=== PATIENT | female | born 1950 | race Caucasian/White ===

== ENCOUNTER 2022-05-24 15:45 | Inpatient (IN) ==
--- NOTE | 2022-05-24 15:55 | ED Triage Note ---
Date of Service May 24, 2022 History of Present Illness This patient was briefly evaluated while in triage. An abbreviated physical exam was performed. This patient is a 72-year-old Female with past medical history of MS and ?Heart valve issue (uncertain per son) who presents to the ED for evaluation of d ifficulty with balance, fall x6 times last week at home, and change in behavior. Pt. has had increased fatigue, been sleeping more.. Physical Exam VITALS: Vitals are noted on the nurse's note and reviewed by myself. GENERAL: This is a 72 year old white female, in no acute distress, nondiaphoretic, well-developed well-nourished. SKIN: Normal HEAD: Normocephalic atraumatic. NECK: No JVD. LUNGS: No retractions or accessory muscle use. MUSCULOSKELETAL: Pt. presents in wheelchair. Thoracic spine tenderness to palpation. NEURO: Patient was alert and oriented to person place and time. No focal neurological deficits. Initial orders for labs and / or imaging were placed and patient was placed in the waiting area until a bed is available. Please see further documentation for the full ED course.
[2022-05-24 17:17] LABS: Basophils # (auto) 0.03 K/uL (0-0.2); Basophils % (auto) 0.3 %; Eosinophils # (auto) 0.04 K/uL (0-0.50); Eosinophils % (auto) 0.4 %; Hematocrit (blood only) 38.3 % (34.1-44.9); Hemoglobin 12.7 g/dl (12.0-16.0); Immature Granulocytes # (auto) 0.04 K/uL (0.00-0.02); Immature Granulocytes % (auto) 0.4 %; Lymphocytes # (auto) 1.31 K/uL (1.2-3.4); Lymphocytes % (auto) 13.5 %; Mean Corpuscular Hemoglobin 32.3 pg (25.0-34.0); Mean Corpuscular Hgb Conc 33.2 g/dL (32.0-36.0); Mean Corpuscular Volume 97.5 fL (80.0-100.0); Mean Platelet Volume 10.1 fL (9.4-12.3); Monocytes # (auto) 0.84 K/uL (0.24-0.82); Monocytes % (auto) 8.7 %; Neutrophils # (auto) 7.42 K/uL (1.4-6.5); Neutrophils % (auto) 76.7 %; Platelet Count 388 K/uL (130-400); RDW Coefficient of Variation 15.6 % (11.5-14.5); RDW Standard Deviation 55.4 fL (36.4-46.3); Red Blood Count 3.93 M/uL (3.93-5.22); White Blood Count 9.68 K/ul (4.8-10.8)
[2022-05-24 17:24] LABS: Partial Thromboplastin Time 26.5 Seconds (21.0-31.0); Prothrombin Time 10.4 Seconds (9.0-12.0)
[2022-05-24 17:32] LABS: Alanine Aminotransferase 17 U/L (7-52); Albumin Globulin Ratio 1.2 (0.9-2); Albumin Level 3.7 gm/dl (3.4-5.0); Alkaline Phosphatase 99 U/L (34-104); Anion Gap 7 (3-11); Aspartate Aminotransferase 17 U/L (13-39); Bilirubin,Total 0.7 mg/dl (0.2-1.0); Blood Urea Nitrogen 9 mg/dl (6-23); Calcium 9.1 mg/dl (8.5-10.1); Carbon Dioxide 26 mmol/L (21-32); Chloride 107 mmol/L (98-107); Est GFR (African American) 99.4 ml/min; Est GFR (Non-African American) 85.8 ml/min; Globulin 3.2 gm/dl (2.5-4.0); Glucose 128 mg/dl (70-99(Fasting)); Magnesium 2.1 mg/dl (1.7-2.4); Potassium 3.5 mmol/L (3.5-5.1); Sodium 140 mmol/L (136-145); Total Protein 6.9 gm/dl (6.0-8.3)
[2022-05-24 17:38] LABS: Troponin I High Sensitivity 21.3 pg/ml (0-14)
[2022-05-24] MEDS ORDERED: SODIUM CHLORIDE 0.9% 1000ML 1,000 ML IV SCH (18:45)
--- NOTE | 2022-05-24 19:10 | XRay Report ---
XR chest 1V portable CLINICAL HISTORY: Stroke Like Symptoms. Evaluate cardiopulmonary status COMPARISON STUDY: No previous studies for comparison. TECHNIQUE: 1 view of the chest FINDINGS: Single frontal view of the chest demonstrates the cardiomediastinal silhouette to be within normal li mits. There is a decreased inspiratory effort with elevation of the hemidiaphragms and crowding of th e bronchovascular markings at the lung bases and centrally. The lungs are clear of alveolar opacities . There is no evidence for pleural effusion. There is no evidence for vascular congestion. There is n o acute osseous pathology. The patient is status post internal fixation of the right humerus. IMPRESSION: 1. There is a decreased inspiratory effort with otherwise no acute chest disease. ACT 112: Negative or not required by law. Electronically signed by: Gentry Delacruz M.D. 05/24/2022 7:08 PM
[2022-05-24] MEDS ORDERED: OPTIRAY 320 125ml IV ONE (19:34)
--- NOTE | 2022-05-24 19:46 | CT Scan Report ---
CT OF THE HEAD WITHOUT CONTRAST CLINICAL HISTORY: Stroke Like Symptoms COMPARISON STUDY: No previous studies for comparison. TECHNIQUE: Helical axial images of the head were obtained without IV contrast. Automated exposure con trol was utilized for the study. A dose lowering technique was utilized adhering to the principles o f ALARA. FINDINGS: No acute intracranial hemorrhage, midline shift or mass effect is present. Multiple white m atter hypodensities are present. The ventricular system is unremarkable. The basal cisterns are paten t. No extra-axial collections are present. There are no findings to suggest acute dural sinus thrombo sis or acute territorial infarct. No significant calvarial abnormalities are present. Visualized port ions of the sinuses and mastoid air cells are clear. IMPRESSION: 1. No acute intracranial findings. 2. Multiple white matter hypodensities. These could reflect small vessel disease or sites of demyelin ation. ACT 112: Negative or not required by law. Electronically signed by: Mick Diamond M.D. 05/24/2022 7:44 PM
--- NOTE | 2022-05-24 19:54 | Emergency Department Note ---
History of Present Illness General Chief complaint: Dizziness Stated complaint: DIZZY, UNABLE TO WALK. HAS MS Time Seen by Provider: 05/24/22 18:26 Source: patient and family Mode of arrival: wheelchair Limitations: no limitations History of Present Illness Provider complaint: Weakness, dizziness Onset (ago): week(s) 1 This is a 72-year-old female who presents the emergency department with concern for worsening dizziness and weakness over the course of the last week. Patient with significant past medical history including Parkinson's disease, seizures, and MS. patient was recently with her who was hospitalized in [facility]. Son came to help with them and brought his mom back to his place weekly when he noticed that she was much weaker than usual. She denies any recent change in medications. Son at bedside states that since her last doctor's appointment they have been slowly trying to wean down her propanolol, he has noticed since that time that her tremors have been worse. She denies fevers, chills, chest pain, trouble breathing. She denies any known sick contacts. Patient states she has fallen approximately half a dozen times over the last week due to her increased weakness. Son states she is typically able to walk using a rolling walker, but now cannot even stand. She states with several day episode she fell straight back striking her head. She denies LOC. Patient does not use any blood thinners. Son at bedside states she was recently treated for presumed urinary tract infection. A home health nurse was supposed to come to the house to collect a specimen for culture but this did not happen as she came to his house here. Pt seen during a time of high acuity and national emergency pandemic while wearing PPE. Home Medications Medication Instructions Recorded Confirmed Type glatiramer 40 mg/mL subcutaneous 0 mg subcut [id number] 05/24/22 05/24/22 History syringe (Copaxone) lamotrigine 200 mg tablet 200 mg PO BID 05/24/22 05/24/22 History levetiracetam 500 mg tablet 1,000 mg PO BID 05/24/22 05/24/22 History levothyroxine 112 mcg tablet 112 mcg PO QAM 05/24/22 05/24/22 History propranolol 20 mg tablet 10 mg PO BID 05/24/22 05/24/22 History topiramate 25 mg tablet 25 mg PO DAILY 05/24/22 05/24/22 History Allergies Allergy/AdvReac Type Severity Reaction Status Date / Time Penicillins Allergy Intermediate Hives Verified 05/24/22 19:18 Past Med/Surg History Medical History (Updated 05/25/22 @ 03:07 by Lin Dumont DO) Hypothyroid Multiple sclerosis Parkinson disease Seizure Surgical History (Updated 05/25/22 @ 02:42 by Yasmin Wade DO) History of carpal tunnel surgery History of thyroidectomy Family History (Updated 05/25/22 @ 02:42 by Yasmin Wade DO) Other Family history non-contributory Social History (Updated 05/25/22 @ 02:43 by Yasmin Wade DO) Smoking Status: Never smoker Hx Alcohol Use: No Hx Substance Use: No Feels Safe at Home: Yes Safety Concerns: Feels Safe At This Time Review of Systems A total of 10 systems reviewed and were otherwise negative All systems reviewed & are unremarkable except as noted in HPI & below Physical Exam Vital Signs Vital Signs - 24 hr 05/24/22 15:53 05/24/22 18:45 05/24/22 18:45 Temperature 36.4 C L Temperature Source Skin Pulse Rate 109 H Pulse Rate [Apical] 89 Pulse Rhythm Regular Pulse Strength Normal Respiratory Rate 18 18 Respiratory Effort / Characteristics Non-Labored Spontaneous Respiratory Depth Normal Respiratory Pattern Regular Blood Pressure 127/85 Blood Pressure [Right Arm] 145/93 H Blood Pressure Mean 99 Blood Pressure Mean [Right Arm] 110 Blood Pressure Position Sitting Pulse Oximetry 98 97 98 Oxygen Delivery Method Room Air Room Air Room Air Sepsis Recent Fever Within 48 Hours No Sepsis New/Unexplained Change in Mental Status No Sepsis Action Taken by Nursing No Action Required 05/24/22 20:00 05/24/22 22:00 Temperature Temperature Source Pulse Rate Pulse Rate [Apical] 78 67 Pulse Rhythm Pulse Strength Respiratory Rate 17 18 Respiratory Effort / Characteristics Non-Labored Respiratory Depth Normal Respiratory Pattern Blood Pressure Blood Pressure [Right Arm] 146/85 H 169/85 H Blood Pressure Mean Blood Pressure Mean [Right Arm] 105 113 Blood Pressure Position Pulse Oximetry 95 92 Oxygen Delivery Method Room Air Room Air Sepsis Recent Fever Within 48 Hours Sepsis New/Unexplained Change in Mental Status Sepsis Action Taken by Nursing GENERAL: alert, unwell appearing, well nourished, no distress, non-toxic EYE EXAM: normal conjunctiva, PERRL and EOM's grossly intact OROPHARYNX: no exudate, no erythema, lips, buccal mucosa, and tongue normal and mucous membranes are moist NECK: supple, no nuchal rigidity, no adenopathy, non-tender LUNGS: Clear to auscultation. Normal chest wall mechanics, no w/r/r HEART: no murmurs, S1 normal and S2 normal ABDOMEN: abdomen soft, non-tender, normo-active bowel sounds, no masses, no rebound or guarding. BACK: Back is symmetrical on inspection and there is no deformity, no midline tenderness, no CVA tenderness. SKIN: no rashes and no bruising UPPER EXTREMITIES: upper extremities are grossly normal. FROM, nml pulses b/l. LOWER EXTREMITIES: No pitting edema. FROM, nml pulses b/l. NEURO EXAM: Normal sensorium, cranial nerves II-XII grossly intact, normal speech, no gross weakness of arms, patient able to lift both legs off the bed and hold them however right lower extremity seems to fatigue more easily. Gross sensation intact. Course Administered Medications Lactated Ringer's (Lr) 1,000 mls @ 80 mls/hr IV .[id number] [facility] Stop: 05/25/22 13:55 Last Admin: 05/25/22 02:00 Dose: 80 mls/hr Documented By: HAYLEY Discontinued Medications Sodium Chloride (Nss 1000ml) 1,000 mls @ 125 mls/hr IV .Q8H KIMMY Stop: 06/23/22 18:44 Last Infusion: 05/25/22 01:00 Dose: 125 mls/hr Documented By: Admin: 05/24/22 19:45 Dose: 125 mls/hr Documented By: HAYLEY Ceftriaxone Sodium (Rocephin) 1,000 mg in 50 mls @ 100 mls/hr IV NOW STA Stop: 05/24/22 23:03 Last Infusion: 05/25/22 00:45 Dose: 0 mls/hr Documented By: Admin: 05/24/22 23:51 Dose: 100 mls/hr Documented By: HAYLEY Ioversol (Optiray 320 125ml) 120 ml IV ONCE ONE Stop: 05/24/22 19:35 Last Admin: 05/24/22 19:34 Dose: 120 ml Documented By: [facility] Medical Decision Making Differential Diagnosis Differential Diagnosis includes but is not limited to dehydration, stroke, anemia, hypoglycemia, hyponatremia, hypernatremia, urinary tract infection, pneu monia, bronchitis, sepsis, gastroenteritis, additional abdominal pathology, metabolic abnormalities and infections. Medical Records Attestation: I reviewed the patient's medical records. Home Medications Current Medication List: was personally reviewed by me Laboratory Data Attestation: I reviewed the patient's lab results. Result diagrams: 05/25/22 01:57 05/25/22 01:57 Lab Results 05/24/22 05/24/22 05/24/22 Range/Units 16:51 16:51 16:51 WBC 9.68 (4.8-10.8) K/ul RBC 3.93 (3.93-5.22) M/uL Hgb 12.7 (12.0-16.0) g/dl Hct 38.3 (34.1-44.9) % MCV 97.5 (80.0-100.0) fL MCH 32.3 (25.0-34.0) pg MCHC 33.2 (32.0-36.0) g/dL RDW Std Deviation 55.4 H (36.4-46.3) fL RDW Coeff of Jia 15.6 H (11.5-14.5) % Plt Count 388 (130-400) K/uL MPV 10.1 (9.4-12.3) fL Immature Gran % (Auto) 0.4 % Neut % (Auto) 76.7 % Lymph % (Auto) 13.5 % [place] % (Auto) 8.7 % Eos % (Auto) 0.4 % Baso % (Auto) 0.3 % Neut # (Auto) 7.42 H (1.4-6.5) K/uL Lymph # (Auto) 1.31 (1.2-3.4) K/uL [place] # (Auto) 0.84 H (0.24-0.82) K/uL Eos # (Auto) 0.04 (0-0.50) K/uL Baso # (Auto) 0.03 (0-0.2) K/uL Immature Gran # (Auto) 0.04 H (0.00-0.02) K/uL PT 10.4 (9.0-12.0) Seconds INR 1.0 (0.9-1.1) APTT 26.5 (21.0-31.0) Seconds PTT Ratio 1.0 Sodium (136-145) mmol/L Potassium (3.5-5.1) mmol/L Chloride (98-107) mmol/L Carbon Dioxide (21-32) mmol/L Anion Gap (3-11) BUN (6-23) mg/dl Creatinine (0.6-1.2) mg/dl Est Cr Clr Drug Dosing Est GFR ( Amer) ml/min Est GFR (Non-Af Amer) ml/min BUN/Creatinine Ratio (10-20) Glucose (70-99(Fasting)) mg/dl Calcium (8.5-10.1) mg/dl Magnesium (1.7-2.4) mg/dl Total Bilirubin (0.2-1.0) mg/dl AST (13-39) U/L ALT (7-52) U/L Alkaline Phosphatase (34-104) U/L Troponin I High Sens (0-14) pg/ml Total Protein (6.0-8.3) gm/dl Albumin (3.4-5.0) gm/dl Globulin (2.5-4.0) gm/dl Albumin/Globulin Ratio (0.9-2) TSH (0.300-4.500) uIu/ml Urine Color Urine Appearance (Clear) Urine pH (4.5-7.5) Ur Specific [place] (1.000-1.030) Urine Protein (Negative) Urine Glucose (UA) (Negative) Urine Ketones (Negative) Urine Blood (Negative) Urine Nitrite (Negative) Urine Bilirubin (Negative) Urine Urobilinogen (Negative) Ur Leukocyte Esterase (Negative) Urine WBC (Auto) (0-5) /hpf Urine RBC (Auto) (0-4) /hpf U Hyaline Cast (Auto) (0-5) /lpf U Epithel Cells (Auto) (0-5) /lpf Urine Bacteria (Auto) (Negative) Adenovirus (PCR) (NotDetected) B. pertussis DNA (PCR) (NotDetected) B.parapertussis DNA PCR (NotDetected) C. pneumoniae DNA (PCR) (NotDetected) Coronavirus OC43 (PCR) (NotDetected) Coronavirus HKU1 (PCR) (NotDetected) Coronavirus 229E (PCR) (NotDetected) SARS-CoV-2 (PCR) (NotDetected) Coronavirus NL63 (PCR) (NotDetected) Human Metapneumovir PCR (NotDetected) Influenza Type A (PCR) (NotDetected) Influenza Type B (PCR) (NotDetected) M. pneumoniae (PCR) (NotDetected) Parainfluenza 1 (PCR) (NotDetected) Parainfluenza 2 (PCR) (NotDetected) Parainfluenza 3 (PCR) (NotDetected) Parainfluenza 4 (PCR) (NotDetected) RSV (PCR) (NotDetected) Entero/Rhino (PCR) (NotDetected) Blood Type A Positive Antibody Screen NEGATIVE 05/24/22 05/24/22 05/24/22 Range/Units 16:51 16:52 19:47 WBC (4.8-10.8) K/ul RBC (3.93-5.22) M/uL Hgb (12.0-16.0) g/dl Hct (34.1-44.9) % MCV (80.0-100.0) fL MCH (25.0-34.0) pg MCHC (32.0-36.0) g/dL RDW Std Deviation (36.4-46.3) fL RDW Coeff of Jia (11.5-14.5) % Plt Count (130-400) K/uL MPV (9.4-12.3) fL Immature Gran % (Auto) % Neut % (Auto) % Lymph % (Auto) % [place] % (Auto) % Eos % (Auto) % Baso % (Auto) % Neut # (Auto) (1.4-6.5) K/uL Lymph # (Auto) (1.2-3.4) K/uL [place] # (Auto) (0.24-0.82) K/uL Eos # (Auto) (0-0.50) K/uL Baso # (Auto) (0-0.2) K/uL Immature Gran # (Auto) (0.00-0.02) K/uL PT (9.0-12.0) Seconds INR (0.9-1.1) APTT (21.0-31.0) Seconds PTT Ratio Sodium 140 (136-145) mmol/L Potassium 3.5 (3.5-5.1) mmol/L Chloride 107 (98-107) mmol/L Carbon Dioxide 26 (21-32) mmol/L Anion Gap 7 (3-11) BUN 9 (6-23) mg/dl Creatinine 0.69 (0.6-1.2) mg/dl Est Cr Clr Drug Dosing Not Reportable Est GFR ( Amer) 99.4 ml/min Est GFR (Non-Af Amer) 85.8 ml/min BUN/Creatinine Ratio 13.0 (10-20) Glucose 128 H (70-99(Fasting)) mg/dl Calcium 9.1 (8.5-10.1) mg/dl Magnesium 2.1 (1.7-2.4) mg/dl Total Bilirubin 0.7 (0.2-1.0) mg/dl AST 17 (13-39) U/L ALT 17 (7-52) U/L Alkaline Phosphatase 99 (34-104) U/L Troponin I High Sens 21.3 H (0-14) pg/ml Total Protein 6.9 (6.0-8.3) gm/dl Albumin 3.7 (3.4-5.0) gm/dl Globulin 3.2 (2.5-4.0) gm/dl Albumin/Globulin Ratio 1.2 (0.9-2) TSH 2.397 (0.300-4.500) uIu/ml Urine Color Urine Appearance (Clear) Urine pH (4.5-7.5) Ur Specific [place] (1.000-1.030) Urine Protein (Negative) Urine Glucose (UA) (Negative) Urine Ketones (Negative) Urine Blood (Negative) Urine Nitrite (Negative) Urine Bilirubin (Negative) Urine Urobilinogen (Negative) Ur Leukocyte Esterase (Negative) Urine WBC (Auto) (0-5) /hpf Urine RBC (Auto) (0-4) /hpf U Hyaline Cast (Auto) (0-5) /lpf U Epithel Cells (Auto) (0-5) /lpf Urine Bacteria (Auto) (Negative) Adenovirus (PCR) Not Detected (NotDetected) B. pertussis DNA (PCR) Not Detected (NotDetected) B.parapertussis DNA PCR Not Detected (NotDetected) C. pneumoniae DNA (PCR) Not Detected (NotDetected) Coronavirus OC43 (PCR) Not Detected (NotDetected) Coronavirus HKU1 (PCR) Not Detected (NotDetected) Coronavirus 229E (PCR) Not Detected (NotDetected) SARS-CoV-2 (PCR) Not Detected (NotDetected) Coronavirus NL63 (PCR) Not Detected (NotDetected) Human Metapneumovir PCR Not Detected (NotDetected) Influenza Type A (PCR) Not Detected (NotDetected) Influenza Type B (PCR) Not Detected (NotDetected) M. pneumoniae (PCR) Not Detected (NotDetected) Parainfluenza 1 (PCR) Not Detected (NotDetected) Parainfluenza 2 (PCR) Not Detected (NotDetected) Parainfluenza 3 (PCR) Not Detected (NotDetected) Parainfluenza 4 (PCR) Not Detected (NotDetected) RSV (PCR) Not Detected (NotDetected) Entero/Rhino (PCR) Not Detected (NotDetected) Blood Type Antibody Screen 05/24/22 Range/Units 22:10 WBC (4.8-10.8) K/ul RBC (3.93-5.22) M/uL Hgb (12.0-16.0) g/dl Hct (34.1-44.9) % MCV (80.0-100.0) fL MCH (25.0-34.0) pg MCHC (32.0-36.0) g/dL RDW Std Deviation (36.4-46.3) fL RDW Coeff of Jia (11.5-14.5) % Plt Count (130-400) K/uL MPV (9.4-12.3) fL Immature Gran % (Auto) % Neut % (Auto) % Lymph % (Auto) % [place] % (Auto) % Eos % (Auto) % Baso % (Auto) % Neut # (Auto) (1.4-6.5) K/uL Lymph # (Auto) (1.2-3.4) K/uL [place] # (Auto) (0.24-0.82) K/uL Eos # (Auto) (0-0.50) K/uL Baso # (Auto) (0-0.2) K/uL Immature Gran # (Auto) (0.00-0.02) K/uL PT (9.0-12.0) Seconds INR (0.9-1.1) APTT (21.0-31.0) Seconds PTT Ratio Sodium (136-145) mmol/L Potassium (3.5-5.1) mmol/L Chloride (98-107) mmol/L Carbon Dioxide (21-32) mmol/L Anion Gap (3-11) BUN (6-23) mg/dl Creatinine (0.6-1.2) mg/dl Est Cr Clr Drug Dosing Est GFR ( Amer) ml/min Est GFR (Non-Af Amer) ml/min BUN/Creatinine Ratio (10-20) Glucose (70-99(Fasting)) mg/dl Calcium (8.5-10.1) mg/dl Magnesium (1.7-2.4) mg/dl Total Bilirubin (0.2-1.0) mg/dl AST (13-39) U/L ALT (7-52) U/L Alkaline Phosphatase (34-104) U/L Troponin I High Sens (0-14) pg/ml Total Protein (6.0-8.3) gm/dl Albumin (3.4-5.0) gm/dl Globulin (2.5-4.0) gm/dl Albumin/Globulin Ratio (0.9-2) TSH (0.300-4.500) uIu/ml Urine Color Dark Yellow Urine Appearance Clear (Clear) Urine pH 6.5 (4.5-7.5) Ur Specific [place] 1.021 (1.000-1.030) Urine Protein Negative (Negative) Urine Glucose (UA) Negative (Negative) Urine Ketones Negative (Negative) Urine Blood Negative (Negative) Urine Nitrite Positive A (Negative) Urine Bilirubin 1+ H (Negative) Urine Urobilinogen Negative (Negative) Ur Leukocyte Esterase Trace H (Negative) Urine WBC (Auto) 1-5 (0-5) /hpf Urine RBC (Auto) 0-4 (0-4) /hpf U Hyaline Cast (Auto) 1-5 (0-5) /lpf U Epithel Cells (Auto) 5-10 H (0-5) /lpf Urine Bacteria (Auto) Negative (Negative) Adenovirus (PCR) (NotDetected) B. pertussis DNA (PCR) (NotDetected) B.parapertussis DNA PCR (NotDetected) C. pneumoniae DNA (PCR) (NotDetected) Coronavirus OC43 (PCR) (NotDetected) Coronavirus HKU1 (PCR) (NotDetected) Coronavirus 229E (PCR) (NotDetected) SARS-CoV-2 (PCR) (NotDetected) Coronavirus NL63 (PCR) (NotDetected) Human Metapneumovir PCR (NotDetected) Influenza Type A (PCR) (NotDetected) Influenza Type B (PCR) (NotDetected) M. pneumoniae (PCR) (NotDetected) Parainfluenza 1 (PCR) (NotDetected) Parainfluenza 2 (PCR) (NotDetected) Parainfluenza 3 (PCR) (NotDetected) Parainfluenza 4 (PCR) (NotDetected) RSV (PCR) (NotDetected) Entero/Rhino (PCR) (NotDetected) Blood Type Antibody Screen Imaging Data Radiologist's Impression: Cervical Spine CT 05/24/22 15:55 CT OF THE CERVICAL SPINE WITHOUT CONTRAST CLINICAL HISTORY: Multiple falls, pain COMPARISON STUDY: No previous studies for comparison. TECHNIQUE: Helical axial images of the cervical spine were obtained without IV contrast. Sagittal and coronal reconstructions were viewed. Automated exposure control was utilized for the study. A dose lowering technique was utilized adhering to the principles of ALARA. FINDINGS: Alignment of the cervical spine is anatomic. Vertebral body heights are maintained. No acute cervical spine fracture or subluxation is present. There is no prevertebral edema. Facet joints are intact. Please note that the CTA of the neck will be reported separately. Multiple thoracic spine compression deformities are better depicted on the thoracic spine CT which will be reported separately. Moderate multilevel facet arthrosis and mild multilevel degenerative disc disease is present. IMPRESSION: 1. No acute cervical spine fracture or subluxation. 2. Multiple thoracic spine compression deformities which are better depicted on the thoracic spine CT. This will be reported separately. ACT 112: Negative or not required by law. Electronically signed by: Mick Diamond M.D. 05/24/2022 7:58 PM Chest X-Ray 05/24/22 15:55 XR chest 1V portable CLINICAL HISTORY: Stroke Like Symptoms. Evaluate cardiopulmonary status COMPARISON STUDY: No previous studies for comparison. TECHNIQUE: 1 view of the chest FINDINGS: Single frontal view of the chest demonstrates the cardiomediastinal silhouette to be within normal limits. There is a decreased inspiratory effort with elevation of the hemidiaphragms and crowding of the bronchovascular markings at the lung bases and centrally. The lungs are clear of alveolar opacities. There is no evidence for pleural effusion. There is no evidence for vascular congestion. There is no acute osseous pathology. The patient is status post internal fixation of the right humerus. IMPRESSION: 1. There is a decreased inspiratory effort with otherwise no acute chest disease. ACT 112: Negative or not required by law. Electronically signed by: Gentry Delacruz M.D. 05/24/2022 7:[address] 05/24/22 15:55 CT OF THE HEAD WITHOUT CONTRAST CLINICAL HISTORY: Stroke Like Symptoms COMPARISON STUDY: No previous studies for comparison. TECHNIQUE: Helical axial images of the head were obtained without IV contrast. Automated exposure control was utilized for the study. A dose lowering technique was utilized adhering to the principles of ALARA. FINDINGS: No acute intracranial hemorrhage, midline shift or mass effect is present. Multiple white matter hypodensities are present. The ventricular system is unremarkable. The basal cisterns are patent. No extra-axial collections are present. There are no findings to suggest acute dural sinus thrombosis or acute territorial infarct. No significant calvarial abnormalities are present. Visualized portions of the sinuses and mastoid air cells are clear. IMPRESSION: 1. No acute intracranial findings. 2. Multiple white matter hypodensities. These could reflect small vessel disease or sites of demyelination. ACT 112: Negative or not required by law. Electronically signed by: Mick Diamond M.D. 05/24/2022 7:44 PM Head CTA 05/24/22 15:55 CTA ANGIOGRAPHY OF THE HEAD CLINICAL HISTORY: Stroke Like Symptoms COMPARISON STUDY: No previous studies for comparison. TECHNIQUE: Helical axial images of the head were obtained following uneventful intravenous administration of 120 cc of Optiray. Sagittal and coronal reconstructions were viewed as well as maximal intensity projections on an independent 3-D workstation. Automated exposure control was utilized for the study. A dose lowering technique was utilized adhering to the principles of ALARA. CT DOSE: 2581.33 mGy.cm FINDINGS: Please note that the head CT will be reported separately. The bilateral M1, M2, A1 and A2 segments are patent. No central vessel occlusion is present. There is no intracranial aneurysm. Posterior circulation is intact. Left vertebral artery is dominant. There is persistence of the right posterior cerebral artery. No dissection within the intracranial vessels is present. White matter hypodensities are better depicted on the head CT. Major dural sinuses appear grossly patent. IMPRESSION: No intracranial aneurysm. No central vessel occlusion. ACT 112: Negative or not required by law. Electronically signed by: Mick Diamond M.D. 05/24/2022 8:[address] 05/24/22 15:55 CT OF THE LUMBAR SPINE CLINICAL HISTORY: Low back pain, multiple falls COMPARISON STUDY: No previous studies for comparison. TECHNIQUE: Helical axial images of the lumbar spine were obtained. Sagittal and coronal reconstructions were viewed. Automated exposure control was utilized for the study. A dose lowering technique was utilized adhering to the principles of ALARA. FINDINGS: For purposes of numbering on this exam, the L5-S1 disc space is assigned to axial image 244 of 308. There is mild leftward curvature of the l umbar spine. A moderate L3 compression fracture is likely old. Acute to subacute nondisplaced fracture of the left transverse process of L3 is present. There is mild loss of height of the inferior endplate of L2. Moderate multilevel facet arthrosis is noted. There is also moderate multilevel degenerative disc disease. Sacroiliac joints are intact. Central canal and neural foramen are suboptimally assessed by CT. A cystic masslike density within the pelvis and lower abdomen is partially imaged on this examination. This could simply represent the bladder. IMPRESSION: 1. Acute to subacute nondisplaced fracture of the left transverse process of L3. 2. Moderate L3 compression fracture, likely old. Mild loss of height of the inferior endplate of L2 which is also likely old. 3. Cystic mas-like density within the pelvis and lower abdomen which is partially imaged on this exam. This could simply represent a distended bladder however a pelvic mass could appear similar. A CT of the pelvis is recommended for further evaluation. ACT 112: Negative or not required by law. Electronically signed by: Mick Diamond M.D. 05/24/2022 8:10 PM Neck CTA 05/24/22 15:55 CT ANGIOGRAPHY OF THE NECK WITH CONTRAST CLINICAL HISTORY: Stroke Like Symptoms COMPARISON STUDY: No previous studies for comparison. Technique: CT angiography of the carotid and vertebral arteries was obtained using Optiray and 3D reconstruction on an independent workstation. NASCET criteria was utilized. Automated exposure control was utilized for the study. A dose lowering technique was utilized adhering to the principles of ALARA. Findings: No acute cervical spine fracture is noted. Multiple thoracic spine compression deformities are better depicted on the thoracic spine CT which will be reported separately. Visualized portions of the lung apices are unremarkable. A 1.2 x 0.7 cm hyperdense focus overlying the right anterior aspect of the thyroid cartilage may reflect ectopic thyroid. The bilateral common carotid, cervical internal carotid and vertebral arteries are patent. There is mild plaque within the bilateral carotid bifurcations without stenosis. There is no dissection within the major vessels of the neck. No aneurysm is identified. There is no cervical lymphadenopathy. Tortuosity of the right common carotid artery is noted. IMPRESSION: No stenosis or dissection within the bilateral common carotid, cervical internal carotid or vertebral arteries. ACT 112: Negative or not required by law. Electronically signed by: Mick Diamond M.D. 05/24/2022 7:[address] 05/24/22 15:55 CT OF THE THORACIC SPINE CLINICAL HISTORY: Pain, multiple falls COMPARISON STUDY: No previous studies for comparison. TECHNIQUE: Helical axial images of the thoracic spine were obtained. Sagittal and coronal reconstructions were viewed. Automated exposure control was utilized for the study. A dose lowering technique was utilized adhering to the principles of ALARA. FINDINGS: Exaggerated kyphosis of the thoracic spine is noted. There are numerous thoracic spine compression fractures. Although age indeterminate, these are probably old. These include a severe T7 compression fracture with 90% loss of vertebral body height centrally. There is minimal retropulsion at this level. In addition, there are compression fractures of T1, T2, T3, T4, T5, T6, T10, T11 and T12. No definite acute thoracic spine fracture is noted. Central canal and neural foramen are suboptimally assessed by CT. There are multiple posterior left-sided rib fractures. No acute fractures are identified within visualized portions of the ribs. No pneumothorax within visualized portions of the chest. Multilevel degenerative changes within the thoracic spine are present. IMPRESSION: 1. Numerous thoracic spine compression fractures, as described above. Although age indeterminate, these are probably old. These include a severe T7 compression fracture. No significant retropulsion. 2. No definite acute thoracic spine fracture. ACT 112: Negative or not required by law. Electronically signed by: Mick Diamond M.D. 05/24/2022 8:05 PM ECG Data Attestation: I personally reviewed and interpreted this ECG as follows: Indication: + weakness Rate (beats per minute): 93 Rhythm: + normal sinus ECG Intervals/blocks: + Normal QRS and + Normal QT ECG [place]: + Normal ECG ST segments: + Nonspecific ST abnormalities Additional Comments: basleine artifact noted MDM Narrative An order was placed for continuous cardiac monitoring. The monitor shows a rate of _72_ with _normal sinus_ rhythm. This is a 72-year-old female presents emergency department due to worsening weakness, dizziness over the course of the week. Patient does have significant past medical history including MS, Parkinson's disease, and seizures. No recent change in medications. Patient was recently treated for an outpatient UTI with nitrofurantoin, no culture ever obtained and sent. Labs and imaging originally ordered by provider in triage has patient seen on a day of high volume and acuity. Patient had no focal deficits noted on exam, although some slightly asymmetric leg weakness was noted. No prior history of TIA/CVA. CTs of the patient's back had also been ordered due to complaints of back pain and recent trauma from frequent falls over the last week due to weakness. Patient initially resistant to straight catheterization for obtaining urine specimen. Eventually as patient was unable to urinate and help us obtain a clean-catch, a straight cath was performed and urine sent which did reveal UTI. I suspect patient's use of nitrofurantoin as an outpatient was suboptimal, and given no culture for comparison, may not have been the drug of choice. Patient given IV Rocephin here. No evidence of evolving bacteremia/sepsis. No evidence of VICENTE. I do not suspect ureterolithiasis or other obstructive uropathy. Discussed with hospitalist for additional evaluation and management. Impression & Plan Weakness, Multiple sclerosis, Parkinson disease, UTI (urinary tract infection) Discharge Plan Visit Data Chief Complaint: Dizziness Stated Complaint: DIZZY, UNABLE TO WALK. HAS MS ED Provider: Lin Dumont Discharge Problem: Weakness, Multiple sclerosis, Parkinson disease, UTI (urinary tract infection) Patient Disposition: Admitted As Inpatient Discharge Instructions Interventions: ED Discharge Assessment Last Done: 05/25/22 01:28
--- NOTE | 2022-05-24 19:55 | CT Scan Report ---
CT ANGIOGRAPHY OF THE NECK WITH CONTRAST CLINICAL HISTORY: Stroke Like Symptoms COMPARISON STUDY: No previous studies for comparison. Technique: CT angiography of the carotid and vertebral arteries was obtained using Optiray and 3D rec onstruction on an independent workstation. NASCET criteria was utilized. Automated exposure control was utilized for the study. A dose lowering technique was utilized adhering to the principles of ALA RA. Findings: No acute cervical spine fracture is noted. Multiple thoracic spine compression deformities are better depicted on the thoracic spine CT which will be reported separately. Visualized portions o f the lung apices are unremarkable. A 1.2 x 0.7 cm hyperdense focus overlying the right anterior aspe ct of the thyroid cartilage may reflect ectopic thyroid. The bilateral common carotid, cervical inter nal carotid and vertebral arteries are patent. There is mild plaque within the bilateral carotid bifu rcations without stenosis. There is no dissection within the major vessels of the neck. No aneurysm i s identified. There is no cervical lymphadenopathy. Tortuosity of the right common carotid artery is noted. IMPRESSION: No stenosis or dissection within the bilateral common carotid, cervical internal carotid or vertebral arteries. ACT 112: Negative or not required by law. Electronically signed by: Mick Diamond M.D. 05/24/2022 7:53 PM
--- NOTE | 2022-05-24 20:01 | CT Scan Report ---
CT OF THE CERVICAL SPINE WITHOUT CONTRAST CLINICAL HISTORY: Multiple falls, pain COMPARISON STUDY: No previous studies for comparison. TECHNIQUE: Helical axial images of the cervical spine were obtained without IV contrast. Sagittal a nd coronal reconstructions were viewed. Automated exposure control was utilized for the study. A do se lowering technique was utilized adhering to the principles of ALARA. FINDINGS: Alignment of the cervical spine is anatomic. Vertebral body heights are maintained. No acut e cervical spine fracture or subluxation is present. There is no prevertebral edema. Facet joints are intact. Please note that the CTA of the neck will be reported separately. Multiple thoracic spine c ompression deformities are better depicted on the thoracic spine CT which will be reported separately . Moderate multilevel facet arthrosis and mild multilevel degenerative disc disease is present. IMPRESSION: 1. No acute cervical spine fracture or subluxation. 2. Multiple thoracic spine compression deformities which are better depicted on the thoracic spine CT . This will be reported separately. ACT 112: Negative or not required by law. Electronically signed by: Mick Diamond M.D. 05/24/2022 7:58 PM
--- NOTE | 2022-05-24 20:01 | CT Scan Report ---
CTA ANGIOGRAPHY OF THE HEAD CLINICAL HISTORY: Stroke Like Symptoms COMPARISON STUDY: No previous studies for comparison. TECHNIQUE: Helical axial images of the head were obtained following uneventful intravenous administr ation of 120 cc of Optiray. Sagittal and coronal reconstructions were viewed as well as maximal inten sity projections on an independent 3-D workstation. Automated exposure control was utilized for the study. A dose lowering technique was utilized adhering to the principles of ALARA. CT DOSE: 2581.33 mGy.cm FINDINGS: Please note that the head CT will be reported separately. The bilateral M1, M2, A1 and A2 s egments are patent. No central vessel occlusion is present. There is no intracranial aneurysm. Faculty Support Coordinator ior circulation is intact. Left vertebral artery is dominant. There is persistence of the right posterior cerebral artery. No dissection within the intracranial vessels is present. White matter hy podensities are better depicted on the head CT. Major dural sinuses appear grossly patent. IMPRESSION: No intracranial aneurysm. No central vessel occlusion. ACT 112: Negative or not required by law. Electronically signed by: Mick Diamond M.D. 05/24/2022 8:00 PM
--- NOTE | 2022-05-24 20:07 | CT Scan Report ---
CT OF THE THORACIC SPINE CLINICAL HISTORY: Pain, multiple falls COMPARISON STUDY: No previous studies for comparison. TECHNIQUE: Helical axial images of the thoracic spine were obtained. Sagittal and coronal reconstru ctions were viewed. Automated exposure control was utilized for the study. A dose lowering techniqu e was utilized adhering to the principles of ALARA. FINDINGS: Exaggerated kyphosis of the thoracic spine is noted. There are numerous thoracic spine comp ression fractures. Although age indeterminate, these are probably old. These include a severe T7 comp ression fracture with 90% loss of vertebral body height centrally. There is minimal retropulsion at t his level. In addition, there are compression fractures of T1, T2, T3, T4, T5, T6, T10, T11 and T12. No definite acute thoracic spine fracture is noted. Central canal and neural foramen are suboptimally assessed by CT. There are multiple posterior left-sided rib fractures. No acute fractures are identi fied within visualized portions of the ribs. No pneumothorax within visualized portions of the chest. Multilevel degenerative changes within the thoracic spine are present. IMPRESSION: 1. Numerous thoracic spine compression fractures, as described above. Although age indeterminate, the se are probably old. These include a severe T7 compression fracture. No significant retropulsion. 2. No definite acute thoracic spine fracture. ACT 112: Negative or not required by law. Electronically signed by: Mick Diamond M.D. 05/24/2022 8:05 PM
--- NOTE | 2022-05-24 20:12 | CT Scan Report ---
CT OF THE LUMBAR SPINE CLINICAL HISTORY: Low back pain, multiple falls COMPARISON STUDY: No previous studies for comparison. TECHNIQUE: Helical axial images of the lumbar spine were obtained. Sagittal and coronal reconstruct ions were viewed. Automated exposure control was utilized for the study. A dose lowering technique was utilized adhering to the principles of ALARA. FINDINGS: For purposes of numbering on this exam, the L5-S1 disc space is assigned to axial image 244 of 308. There is mild leftward curvature of the lumbar spine. A moderate L3 compression fracture is likely old. Acute to subacute nondisplaced fracture of the left transverse process of L3 is present. There is mild loss of height of the inferior endplate of L2. Moderate multilevel facet arthrosis is n oted. There is also moderate multilevel degenerative disc disease. Sacroiliac joints are intact. Cent ral canal and neural foramen are suboptimally assessed by CT. A cystic masslike density within the pe lvis and lower abdomen is partially imaged on this examination. This could simply represent the bladd er. IMPRESSION: 1. Acute to subacute nondisplaced fracture of the left transverse process of L3. 2. Moderate L3 compression fracture, likely old. Mild loss of height of the inferior endplate of L2 w hich is also likely old. 3. Cystic mas-like density within the pelvis and lower abdomen which is partially imaged on this exam . This could simply represent a distended bladder however a pelvic mass could appear similar. A CT of the pelvis is recommended for further evaluation. ACT 112: Negative or not required by law. Electronically signed by: Mick Diamond M.D. 05/24/2022 8:10 PM
[2022-05-24 20:52] LABS: Adenovirus PCR Not Detected (NotDetected); Bordetella parapertussis PCR Not Detected (NotDetected); Bordetella pertussis PCR Not Detected (NotDetected); Chlamydia pneumoniae PCR Not Detected (NotDetected); Coronavirus 229E PCR Not Detected (NotDetected); Coronavirus CoV-2 (COVID19)PCR Not Detected (NotDetected); Coronavirus HKU1 PCR Not Detected (NotDetected); Coronavirus NL63 PCR Not Detected (NotDetected); Coronavirus OC43PCR Not Detected (NotDetected); Human Metapneumovirus PCR Not Detected (NotDetected); Influenza A PCR Not Detected (NotDetected); Influenza B PCR Not Detected (NotDetected); Mycoplasma pneumoniae PCR Not Detected (NotDetected); Parainfluenza Virus 1 PCR Not Detected (NotDetected); Parainfluenza Virus 2 PCR Not Detected (NotDetected); Parainfluenza Virus 3 PCR Not Detected (NotDetected); Parainfluenza Virus 4 PCR Not Detected (NotDetected); Respiratory Syncytial VirusPCR Not Detected (NotDetected); Rhinovirus/Enterovirus PCR Not Detected (NotDetected)
[2022-05-24 22:24] LABS: Appearance Urine Clear (Clear); Bacteria Urine Automated Negative (Negative); Blood Urine Negative (Negative); Color Urine Dark Yellow; Glucose Urine UA Negative (Negative); Ketones Urine Negative (Negative); Leukocyte Esterase Urine Trace (Negative); Nitrite Urine Positive (Negative); Protein Urine Negative (Negative); RBC Urine Automated 0-4 /hpf (0-4); Specific Gravity Urine 1.021 (1.000-1.030); Urobilinogen Urine Negative (Negative); pH Urine 6.5 (4.5-7.5)
[2022-05-24 22:26] LABS: Bilirubin Urine 1+ (Negative)
[2022-05-24] MEDS ORDERED: cefTRIAXone SODIUM 1,000 MG/50 ML BAG IV STA (22:34)
[2022-05-25] MEDS ORDERED: LACTATED RINGER'S 1,000 ML IV SCH (01:26)
[2022-05-25] MEDS ORDERED: ONDANSETRON INJ 2 MG/ML 2 ML VIAL IV PRN (01:26)
[2022-05-25] MEDS ORDERED: ACETAMINOPHEN 325 MG TAB PO PRN (01:26)
[2022-05-25 02:05] LABS: Basophils # (auto) 0.04 K/uL (0-0.2); Basophils % (auto) 0.4 %; Eosinophils # (auto) 0.11 K/uL (0-0.50); Eosinophils % (auto) 1.1 %; Hematocrit (blood only) 35.4 % (34.1-44.9); Hemoglobin 11.8 g/dl (12.0-16.0); Immature Granulocytes # (auto) 0.02 K/uL (0.00-0.02); Immature Granulocytes % (auto) 0.2 %; Lymphocytes # (auto) 1.67 K/uL (1.2-3.4); Lymphocytes % (auto) 17.4 %; Mean Corpuscular Hemoglobin 32.3 pg (25.0-34.0); Mean Corpuscular Hgb Conc 33.3 g/dL (32.0-36.0); Monocytes # (auto) 0.93 K/uL (0.24-0.82); Monocytes % (auto) 9.7 %; Neutrophils # (auto) 6.81 K/uL (1.4-6.5); Neutrophils % (auto) 71.2 %; Platelet Count 340 K/uL (130-400); RDW Coefficient of Variation 15.6 % (11.5-14.5); RDW Standard Deviation 55.8 fL (36.4-46.3); Red Blood Count 3.65 M/uL (3.93-5.22); White Blood Count 9.58 K/ul (4.8-10.8)
[2022-05-25 02:33] LABS: BUN Creatinine Ratio 12.9 (10-20); Calcium 8.6 mg/dl (8.5-10.1); Chol HDL Ratio 2.5 (0-5); Est GFR (Non-African American) 88.8 ml/min; Potassium 3.5 mmol/L (3.5-5.1)
--- NOTE | 2022-05-25 02:50 | History & Physical Report ---
Date of Service May 24, 2022 Assessment & Plan (1) Weakness: Plan: 72yo female with history of MS, PD and Seizure disorder presenting with 1 week of progressive weakness, ambulatory dysfunction and falls. ?MS flare in setting of UTI -Admit to medical -Check MRI brain -Neuro consultation appreciated -PT/OT evaluation -Request records from [facility] Neurology (2) UTI (urinary tract infection): Plan: UA suggestive of infection. Patient is afebrile, HD stable and non-toxic in appearance -Follow cultures -Ceftriaxone 1gm IV daily (3) Hypothyroid: Plan: Chronic. TSH WNL at 2.397 -Continue Synthroid (4) Parkinson disease: Plan: Chronic -Continue Propranolol -Records requested (5) Multiple sclerosis: Plan: Chronic -Patient receives glatiramer injections -Records requested (6) Seizure: Plan: Chronic -Continue Topamax, Keppra, Lamictal Admission and Anticipated Discharge Date Admission Date: May 24, 2022 History of Present Illness Chief Complaint: weakness Primary Care Provider: NO PCP Nicki Arevalo is a 72yo female with history of MS, Seizure disorder and Parkinson's disease. Patient is from [place], [place]. She is presently residing with her son as her is currently being hospitalized. She has been in [place] for approximately 1 week. She reports worsening weakness, poor balance and multiple falls over the last week. She is unable to walk or stand on her own and requires 2 people for transfers. She feels that her right leg is weaker than her left. Patient with relapsing-remitting MS. She uses a wheelchair at home. She follows with Neurology at [facility] - last seen appx 2 years ago. She thinks her last MRI was appx 1 year ago. Was recently treated with a course of Macrobid for a presumed UTI. She denies fever, chills, chest pain, cough, SOB, abdominal pain, nausea, vomiting, constipation. Denies dysuria or difficulty urinating. She reports softer BMs but not diarrhea. Allergies Allergy/AdvReac Type Severity Reaction Status Date / Time Penicillins Allergy Intermediate Hives Verified 05/24/22 19:18 Home Medications Medication Instructions Recorded Confirmed Type glatiramer 40 mg/mL subcutaneous 0 mg subcut 3XWK 05/24/22 05/24/22 History syringe (Copaxone) lamotrigine 200 mg tablet 200 mg PO BID 05/24/22 05/24/22 History levetiracetam 500 mg tablet 1,000 mg PO BID 05/24/22 05/24/22 History levothyroxine 112 mcg tablet 112 mcg PO QAM 05/24/22 05/24/22 History propranolol 20 mg tablet 10 mg PO BID 05/24/22 05/24/22 History topiramate 25 mg tablet 25 mg PO DAILY 05/24/22 05/24/22 History Past Med/Surg History Medical History (Updated 05/25/22 @ 02:44 by Yasmin Wade DO) Hypothyroid Multiple sclerosis Parkinson disease Seizure Surgical History (Updated 05/25/22 @ 02:42 by Yasmin Wade DO) History of carpal tunnel surgery History of thyroidectomy Family History (Updated 05/25/22 @ 02:42 by Yasmin Wade DO) Other Family history non-contributory Social History (Updated 05/25/22 @ 02:43 by Yasmin Wade DO) Smoking Status: Never smoker Hx Alcohol Use: No Hx Substance Use: No Feels Safe at Home: Yes Safety Concerns: Feels Safe At This Time Review of Systems Review of Systems: All systems reviewed & are unremarkable except as noted in HPI & below Physical Exam Physical Exam: General: patient resting comfortably, NAD, non-toxic in appearance, AA&O x 4 Skin: warm, dry, intact, no rashes or lesions HEENT: NC/AT, PERRL, EOMI, anicteric sclera, conjunctiva without injection, external ear normal to inspection and nontender, nares patent, moist mucus membranes, dentition intact, no oropharyngeal lesions, neck supple, trachea midline, no LAD, no thyromegaly, no JVD Heart: +S1/S2, regular, no m/r/g Lungs: equal air entry bilaterally, no rales/rhonchi/wheezes Abd: +BS, soft, NT/ND, no masses/organomegaly/ascites Ext: warm, 2+ pulses in UE/LE bilaterally, no clubbing/cyanosis or edema Neuro: +resting tremor, +rigidity of UE/LE, CN grossly intact, sensation to light touch intact in UE/LE bilaterally, some weakness of RLE Results & Data Results & Data ([facility]) Vital Signs (Past 12 Hours) Vital Signs Temp Pulse Pulse Resp BP BP Pulse Ox 05/25/22 01:42 70 18 144/80 H 98 05/25/22 00:00 71 19 147/89 H 94 05/24/22 22:00 67 18 169/85 H 92 05/24/22 20:00 78 17 146/85 H 95 05/24/22 18:45 89 18 145/93 H 98 05/24/22 18:45 97 05/24/22 15:53 36.4 C L 109 H 18 127/85 98 O2 Del Method 05/25/22 01:42 05/25/22 00:00 Room Air 05/24/22 22:00 Room Air 05/24/22 20:00 Room Air 05/24/22 18:45 Room Air 05/24/22 18:45 Room Air 05/24/22 15:53 Room Air Laboratory Results Laboratory Results WBC 9.58 K/ul (4.8-10.8) 05/25/22 01:57 RBC 3.65 M/uL (3.93-5.22) L 05/25/22 01:57 Hgb 11.8 g/dl (12.0-16.0) L 05/25/22 01:57 Hct 35.4 % (34.1-44.9) 05/25/22 01:57 MCV 97.0 fL (80.0-100.0) 05/25/22 01:57 MCH 32.3 pg (25.0-34.0) 05/25/22 01:57 MCHC 33.3 g/dL (32.0-36.0) 05/25/22 01:57 RDW Std Deviation 55.8 fL (36.4-46.3) H 05/25/22 01:57 RDW Coeff of Jia 15.6 % (11.5-14.5) H 05/25/22 01:57 Plt Count 340 K/uL (130-400) 05/25/22 01:57 MPV 10.0 fL (9.4-12.3) 05/25/22 01:57 Immature Gran % (Auto) 0.2 % 05/25/22 01:57 Neut % (Auto) 71.2 % 05/25/22 01:57 Lymph % (Auto) 17.4 % 05/25/22 01:57 [place] % (Auto) 9.7 % 05/25/22 01:57 Eos % (Auto) 1.1 % 05/25/22 01:57 Baso % (Auto) 0.4 % 05/25/22 01:57 Neut # (Auto) 6.81 K/uL (1.4-6.5) H 05/25/22 01:57 Lymph # (Auto) 1.67 K/uL (1.2-3.4) 05/25/22 01:57 [place] # (Auto) 0.93 K/uL (0.24-0.82) H 05/25/22 01:57 Eos # (Auto) 0.11 K/uL (0-0.50) 05/25/22 01:57 Baso # (Auto) 0.04 K/uL (0-0.2) 05/25/22 01:57 Immature Gran # (Auto) 0.02 K/uL (0.00-0.02) 05/25/22 01:57 PT 10.4 Seconds (9.0-12.0) 05/24/22 16:51 INR 1.0 (0.9-1.1) 05/24/22 16:51 APTT 26.5 Seconds (21.0-31.0) 05/24/22 16:51 PTT Ratio 1.0 05/24/22 16:51 Sodium 139 mmol/L (136-145) 05/25/22 01:57 Potassium 3.5 mmol/L (3.5-5.1) 05/25/22 01:57 Chloride 108 mmol/L (98-107) H 05/25/22 01:57 Carbon Dioxide 25 mmol/L (21-32) 05/25/22 01:57 Anion Gap 6 (3-11) 05/25/22 01:57 BUN 8 mg/dl (6-23) 05/25/22 01:57 Creatinine 0.62 mg/dl (0.6-1.2) 05/25/22 01:57 Est Cr Clr Drug Dosing 63.0 ml/min 05/25/22 01:57 Est GFR ( Amer) 103.0 ml/min 05/25/22 01:57 Est GFR (Non-Af Amer) 88.8 ml/min 05/25/22 01:57 BUN/Creatinine Ratio 12.9 (10-20) 05/25/22 01:57 Glucose 104 mg/dl (70-99(Fasting)) H 05/25/22 01:57 Calcium 8.6 mg/dl (8.5-10.1) 05/25/22 01:57 Magnesium 2.1 mg/dl (1.7-2.4) 05/24/22 16:51 Total Bilirubin 0.7 mg/dl (0.2-1.0) 05/24/22 16:51 AST 17 U/L (13-39) 05/24/22 16:51 ALT 17 U/L (7-52) 05/24/22 16:51 Alkaline Phosphatase 99 U/L (34-104) 05/24/22 16:51 Troponin I High Sens 25.9 pg/ml (0-14) H 05/25/22 01:57 Total Protein 6.9 gm/dl (6.0-8.3) 05/24/22 16:51 Albumin 3.7 gm/dl (3.4-5.0) 05/24/22 16:51 Globulin 3.2 gm/dl (2.5-4.0) 05/24/22 16:51 Albumin/Globulin Ratio 1.2 (0.9-2) 05/24/22 16:51 Triglycerides 60 mg/dl (0-150) 05/25/22 01:57 Cholesterol 174 mg/dl (0-200) 05/25/22 01:57 LDL Cholesterol, Calc 92 mg/dl 05/25/22 01:57 VLDL Cholesterol, Calc 12 mg/dl (0-30) 05/25/22 01:57 HDL Cholesterol 70 mg/dl 05/25/22 01:57 Cholesterol/HDL Ratio 2.5 (0-5) 05/25/22 01:57 TSH 2.397 uIu/ml (0.300-4.500) 05/24/22 16:52 Urine Color Dark Yellow 05/24/22 22:10 Urine Appearance Clear (Clear) 05/24/22 22:10 Urine pH 6.5 (4.5-7.5) 05/24/22 22:10 Ur Specific [place] 1.021 (1.000-1.030) 05/24/22 22:10 Urine Protein Negative (Negative) 05/24/22 22:10 Urine Glucose (UA) Negative (Negative) 05/24/22 22:10 Urine Ketones Negative (Negative) 05/24/22 22:10 Urine Blood Negative (Negative) 05/24/22 22:10 Urine Nitrite Positive (Negative) A 05/24/22 22:10 Urine Bilirubin 1+ (Negative) H 05/24/22 22:10 Urine Urobilinogen Negative (Negative) 05/24/22 22:10 Ur Leukocyte Esterase Trace (Negative) H 05/24/22 22:10 Urine WBC (Auto) 1-5 /hpf (0-5) 05/24/22 22:10 Urine RBC (Auto) 0-4 /hpf (0-4) 05/24/22 22:10 U Hyaline Cast (Auto) 1-5 /lpf (0-5) 05/24/22 22:10 U Epithel Cells (Auto) 5-10 /lpf (0-5) H 05/24/22 22:10 Urine Bacteria (Auto) Negative (Negative) 05/24/22 22:10 Adenovirus (PCR) Not Detected (NotDetected) 05/24/22 19:47 B. pertussis DNA (PCR) Not Detected (NotDetected) 05/24/22 19:47 B.parapertussis DNA PCR Not Detected (NotDetected) 05/24/22 19:47 C. pneumoniae DNA (PCR) Not Detected (NotDetected) 05/24/22 19:47 Coronavirus OC43 (PCR) Not Detected (NotDetected) 05/24/22 19:47 Coronavirus HKU1 (PCR) Not Detected (NotDetected) 05/24/22 19:47 Coronavirus 229E (PCR) Not Detected (NotDetected) 05/24/22 19:47 SARS-CoV-2 (PCR) Not Detected (NotDetected) 05/24/22 19:47 Coronavirus NL63 (PCR) Not Detected (NotDetected) 05/24/22 19:47 Human Metapneumovir PCR Not Detected (NotDetected) 05/24/22 19:47 Influenza Type A (PCR) Not Detected (NotDetected) 05/24/22 19:47 Influenza Type B (PCR) Not Detected (NotDetected) 05/24/22 19:47 M. pneumoniae (PCR) Not Detected (NotDetected) 05/24/22 19:47 Parainfluenza 1 (PCR) Not Detected (NotDetected) 05/24/22 19:47 Parainfluenza 2 (PCR) Not Detected (NotDetected) 05/24/22 19:47 Parainfluenza 3 (PCR) Not Detected (NotDetected) 05/24/22 19:47 Parainfluenza 4 (PCR) Not Detected (NotDetected) 05/24/22 19:47 RSV (PCR) Not Detected (NotDetected) 05/24/22 19:47 Entero/Rhino (PCR) Not Detected (NotDetected) 05/24/22 19:47 Blood Type A Positive 05/24/22 16:51 Antibody Screen NEGATIVE 05/24/22 16:[address] 05/24/22 15:55 CT OF THE CERVICAL SPINE WITHOUT CONTRAST CLINICAL HISTORY: Multiple falls, pain COMPARISON STUDY: No previous studies for comparison. TECHNIQUE: Helical axial images of the cervical spine were obtained without IV contrast. Sagittal and coronal reconstructions were viewed. Automated exposure control was utilized for the study. A dose lowering technique was utilized adhering to the principles of ALARA. FINDINGS: Alignment of the cervical spine is anatomic. Vertebral body heights are maintained. No acute cervical spine fracture or subluxation is present. There is no prevertebral edema. Facet joints are intact. Please note that the CTA of the neck will be reported separately. Multiple thoracic spine compression deformities are better depicted on the thoracic spine CT which will be reported separately. Moderate multilevel facet arthrosis and mild multilevel degenerative disc disease is present. IMPRESSION: 1. No acute cervical spine fracture or subluxation. 2. Multiple thoracic spine compression deformities which are better depicted on the thoracic spine CT. This will be reported separately. ACT 112: Negative or not required by law. Electronically signed by: Mick Diamond M.D. 05/24/2022 7:58 PM Chest X-Ray 05/24/22 15:55 XR chest 1V portable CLINICAL HISTORY: Stroke Like Symptoms. Evaluate cardiopulmonary status COMPARISON STUDY: No previous studies for comparison. TECHNIQUE: 1 view of the chest FINDINGS: Single frontal view of the chest demonstrates the cardiomediastinal silhouette to be within normal limits. There is a decreased inspiratory effort with elevation of the hemidiaphragms and crowding of the bronchovascular markings at the lung bases and centrally. The lungs are clear of alveolar opacities. There is no evidence for pleural effusion. There is no evidence for vascular congestion. There is no acute osseous pathology. The patient is status post internal fixation of the right humerus. IMPRESSION: 1. There is a decreased inspiratory effort with otherwise no acute chest disease. ACT 112: Negative or not required by law. Electronically signed by: Gentry Delacruz M.D. 05/24/2022 7:[address] 05/24/22 15:55 CT OF THE HEAD WITHOUT CONTRAST CLINICAL HISTORY: Stroke Like Symptoms COMPARISON STUDY: No previous studies for comparison. TECHNIQUE: Helical axial images of the head were obtained without IV contrast. Automated exposure control was utilized for the study. A dose lowering technique was utilized adhering to the principles of ALARA. FINDINGS: No acute intracranial hemorrhage, midline shift or mass effect is present. Multiple white matter hypodensities are present. The ventricular system is unremarkable. The basal cisterns are patent. No extra-axial collections are present. There are no findings to suggest acute dural sinus thrombosis or acute territorial infarct. No significant calvarial abnormalities are present. Visualized portions of the sinuses and mastoid air cells are clear. IMPRESSION: 1. No acute intracranial findings. 2. Multiple white matter hypodensities. These could reflect small vessel disease or sites of demyelination. ACT 112: Negative or not required by law. Electronically signed by: Mick Diamond M.D. 05/24/2022 7:44 PM Head CTA 05/24/22 15:55 CTA ANGIOGRAPHY OF THE HEAD CLINICAL HISTORY: Stroke Like Symptoms COMPARISON STUDY: No previous studies for comparison. TECHNIQUE: Helical axial images of the head were obtained following uneventful intravenous administration of 120 cc of Optiray. Sagittal and coronal reconstructions were viewed as well as maximal intensity projections on an independent 3-D workstation. Automated exposure control was utilized for the study. A dose lowering technique was utilized adhering to the principles of ALARA. CT DOSE: 2581.33 mGy.cm FINDINGS: Please note that the head CT will be reported separately. The bilateral M1, M2, A1 and A2 segments are patent. No central vessel occlusion is present. There is no intracranial aneurysm. Posterior circulation is intact. Left vertebral artery is dominant. There is persistence of the right posterior cerebral artery. No dissection within the intracranial vessels is present. White matter hypodensities are better depicted on the head CT. Major du ral sinuses appear grossly patent. IMPRESSION: No intracranial aneurysm. No central vessel occlusion. ACT 112: Negative or not required by law. Electronically signed by: Mick Diamond M.D. 05/24/2022 8:[address] 05/24/22 15:55 CT OF THE LUMBAR SPINE CLINICAL HISTORY: Low back pain, multiple falls COMPARISON STUDY: No previous studies for comparison. TECHNIQUE: Helical axial images of the lumbar spine were obtained. Sagittal and coronal reconstructions were viewed. Automated exposure control was utilized for the study. A dose lowering technique was utilized adhering to the principles of ALARA. FINDINGS: For purposes of numbering on this exam, the L5-S1 disc space is assigned to axial image 244 of 308. There is mild leftward curvature of the lumbar spine. A moderate L3 compression fracture is likely old. Acute to subacute nondisplaced fracture of the left transverse process of L3 is present. There is mild loss of height of the inferior endplate of L2. Moderate multilevel facet arthrosis is noted. There is also moderate multilevel degenerative disc disease. Sacroiliac joints are intact. Central canal and neural foramen are suboptimally assessed by CT. A cystic masslike density within the pelvis and lower abdomen is partially imaged on this examination. This could simply represent the bladder. IMPRESSION: 1. Acute to subacute nondisplaced fracture of the left transverse process of L3. 2. Moderate L3 compression fracture, likely old. Mild loss of height of the inferior endplate of L2 which is also likely old. 3. Cystic mas-like density within the pelvis and lower abdomen which is partially imaged on this exam. This could simply represent a distended bladder however a pelvic mass could appear similar. A CT of the pelvis is recommended for further evaluation. ACT 112: Negative or not required by law. Electronically signed by: Mick Diamond M.D. 05/24/2022 8:10 PM Neck CTA 05/24/22 15:55 CT ANGIOGRAPHY OF THE NECK WITH CONTRAST CLINICAL HISTORY: Stroke Like Symptoms COMPARISON STUDY: No previous studies for comparison. Technique: CT angiography of the carotid and vertebral arteries was obtained using Optiray and 3D reconstruction on an independent workstation. NASCET criteria was utilized. Automated exposure control was utilized for the study. A dose lowering technique was utilized adhering to the principles of ALARA. Findings: No acute cervical spine fracture is noted. Multiple thoracic spine compression deformities are better depicted on the thoracic spine CT which will be reported separately. Visualized portions of the lung apices are unremarkable. A 1.2 x 0.7 cm hyperdense focus overlying the right anterior aspect of the thyroid cartilage may reflect ectopic thyroid. The bilateral common carotid, cervical internal carotid and vertebral arteries are patent. There is mild plaque within the bilateral carotid bifurcations without stenosis. There is no dissection within the major vessels of the neck. No aneurysm is identified. There is no cervical lymphadenopathy. Tortuosity of the right common carotid artery is noted. IMPRESSION: No stenosis or dissection within the bilateral common carotid, cervical internal carotid or vertebral arteries. ACT 112: Negative or not required by law. Electronically signed by: Mick Diamond M.D. 05/24/2022 7:[address] 05/24/22 15:55 CT OF THE THORACIC SPINE CLINICAL HISTORY: Pain, multiple falls COMPARISON STUDY: No previous studies for comparison. TECHNIQUE: Helical axial images of the thoracic spine were obtained. Sagittal and coronal reconstructions were viewed. Automated exposure control was ut ilized for the study. A dose lowering technique was utilized adhering to the principles of ALARA. FINDINGS: Exaggerated kyphosis of the thoracic spine is noted. There are numerous thoracic spine compression fractures. Although age indeterminate, these are probably old. These include a severe T7 compression fracture with 90% loss of vertebral body height centrally. There is minimal retropulsion at this level. In addition, there are compression fractures of T1, T2, T3, T4, T5, T6, T10, T11 and T12. No definite acute thoracic spine fracture is noted. Central canal and neural foramen are suboptimally assessed by CT. There are multiple posterior left-sided rib fractures. No acute fractures are identified within visualized portions of the ribs. No pneumothorax within visualized portions of the chest. Multilevel degenerative changes within the thoracic spine are present. IMPRESSION: 1. Numerous thoracic spine compression fractures, as described above. Although age indeterminate, these are probably old. These include a severe T7 compression fracture. No significant retropulsion. 2. No definite acute thoracic spine fracture. ACT 112: Negative or not required by law. Electronically signed by: Mick Diamond M.D. 05/24/2022 8:05 PM PG Care Time/CCT Total # of Minutes Spent Total Time Spent with Patient: Total time spent is greater than 50% in coordination of care (as documented) at patient's floor/unit and/or counseling patient: Coding Level of Care Code INT OBSERVATION CARE 70M LVL 3 Diagnoses Weakness R53.1 UTI (urinary tract infection) N39.0 Hypothyroid E03.9 Parkinson disease G20 Multiple sclerosis G35 Seizure R56.9
[2022-05-25] MEDS ORDERED: GADOBUTROL 65ML VIAL IV ONE (06:11)
[2022-05-25] MEDS: LEVOTHYROXINE SODIUM 112 MCG TABLET PO SCH (06:34)
[2022-05-25 07:15] LABS: Estimated Average Glucose 120 mg/dl; Hemoglobin A1C 5.8 % (4.5-5.6)
--- NOTE | 2022-05-25 07:49 | Magnetic Resonance Report ---
MR brain MS wo/w con CLINICAL HISTORY: Right lower extremity weakness, h/o MS COMPARISON STUDY: Head CT and CTA of the head May 24, 2022. TECHNIQUE: Utilizing a 1.5 Effie magnet and dedicated coil, multiplanar, multiecho imaging of the bra in was performed pre and postcontrast administration according to the multiple sclerosis protocol. In travenous injection of 5 cc of Gadavist was uneventful. FINDINGS: This exam is mildly compromised by motion artifact although is diagnostic. There are no foc i of restricted diffusion to suggest acute infarct. No acute intracranial hemorrhage, midline shift o r mass effect is present. Basal cisterns are patent. There are no extra axial collections. Flow-voids for the major intracranial vessels are present. There is no intracranial mass or pathologic enhancem ent. There is no parenchymal enhancement to suggest active demyelination. Numerous white matter T2 hy perintense foci are noted. Multiple periventricular foci are noted. These favor previous sites of dem yelination given the clinical history. Superimposed small vessel disease is also likely present Santiago rial signal is within normal limits. No evidence for sinusitis. There is no mastoid fluid. Moderate a trophy is noted. IMPRESSION: 1. No acute intracranial findings. 2. Numerous white matter T2 hyperintense foci including periventricular foci which favor previous sit es of demyelination given the history of multiple sclerosis. No evidence for active demyelination. Fish spected superimposed small vessel disease. 3. No intracranial mass or pathologic enhancement. ACT 112: Negative or not required by law. Electronically signed by: Mick Diamond M.D. 05/25/2022 7:47 AM
[2022-05-25] MEDS: PROPRANOLOL HCL 10 MG TAB PO SCH ×2 (09:34→20:04)
[2022-05-25] MEDS: lamoTRIgine 100 MG TAB PO SCH ×2 (09:34→20:04)
[2022-05-25] MEDS: levETIRAcetam 500 MG TAB PO SCH ×2 (09:34→20:04)
[2022-05-25] MEDS: TOPIRAMATE 25 MG TAB PO SCH (09:34)
--- NOTE | 2022-05-25 09:51 | Neurology Consultation ---
Date of Consultation May 25, 2022 Assessment & Plan (1) Multiple sclerosis: (2) Seizure disorder: (3) Parkinsonism: Plan 72-year-old female with a history of multiple sclerosis, diagnosed about 8 years ago but with symptoms probably beginning at least 8 years prior to her diagnosi s. Patient initially had relapsing remitting MS but is likely now in a secondary progressive phase and is likely experiencing a pseudo relapse or exacerbation rather than a true MS relapse. She was treated for a urinary tract infection about 2 weeks ago at an outside hospital that was also associated with an exacerbation of her chronic MS symptomatology. She may have a UTI recurrence at this time and is currently on ceftriaxone. I note that she has not taken her Copaxone in at least the past week as she ran out of her medication and is waiting on a shipment. Nonetheless, stopping Copaxone does not significantly increase the risk for acute rebound disease. At this point, it would not be unreasonable to treat this patient for pseudo relapse or MS exacerbation with corticosteroids. I discussed potentially starting methylprednisolone, 1 g IV per day for the next 1 to 3 days, followed by an oral Medrol Dosepak taper. Duration of IV corticosteroids is flexible and would depend on her clinical response. However, patient would like to wait and see how she responds to antimicrobial treatment for her urinary tract infection. She would also like to wait and see how she does with PT/OT. If she is able to ambulate safely/independently with a walker it would not be unreasonable to hold off on corticosteroids. She would also like to discuss the use of corticosteroids further with her before committing to this treatment at this time. If patient's functional/ambulatory status does not significantly improve would consider obtaining additional spinal MRIs as well which may be useful to exclude acute myelopathy. Nonetheless, patient's neurological examination does not reveal myelopathic findings affecting the lower limbs. Her deep tendon reflexes are generally diminished, she is not spastic. She does have a chronic right foot drop as well as some chronic sensory loss. She does have a peripheral neuropathy as well which complicates her examination. Nonetheless, an acquired significant degenerative spinal stenosis, in addition to chronic spinal demyelination, may not be completely excluded at this time. This patient does have a history of seizure disorder beginning in childhood, this issue has been stable, she should continue with Lamictal 200 mg twice daily and Keppra 1000 mg twice daily. Anticonvulsant levels have been drawn although results will not likely be available until the end of the week and will not likely impact her management at this time. This patient also appears to have generalized parkinsonism characterized by bilateral upper extremity resting tremor, beginning on the right side about 8 years ago with subsequent generalization to the left. I note that she is not rigid or bradykinetic and her tremor has resting and action components. Her tremor also occurs in the context of multiple sclerosis. She either has idiopathic tremor predominant Parkinson's disease or parkinsonism related to multiple sclerosis. She has been on propranolol for her tremor which has been modestly helpful. The dosage was reduced recently given concerns over possible side effects or being on "too much medication." I do not object to continuing with propranolol at the current dosage. I see that she is also on a low-dose of topiramate which may also be useful for tremor. She may continue with this medication as well at the current dosage. Although I do not think it is necessary to address her tremor management at this time, I wonder if she would benefit from a trial of carbidopa levodopa. Patient can follow-up with her usual neurologist for ongoing management of her tremor in the outpatient setting. 1. Continue Copaxone 3 times per week (will need to have this medication brought in from home if she is to remain in the hospital.) 2. Continue Lamictal 200 mg twice daily and Keppra 1000 mg twice daily for seizure control. This issue has been stable. 3. Continue propranolol 10 mg twice daily and topiramate 25 mg daily for tremor. 4. Consider obtaining gadolinium enhanced MRI of the cervical, thoracic, and lumbar spine if patient's ambulation/functional status does not improve. 5. Consider treatment with IV methylprednisolone, 1 g/day for 1 to 3 days, followed by an oral Medrol Dosepak taper to address MS exacerbation/pseudo relapse. Again, patient is likely in a secondary progressive phase and her acute weakness occurs in the context of recent urinary tract infection and probable stress related to travel. She has also not used her Copaxone in at least the past week as her prescription ran out. Nonetheless, Copaxone is not known to cause acute rebound disease with cessation of treatment. History of Present Illness Reason for Consultation: MS, weakness Requesting Physician: Yasmin Wade DO Attending Physician: Fredi Vlilanueva MD History of Present Illness The patient is a 72-year-old female from out of [facility], she has been visiting local family for the past week. She has a history of multiple sclerosis that was diagnosed about 7 or 8 years ago at [facility], subsequently managed at the [facility]. Was started on Copaxone 3 times per week. Has not been on any other disease modifying therapy. Patient's diagnosis was confirmed with MRI and CSF analysis. She reports that she probably began having symptoms about 8 years prior to her diagnosis. Initial symptomatology was characterized by weakness or heaviness of the right leg and arm followed by remission and relapses eventually affecting the other side. She developed a resting and action tremor affecting the right side about 8 years ago, this too has secondarily generalized. She is not bradykinetic or rigid, however. She may have been told that she has either parkinsonism or Parkinson's disease previously although she does not recall ever being prescribed Sinemet. She recalls a previous trial of primidone for her tremor which resulted in excessive tiredness or fatigue, eventually followed by propranolol which has been modestly helpful. She does indicate that her propranolol dosage was recently reduced given concerns over being on "too much medication." She does think her tremor has increased slightly while on a reduced dosage of propranolol. She does report that she was hospitalized about 2 weeks ago at [facility] for treatment of a urinary tract infection that was further complicated by an exacerbation of her chronic MS symptomatology, particularly lower extremity weakness and associated ambulatory dysfunction. She has been relying on a walker intermittently for many years. She denies overt urinary incontinence or difficulty with bladder function but think she may have been told that she could have neurogenic bladder. She is not on any specific medication for this issue, however. Nonetheless, she has had difficulty with recurrent urinary tract infections which tend to exacerbate her chronic MS symptomatology. Of note, she has never had optic neuritis and specifically denies any history of painful vision loss or blindness to either eye. She does endorse a history of relapses and remissions early on in the context of her multiple sclerosis. However, she does not think she has had a true MS relapse in many years the patient also relays a history of peripheral neuropathy which goes back over 20 years, possibly beginning before she was diagnosed with breast cancer, subsequently treated with chemotherapy, radiation, and surgery. She reports chronic distal lower extremity numbness and tingling. Allergies Allergy/AdvReac Type Severity Reaction Status Date / Time Penicillins Allergy Intermediate Hives Verified 05/24/22 19:18 Home Medications Medication Instructions Recorded Confirmed Type glatiramer 40 mg/mL subcutaneous 0 mg subcut 3XWK 05/24/22 05/24/22 History syringe (Copaxone) lamotrigine 200 mg tablet 200 mg PO BID 05/24/22 05/24/22 History levetiracetam 500 mg tablet 1,000 mg PO BID 05/24/22 05/24/22 History levothyroxine 112 mcg tablet 112 mcg PO QAM 05/24/22 05/24/22 History propranolol 20 mg tablet 10 mg PO BID 05/24/22 05/24/22 History topiramate 25 mg tablet 25 mg PO DAILY 05/24/22 05/24/22 History Patient History Medical History (Updated 05/25/22 @ 09:25 by Martín Crooks MD) Hypothyroid Multiple sclerosis Parkinson disease Seizure Surgical History History of carpal tunnel surgery History of thyroidectomy Family History Other Family history non-contributory Social History Smoking Status: Never smoker Hx Alcohol Use: No Hx Substance Use: No Feels Safe at Home: Yes Safety Concerns: Feels Safe At This Time Review of Systems Constitutional: no fever and no fatigue Eyes: no blind spots, no diplopia and no eye pain Ear, Nose, Mouth, Throat: no ear pain and no hearing loss Respiratory: no cough and no dyspnea Cardiovascular: no chest pain and no palpitations Gastrointestinal: no nausea and no vomiting Genitourinary: + dysuria; no urinary incontinence Musculoskeletal: + stiffness; no back pain, no neck pain and no myalgia Integumentary: no rash and no lesions Neurologic: + gait abnormality, + localized weakness, + paresthesia and + tremor(s); no memory loss Psychiatric: no depression and no anxiety Hematologic / Lymphatic: no easy bleeding and no easy bruising Exam (Neuro) Constitutional: well developed and well nourished; no acute distress Eyes: normal visual bobo by confrontation, PERRL, normal accommodation and EOM intact bilaterally; no fundoscopic abnormality, no nystagmus and no papilledema Cardiovascular: Vessels: normal carotid upstroke; no carotid bruit Neurologic: Oriented to:: Person, Place and Time Memory: Short Term Intact and Remote Intact Attention: Span Intact and Concentration Intact Language: Naming Objects and Repeating Phrases Speech Fluency: negative Dysarthria Speech Aphasia: negative Aphasia Fund of Knowledge: Current Events, Past History and Vocabulary Cranial Nerves: Normal II (Visual bobo full to confrontation, visual acuity normal), III, IV, (Pupils equal round reactive to light and accommodation, eye movements normal), V (Facial sensation intact), VII (There is no facial droop or weakness), VIII (Hearing intact), IX, X (Palate elevates to midline), XI (Shoulder shrug intact) and XII (Tongue protrudes to midline) Motor Strength: Normal Upper Extremities; negative Normal Lower Extremities or Pronator Drift Motor Tone: Normal Lower Extremities and Normal Upper Extremities Rigidity: None Spasticity: None Muscle Bulk/Involuntary Movements: No Involuntary Movements, Rest Tremor (Arm) and Action Tremor; negative Muscle Atrophy or Head Tremor Sensation: negative Light Touch Intact, Pain/Temperature Intact, Vibration Intact or Proprioception Intact Coordination: Heel-Madsen Abnormal; negative Finger-Nose Abnormal Deep Tendon Reflexes: Rt Triceps: 2+, Lt Triceps: 2+, Rt Biceps: 2+, Lt Biceps: 2+, Rt Brachioradialis: 2+, Lt Brachioradialis: 2+, Rt Patellar: 1+, Lt Patellar: 1+, Rt Ankle: 1+ and Lt Ankle: 1+ Special Tests: negative Babinski Present Details: Gait could not be tested in the context of patient's current neurological status. She exhibits a fairly continuous bilateral upper extremity resting tremor although is not rigid or bradykinetic. She has a right foot drop and relatively diminished deep tendon reflexes for both lower limbs. Plantar responses are both silent. She has impairment of sensory function affecting both lower limbs, notably proprioceptive deficit. Results & Data ([facility]) Vital Signs (Past 12 Hours) Vital Signs Pulse Resp BP Pulse Ox O2 Del Method 05/25/22 06:37 106 H 20 165/90 H 95 Room Air 05/25/22 04:19 70 20 159/91 H 97 Room Air 05/25/22 03:05 81 22 148/86 H 95 Room Air 05/25/22 01:42 70 18 144/80 H 98 05/25/22 00:00 71 19 147/89 H 94 Room Air 05/24/22 22:00 67 18 169/85 H 92 Room Air Laboratory Results WBC 9.58, hemoglobin 11.8, hematocrit 35.4, MCV 97.0, platelet count 340, sodium 139, potassium 3.5, BUN 8, creatinine 0.62, glucose 104, hemoglobin A1c 5.8, calcium 8.6, magnesium 2.1, AST 17, ALT 17, high-sensitivity troponin 22.7, triglycerides 60, cholesterol 174, LDL 92, VLDL 12, HDL 70, TSH 2.397, urinalysis positive nitrite, 1+ bilirubin, trace leukocyte esterase, 5-10 epithelial cells, negative urine bacteria. Lamotrigine and levetiracetam levels were drawn and are pending. Diagnostic Findings Gadolinium-enhanced brain MRI completed, MS protocol. No active lesions or abnormal postcontrast enhancement. There are numerous white matter T2 hyperintense foci, periventricular and subcortical location consistent with patient stated history of multiple sclerosis. There is probable superimposed small vessel ischemic disease. I did independently review the images as well. No restricted diffusion. No blooming artifact. Thin sections through the temporal lobes also completed/seizure protocol, no mesial temporal sclerosis. Additional imaging including CT angiography of the head and neck and spinal CT is as described in the HPI. Patient also had a cervical spine CT completed which was negative for fracture or subluxation. Electrocardiogram revealed a normal sinus rhythm, 93 bpm. Coding Level of Care Code 93281 Initial Inpt Care Lvl 3 Diagnoses Multiple sclerosis G35 Seizure disorder G40.909 Parkinsonism G20
--- NOTE | 2022-05-25 10:46 | Hospitalist Progress Note ---
Date of Service May 25, 2022 Assessment & Plan (1) Weakness: Plan: 72yo female with history of MS, PD and Seizure disorder presenting with 1 week of progressive weakness, ambulatory dysfunction and falls. ?MS flare/pseudoflare 2/2 UTI Weakness, Hx of MS, Acute UTI Waiting on Copaxone Second flare in 2 weeks in the setting of UTI. Did discuss steroid course with patient, she would like to start this today. Reasonable. We will start Solu-Medrol 25 mg twice daily (1mpk total daily dose) with taper Spinal MRI/advanced to exclude myelopathy if not improving Chronic right foot drop, neuropathy in bilateral neuropathy -Copaxone 3 times a week if brought in by son -Lamictal 200 mg twice daily, Keppra 1 g twice daily for seizure control, no recent seizures -Propranolol 10 mg twice daily, Topamax 25 mg daily -Kishor enhanced MRI of C/T/L-spine if not improving Continue PT/OT, currently recommending rehab Generalized parkinsonism Bilateral upper resting tremor, started on right side and spread to left No rigidity, no bradykinesia, tremor at rest and with action Continue propanolol for symptoms Continue Topamax Outpatient follow-up for carbidopalevodopa trial and tremor follow-up (2) UTI (urinary tract infection): Plan: UA suggestive of infection. Afebrile, hemodynamically stable, nontoxic Urine culture pending -Ceftriaxone 1gm IV daily (3) Hypothyroid: Plan: Chronic. TSH WNL at 2.397 -Continue Synthroid (4) Parkinson disease: Plan: Chronic -Continue Propranolol -Records requested (5) Multiple sclerosis: Plan: Chronic -Patient receives glatiramer injections -Records requested (6) Seizure: Plan: Chronic -Continue Topamax, Keppra, Lamictal Admission and Anticipated Discharge Date Admission Date: May 24, 2022 Subjective Nicki seen at the bedside this morning, and in the afternoon on reassessment. Reports that she continues to feel globally weak, without focal weakness. She reports she feels extremely washed out/tired especially from the tests today. She feels like she may be having a MS flare, although does not note focal deficits at this time. When asked how PT went, patient is extremely tearful and reports "I am sorry, I know I can do better ". Reassurance provided that PT is to make an assessment to help patient get stronger. She reports that she has cataracts with some vision decline chronically, no focal vision changes. She feels she is much weaker in the legs bilaterally than normal, and both legs without asymmetry. Does endorse some intermittent neuropathy in her feet which is mild today. She reports her last MS flare requiring steroids was about 5 years ago, she reports she does feel weak like she did at that time. On morning assessment she reports that steroid had been discussed with her by neurology and she was considering this but wanted to talk to her and see how she felt throughout the day. On afternoon reassessment patient patient reports that she continues to feel very weak and washed out, and would like to try a course of steroids at this time. She denies chest pain, chest pressure, shortness of breath, difficulty breathing. Review of Systems Review of Systems: All systems reviewed & are unremarkable except as noted in Subjective Physical Exam Physical Exam: General: Appears fatigued, frail. Alert and oriented x3. Intermittently tearful during exam HEENT: Atraumatic, normocephalic. Pulm: CTAB A&P. -wheezes, -rales, -rhonchi. Symmetrical chest rise. No increase in work of breathing. No respiratory distress. Cardiac: RRR, -mrg. Radial pulses intact and symmetrical. Abdominal: Nontender, nondistended, soft. BS present. CRANIAL NERVES: II: Pupils equal and reactive, no relative afferent pupillary defect, no VF cuts III, IV, : EOM intact, no gaze preference or deviation, no nystagmus. V: normal sensation in V1, V2, and V3 segments bilaterally VII: no asymmetry, no nasolabial fold flattening VIII: normal hearing to speech IX, X: normal palatal elevation, no uvular deviation XI: 5/5 head turn and 5/5 shoulder shrug bilaterally XII: midline tongue protrusion Tremor in bilateral upper extremities at both rest and with intention is present. No cogwheeling appreciated. Motor: Shoulder flexion/extension, elbow flexion/extension, department manager strength 4+/5 in upper extremities, hip flexion in bed intact against antigravity with some difficulty on the right than left. Ankle dorsiflexion/plantarflexion is intact in the left with poor sensory awareness., Ankle dorsiflexion impaired in the right Sensory: Sensation of soft touch intact but greatly diminished in lower extremities bilaterally. Results & Data Results & Data ([facility]) Vital Signs (Past 12 Hours) Vital Signs Pulse Resp BP Pulse Ox O2 Del Method 05/25/22 06:37 106 H 20 165/90 H 95 Room Air 05/25/22 04:19 70 20 159/91 H 97 Room Air 05/25/22 03:05 81 22 148/86 H 95 Room Air 05/25/22 01:42 70 18 144/80 H 98 05/25/22 00:00 71 19 147/89 H 94 Room Air PG Care Time/CCT Total # of Minutes Spent Total Time Spent with Patient: Total time spent is greater than 50% in coordination of care (as documented) at patient's floor/unit and/or counseling patient: Coding Level of Care Code 73701 Subseq Obs Care Lvl 2 Diagnoses Weakness R53.1 UTI (urinary tract infection) N39.0 Hypothyroid E03.9 Parkinson disease G20 Multiple sclerosis G35 Seizure R56.9
--- NOTE | 2022-05-25 14:37 | Electrocardiogram Report ---
Test Reason : Blood Pressure : / mmHG Vent. Rate : 093 BPM Atrial Rate : 093 BPM P-R Int : 132 ms QRS Dur : 062 ms QT Int : 344 ms P-R-T Axes : 043 -20 033 degrees QTc Int : 427 ms Poor data quality, interpretation may be adversely affected Normal sinus rhythm Moderate voltage criteria for LVH, may be normal variant Poor R wave progression, consider anterior IL vs. lead placement vs. LVH Abnormal ECG No previous ECGs available Confirmed by Diogenes Moon ([id number] on 05/25/2022 2:36:28 PM Referred By: REFERRED SELF Confirmed By:Diogenes Moon
[2022-05-25] MEDS ORDERED: MELATONIN 3 MG TAB PO PRN (16:26)
[2022-05-25] MEDS: methylPREDNISolone 25 MG in SYRINGE 0 ML IV SCH (20:04)
[2022-05-25] MEDS: cefTRIAXone SODIUM 1,000 MG in DEXTROSE 5% 50 ML IV SCH (22:31)
[2022-05-26] MEDS: LEVOTHYROXINE SODIUM 112 MCG TABLET PO SCH (06:13)
--- NOTE | 2022-05-26 07:59 | Hospitalist Progress Note ---
Date of Service May 26, 2022 Assessment & Plan (1) Weakness: Plan: 72yo female with history of MS, PD and Seizure disorder presenting with 1 week of progressive weakness, ambulatory dysfunction and falls. ?MS flare/pseudoflare 2/2 UTI Weakness, Hx of MS, Acute UTI Family to bring in Copaxone Second flare in 2 weeks in the setting of UTI. Solu-Medrol 125 mg twice daily (10mg/k total daily dose) with taper -neurology recommended MRI spinal chord to look for acute lesion, documented that pt wants to wait, if unable to walk and stand will prusue -MRI brain 05/25, multiple areas of demyleniation and some small vessel disease, neither appear acute Spinal MRI subacute L3 transverse process fracture, old L2,L3 compression fractures, old thoracic spine compression fractures, most severe at T7 - pain is controlled Chronic right foot drop, bilateral neuropathy -Copaxone 3 times a week if brought in by son -Lamictal 200 mg twice daily, Keppra 1 g twice daily for seizure control, no recent seizures -Propranolol 10 mg twice daily, Topamax 25 mg daily Continue PT/OT, currently recommending rehab Generalized parkinsonism Bilateral upper resting tremor, started on right side and spread to left No rigidity, no bradykinesia, tremor at rest and with action Continue propanolol for symptoms Continue Topamax Outpatient follow-up for carbidopalevodopa trial and tremor follow-up (2) UTI (urinary tract infection): Plan: UA suggestive of infection. imaging of lumbar MR suggests enlarged bladder vs mass, bladder scan of >2000ml on 05/26 will decompress and re image maybe by US or CT Afebrile, hemodynamically stable, nontoxic Urine culture pending -Ceftriaxone 1gm IV daily (3) Hypothyroid: Plan: Chronic. TSH WNL at 2.397 -Continue Synthroid (4) Parkinson disease: Plan: Chronic -Continue Propranolol -Records requested (5) Multiple sclerosis: Plan: Chronic -Patient receives glatiramer injections -Records requested (6) Seizure: Plan: Chronic -Continue Topamax, Keppra, Lamictal Admission and Anticipated Discharge Date Admission Date: May 24, 2022 Subjective pt feels better on steroids did have 2L urinary retention this am feels better after st cath, states has been previous intermittent issue for her when ill Review of Systems Review of Systems: Mild distress and fatigue no headache, no visual changes no speech or swallowing issues, does have slower speech no chest pain, pressure or palpitations no shortness of breath, cough or wheezes no abdominal pain, nausea or vomiting, diarrhea or constipation no dysuria, hematuria or frequency no focal joint pain or swelling no back pain, CVA tenderness or radicular pain no bruising, bleeding or rashes has upper and lower extremity weakness, and chronic tremor no complaints of anxiety or depression.. Physical Exam Physical Exam: The patient appeared chronically ill but stable Vital signs as documented. Lungs are clear to auscultation and appear unlabored Cardiac exam, Rhythm is regular.. No murmurs, rubs or gallops. Abdominal exam reveals normal bowel sounds, soft non tender, no masses Extremities are nonedematous and both pedal pulses are normal. Neurologic exam is alert and oriented, weakness to upper and lower extremities, some tremor, slow deliberate speech Skin is without bruises or rashes Psychologically is without concerns for anxiety or depression. Results & Data Results & Data ([facility]) Vital Signs (Past 12 Hours) Vital Signs Temp Pulse Resp BP Pulse Ox O2 Del Method 05/25/22 23:27 98.1 F 71 18 142/73 H 96 Room Air PG Care Time/CCT Total # of Minutes Spent Total Time Spent with Patient: Total time spent is greater than 50% in coordination of care (as documented) at patient's floor/unit and/or counseling patient: Coding Level of Care Code 14398 Subseq Hosp Care Lvl 2 Diagnoses Weakness R53.1 UTI (urinary tract infection) N39.0 Hypothyroid E03.9 Parkinson disease G20 Multiple sclerosis G35 Seizure R56.9
[2022-05-26] MEDS: methylPREDNISolone 25 MG in SYRINGE 0 ML IV SCH (08:41)
[2022-05-26] MEDS: levETIRAcetam 500 MG TAB PO SCH ×2 (08:41→20:47)
[2022-05-26] MEDS: TOPIRAMATE 25 MG TAB PO SCH (08:41)
[2022-05-26] MEDS: lamoTRIgine 100 MG TAB PO SCH ×2 (08:41→20:47)
[2022-05-26] MEDS: PROPRANOLOL HCL 10 MG TAB PO SCH ×2 (08:41→20:47)
[2022-05-26 09:07] LABS: Basophils # (auto) 0.02 K/uL (0-0.2); Basophils % (auto) 0.2 %; Eosinophils # (auto) 0.01 K/uL (0-0.50); Eosinophils % (auto) 0.1 %; Hematocrit (blood only) 38.3 % (34.1-44.9); Hemoglobin 12.7 g/dl (12.0-16.0); Immature Granulocytes # (auto) 0.04 K/uL (0.00-0.02); Immature Granulocytes % (auto) 0.4 %; Lymphocytes % (auto) 17.7 %; Mean Corpuscular Hemoglobin 32.6 pg (25.0-34.0); Mean Corpuscular Hgb Conc 33.2 g/dL (32.0-36.0); Mean Corpuscular Volume 98.5 fL (80.0-100.0); Mean Platelet Volume 10.4 fL (9.4-12.3); Monocytes # (auto) 0.92 K/uL (0.24-0.82); Monocytes % (auto) 10.2 %; Neutrophils # (auto) 6.45 K/uL (1.4-6.5); Neutrophils % (auto) 71.4 %; Platelet Count 398 K/uL (130-400); RDW Coefficient of Variation 15.6 % (11.5-14.5); RDW Standard Deviation 55.8 fL (36.4-46.3); Red Blood Count 3.89 M/uL (3.93-5.22); White Blood Count 9.04 K/ul (4.8-10.8)
[2022-05-26 09:31] LABS: BUN Creatinine Ratio 14.9 (10-20); Calcium 9.2 mg/dl (8.5-10.1); Creatinine Clr Calc Pharmacy 58.3 ml/min; Est GFR (African American) 100.4 ml/min; Est GFR (Non-African American) 86.6 ml/min; Potassium 3.4 mmol/L (3.5-5.1)
--- NOTE | 2022-05-26 10:11 | Neurology Progress Note ---
Date of Service May 26, 2022 Assessment & Plan (1) Weakness: (2) Multiple sclerosis: (3) Seizure disorder: (4) Parkinsonism: (5) Peripheral neuropathy: Plan Patient's lower extremity weakness appears to be modestly improved today although she has not been up out of bed yet. She continues to exhibit a bilateral upper extremity resting and action tremor. Her seizure disorder remained stable. I suspect patient's lower extremity weakness is related to a pseudo relapse or MS exacerbation and not a true relapse. She also has a chronic idiopathic peripheral neuropathy which contributes to her distal lower extremity weakness and sensory loss. Furthermore, she has multiple chronic spinal compression fractures throughout the thoracic and lumbar spine although some of these are age-indeterminate. There is an acute to subacute nondisplaced fracture of the left transverse process at L3. Would consider obtaining gadolinium enhanced MRI of the cervical, thoracic, and lumbar spine to further assess for acute myelopathy depending on patient's clinical status going forward. Again, she does seem modestly improved compared with yesterday. I would not be surprised if she has chronic spinal cord demyelination due to her multiple sclerosis. An acute focus of demyelination within the spinal cord is not clinically suspected, however. Required significant spinal stenosis may not be completely excluded. I discussed obtaining additional spinal MRIs with the patient this morning although she would rather hold off as she has been improving modestly. However, if she is unable to stand and ambulate with a walker independently I think it would be valuable to obtain this additional imaging. Also, patient is willing to proceed with additional treatment with Solu-Medrol. I see that she was given a relatively low dose of Solu-Medrol yesterday, only 25 mg IV. I would typically recommend a larger dosage. Conservatively, I think a dosage of 250 mg/day for the next 1 to 3 days would be reasonable, followed by a Medrol Dosepak taper. (We typically utilize a dosage of 1000 mg IV per day to treat acute MS relapse. However, this patient does not likely require such a large dosage as her presentation seems more consistent with pseudo relapse.) Admission and Anticipated Discharge Date Admission Date: May 24, 2022 Subjective Follow-up for weakness The patient reports modest improvement in her lower extremity weakness today. Continues to report mild to moderate distal lower extremity numbness and tingling. Denies incontinence, able to feel when her bladder is full. No saddle anesthesia. She has not been up out of bed, however. She continues to exhibit a mild to moderate generalized resting and action tremor. No seizures. Patient had an episode of nausea and vomiting yesterday which she potentially attributed to the small dose of Solu-Medrol she was administered. In discussing this issue further with the patient this morning, she does remark that she has had similar reactions to other medications including antibiotics in the past. She is willing to try Solu-Medrol again, however, at this time. Review of Systems Constitutional: no fever and no chills Eyes: no blind spots and no diplopia Genitourinary: no urinary incontinence Neurologic: as per Subjective / HPI, + gait abnormality, + paresthesia and + tremor(s) Results & Data ([facility]) Vital Signs (Past 12 Hours) Vital Signs Temp Pulse Pulse Resp BP Pulse Ox O2 Del Method 05/26/22 08:00 36.7 C 92 H 20 134/78 95 Room Air 05/25/22 23:27 36.7 C 71 18 142/73 H 96 Room Air Laboratory Results WBC 9.04, hemoglobin 12.7, hematocrit 38.3, MCV 98.5, platelet count 398, sodium 139, potassium 3.4, BUN 10, creatinine 0.67, glucose 114, calcium 9.2 Exam (Neuro) Constitutional: well developed and + frail appearing Neurologic: Oriented to:: Person, Place and Time Memory: Short Term Intact and Remote Intact Attention: Span Intact and Concentration Intact Speech Fluency: negative Dysarthria or Dysfluency Fund of Knowledge: Current Events, Past History and Vocabulary Cranial Nerves: Normal II, III, IV, and VII Motor Strength: Normal Lower Extremities and Normal Upper Extremities Muscle Bulk/Involuntary Movements: Rest Tremor (Arm) and Action Tremor Coding Level of Care Code 04762 Subseq Hosp Care Lvl 2 Diagnoses Weakness R53.1 Multiple sclerosis G35 Seizure disorder G40.909 Parkinsonism G20 Peripheral neuropathy G62.9
[2022-05-26] MEDS: methylPREDNISolone 125 MG in SYRINGE 0 ML IV SCH (20:47)
[2022-05-26] MEDS: cefTRIAXone SODIUM 1,000 MG in DEXTROSE 5% 50 ML IV SCH (20:58)
[2022-05-27] MEDS: LEVOTHYROXINE SODIUM 112 MCG TABLET PO SCH ×2 (05:58→06:04)
[2022-05-27] MEDS: TOPIRAMATE 25 MG TAB PO SCH (09:15)
[2022-05-27] MEDS: methylPREDNISolone 125 MG in SYRINGE 0 ML IV SCH ×2 (09:15→21:24)
[2022-05-27] MEDS: PROPRANOLOL HCL 10 MG TAB PO SCH ×2 (09:16→21:25)
[2022-05-27] MEDS: levETIRAcetam 500 MG TAB PO SCH ×2 (09:16→21:24)
[2022-05-27] MEDS: lamoTRIgine 100 MG TAB PO SCH ×2 (09:16→21:24)
[2022-05-27 09:41] LABS: Basophils # (auto) 0.01 K/uL (0-0.2); Basophils % (auto) 0.1 %; Hematocrit (blood only) 38.1 % (34.1-44.9); Hemoglobin 12.7 g/dl (12.0-16.0); Immature Granulocytes # (auto) 0.02 K/uL (0.00-0.02); Immature Granulocytes % (auto) 0.3 %; Lymphocytes # (auto) 1.26 K/uL (1.2-3.4); Lymphocytes % (auto) 16.5 %; Mean Corpuscular Hemoglobin 32.4 pg (25.0-34.0); Mean Corpuscular Hgb Conc 33.3 g/dL (32.0-36.0); Mean Corpuscular Volume 97.2 fL (80.0-100.0); Mean Platelet Volume 10.1 fL (9.4-12.3); Monocytes # (auto) 0.64 K/uL (0.24-0.82); Monocytes % (auto) 8.4 %; Neutrophils # (auto) 5.69 K/uL (1.4-6.5); Neutrophils % (auto) 74.7 %; Platelet Count 417 K/uL (130-400); RDW Coefficient of Variation 15.3 % (11.5-14.5); RDW Standard Deviation 54.4 fL (36.4-46.3); Red Blood Count 3.92 M/uL (3.93-5.22); White Blood Count 7.62 K/ul (4.8-10.8)
[2022-05-27 10:02] LABS: BUN Creatinine Ratio 21.1 (10-20); Calcium 9.1 mg/dl (8.5-10.1); Creatinine Clr Calc Pharmacy 68.5 ml/min; Est GFR (African American) 105.8 ml/min; Est GFR (Non-African American) 91.3 ml/min; Potassium 3.3 mmol/L (3.5-5.1)
[2022-05-27] MEDS ORDERED: POTASSIUM CHLORIDE CRTAB 20 MEQ TABCR PO STA (11:54)
[2022-05-27] MEDS ORDERED: OPTIRAY 320 100ml IV ONE (14:40)
--- NOTE | 2022-05-27 15:12 | CT Scan Report ---
CT abd pelvis oral and IV con CLINICAL HISTORY: Eval for bladder Mass COMPARISON STUDY: No previous studies for comparison. CT DOSE: 286.33 mGycm TECHNIQUE: Standard CT of the Abdomen and Pelvis was performed with IV contrast. A dose lowering deneen hnique was utilized adhering to the principles of ALARA. Contrast Volume: Optiray 320, 94 ml. The patient received oral contrast. FINDINGS: Lung base: The lung bases are clear. Minimal linear scarring is seen on the left. The heart is mildly enlarged. Abdominal cavity: There is no evidence for abdominal mass, adenopathy or ascites. Liver: There is homogeneous attenuation of the liver parenchyma. There is no evidence for enhancing m ass lesion. Spleen: The spleen is absent . Pancreas: There also appears to be resection of the distal body and tail of pancreas. There is homoge neous attenuation of the remaining pancreatic parenchyma. There is no evidence for mass lesion or per ipancreatic fluid collection. Gall Bladder: The gallbladder is contracted. Adrenal glands: The adrenal glands are normal in size and attenuation. There is no evidence for enhan cing mass lesion. Kidneys: There is homogeneous attenuation of the renal parenchyma bilaterally. There is no evidence f or renal calculus or hydronephrosis. There is no evidence for enhancing mass. Bowel: Oral contrast present within the stomach and throughout the small bowel. There is no oral cont rast within colon. The bowel loops are normally placed within the abdomen and pelvis without evidence for dilatation or obstruction. However, there is evidence for marked fecal impaction within the rect um and mild fecal stasis involving the transverse and right side of the colon. There is no evidence f or obstruction. There are no inflammatory changes present. There is no evidence for free air. Bladder: There is a Ignacio catheter present within the bladder. The bladder is decompressed and the pr esence or absence of a mass cannot be completely evaluated by this study. No IV contrast is seen with in the bladder. : There is no evidence for pelvic mass or adenopathy. There is no evidence for pelvic ascites. Vasculature: There is no evidence for aneurysmal dilatation of the abdominal aorta. Osseous structures: There is no acute osseous pathology. Degenerative changes are seen within the spi ne. IMPRESSION: 1. Ignacio catheter within the bladder which is decompressed. No gross bladder mass can be identified w ith no IV contrast seen within the bladder. 2. No evidence for hydronephrosis bilaterally. 3. Marked fecal impaction of the rectum with mild fecal stasis of the more proximal colon. No gross o bstruction. 4. 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 5. Additional nonacute findings are delineated above. ACT 112: Negative or not required by law. Electronically signed by: Gentry Delacruz M.D. 05/27/2022 3:11 PM
[2022-05-27] MEDS ORDERED: bisacodyL 10 MG SUPP PR STA (16:22)
--- NOTE | 2022-05-27 17:11 | Hospitalist Progress Note ---
Date of Service May 27, 2022 Assessment & Plan (1) Weakness: Plan: 72yo female with history of MS, PD and Seizure disorder presenting with 1 week of progressive weakness, ambulatory dysfunction and falls. ?MS flare/pseudoflare 2/2 UTI Weakness, Hx of MS, Acute UTI Copaxone if family supplies Second flare in 2 weeks in the setting of UTI. Solu-Medrol 125 mg twice daily total iv steorid for 3 days LD 05/28/22 with taper -neurology recommended MRI spinal chord to look for acute lesion, documented that pt wants to wait, if unable to walk and stand will prusue -MRI brain 05/25, multiple areas of demyleniation and some small vessel disease, neither appear acute Spinal MRI subacute L3 transverse process fracture, old L2,L3 compression fractures, old thoracic spine compression fractures, most severe at T7 - pain is controlled Chronic right foot drop, bilateral neuropathy -Copaxone 3 times a week if brought in by son -Lamictal 200 mg twice daily, Keppra 1 g twice daily for seizure control, no recent seizures -Propranolol 10 mg twice daily, Topamax 25 mg daily Continue PT/OT, currently recommending rehab Generalized parkinsonism Bilateral upper resting tremor, started on right side and spread to left No rigidity, no bradykinesia, tremor at rest and with action Continue propanolol for symptoms Continue Topamax Outpatient follow-up for carbidopalevodopa trial and tremor follow-up (2) UTI (urinary tract infection): Plan: UA suggestive of infection. imaging of lumbar MR suggests enlarged bladder vs mass, bladder scan of >2000ml on 05/2605/27/22 did decompress and re image by abdomen and pelvis CT does not show mass but shows constipation, suppoistory ordered Afebrile, hemodynamically stable, nontoxic Urine culture negative did complete 3 days of antibiotics (3) Hypothyroid: Plan: Chronic. TSH WNL at 2.397 -Continue Synthroid (4) Parkinson disease: Plan: Chronic -Continue Propranolol -Records requested (5) Multiple sclerosis: Plan: Chronic -Patient receives glatiramer injections -Records requested pt agrees to rehab placement (6) Seizure: Plan: Chronic -Continue Topamax, Keppra, Lamictal Admission and Anticipated Discharge Date Admission Date: May 27, 2022 Subjective pt feels better on steroids did have urinary retention that required a barragan cath feels better after cath, repeat imaging by CT scan does not show bladder mass or abnormality now decompressed has increased fecal load, pt ok with suppository Review of Systems Review of Systems: Mild distress and fatigue no headache, no visual changes no speech or swallowing issues, does have slower speech no chest pain, pressure or palpitations no shortness of breath, cough or wheezes no abdominal pain, nausea or vomiting, diarrhea or constipation no dysuria, hematuria or frequency no focal joint pain or swelling no back pain, CVA tenderness or radicular pain no bruising, bleeding or rashes has upper and lower extremity weakness, and chronic tremor no complaints of anxiety or depression.. Physical Exam Physical Exam: The patient appeared chronically ill but stable Vital signs as documented. Lungs are clear to auscultation and appear unlabored Cardiac exam, Rhythm is regular.. No murmurs, rubs or gallops. Abdominal exam reveals normal bowel sounds, soft non tender, no masses Extremities are nonedematous and both pedal pulses are normal. Neurologic exam is alert and oriented, weakness to upper and lower extremities, some tremor, slow deliberate speech Skin is without bruises or rashes Psychologically is without concerns for anxiety or depression. Results & Data Results & Data ([facility]) Vital Signs (Past 12 Hours) Vital Signs Temp Pulse Resp BP Pulse Ox O2 Del Method 05/27/22 15:13 98.1 F 78 16 151/80 H 95 Room Air 05/27/22 07:31 98.6 F 85 20 118/68 95 Room Air PG Care Time/CCT Total # of Minutes Spent Total Time Spent with Patient: Total time spent is greater than 50% in coordination of care (as documented) at patient's floor/unit and/or counseling patient: Coding Level of Care Code 80685 Subseq Hosp Care Lvl 2 Diagnoses Weakness R53.1 UTI (urinary tract infection) N39.0 Hypothyroid E03.9 Parkinson disease G20 Multiple sclerosis G35 Seizure R56.9
[2022-05-27] MEDS ORDERED: SENNOSIDES 8.8 MG/5 ML UDC PO ONE (21:00)
[2022-05-27] MEDS: POTASSIUM CHLORIDE CRTAB 20 MEQ TABCR PO SCH (21:24)
[2022-05-28 02:44] LABS: Lamictal(Lamotrigine) 22.9 mcg/mL (4.0-18.0); Levetiracetam Keppra 53.1 mcg/mL (6.0-46.0)
[2022-05-28] MEDS: LEVOTHYROXINE SODIUM 112 MCG TABLET PO SCH (09:02)
[2022-05-28] MEDS: methylPREDNISolone 125 MG in SYRINGE 0 ML IV SCH (09:07)
--- NOTE | 2022-05-28 09:34 | Neurology Progress Note ---
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 Patient is mildly encephalopathic this morning, probably multifactorial but in part potentially related to corticosteroids which are now on hold. Other than being a bit more lethargic this morning, patient's neurological examination is not significantly different compared with her previous evaluations. Patient's anticonvulsant levels are both mildly supratherapeutic. I would recommend reducing her dosage of Keppra to 750 mg twice daily. Continue with Lamictal 200 mg twice daily for the time being. Discontinue topiramate. Would recommend MRI of the cervical, thoracic, and lumbar spine with and without contrast. Patient refuses at this time, however. I agree with holding corticosteroids at this point in time. Admission and Anticipated Discharge Date Admission Date: May 27, 2022 Subjective Follow-up for weakness, multiple sclerosis, parkinsonism, peripheral neuropathy, seizure disorder Patient's weakness and overall degree of functional impairment has not significantly improved. She continues to report bilateral lower extremity weakness, right greater than left. She continues to exhibit a mixed resting postural and action tremor. She has not had any seizures. She has been receiving methylprednisolone although this medication was not given this morning per hospitalist request. Patient has been confused and agitated, refusing medications. She does not seem very interested in participating with my assessment of her this morning. She does answer some simple questions and will follow some simple commands. She denies any complaints such as headache, vision loss, back or spinal pain. Review of Systems Constitutional: no fever Eyes: no blind spots, no diplopia and no eye pain Neurologic: + localized weakness, + loss of sensation and + tremor(s); no headache(s) Results & Data ([facility]) Vital Signs (Past 12 Hours) Vital Signs Temp Pulse Resp BP Pulse Ox O2 Del Method 05/28/22 08:00 124/68 05/28/22 00:00 36.7 C 81 18 125/75 96 Room Air Laboratory Results Yesterday's labs reviewed. WBC 7.62, hemoglobin 12.7, hematocrit 38.1, MCV 97.2, platelet count 417, sodium 139, potassium 3.3, BUN 12, creatinine 0.57, glucose 117, calcium 9.1 Diagnostic Findings Brain MRI completed May 25 revealed changes consistent with patient's history of multiple sclerosis, no evidence for active demyelination, no abnormal postcontrast enhancement. CT angiography of the head and neck completed on May [address] of the cervical, thoracic, and lumbar spine had revealed multiple compression fractures of varying age, mostly chronic, a few subacute to possibly acute. No significant spinal canal compromise observed within the limits of CT technique. CT of the abdomen pelvis completed yesterday revealed Ignacio catheter within the bladder which is decompressed. No hydronephrosis. Marked fecal impaction. Patient's anticonvulsant levels from May 24 are available. Lamotrigine level 22.9, Keppra level 53.1. Exam (Neuro) Neurologic: Oriented to:: Person; negative Place or Time Attention: negative Span Intact Speech Fluency: negative Dysarthria or Dysfluency Fund of Knowledge: Vocabulary; negative Current Events Cranial Nerves: Normal II, III, IV, and VII Motor Strength: Normal Upper Extremities; negative Normal Lower Extremities Muscle Bulk/Involuntary Movements: Rest Tremor (Arm) and Action Tremor Coordination: Finger-Nose Abnormal and Heel-Madsen Abnormal Details: Patient is mildly lethargic, she is inattentive, speech is fluent and nondysarthric. She is oriented to person only. She will follow simple commands but otherwise is not very interested in participating in this evaluation. She is able to lift both lower limbs out of the bed but has a bit more difficulty with the right leg, no significant change from prior evaluation, also has a moderate right foot drop, also unchanged. She continues to exhibit a bilateral upper extremity resting postural and action tremor. Her tremor does vary in intensity and was less prominent when she was resting quietly. Coding Level of Care Code 58281 Subseq Hosp Care Lvl 2 Diagnoses Multiple sclerosis G35 Parkinsonism G20 Peripheral neuropathy G62.9 Seizure disorder G40.909 Weakness R53.1
[2022-05-28] MEDS: levETIRAcetam 500 MG TAB PO SCH (10:00)
[2022-05-28] MEDS: TOPIRAMATE 25 MG TAB PO SCH (10:00)
[2022-05-28] MEDS: PROPRANOLOL HCL 10 MG TAB PO SCH ×3 (10:21→21:58)
[2022-05-28] MEDS: lamoTRIgine 100 MG TAB PO SCH (10:21)
[2022-05-28] MEDS: POTASSIUM CHLORIDE CRTAB 20 MEQ TABCR PO SCH ×2 (10:21→21:21)
[2022-05-28] MEDS ORDERED: HALOPERIDOL LACTATE 5 MG/ML 1 ML VIAL IM STA ×2 (11:05→11:13)
[2022-05-28 14:54] LABS: BUN Creatinine Ratio 19.4 (10-20); Calcium 8.6 mg/dl (8.5-10.1); Est GFR (Non-African American) 88.8 ml/min; Magnesium 2.2 mg/dl (1.7-2.4); Potassium 3.9 mmol/L (3.5-5.1)
--- NOTE | 2022-05-28 18:35 | Hospitalist Progress Note ---
Date of Service May 28, 2022 Assessment & Plan (1) Weakness: Plan: 72yo female with history of MS, PD and Seizure disorder presenting with 1 week of progressive weakness, ambulatory dysfunction and falls. ?MS flare/pseudoflare 2/2 UTI Weakness, Hx of MS, Acute UTI Copaxone if family supplies Second flare in 2 weeks in the setting of UTI. 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, stop steroids, given haldol im x1 -neurology recommended MRI spinal chord to look for acute lesion, documented that pt wants to wait, if unable to walk and stand will prusue -MRI brain 05/25, multiple areas of demyleniation and some small vessel disease, neither appear acute Spinal MRI subacute L3 transverse process fracture, old L2,L3 compression fractures, old thoracic spine compression fractures, most severe at T7 - pain is controlled Chronic right foot drop, bilateral neuropathy -Copaxone 3 times a week if brought in by son -Lamictal level elevated, will reduce dose , Keppra dose reduced due to high levels -Propranolol 10 mg twice daily, Topamax stopped by neurology Continue PT/OT, currently recommending rehab Generalized parkinsonism Bilateral upper resting tremor, started on right side and spread to left No rigidity, no bradykinesia, tremor at rest and with action Continue propanolol for symptoms Outpatient follow-up for carbidopalevodopa trial and tremor follow-up (2) UTI (urinary tract infection): Plan: UA suggestive of infection. imaging of lumbar MR suggests enlarged bladder vs mass, bladder scan of >2000ml on 05/2605/27/22 did decompress and re image by abdomen and pelvis CT does not show mass but shows constipation, suppoistory ordered Afebrile, hemodynamically stable, nontoxic Urine culture negative did complete 3 days of antibiotics, repeat culture with confusion (3) Hypothyroid: Plan: Chronic. TSH WNL at 2.397 -Continue Synthroid (4) Parkinson disease: Plan: Chronic -Continue Propranolol -Records requested (5) Multiple sclerosis: Plan: Chronic -Patient receives glatiramer injections followed by neurology pt agrees to rehab placement (6) Seizure: Plan: Chronic -Continue, Keppra, Lamictal Admission and Anticipated Discharge Date Admission Date: May 27, 2022 Subjective pt is refusing to be examined, she squeezes her eyes closed , holds arms on chest, had refused medications in the morning, changed keppra to iv Review of Systems Review of Systems: unable to report ROS due to confusion Physical Exam Physical Exam: The patient appeared chronically ill but stable Vital signs as documented. pt is resisting exam Lungs are clear to auscultation and appear unlabored Cardiac exam, Rhythm is regular.. No murmurs, rubs or gallops. Abdominal exam reveals normal bowel sounds, soft non tender, no masses Extremities are nonedematous and both pedal pulses are normal. Results & Data Results & Data ([facility]) Vital Signs (Past 12 Hours) Vital Signs Temp Pulse Resp BP Pulse Ox O2 Del Method 05/28/22 15:44 98.6 F 77 18 119/62 94 Room Air 05/28/22 08:00 124/68 PG Care Time/CCT Total # of Minutes Spent Total Time Spent with Patient: Total time spent is greater than 50% in coordination of care (as documented) at patient's floor/unit and/or counseling patient: Coding Level of Care Code 30864 Subseq Hosp Care Lvl 3 Diagnoses Weakness R53.1 UTI (urinary tract infection) N39.0 Hypothyroid E03.9 Parkinson disease G20 Multiple sclerosis G35 Seizure R56.9
[2022-05-28] MEDS: levETIRAcetam 750 MG in 0.9 % SODIUM CHLORIDE 100 ML IV SCH (20:27)
[2022-05-28] MEDS ORDERED: levETIRAcetam 250 MG TAB PO SCH (21:00)
[2022-05-29] MEDS: LEVOTHYROXINE SODIUM 112 MCG TABLET PO SCH (06:39)
[2022-05-29] MEDS: PROPRANOLOL HCL 10 MG TAB PO SCH ×2 (08:28→21:07)
[2022-05-29] MEDS: levETIRAcetam 750 MG in 0.9 % SODIUM CHLORIDE 100 ML IV SCH (08:28)
[2022-05-29] MEDS ORDERED: lamoTRIgine 25 MG TAB PO SCH (09:00)
--- NOTE | 2022-05-29 09:14 | Neurology Progress Note ---
Date of Service May 29, 2022 Assessment & Plan (1) Multiple sclerosis: (2) Parkinsonism: (3) Seizure disorder: (4) Peripheral neuropathy: (5) Weakness: Plan Patient's confusion/encephalopathy has significantly improved this morning. Probable intolerance to corticosteroids. Anticonvulsant level slightly supratherapeutic, Keppra and Lamictal dosages have been reduced. Seizures have been stable. Patient continues to exhibit a parkinsonian tremor, mild severity this morning although intensity has been variable. She continues with a low- dose of propranolol. Has not been on Sinemet. Continue with Lamictal 150 mg twice daily. (There appears to be 2 Lamictal orders in the system, may need to discontinue 1 of these.) Continue Keppra 750 mg twice daily. (It looks like patient has been receiving this medication IV. Will change to tablets when patient reliably taking her oral medications. Continue with propranolol 10 mg twice daily for management of her tremor. Would consider an outpatient trial of Sinemet to address her parkinsonian tremor. However, patient may discuss long-term management of her tremor with her usual neurologist back home. Would still like patient to follow through with spinal MRIs as ordered. Recently completed brain MRI does not reveal any active foci of demyelination. Again, I suspect her multiple sclerosis is in a secondary progressive phase. Recurrent decline in gait occurs in the context of recent urinary tract infection, more likely than not experiencing a pseudo relapse or MS exacerbation rather than a true relapse. Also, she does have multiple spinal compression fractures of varying ages. Significant lumbar spinal stenosis may not be completely excluded although not necessarily suggested on recent CT evaluations of the spinal column. Patient does have chronic bilateral distal lower extremity numbness, paresthes ias, and a right foot drop. The signs and symptoms are likely multifactorial related to her history of peripheral neuropathy and MS. Admission and Anticipated Discharge Date Admission Date: May 27, 2022 Subjective Follow-up for weakness, confusion, history of multiple sclerosis, parkinsonism, neuropathy, seizure disorder Patient's confusion is improved this morning. Lower extremity weakness about the same, right greater than left, for probably similar to baseline. Did not tolerate IV corticosteroids due to encephalopathy/agitated delirium, much improved at this time. Anticonvulsant levels were also slightly supratherapeutic, Keppra dosage reduced. Continues with Lamictal at the current dosage. Topiramate was discontinued. Continues with a low-dose of propranolol to address her tremor. Tremor seems minimal this morning. No seizures. No headaches. No spinal pain. Spinal MRIs have been ordered, cervical, thoracic, and lumbar. Patient's Lamictal dosage was reduced to 150 mg twice daily as well. Review of Systems Eyes: no blind spots, no diplopia and no eye pain Musculoskeletal: no back pain and no neck pain Neurologic: + gait abnormality, + localized weakness, + loss of sensation and + tremor(s); no headache(s) Results & Data ([facility]) Vital Signs (Past 12 Hours) Vital Signs Temp Pulse Resp BP BP Pulse Ox O2 Del Method 05/29/22 08:00 36.8 C 71 18 128/72 93 Room Air 05/28/22 22:56 36.4 C L 80 18 132/79 95 Room Air Exam (Neuro) Neurologic: Oriented to:: Person, Place and Time Attention: Span Intact and Concentration Intact Speech Fluency: negative Dysarthria or Dysfluency Fund of Knowledge: Past History and Vocabulary Cranial Nerves: Normal II, III, IV, , V, VII, VIII, IX, X, XI and XII Motor Strength: Normal Upper Extremities; negative Normal Lower Extremities Muscle Bulk/Involuntary Movements: Rest Tremor (Arm) and Action Tremor Coding Level of Care Code 58818 Subseq Hosp Care Lvl 2 Diagnoses Multiple sclerosis G35 Parkinsonism G20 Seizure disorder G40.909 Peripheral neuropathy G62.9 Weakness R53.1
[2022-05-29] MEDS ORDERED: GADOBUTROL 65ML VIAL IV ONE (11:02)
--- NOTE | 2022-05-29 12:44 | Magnetic Resonance Report ---
MR cervical spine wo/w con HISTORY: 72 years-old Female eval progression of MS chronic neck pain with weakness and recent fall. History of multiple sclerosis. COMPARISON: MRI of thoracic spine study of same day, brain MRI 05/25/2022. TECHNIQUE: Multiplanar multisequence MRI of the cervical spine was obtained both with and without the use of 5.5 cc Gadavist. FINDINGS: Involutional changes of the imaged brain parenchyma with T2/FLAIR hyperintense foci throughout the wh ite matter. Additional subtle foci are noted within the brainstem. The study is motion degraded. No a bnormal signal within the cervical or imaged thoracic spinal cord. There is no definite acute fractur e, subluxation, endplate erosion or destructive bone lesion identified within the cervical spine. Tra ce nonspecific prevertebral fluid. Superior endplate compression involves several upper thoracic segm ents. Discogenic degeneration with spondylitic spurring and facet arthrosis. No abnormal enhancement. Paraspinal tissues in upper thorax appear unremarkable. C2-C3: Uncovertebral hypertrophy with moderate facet arthrosis. No central canal or neural foraminal narrowing. C3-C4: Mild intervertebral disc space narrowing. Uncovertebral hypertrophy with posterior disc osteop hyte complex and moderate facet arthrosis. Flattening of the ventral thecal sac with slight deformity of the ventral cervical spinal cord. No significant central canal stenosis. Moderate left with mild to moderate right neural foraminal narrowing. C4-C5: Uncovertebral hypertrophy with tiny posterior disc osteophyte complex and moderate facet arthr osis. Slight deformity of the ventral cervical spinal cord without significant central canal stenosis . Mild bilateral neural foraminal narrowing. C5-C6: Uncovertebral hypertrophy with tiny posterior annular disc bulge and moderate facet arthrosis. The central canal is patent. Mild bilateral neural foraminal narrowing. C6-C7: Mild intervertebral disc space narrowing with uncovertebral hypertrophy and posterior disc ost eophyte complex with moderate facet arthrosis. Mild bilateral neural foraminal stenosis. C7-T1: Uncovertebral hypertrophy with small posterior disc osteophyte complex and moderate facet arth rosis. No central canal or neural foraminal narrowing. Mild chronic appearing superior endplate compr ession at T1. 2 mm retropulsion. IMPRESSION: 1. Normal signal of the cervical spinal cord. No abnormal signal to suggest demyelinating plaques. 2. No abnormal enhancement. 3. Discogenic degeneration with uncovertebral hypertrophy and facet arthrosis as above. 4. Please refer to the MRI thoracic spine study of same day for additional findings. ACT 112: Negative or not required by law. The above report was generated using voice recognition software. It may contain grammatical, syntax o r spelling errors. Electronically signed by: Pierce Roberson M.D. 05/29/2022 12:42 PM
--- NOTE | 2022-05-29 12:53 | Magnetic Resonance Report ---
MR thoracic spine wo/w con, MR lumbar spine wo/w con HISTORY: 72 years-old Female eval progression of MS follow-up study in a patient with history of mul tiple sclerosis. COMPARISON: CT abdomen and pelvis 05/27/2022, CT lumbar spine 05/24/2022. TECHNIQUE: Multiplanar multisequence MRI of the thoracic and lumbar spine were obtained both with and without the use of 5.5 cc Gadavist. FINDINGS: THORACIC: No gross extra thoracic abnormality identified. Cardiomegaly. Increased kyphotic curvature of the tho racic spine. Motion degraded exam. There is no abnormal enhancement. No epidural fluid collections. T race pleural effusions with mildly increased nonspecific signal within the lung bases suggestive of a telectasis. There is normal signal of the thoracic spinal cord. No demyelinating plaques or lesions a re identified. Conus medullaris terminates at L1-L2. Chronic T7 burst fracture. Numerous chronic thor acic compression deformities, most severe at T10, T11 and T12. 50% superior endplate compression at T 3 with minimal superior endplate edema and 2 mm retropulsion, possibly subacute. No high-grade centra l canal stenosis. Multilevel posterior annular disc bulge with spondylitic spurring and moderate face t arthrosis with at least mild intervertebral disc space narrowing. LUMBAR: Circumferential rectal wall thickening is noted on the filing or registry clerk localizer images. Chronic L3 compression deformity with chronic superior and inferior endplate compression at L2. Lumbar levoscoliosis. There is nonspecific enhancement of the L2-L3 intervertebral disc space which demonstrates increased T1 si gnal. Moderate marrow edema with associated enhancement is noted involving the mid to inferior sacrum with acute sacral insufficiency fracture. Mild volar cortical angulation at the S4 segment. No addit ional abnormal enhancement is identified. Marrow edema is noted involving the acute fracture of the l eft L3 transverse process. Mild edema within the adjacent paraspinal musculature. Mild additional bon e marrow edema of the left L2 transverse process. T12-L1: Mild intervertebral disc space narrowing. Spondylitic spurring with posterior annular disc bu lge and moderate facet arthrosis. Flattening of the ventral thecal sac without significant central ca nal or neural foraminal narrowing. L1-L2: Mild intervertebral disc space narrowing. Spondylitic spurring with posterior annular disc bul ge. Ligamentum flavum thickening with severe facet arthrosis. No significant central canal or left fo raminal narrowing. [id number] right foraminal narrowing. L2-L3: Spondylitic spurring with posterior annular disc bulge. A small right foraminal disc protrusio n is also noted. Ligamentum flavum thickening with severe facet arthrosis. Flattening of the ventral thecal sac without significant central canal stenosis or left foraminal narrowing. Mild to moderate r ight foraminal stenosis. L3-L4: Spondylitic spurring with posterior annular disc bulge. Ligamentum flavum thickening with marlyn re facet arthrosis. The central canal and left neural foramen are patent. There is mild right foramin al narrowing. L4-L5: Mild spondylitic spurring with small circumferential annular disc bulge. Ligamentum flavum thi ckening with severe facet arthrosis. Mild bilateral foraminal narrowing. L5-S1: 2 mm anterolisthesis likely degenerative. Mild posterior intervertebral disc space narrowing w ith associated spondylitic spurring and small posterior annular disc bulge. Ligamentum flavum thicken ing with severe facet arthrosis and bilateral facet effusions. The central canal is patent. Mild bila teral neural foraminal narrowing. IMPRESSION: 1. Normal signal of the thoracic spinal cord. No demyelinating plaques are identified. 2. No abnormal enhancement. 3. Chronic thoracolumbar compression deformities. Minimal edema involving the superior endplate T3 ma y represent subacute etiology. 4. Acute nondisplaced fracture of the left L3 transverse process with possible additional acute nondi splaced fractures of the left L2 transverse process. 5. Moderate marrow edema within the sacrum associated with acute sacral insufficiency fracture. 6. Nonspecific circumferential wall thickening of the rectum is better visualized on the comparison C T abdomen and pelvis, possibly apprenticeship training representative of proctitis. This could be correlated with colonoscopy . ACT 112: Negative or not required by law. The above report was generated using voice recognition software. It may contain grammatical, syntax o r spelling errors. Dictated: 05/29/2022 12:01 PM Transcribed: 05/29/2022 12:46 PM Luz [id number] [email or web address] Electronically signed by: Pierce Roberson M.D. 05/29/2022 12:51 PM
--- NOTE | 2022-05-29 15:57 | Hospitalist Progress Note ---
Date of Service May 29, 2022 Assessment & Plan (1) Weakness: Plan: 72yo female with history of MS, PD and Seizure disorder presenting with 1 week of progressive weakness, ambulatory dysfunction and falls. ?MS flare/pseudoflare 2/2 UTI Weakness, Hx of MS, Acute UTI Copaxone if family supplies Second flare in 2 weeks in the setting of UTI. 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, stop steroids, given haldol im x1 -neurology recommended MRI spinal chord to look for acute lesion, documented that pt wants to wait, if unable to walk and stand will prusue -MRI brain 05/25, multiple areas of demyleniation and some small vessel disease, neither appear acute Spinal MRI subacute L3 transverse process fracture, old L2,L3 compression fractures, old thoracic spine compression fractures, most severe at T7 - pain is controlled Chronic right foot drop, bilateral neuropathy -Copaxone 3 times a week if brought in by son -Lamictal level elevated,did reduce dose , Keppra dose reduced due to high levels -Propranolol 10 mg twice daily, Topamax stopped by neurology Continue PT/OT, currently recommending rehab Generalized parkinsonism Bilateral upper resting tremor, started on right side and spread to left No rigidity, no bradykinesia, tremor at rest and with action Continue propanolol for symptoms, neurology considering starting sinemet as outpt Outpatient follow-up for carbidopalevodopa trial and tremor follow-up (2) UTI (urinary tract infection): Plan: UA suggestive of infection. imaging of lumbar MR suggests enlarged bladder vs mass, bladder scan of >2000ml on 05/2605/27/22 did decompress and re image by abdomen and pelvis CT does not show mass but shows constipation, suppoistory ordered Afebrile, hemodynamically stable, nontoxic Urine culture negative did complete 3 days of antibiotics, repeat culture with confusion (3) Hypothyroid: Plan: Chronic. TSH WNL at 2.397 -Continue Synthroid (4) Parkinson disease: Plan: Chronic -Continue Propranolol -Records requested (5) Multiple sclerosis: Plan: Chronic -Patient receives glatiramer injections followed by neurology pt agrees to rehab placement (6) Seizure: Plan: Chronic -Continue, Keppra, Lamictal Admission and Anticipated Discharge Date Admission Date: May 27, 2022 Subjective pt is more back to her baseline mental state seems encephalopathy is from steroids, so ? toxic encephalopahty adjusted keppra and lamictal awaiting placement Review of Systems Review of Systems: Mild distress and fatigue no headache, no visual changes no speech or swallowing issues no chest pain, pressure or palpitations no shortness of breath, cough or wheezes no abdominal pain, nausea or vomiting, diarrhea or constipation no dysuria, hematuria or frequency no focal joint pain or swelling no back pain, CVA tenderness or radicular pain no bruising, bleeding or rashes weakened lower extremities, right foot drop, some tremor no complaints of anxiety or depression.. Physical Exam Physical Exam: The patient appeared chronically ill but stable Vital signs as documented. Lungs are clear to auscultation and appear unlabored Cardiac exam, Rhythm is regular.. No murmurs, rubs or gallops. Abdominal exam reveals normal bowel sounds, soft non tender, no masses Extremities are nonedematous and both pedal pulses are normal. neuro a &o x3, le weakness 4/5 right foot drop and tremor Results & Data Results & Data ([facility]) Vital Signs (Past 12 Hours) Vital Signs Temp Pulse Resp BP Pulse Ox O2 Del Method 05/29/22 08:00 98.2 F 71 18 128/72 93 Room Air PG Care Time/CCT Total # of Minutes Spent Total Time Spent with Patient: Total time spent is greater than 50% in coordination of care (as documented) at patient's floor/unit and/or counseling patient: Coding Level of Care Code 90918 Subseq Hosp Care Lvl 2 Diagnoses Weakness R53.1 UTI (urinary tract infection) N39.0 Hypothyroid E03.9 Parkinson disease G20 Multiple sclerosis G35 Seizure R56.9
[2022-05-29] MEDS: lamoTRIgine 100 MG TAB PO SCH (21:06)
[2022-05-29] MEDS: levETIRAcetam 250 MG TAB PO SCH (21:07)
[2022-05-30] MEDS: LEVOTHYROXINE SODIUM 112 MCG TABLET PO SCH (06:39)
--- NOTE | 2022-05-30 07:35 | Hospitalist Progress Note ---
Date of Service May 30, 2022 Assessment & Plan (1) Weakness: Plan: 72yo female with history of MS, PD and Seizure disorder presenting with 1 week of progressive weakness, ambulatory dysfunction and falls. ?MS flare/pseudoflare 2/2 UTI Weakness, Hx of MS, Acute UTI Copaxone if family supplies Second flare in 2 weeks in the setting of UTI. 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, stopped steroids with improvement -neurology recommended MRI spinal chord to look for acute lesion, performed on 05/29 no lesions seen -MRI brain 05/25, multiple areas of demyleniation and some small vessel disease, neither appear acute Spinal MRI subacute L3 transverse process fracture, old L2,L3 compression fractures, old thoracic spine compression fractures, most severe at T7 - pain is controlled Chronic right foot drop, bilateral neuropathy -Copaxone 3 times a week if brought in by son -Lamictal level elevated,did reduce dose , Keppra dose reduced due to high levels -Propranolol 10 mg twice daily, Topamax stopped by neurology Continue PT/OT, currently recommending rehab Generalized parkinsonism Bilateral upper resting tremor, started on right side and spread to left No rigidity, no bradykinesia, tremor at rest and with action Continue propanolol for symptoms, neurology considering starting sinemet as outpt Outpatient follow-up for carbidopalevodopa trial and tremor follow-up (2) UTI (urinary tract infection): Plan: UA suggestive of infection. imaging of lumbar MR suggests enlarged bladder vs mass, bladder scan of >2000ml on 05/2605/27/22 did decompress and re image by abdomen and pelvis CT does not show mass but shows constipation, suppoistory ordered Afebrile, hemodynamically stable, nontoxic Urine culture negative did complete 3 days of antibiotics, repeat culture with confusion (3) Hypothyroid: Plan: Chronic. TSH WNL at 2.397 -Continue Synthroid (4) Parkinson disease: Plan: Chronic -Continue Propranolol -Records requested (5) Multiple sclerosis: Plan: Chronic -Patient receives glatiramer injections followed by neurology pt agrees to rehab placement (6) Seizure: Plan: Chronic -Continue, Keppra, Lamictal Admission and Anticipated Discharge Date Admission Date: May 27, 2022 Subjective pt is more back to her baseline mental state seems encephalopathy is from steroids, toxic encephalopahty adjusted keppra and lamictal awaiting placement Review of Systems Review of Systems: Mild distress and fatigue no headache, no visual changes no speech or swallowing issues no chest pain, pressure or palpitations no shortness of breath, cough or wheezes no abdominal pain, nausea or vomiting, diarrhea or constipation no dysuria, hematuria or frequency no focal joint pain or swelling no back pain, CVA tenderness or radicular pain no bruising, bleeding or rashes weakened lower extremities, right foot drop, some tremor no complaints of anxiety or depression.. Physical Exam Physical Exam: The patient appeared chronically ill but stable Vital signs as documented. Lungs are clear to auscultation and appear unlabored Cardiac exam, Rhythm is regular.. No murmurs, rubs or gallops. Abdominal exam reveals normal bowel sounds, soft non tender, no masses Extremities are nonedematous and both pedal pulses are normal. neuro a &o x3, le weakness 4/5 right foot drop and tremor Results & Data Results & Data ([facility]) Vital Signs (Past 12 Hours) Vital Signs Temp Pulse Resp BP Pulse Ox O2 Del Method 05/29/22 22:00 Room Air 05/29/22 22:23 97.9 F 89 20 145/82 H 95 Room Air PG Care Time/CCT Total # of Minutes Spent Total Time Spent with Patient: Total time spent is greater than 50% in coordination of care (as documented) at patient's floor/unit and/or counseling patient: Coding Level of Care Code 05335 Subseq Hosp Care Lvl 2 Diagnoses Weakness R53.1 UTI (urinary tract infection) N39.0 Hypothyroid E03.9 Parkinson disease G20 Multiple sclerosis G35 Seizure R56.9
[2022-05-30] MEDS: levETIRAcetam 250 MG TAB PO SCH ×2 (08:23→20:15)
[2022-05-30] MEDS: PROPRANOLOL HCL 10 MG TAB PO SCH ×2 (08:24→20:16)
[2022-05-30] MEDS: lamoTRIgine 100 MG TAB PO SCH ×2 (08:24→20:15)
[2022-05-31] MEDS: LEVOTHYROXINE SODIUM 112 MCG TABLET PO SCH (05:40)
--- NOTE | 2022-05-31 08:28 | Neurology Progress Note ---
Date of Service May 31, 2022 Assessment & Plan (1) Multiple sclerosis: (2) Parkinsonism: (3) Seizure disorder: (4) Peripheral neuropathy: (5) Weakness: Plan Patient has a history of multiple sclerosis fairly stable clinically and radiographically on glatiramer acetate. She has no active lesions or anything that would suggest an acute exacerbation of MS. There was a history of acute encephalopathy which has resolved. Steroids may have contributed this as well as mildly elevated (supratherapeutic) levels of anticonvulsants and a recent urinary tract infection. The patient has a moderate tremor of an action/ postural for ID. She also has head tremor. This is most consistent with an essential tremor and I really do not detect any Parkinson's features today. She has been labeled with a Parkinson's type tremor at times. There is a history of seizures seemingly well controlled on lamotrigine and levetiracetam. Anticonvulsant doses have been lowered because of supratherapeutic levels. There is a history of weakness and polyneuropathy. She has footdrop likely secondary to the polyneuropathy. Peroneal neuropathy and L5 radiculopathy need to be excluded. There are no radicular pains in the lower extremities currently. Recommendations: 1. Increase activity and therapy as able. She would be a good rehabilitation hospital candidate 2. keep levetiracetam at 750 mg twice daily. Check a trough level in 1 month. 3. Continue lamotrigine at 150 mg twice daily. Check a trough level in 1 month. 4. Consider EMG nerve conduction studies of the legs to evaluate for peripheral neuropathy versus peroneal neuropathy versus lumbosacral radiculopathy. 5. Continue generic Copaxone 20 mg subcu, 3 times a week. 6. I still believe that propranolol is the drug of choice for her type of tremor. The dose is too low. We could increase although we would have to watch blood pressure and pulse. I would recommend going to a 60 mg propranolol ER tablet once in the morning 7. if she is going to stay in the [facility], I would recommend that she make a follow-up appointment with 1 of the Neurology PAs 2-3 weeks after discharge for continuity of care. She can continue to see the [facility] MS specialist, Dr. Tulio Harmon. as well. overall, I spent a total of 50 minutes with this case including review of records, review of MRI films, direct evaluation the patient bedside, and discussion of the case with the patient and nurse at bedside, as well as Dr. Weinstein including differential diagnosis and treatment options. Admission and Anticipated Discharge Date Admission Date: May 27, 2022 Subjective This patient feels much better over the last few days feeling almost back to baseline. She has tremor which waxes and wanes somewhat randomly. Stress can bring it out. It tends to be in both arms symmetrically with the head and voice involved at times as well. She has not been on Higher doses of propranolol, she is aware. Patient has a history of multiple sclerosis followed by Dr. Tulio Harmon at the [place]. She is on generic Copaxone 3 times a week She has a history of seizures well controlled on Lamictal and levetiracetam. lamotrigine was decreased to the current dose of 100 mg twice a day (from 200 mg twice daily ) because of a level of 22.9 ( normal 4-18). levetiracetam was dec reased to the current dose of 750 mg twice a day ( from 1000 mg twice daily ) because of a level of 53.1 ( normal 6-46) The patient has polyneuropathy with footdrop. MRI of the brain showed multiple white matter changes consistent with multiple sclerosis of an old nature, without new or active lesions. I reviewed these films. MRIs of the cervical and thoracic spine had no evidence of multiple sclerosis or any other cord lesion, but there were some nonspecific degenerative changes. MRI of the lumbar spine revealed old compression fractures at degenerative changes. I reviewed all of these films Results & Data ([facility]) Vital Signs (Past 12 Hours) Vital Signs Temp Pulse Resp BP Pulse Ox O2 Del Method 05/31/22 07:56 36.8 C 102 H 18 118/72 93 Room Air 05/30/22 22:43 36.8 C 86 20 138/84 95 Room Air Exam (Neuro) Physical Exam: The patient is awake, alert, and attentive, with normal speech and communication. Mood is normal and affect is appropriate. The patient is fully oriented and has intact long and short term memory. Extraocular eye muscles are intact without nystagmus. Facial strength and symmetry is normal bilaterally. Facial sensation is normal bilaterally in all 3 divisions of the fifth cranial nerve. Tongue is midline with normal strength bilaterally. The patient has a head tremor but no voice tremor this morning. The head tremor is variable. She does not have bradykinesia or cogwheeling /rigidity Gait is not tested. Coordination of the arms is normal, without ataxia bilaterally. Patient does have moderate postural and action tremor bilaterally. I was not convinced that she had a resting tremor. Motor strength is 5/5 in all major muscle groups of the arms bilaterally, both proximally and distally. Leg strength is 4/5 proximally in to 2/5 distally Muscle tone is normal in the limbs, without rigidity or spasticity. reflexes are 1/4 in the biceps brachioradialis and triceps, and absent in the quadriceps and Achilles tendons bilaterally. Toes are downgoing with plantar stimulation bilaterally. PG Care Time/CCT Total # of Minutes Spent Total Time Spent with Patient: Total time spent is greater than 50% in coordination of care (as documented) at patient's floor/unit and/or counseling patient: Coding Level of Care Code 95933 Subseq Hosp Care Lvl 3 Diagnoses Multiple sclerosis G35 Parkinsonism G20 Seizure disorder G40.909 Peripheral neuropathy G62.9 Weakness R53.1 Time Spent (min) 50
--- NOTE | 2022-05-31 08:30 | Hospitalist Progress Note ---
Date of Service May 31, 2022 Assessment & Plan (1) Weakness: Plan: 72yo female with history of MS, PD and Seizure disorder presenting with 1 week of progressive weakness, ambulatory dysfunction and falls. ?MS flare/pseudoflare 2/2 UTI Weakness, Hx of MS, Acute UTI Copaxone if family supplies Second flare in 2 weeks in the setting of UTI. 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, stopped steroids with improvement -neurology recommended MRI spinal chord to look for acute lesion, performed on 05/29 no lesions seen -MRI brain 05/25, multiple areas of demyleniation and some small vessel disease, neither appear acute Spinal MRI subacute L3 transverse process fracture, old L2,L3 compression fractures, old thoracic spine compression fractures, most severe at T7 - pain is controlled Chronic right foot drop, bilateral neuropathy -Copaxone 3 times a week if brought in by son -Lamictal level elevated,did reduce dose , Keppra dose reduced due to high levels -Propranolol 10 mg twice daily, Topamax stopped by neurology Continue PT/OT, currently recommending rehab Generalized parkinsonism Bilateral upper resting tremor, started on right side and spread to left No rigidity, no bradykinesia, tremor at rest and with action Continue propanolol for symptoms, neurology considering starting sinemet as outpt Outpatient follow-up for carbidopalevodopa trial and tremor follow-up (2) UTI (urinary tract infection): Plan: UA suggestive of infection. imaging of lumbar MR suggests enlarged bladder vs mass, bladder scan of >2000ml on 05/2605/27/22 did decompress and re image by abdomen and pelvis CT does not show mass but shows constipation, suppoistory ordered Afebrile, hemodynamically stable, nontoxic Urine culture negative did complete 3 days of antibiotics, repeat culture with confusion (3) Hypothyroid: Plan: Chronic. TSH WNL at 2.397 -Continue Synthroid (4) Parkinson disease: Plan: Chronic -Continue Propranolol -Records requested (5) Multiple sclerosis: Plan: Chronic -Patient receives glatiramer injections followed by neurology pt agrees to rehab placement (6) Seizure: Plan: Chronic -Continue, Keppra, Lamictal Admission and Anticipated Discharge Date Admission Date: May 27, 2022 Review of Systems Review of Systems: Mild distress and fatigue no headache, no visual changes no speech or swallowing issues no chest pain, pressure or palpitations no shortness of breath, cough or wheezes no abdominal pain, nausea or vomiting, diarrhea or constipation no dysuria, hematuria or frequency no focal joint pain or swelling no back pain, CVA tenderness or radicular pain no bruising, bleeding or rashes weakened lower extremities, right foot drop, some tremor no complaints of anxiety or depression.. Physical Exam Physical Exam: The patient appeared chronically ill but stable Vital signs as documented. Lungs are clear to auscultation and appear unlabored Cardiac exam, Rhythm is regular.. No murmurs, rubs or gallops. Abdominal exam reveals normal bowel sounds, soft non tender, no masses Extremities are nonedematous and both pedal pulses are normal. neuro a &o x3, le weakness 4/5 right foot drop and tremor Results & Data Results & Data ([facility]) Vital Signs (Past 12 Hours) Vital Signs Temp Pulse Resp BP Pulse Ox O2 Del Method 05/31/22 07:56 98.2 F 102 H 18 118/72 93 Room Air 05/30/22 22:43 98.2 F 86 20 138/84 95 Room Air PG Care Time/CCT Total # of Minutes Spent Total Time Spent with Patient: Total time spent is greater than 50% in coordination of care (as documented) at patient's floor/unit and/or counseling patient: Coding Diagnoses Weakness R53.1 UTI (urinary tract infection) N39.0 Hypothyroid E03.9 Parkinson disease G20 Multiple sclerosis G35 Seizure R56.9
[2022-05-31] MEDS: lamoTRIgine 100 MG TAB PO SCH (08:33)
[2022-05-31] MEDS: levETIRAcetam 250 MG TAB PO SCH (08:33)
[2022-05-31] MEDS: PROPRANOLOL HCL 10 MG TAB PO SCH (08:34)
--- NOTE | 2022-05-31 18:08 | Discharge Summary ---
Date of Service May 31, 2022 Admission HPI Per Admitting Provider Nicki Arevalo is a 72yo female with history of MS, Seizure disorder and Parkinson's disease. Patient is from [place], [place]. She is presently residing with her son as her is currently being hospitalized. She has been in [place] for approximately 1 week. She reports worsening weakness, poor balance and multiple falls over the last week. She is unable to walk or stand on her own and requires 2 people for transfers. She feels that her right leg is weaker than her left. Patient with relapsing-remitting MS. She uses a wheelchair at home. She follows with Neurology at [facility] - last seen appx 2 years ago. She thinks her last MRI was appx 1 year ago. Was recently treated with a course of Macrobid for a presumed UTI. She denies fever, chills, chest pain, cough, SOB, abdominal pain, nausea, vomiting, constipation. Denies dysuria or difficulty urinating. She reports softer BMs but not diarrhea. Principal Diagnosis weakness from uti pseudoexacerbation of multiple sclerosis vertebral compression fracture Discharge Exam The patient appeared stable Vital signs as documented. Lungs are clear to auscultation and appear unlabored Cardiac exam, Rhythm is regular.. No murmurs, rubs or gallops. Abdominal exam reveals normal bowel sounds, soft non tender, no masses Extremities are nonedematous and both pedal pulses are normal. Neurologic exam is alert and oriented, has leg weakness and perhaps essential tremor is deconditioned from ms Skin is without bruises or rashes Psychologically is without concerns for anxiety or depression. Discharge Data Allergies Allergy/AdvReac Type Severity Reaction Status Date / Time Penicillins Allergy Intermediate Hives Verified 05/24/22 19:18 Consultations 05/24/22 22:58 ED Decision to Admit Stat 05/25/22 01:26 Consult Neurology Routine 05/25/22 12:34 HIM [Consult Health Information Management] Stat Ordered Studies 05/24/22 15:55 CT angio head w con Stat CT angio neck with con Stat CT cervical spine wo con Stat CT head/brain wo con Stat CT lumbar spine wo con Stat CT thoracic spine wo con Stat 05/25/22 01:26 MR brain MS wo/w con Routine 05/27/22 11:54 CT Abd and Pelvis [CT abd pelvis oral and IV con] Routine 05/29/22 00:00 MR cervical spine wo/w con Routine MR lumbar spine wo/w con Routine MR thoracic spine wo/w con Routine Hospital Course (1) Weakness: 72yo female with history of MS, PD and Seizure disorder presenting with 1 week of progressive weakness, ambulatory dysfunction and falls. ?MS flare/pseudoflare 2/2 UTI Weakness, Hx of MS, Acute UTI Copaxone if family supplies Second flare in 2 weeks in the setting of UTI. 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, stopped steroids with improvement -neurology recommended MRI spinal chord to look for acute lesion, performed on 05/29 no lesions seen -MRI brain 05/25, multiple areas of demyleniation and some small vessel disease, neither appear acute Spinal MRI subacute L3 transverse process fracture, old L2,L3 compression fractures, old thoracic spine compression fractures, most severe at T7 - pain is controlled Chronic right foot drop, bilateral neuropathy -Copaxone 3 times a week if brought in by son -Lamictal level elevated,did reduce dose , Keppra dose reduced due to high levels -Propranolol 10 mg twice daily, Topamax stopped by neurology Continue PT/OT, currently recommending rehab Generalized parkinsonism Bilateral upper resting tremor, started on right side and spread to left No rigidity, no bradykinesia, tremor at rest and with action Continue propanolol for symptoms,. will start Extended release, neurology considering starting sinemet as outpt Outpatient follow-up for carbidopalevodopa trial and tremor follow-up (2) UTI (urinary tract infection): UA suggestive of infection. imaging of lumbar MR suggests enlarged bladder vs mass, bladder scan of >2000ml on 05/2605/27/22 did decompress and re image by abdomen and pelvis CT does not show mass but shows constipation, suppoistory ordered Afebrile, hemodynamically stable, nontoxic Urine culture negative did complete 3 days of antibiotics, repeat culture with confusion (3) Hypothyroid: Chronic. TSH WNL at 2.397 -Continue Synthroid (4) Parkinson disease: Chronic -Continue Propranolol -Records requested (5) Multiple sclerosis: Chronic -Patient receives glatiramer injections followed by neurology (6) Seizure: Chronic -Continue, Keppra, Lamictal doses both adjusted down to the high level Total Time Total Time Spent Total Time Spent (In Minutes): It required greater than 30 minutes to prepare this patient for discharge Discharge Plan Discharge Items Patient Disposition: Transfer Inpatient Rehab Fac Reason For Visit: WEAKNESS Discharge Diagnosis: weakness from uti pseudoexacerbation of multiple sclerosis vertebral compression fracture Activity: Per Instructions section Non-emergency contact: Primary Care Provider and Neurologist Call non-emergency contact if: you have any medication questions Follow-up/Referrals: PCP,NO [Primary Care Provider] - Diet: Regular Addtl Attending Provider Instructions: please be srue darcy follow up with nerulogy Pending Studies at Discharge: No Stand-Alone Forms: My [facility] [address] Skilled Items Patient informed of condition?: Yes DNR: Yes Discharge Level of Care: Acute rehab Communicable Disease: No Discharge Prognosis: Stable Lines: None Urinary Catheter: Yes Medications and DC Order Prescriptions: New acetaminophen 325 mg Tablet 650 mg PO Q4H PRN (Reason: fever or pain) Qty: 60 0RF melatonin 3 mg Tablet 3 mg PO HS PRN (Reason: sleep) Qty: 30 0RF levetiracetam [Keppra] 250 mg Tablet 750 mg PO BID Qty: 60 0RF lamotrigine 100 mg Tablet 150 mg PO BID Qty: 60 0RF propranolol 60 mg capsule,extended release 24 hr 60 mg PO DAILY Qty: 30 0RF Continued levothyroxine 112 mcg tablet 112 mcg PO QAM glatiramer [Copaxone] 40 mg/mL syringe 0 mg SUBCUT [id number] Rx Instructions: TAKES ON MON, WED, & FRI. Discontinued lamotrigine 200 mg tablet 200 mg PO BID levetiracetam 500 mg tablet 1,000 mg PO BID topiramate 25 mg tablet 25 mg PO DAILY propranolol 20 mg tablet 10 mg PO BID Rx Instructions: WEANING OFF THIS MED PER PT'S SON. Discharge Orders: Discharge Order (Routine); Ordered 05/31/22 Ordered By: Alli Weinstein Admission Data Admit Date/Time: 05/27/22 09:25 Attending Provider: Alli Weinstein Admit Provider: Yasmin Wade Primary Care Provider: PCP,NO Other Providers: Yasmin Wade ; Martín Crooks ; [facility] Coding Level of Care Code D/C DAY MANAGEMENT >30 MINS Diagnoses Weakness R53.1 UTI (urinary tract infection) N39.0 Hypothyroid E03.9 Parkinson disease G20 Multiple sclerosis G35 Seizure R56.9
== END 2022-05-31 13:25 | DRG 58 ==
LOC: EDINP 15:45 → ED 15:45 → SUATTDRO 23:29 → 2N 05-25 01:28

== ENCOUNTER 2022-06-10 15:05 | Observation (INO) ==
[~2022-06-10 15:05] MED LIST: cefTRIAXone SODIUM 2,000 MG/70 ML BAG IV STA
[2022-06-10] MEDS ORDERED: levETIRAcetam 750 MG in 0.9 % SODIUM CHLORIDE 100 ML IV STA (15:34)
[2022-06-10] MEDS ORDERED: SODIUM CHLORIDE 0.9% 1000ML 500 ML IV ONE (15:34)
[2022-06-10 15:35] LABS: Basophils # (auto) 0.05 K/uL (0-0.2); Basophils % (auto) 0.6 %; Eosinophils # (auto) 0.04 K/uL (0-0.50); Eosinophils % (auto) 0.5 %; Hematocrit (blood only) 36.3 % (34.1-44.9); Hemoglobin 11.7 g/dl (12.0-16.0); Immature Granulocytes # (auto) 0.03 K/uL (0.00-0.02); Immature Granulocytes % (auto) 0.4 %; Lymphocytes # (auto) 0.91 K/uL (1.2-3.4); Lymphocytes % (auto) 11.7 %; Mean Corpuscular Hemoglobin 32.5 pg (25.0-34.0); Mean Corpuscular Hgb Conc 32.2 g/dL (32.0-36.0); Mean Corpuscular Volume 100.8 fL (80.0-100.0); Mean Platelet Volume 10.5 fL (9.4-12.3); Monocytes # (auto) 0.71 K/uL (0.24-0.82); Monocytes % (auto) 9.1 %; Neutrophils # (auto) 6.04 K/uL (1.4-6.5); Neutrophils % (auto) 77.7 %; Platelet Count 379 K/uL (130-400); RDW Coefficient of Variation 16.2 % (11.5-14.5); White Blood Count 7.78 K/ul (4.8-10.8)
--- NOTE | 2022-06-10 15:41 | Emergency Department Note ---
Impression & Plan Altered mental status, Seizure-like activity, Multiple sclerosis, Acute UTI ED Provider Note NAME: DARRON SIMMS AGE: 72 SEX: F : 1950 ARRIVES VIA: Ambulance INFORMANT: [ems, nursing, son] ED PROVIDER(S): [Nick Duke MD] CHIEF COMPLAINT: Seizure HISTORY OF PRESENT ILLNESS: The patient is a 72-year-old female with a history of seizure, MS. She is a DNR. She was discharged from our hospital 10 days ago after being in for weakness and an MS flare thought secondary to a UTI. She was at [facility] for rehab and then yesterday, transferred to [facility] for longer term care. Her son is at the bedside and believes that she missed her dosing of seizure meds last evening because of the move-in. As per EMS and the nursing staff. The patient had a 20-minute potentially focal seizure-like event prior to arrival. She was given 2 mg of IV Ativan and 2.5 mg of IV Versed with stoppage of the seizure. The patient's son is not convinced that her activity was truly a seizure as her typical seizure is [place], not focal. He states that he was told that she was speaking at times during this event. He admits that her seizure meds were decreased during her last hospitalization here at [facility] because the levels were both high. She takes lamotrigine and Keppra. The son did see his mother yesterday, she was at baseline and had no complaints. The patient is currently somnolent and can provide no further history. REVIEW OF SYSTEMS: Unobtainable given the patient's mental state. PMHx/PSHx: See Below SOCIAL HISTORY: See Below. PHYSICAL EXAM: GENERAL: Patient is in no acute distress. HEENT: No acute trauma, normocephalic atraumatic, mucous membranes moist, no nasal congestion, no scleral icterus. NECK: No stridor, no adenopathy, no meningismus, trachea is midline. LUNGS: Clear to auscultation bilaterally when listening anterior, no rhonchi, no respiratory distress. HEART: 2 over 6 systolic murmur, regular rate and rhythm. ABDOMEN: Soft, nontender, bowel sounds positive, no peritonitis. EXTREMITIES: No cyanosis or edema, full range of motion of all the joints without pain or difficulty, no signs for acute trauma. NEUROLOGIC: Somnolent, moves all extremities, currently nonverbal. SKIN: No rash, no jaundice, no diaphoresis. DIFFERENTIAL DIAGNOSIS: Seizure, focal seizure, infection, UTI, dehydration, aggressive behavior, anxiety, electrolyte imbalance, intracranial bleeding, dysrhythmia, among others EMERGENCY DEPARTMENT COURSE/PROCEDURES: ECG: Indication was possible seizure. The ECG shows a normal sinus rhythm with a rate of 91. LVH is present. There is potential old inferior and anterior infarct noted. There is no ST elevation, no PVCs. QTC is 450 Continuous Cardiac Monitoring: An order was placed for continuous cardiac monitoring. The monitor shows a rate of 89 with normal sinus rhythm. MEDICAL DECISION MAKING: There is no leukocytosis or worrisome anemia. There was a normal platelet count. No renal failure, no significant electrolyte abnormality. No concerning liver enzyme elevation. ECG showed a normal sinus rhythm, no dysrhythmia. Cardiac enzyme testing x1 was slightly elevated. This elevation could be from cardiac injury or potentially demand ischemia. Urinalysis was consistent with infection. COVID, influenza and RSV test were negative. Chest x-ray did not show concerning CHF or pneumonia. Brain CT showed no acute bleed or mass- effect. Prolactin level was somewhat elevated, consistent with potential seizure activity. On exam, the patient was somnolent. The patient received IV saline, IV Keppra. She was given IV ceftriaxone. Patient presents with a change in mental status and a potential seizure-like event. She does appear to have a UTI. As per her son, her presentation today was not typical of her normal seizures. He was concerned because of the sweating and he was worried about infection. Given the circumstances, given her presentation and current mental state, given the findings on our testing, I do think a hospital stay would be warranted. I spoke with case management, the on-call hospitalist was consulted. Past Med/Surg History Medical History Hypothyroid Multiple sclerosis Parkinson disease Seizure Surgical History History of carpal tunnel surgery History of thyroidectomy Family History Other Family history non-contributory Social History Smoking Status: Never smoker Hx Alcohol Use: No Hx Substance Use: No Communication Ability: Effective marital status: Current Living Situation: [facility] Feels Safe at Home: Yes Assistive Devices: Walker and Wheelchair Allergies Allergies Allergy/AdvReac Type Severity Reaction Status Date / Time Penicillins Allergy Intermediate Hives Verified 06/10/22 16:21 Home Meds Home Medications Medication Instructions Recorded Confirmed glatiramer 40 mg/mL subcutaneous 0 mg subcut 3XWK 05/24/22 06/10/22 syringe ([place]) levothyroxine 112 mcg tablet 112 mcg PO QAM 05/24/22 06/10/22 Previous Rx's Medication Instructions Recorded acetaminophen 325 mg tablet 650 mg PO Q4H PRN fever or pain 05/31/22 #60 tabs lamotrigine 100 mg tablet 150 mg PO BID #60 tabs 05/31/22 levetiracetam 250 mg tablet 750 mg PO BID #60 tabs 05/31/22 (Keppra) melatonin 3 mg tablet 3 mg PO HS PRN sleep #30 tabs 05/31/22 propranolol 60 mg capsule,24 60 mg PO DAILY #30 caps 05/31/22 hr,extended release Results & Data (ED) Vital Signs Vital Signs - 24 hr 06/10/22 15:17 06/10/22 15:22 06/10/22 16:58 Temperature 37.0 C Temperature Source Oral Pulse Rate 89 Pulse Rate [Left Radial] 85 Pulse Rhythm [Left Radial] Regular Respiratory Rate 20 20 Respiratory Effort / Characteristics Non-Labored Non-Labored Respiratory Depth Normal Normal Blood Pressure 115/70 Blood Pressure [Left Arm] 104/73 Blood Pressure Mean 85 Blood Pressure Mean [Left Arm] 83 Blood Pressure Position Lying Blood Pressure Position [Left Arm] Pulse Oximetry 94 99 Oxygen Delivery Method Room Air Room Air Sepsis Recent Fever Within 48 Hours No Sepsis New/Unexplained Change in Mental Status No Sepsis Action Taken by Nursing No Action Required 06/10/22 18:00 Temperature Temperature Source Pulse Rate Pulse Rate [Left Radial] 87 Pulse Rhythm [Left Radial] Respiratory Rate 20 Respiratory Effort / Characteristics Non-Labored Respiratory Depth Normal Blood Pressure Blood Pressure [Left Arm] 136/74 Blood Pressure Mean Blood Pressure Mean [Left Arm] 94 Blood Pressure Position Blood Pressure Position [Left Arm] Lying Pulse Oximetry 95 Oxygen Delivery Method Room Air Sepsis Recent Fever Within 48 Hours Sepsis New/Unexplained Change in Mental Status Sepsis Action Taken by [facility] Medications Current Medication List: was personally reviewed by me Laboratory Data Attestation: I reviewed the patient's lab results. Result diagrams: 06/10/22 15:11 06/10/22 15:11 Lab Results 06/10/22 06/10/22 06/10/22 Range/Units 15:11 15:11 15:11 WBC 7.78 (4.8-10.8) K/ul RBC 3.60 L (3.93-5.22) M/uL Hgb 11.7 L (12.0-16.0) g/dl Hct 36.3 (34.1-44.9) % MCV 100.8 H (80.0-100.0) fL MCH 32.5 (25.0-34.0) pg MCHC 32.2 (32.0-36.0) g/dL RDW Std Deviation 60.0 H (36.4-46.3) fL RDW Coeff of Jia 16.2 H (11.5-14.5) % Plt Count 379 (130-400) K/uL MPV 10.5 (9.4-12.3) fL Immature Gran % (Auto) 0.4 % Neut % (Auto) 77.7 % Lymph % (Auto) 11.7 % Hunt % (Auto) 9.1 % Eos % (Auto) 0.5 % Baso % (Auto) 0.6 % Neut # (Auto) 6.04 (1.4-6.5) K/uL Lymph # (Auto) 0.91 L (1.2-3.4) K/uL Hunt # (Auto) 0.71 (0.24-0.82) K/uL Eos # (Auto) 0.04 (0-0.50) K/uL Baso # (Auto) 0.05 (0-0.2) K/uL Immature Gran # (Auto) 0.03 H (0.00-0.02) K/uL Sodium 143 (136-145) mmol/L Potassium 3.7 (3.5-5.1) mmol/L Chloride 109 H (98-107) mmol/L Carbon Dioxide 26 (21-32) mmol/L Anion Gap 8 (3-11) BUN 19 (6-23) mg/dl Creatinine 0.79 (0.6-1.2) mg/dl Est Cr Clr Drug Dosing Not Reportable Est GFR ( Amer) 85.5 ml/min Est GFR (Non-Af Amer) 73.7 ml/min BUN/Creatinine Ratio 24.1 H (10-20) Glucose 120 H (70-99(Fasting)) mg/dl Calcium 9.1 (8.5-10.1) mg/dl Magnesium 1.9 (1.7-2.4) mg/dl Total Bilirubin 0.5 (0.2-1.0) mg/dl AST 35 (13-39) U/L ALT 46 (7-52) U/L Alkaline Phosphatase 83 (34-104) U/L Troponin I High Sens 39.4 H D (0-14) pg/ml Total Protein 6.4 (6.0-8.3) gm/dl Albumin 3.6 (3.4-5.0) gm/dl Globulin 2.8 (2.5-4.0) gm/dl Albumin/Globulin Ratio 1.3 (0.9-2) Prolactin 23.79 ng/ml Urine Color Urine Appearance (Clear) Urine pH (4.5-7.5) Ur Specific [place] (1.000-1.030) Urine Protein (Negative) Urine Glucose (UA) (Negative) Urine Ketones (Negative) Urine Blood (Negative) Urine Nitrite (Negative) Urine Bilirubin (Negative) Urine Urobilinogen (Negative) Ur Leukocyte Esterase (Negative) Urine WBC (Auto) (0-5) /hpf Urine RBC (Auto) (0-4) /hpf U Hyaline Cast (Auto) (0-5) /lpf U Epithel Cells (Auto) (0-5) /lpf Urine Bacteria (Auto) (Negative) SARS-CoV-2 (PCR) (Negative) Influenza Type A (PCR) (Neg) Influenza Type B (PCR) (Neg) RSV (RT-PCR) (Neg) 06/10/22 06/10/22 Range/Units 15:48 15:54 WBC (4.8-10.8) K/ul RBC (3.93-5.22) M/uL Hgb (12.0-16.0) g/dl Hct (34.1-44.9) % MCV (80.0-100.0) fL MCH (25.0-34.0) pg MCHC (32.0-36.0) g/dL RDW Std Deviation (36.4-46.3) fL RDW Coeff of Jia (11.5-14.5) % Plt Count (130-400) K/uL MPV (9.4-12.3) fL Immature Gran % (Auto) % Neut % (Auto) % Lymph % (Auto) % Hunt % (Auto) % Eos % (Auto) % Baso % (Auto) % Neut # (Auto) (1.4-6.5) K/uL Lymph # (Auto) (1.2-3.4) K/uL Hunt # (Auto) (0.24-0.82) K/uL Eos # (Auto) (0-0.50) K/uL Baso # (Auto) (0-0.2) K/uL Immature Gran # (Auto) (0.00-0.02) K/uL Sodium (136-145) mmol/L Potassium (3.5-5.1) mmol/L Chloride (98-107) mmol/L Carbon Dioxide (21-32) mmol/L Anion Gap (3-11) BUN (6-23) mg/dl Creatinine (0.6-1.2) mg/dl Est Cr Clr Drug Dosing Est GFR ( Amer) ml/min Est GFR (Non-Af Amer) ml/min BUN/Creatinine Ratio (10-20) Glucose (70-99(Fasting)) mg/dl Calcium (8.5-10.1) mg/dl Magnesium (1.7-2.4) mg/dl Total Bilirubin (0.2-1.0) mg/dl AST (13-39) U/L ALT (7-52) U/L Alkaline Phosphatase (34-104) U/L Troponin I High Sens (0-14) pg/ml Total Protein (6.0-8.3) gm/dl Albumin (3.4-5.0) gm/dl Globulin (2.5-4.0) gm/dl Albumin/Globulin Ratio (0.9-2) Prolactin ng/ml Urine Color Yellow Urine Appearance Cloudy A (Clear) Urine pH 6.0 (4.5-7.5) Ur Specific [place] 1.011 (1.000-1.030) Urine Protein Trace H (Negative) Urine Glucose (UA) Negative (Negative) Urine Ketones Negative (Negative) Urine Blood Trace H (Negative) Urine Nitrite Positive A (Negative) Urine Bilirubin Negative (Negative) Urine Urobilinogen Negative (Negative) Ur Leukocyte Esterase 3+ H (Negative) Urine WBC (Auto) >30 H (0-5) /hpf Urine RBC (Auto) 0-4 (0-4) /hpf U Hyaline Cast (Auto) 0 (0-5) /lpf U Epithel Cells (Auto) 0-5 (0-5) /lpf Urine Bacteria (Auto) Negative (Negative) SARS-CoV-2 (PCR) NEGATIVE (Negative) Influenza Type A (PCR) Negative (Neg) Influenza Type B (PCR) Negative (Neg) RSV (RT-PCR) Negative (Neg) Administered Medications Lamotrigine (Lamotrigine 25 Mg Tab) 150 mg PO BID KIMMY Stop: 07/10/22 20:59 Last Admin: 06/10/22 21:56 Dose: 150 mg Documented By: MARILYN Levetiracetam (Levetiracetam 250 Mg Tab) 750 mg PO BID KIMMY Stop: 07/10/22 20:59 Last Admin: 06/10/22 21:56 Dose: 750 mg Documented By: MARILYN Discontinued Medications Sodium Chloride (Nss 1000ml) 500 mls @ 999 mls/hr IV .Q31M ONE Stop: 06/10/22 16:04 Last Infusion: 06/10/22 16:28 Dose: 0 mls/hr Documented By: Admin: 06/10/22 15:50 Dose: 999 mls/hr Documented By: MARILYN Levetiracetam 750 mg/ Sodium (Chloride) 107.5 mls @ 440 mls/hr IV NOW STA Stop: 06/10/22 15:48 Last Infusion: 06/10/22 16:28 Dose: 0 mls/hr Documented By: Admin: 06/10/22 15:58 Dose: 440 mls/hr Documented By: MARILYN Ceftriaxone Sodium (Rocephin) 2,000 mg in 70 mls @ 140 mls/hr IV NOW STA Stop: 06/10/22 17:02 Last Infusion: 08/11/22 18:08 Dose: 0 mls/hr Documented By: Admin: 06/10/22 16:59 Dose: 140 mls/hr Documented By: MARILYN Imaging Data Radiologist's Impression: Chest X-Ray 06/10/22 15:34 XR chest 1V portable CLINICAL HISTORY: altered TECHNIQUE: Single frontal radiograph of the chest was obtained. Comparison: Comparison is made to chest radiograph 05/24/2022 FINDINGS: Right humeral fixation hardware is seen. The aorta is tortuous. The remainder of the cardiomediastinal silhouette is unremarkable. Prominence and cephalization of the vasculature is seen. No evidence of pleural effusion or pneumothorax. IMPRESSION: Mild pulmonary edema. Otherwise no acute abnormalities. ACT 112: Negative or not required by law. Electronically signed by: Dion Hernandez M.D. 06/10/2022 4:[address] 06/10/22 15:34 CT head/brain wo con CLINICAL HISTORY: Altered mental status COMPARISON STUDY: 05/24/2022 CT DOSE: 614.27 mGy.cm TECHNIQUE: Standard CT of the Brain was performed without IV contrast. A dose lowering technique was utilized adhering to the principles of ALARA. FINDINGS: Extraaxial space: There is no evidence for subdural hematoma. There are no extra-axial fluid collections. Ventricles and cisterns: The ventricles are mildly dilated bilaterally. There is no evidence for midline shift or mass effect. Parenchyma: There is no subarachnoid or intraparenchymal hemorrhage. There is no evidence for an acute infarct or cerebral edema. There is mild cerebral cortical atrophy and decreased attenuation in the periventricular white matter representing remote small vessel disease. There are no gross mass lesions. Osseous structures: There is no evidence for an acute fracture. The visualized paranasal sinuses are clear. The mastoid air cells are clear bilaterally. Soft tissues: There is no evidence for focal soft tissue swelling. IMPRESSION: 1. No acute intracerebral pathology. 2. Cerebral cortical atrophy and remote small vessel disease are again ACT 112: Negative or not required by law. Electronically signed by: Gentry Delacruz M.D. 06/10/2022 5:11 PM Discharge Plan Visit Data Chief Complaint: Seizure ED Provider: Nick Duke Discharge Problem: Altered mental status, Seizure-like activity, Multiple sclerosis, Acute UTI Patient Disposition: Admitted As Inpatient Condition: Fair : Altered mental status Qualifiers: Altered mental status type: somnolence Qualified Code(s): R40.0 - Somnolence
[2022-06-10 16:01] LABS: Appearance Urine Cloudy (Clear); Bacteria Urine Automated Negative (Negative); Bilirubin Urine Negative (Negative); Blood Urine Trace (Negative); Cast Urine Automated 0 /lpf (0-5); Color Urine Yellow; Epithelial Cell Urine Auto 0-5 /lpf (0-5); Glucose Urine UA Negative (Negative); Ketones Urine Negative (Negative); Leukocyte Esterase Urine 3+ (Negative); Nitrite Urine Positive (Negative); Protein Urine Trace (Negative); RBC Urine Automated 0-4 /hpf (0-4); Specific Gravity Urine 1.011 (1.000-1.030); Urobilinogen Urine Negative (Negative); WBC Urine Automated >30 /hpf (0-5)
[2022-06-10 16:07] LABS: Alanine Aminotransferase 46 U/L (7-52); Albumin Globulin Ratio 1.3 (0.9-2); Albumin Level 3.6 gm/dl (3.4-5.0); Alkaline Phosphatase 83 U/L (34-104); Anion Gap 8 (3-11); Aspartate Aminotransferase 35 U/L (13-39); BUN Creatinine Ratio 24.1 (10-20); Bilirubin,Total 0.5 mg/dl (0.2-1.0); Blood Urea Nitrogen 19 mg/dl (6-23); Calcium 9.1 mg/dl (8.5-10.1); Carbon Dioxide 26 mmol/L (21-32); Chloride 109 mmol/L (98-107); Est GFR (African American) 85.5 ml/min; Est GFR (Non-African American) 73.7 ml/min; Globulin 2.8 gm/dl (2.5-4.0); Glucose 120 mg/dl (70-99(Fasting)); Potassium 3.7 mmol/L (3.5-5.1); Sodium 143 mmol/L (136-145); Total Protein 6.4 gm/dl (6.0-8.3)
--- NOTE | 2022-06-10 16:18 | XRay Report ---
XR chest 1V portable CLINICAL HISTORY: altered TECHNIQUE: Single frontal radiograph of the chest was obtained. Comparison: Comparison is made to chest radiograph 05/24/2022 FINDINGS: Right humeral fixation hardware is seen. The aorta is tortuous. The remainder of the cardiomediastina l silhouette is unremarkable. Prominence and cephalization of the vasculature is seen. No evidence of pleural effusion or pneumothorax. IMPRESSION: Mild pulmonary edema. Otherwise no acute abnormalities. ACT 112: Negative or not required by law. Electronically signed by: Dion Hernandez M.D. 06/10/2022 4:16 PM
[2022-06-10 16:25] LABS: Magnesium 1.9 mg/dl (1.7-2.4)
[2022-06-10] MEDS ORDERED: cefTRIAXone SODIUM 2,000 MG/70 ML BAG IV STA (16:33)
[2022-06-10 16:52] LABS: Troponin I High Sensitivity 39.4 pg/ml (0-14)
[2022-06-10 17:06] LABS: Influenza A virus by PCR Negative (Neg); Influenza B virus by PCR Negative (Neg); RSV by PCR Negative (Neg); SARS CoV2 RNA(COVID-19) InHosp NEGATIVE (Negative)
--- NOTE | 2022-06-10 17:13 | CT Scan Report ---
CT head/brain wo con CLINICAL HISTORY: Altered mental status COMPARISON STUDY: 05/24/2022 CT DOSE: 614.27 mGy.cm TECHNIQUE: Standard CT of the Brain was performed without IV contrast. A dose lowering technique was utilized adhering to the principles of ALARA. FINDINGS: Extraaxial space: There is no evidence for subdural hematoma. There are no extra-axial fluid collecti ons. Ventricles and cisterns: The ventricles are mildly dilated bilaterally. There is no evidence for midl ine shift or mass effect. Parenchyma: There is no subarachnoid or intraparenchymal hemorrhage. There is no evidence for an acut e infarct or cerebral edema. There is mild cerebral cortical atrophy and decreased attenuation in the periventricular white matter representing remote small vessel disease. There are no gross mass lesio ns. Osseous structures: There is no evidence for an acute fracture. The visualized paranasal sinuses are clear. The mastoid air cells are clear bilaterally. Soft tissues: There is no evidence for focal soft tissue swelling. IMPRESSION: 1. No acute intracerebral pathology. 2. Cerebral cortical atrophy and remote small vessel disease are again ACT 112: Negative or not required by law. Electronically signed by: Gentry Delacruz M.D. 06/10/2022 5:11 PM
--- NOTE | 2022-06-10 18:59 | History & Physical Report ---
Date of Service June 10, 2022 Assessment & Plan (1) Seizure-like activity: Plan: Patient presents with shaking of hands into lower arms associated with diaphoresis. As in HPI conversant through episode and without confusion following event - DDX at this time: Rigors with UTI vs. Anxiety vs. Essential Tremor (missed medicaiton) vs. Siezure (missed medication) - Not presenting as her typical seizure which is defined by her and her son as staring straight ahead and shaking all over with confusion and sleeping afterwards - Will continue with seizure protocol- she was given her Keppra at [address] next dose 6 hours out and then get back on her BID dosing - Will continue treatment for her abnormal UA and await cultures (2) Parkinsonism: Plan: Parkinsonism with most likely essential tremor underlying - seen by neurology last admission - Propranolol increased to 60mg last admission - ensure dosing tonight (3) Seizure disorder: Plan: As above This does not appear as an acute seizure or failure of current therapy - follow- if seizure witnessed- treat with benzo to break, image, and increase keppra (4) UTI (urinary tract infection): Plan: Abnormal urine without bacteria but with nit and LE and WBC on straight cath - Continue Rocephin await culture results (5) Hypothyroid: Plan: Secondary from thyroidectomy - continue Synthroid (6) Multiple sclerosis: Plan: Continue Copaxone (7) Elevated troponin: Plan: Checked with routine labs by EMD likely elevated secondarily to stress events of today - type II will continue to trend ECG She is without CP and ECG comparison to last ECG is not diagnostic without STEMI History of Present Illness Primary Care Provider: Carl Butt MD 72 YOF with medical history of: Seizures, MS, Parkinsonism tremor, sacral skin injury, polyneuropathy, thyroidectomy. Patient was previously admitted April for weakness and presumed UTI with constipation. The patient completed her rehab and was transitioned to [facility] yesterday. Patient comes to the EMD today from [facility] for concern of seizure like activity this afternoon. The patient is accompanied by her son. The patient is able to recall the event from what she did this morning and reports that she just got up from toilet which she did herself and then sat in her recliner. She reports then just feeling "uneasy" and her hands started to shake and they would then stop and start again. The son endorses that the staff also reported to him as they called him after the episode and stated that she was coherent and talking through the episode as well as this was associated with diaphoresis. She did miss her night mediations of Keppra and Lamotrigine last PM as well as this morning dose, she also missed her Propanolol dosing last night as well, which she is on for her tremors. EMS provided her 2 doses of benzodiazepine for her continued shaking. In the EMD the patient had routine labs performed to include UA. She was afebrile, her SPO2 increased as the sedation wore off. She was given 1 dose of Ceftriaxone 2GM for UA with nitrite positive, LE 3+ WBC [address] scan of the head was negative for acute process. MRI seizure protocol ordered last month with no acute findings. Overall her son states this is not consistent with her seizures as she has had them when he was younger up until a few years ago where she was seen at [facility] and placed on her above regimen. Her Keppra was lowered to 750 mg q12 last admission. Patient will be observed overnight for any return of these symptoms as well as following for urine culture. COVID test on admission is: NEGATIVE Allergies Allergy/AdvReac Type Severity Reaction Status Date / Time Penicillins Allergy Intermediate Hives Verified 06/10/22 16:21 Home Medications Medication Instructions Recorded Confirmed Type glatiramer 40 mg/mL subcutaneous 0 mg subcut 3XWK 05/24/22 06/10/22 History syringe (Copaxone) levothyroxine 112 mcg tablet 112 mcg PO QAM 05/24/22 06/10/22 History acetaminophen 325 mg tablet 650 mg PO Q4H PRN fever or pain 05/31/22 06/10/22 Rx #60 tabs lamotrigine 100 mg tablet 150 mg PO BID #60 tabs 05/31/22 06/10/22 Rx levetiracetam 250 mg tablet 750 mg PO BID #60 tabs 05/31/22 06/10/22 Rx (Keppra) melatonin 3 mg tablet 3 mg PO HS PRN sleep #30 tabs 05/31/22 06/10/22 Rx propranolol 60 mg capsule,24 60 mg PO DAILY #30 caps 05/31/22 06/10/22 Rx hr,extended release Past Med/Surg History Medical History Hypothyroid Multiple sclerosis Parkinson disease Seizure Surgical History History of carpal tunnel surgery History of thyroidectomy Family History Other Family history non-contributory Social History Smoking Status: Never smoker Hx Alcohol Use: No Hx Substance Use: No Communication Ability: Effective marital status: Current Living Situation: [facility] Feels Safe at Home: Yes Assistive Devices: Walker and Wheelchair Review of Systems Review of Systems: REVIEW OF SYSTEMS: Constitutional: (+) sweats and chills, No fever Eyes: No diplopia, no worsening or blurred vision ENT: normal hearing, no trouble swallowing Respiratory: No cough, sputum, dyspnea at rest or on exertion Cardiovascular: No chest pain, tightness or palpitations Abdomen: No pain, nausea, vomiting, diarrhea or constipation : (+) frequency with burning at initiation Musculoskeletal: No joint pain, calf pain, swelling Neurologic: (+) tremor, seizures, Psychiatric: No anxiety or depression Skin: No rash or itch Physical Exam Physical Exam: PHYSICAL EXAM: General: awake, alert, no apparent distress Head: Normocephalic, atraumatic ENT: PERRLA, EOMI, no pharyngeal exudate, mucous membranes moist Neuro: AAO x 3, speech clear and appropriate, strength intact bilaterally 5/5, sensation intact and equal all extremities and dermatomes, no pronator drift Chest: equal rise and fall of the chest, no accessory muscle use, no heaves or thrills, Clear to auscultation, on room air, Cardiac: Regular rate and rhythm, telemetry reviewed- NSR, skin warm dry, cap refill <3 seconds, peripheral pulses +2 no JVD, no murmur, GI: NABS x 4 quadrants, soft, nontender to palpation, no rebound, guarding or tenderness : Spontaneously voiding, straight cath for UA sample, pain with imitation of urine and frequency, no CVA tenderness, Extremities: Normal inspection, no peripheral edema or erythema, calfs nontender to palpation Psych: Normal mood and affect Skin: no rash or erythema Results & Data Results & Data ([facility]) Vital Signs (Past 12 Hours) Vital Signs Temp Pulse Pulse Resp BP BP Pulse Ox 06/10/22 18:00 87 20 136/74 95 06/10/22 16:58 85 20 104/73 99 06/10/22 15:22 06/10/22 15:17 37.0 C 89 20 115/70 94 O2 Del Method 06/10/22 18:00 Room Air 06/10/22 16:58 06/10/22 15:22 Room Air 06/10/22 15:17 Room Air Laboratory Results Laboratory Results - last 24 hr 06/10/22 06/10/22 06/10/22 15:11 15:11 15:11 WBC 7.78 RBC 3.60 L Hgb 11.7 L Hct 36.3 MCV 100.8 H MCH 32.5 MCHC 32.2 RDW Std Deviation 60.0 H RDW Coeff of Jia 16.2 H Plt Count 379 MPV 10.5 Immature Gran % (Auto) 0.4 Neut % (Auto) 77.7 Lymph % (Auto) 11.7 Love % (Auto) 9.1 Eos % (Auto) 0.5 Baso % (Auto) 0.6 Neut # (Auto) 6.04 Lymph # (Auto) 0.91 L Love # (Auto) 0.71 Eos # (Auto) 0.04 Baso # (Auto) 0.05 Immature Gran # (Auto) 0.03 H Sodium 143 Potassium 3.7 Chloride 109 H Carbon Dioxide 26 Anion Gap 8 BUN 19 Creatinine 0.79 Est Cr Clr Drug Dosing Not Reportable Est GFR ( Amer) 85.5 Est GFR (Non-Af Amer) 73.7 BUN/Creatinine Ratio 24.1 H Glucose 120 H Calcium 9.1 Magnesium 1.9 Total Bilirubin 0.5 AST 35 ALT 46 Alkaline Phosphatase 83 Troponin I High Sens 39.4 H D Total Protein 6.4 Albumin 3.6 Globulin 2.8 Albumin/Globulin Ratio 1.3 Prolactin Pending Urine Color Urine Appearance Urine pH Ur Specific [place] Urine Protein Urine Glucose (UA) Urine Ketones Urine Blood Urine Nitrite Urine Bilirubin Urine Urobilinogen Ur Leukocyte Esterase Urine WBC (Auto) Urine RBC (Auto) U Hyaline Cast (Auto) U Epithel Cells (Auto) Urine Bacteria (Auto) SARS-CoV-2 (PCR) Influenza Type A (PCR) Influenza Type B (PCR) RSV (RT-PCR) 06/10/22 06/10/22 15:48 15:54 WBC RBC Hgb Hct MCV MCH MCHC RDW Std Deviation RDW Coeff of Jia Plt Count MPV Immature Gran % (Auto) Neut % (Auto) Lymph % (Auto) Love % (Auto) Eos % (Auto) Baso % (Auto) Neut # (Auto) Lymph # (Auto) Love # (Auto) Eos # (Auto) Baso # (Auto) Immature Gran # (Auto) Sodium Potassium Chloride Carbon Dioxide Anion Gap BUN Creatinine Est Cr Clr Drug Dosing Est GFR ( Amer) Est GFR (Non-Af Amer) BUN/Creatinine Ratio Glucose Calcium Magnesium Total Bilirubin AST ALT Alkaline Phosphatase Troponin I High Sens Total Protein Albumin Globulin Albumin/Globulin Ratio Prolactin Urine Color Yellow Urine Appearance Cloudy A Urine pH 6.0 Ur Specific [place] 1.011 Urine Protein Trace H Urine Glucose (UA) Negative Urine Ketones Negative Urine Blood Trace H Urine Nitrite Positive A Urine Bilirubin Negative Urine Urobilinogen Negative Ur Leukocyte Esterase 3+ H Urine WBC (Auto) >30 H Urine RBC (Auto) 0-4 U Hyaline Cast (Auto) 0 U Epithel Cells (Auto) 0-5 Urine Bacteria (Auto) Negative SARS-CoV-2 (PCR) NEGATIVE Influenza Type A (PCR) Negative Influenza Type B (PCR) Negative RSV (RT-PCR) Negative Diagnostic Findings Chest X-Ray 06/10/22 15:34 XR chest 1V portable CLINICAL HISTORY: altered TECHNIQUE: Single frontal radiograph of the chest was obtained. Comparison: Comparison is made to chest radiograph 05/24/2022 FINDINGS: Right humeral fixation hardware is seen. The aorta is tortuous. The remainder of the cardiomediastinal silhouette is unremarkable. Prominence and cephalization of the vasculature is seen. No evidence of pleural effusion or pneumothorax. IMPRESSION: Mild pulmonary edema. Otherwise no acute abnormalities. ACT 112: Negative or not required by law. Electronically signed by: Doin Hernandez M.D. 06/10/2022 4:[address] 06/10/22 15:34 CT head/brain wo con CLINICAL HISTORY: Altered mental status COMPARISON STUDY: 05/24/2022 CT DOSE: 614.27 mGy.cm TECHNIQUE: Standard CT of the Brain was performed without IV contrast. A dose lowering technique was utilized adhering to the principles of ALARA. FINDINGS: Extraaxial space: There is no evidence for subdural hematoma. There are no extra-axial fluid collections. Ventricles and cisterns: The ventricles are mildly dilated bilaterally. There is no evidence for midline shift or mass effect. Parenchyma: There is no subarachnoid or intraparenchymal hemorrhage. There is no evidence for an acute infarct or cerebral edema. There is mild cerebral cortical atrophy and decreased attenuation in the periventricular white matter representing remote small vessel disease. There are no gross mass lesions. Osseous structures: There is no evidence for an acute fracture. The visualized paranasal sinuses are clear. The mastoid air cells are clear bilaterally. Soft tissues: There is no evidence for focal soft tissue swelling. IMPRESSION: 1. No acute intracerebral pathology. 2. Cerebral cortical atrophy and remote small vessel disease are again ACT 112: Negative or not required by law. Electronically signed by: Gentry Delacruz M.D. 06/10/2022 5:11 PM Medications Administered Home Medications glatiramer 40 mg/mL subcutaneous syringe (Copaxone) 0 mg subcut 3XWK 05/24/22 [History Confirmed 06/10/22] levothyroxine 112 mcg tablet 112 mcg PO QAM 05/24/22 [History Confirmed 06/10/22] acetaminophen 325 mg tablet 650 mg PO Q4H PRN fever or pain #60 tabs 05/31/22 [Rx Confirmed 06/10/22] lamotrigine 100 mg tablet 150 mg PO BID #60 tabs 05/31/22 [Rx Confirmed 06/10/22] levetiracetam 250 mg tablet (Keppra) 750 mg PO BID #60 tabs 05/31/22 [Rx Confirmed 06/10/22] melatonin 3 mg tablet 3 mg PO HS PRN sleep #30 tabs 05/31/22 [Rx Confirmed 06/10/22] propranolol 60 mg capsule,24 hr,extended release 60 mg PO DAILY #30 caps 05/31/22 [Rx Confirmed 06/10/22] Discontinued Medications Sodium Chloride (Nss 1000ml) 500 mls @ 999 mls/hr IV .Q31M ONE Stop: 06/10/22 16:04 Last Infusion: 06/10/22 16:28 Dose: 0 mls/hr Documented By: Admin: 06/10/22 15:50 Dose: 999 mls/hr Documented By: MARILYN Levetiracetam 750 mg/ Sodium (Chloride) 107.5 mls @ 440 mls/hr IV NOW STA Stop: 06/10/22 15:48 Last Infusion: 06/10/22 16:28 Dose: 0 mls/hr Documented By: Admin: 06/10/22 15:58 Dose: 440 mls/hr Documented By: MARILYN Ceftriaxone Sodium (Rocephin) 2,000 mg in 70 mls @ 140 mls/hr IV NOW STA Stop: 06/10/22 17:02 Last Infusion: 06/10/22 18:08 Dose: 0 mls/hr Documented By: Admin: 06/10/22 16:59 Dose: 140 mls/hr Documented By: MARILYN ECG Additional Comments: Normal sinus rhythm Minimal voltage criteria for LVH, may be normal variant Inferior infarct (cited on or before 10-JUN-2022) Anterior infarct (cited on or before 10-JUN-2022) Previous ECG non-diagnostic Code Status & VTE Plan Code Status CODE: DNR/DNI VTE: SCDS VTE Prophylaxis Plan VTE Prophylaxis will be ordered: Yes Supervising Physician Co-Signing Physician Notes Patient seen and examined, chart reviewed, case discussed with Maximus Melendez PA-C and I agree with the assessment and plan as above except as otherwise noted Labs and images reviewed Patient is a 72-year-old with a history of tremor, seizures, MS, polyneuropathy with recent admission for weakness and UTI. She presents from [place] with concerns of seizure-like activity. At time of bedside assessment she is awake, well oriented, in no acute distress. Breathing is unlabored, heart rate is with regular rate and rhythm. Skin is warm and dry. Pupils are equal and reactive, vision intact, no sign of Mikie's paralysis. No tongue lesions. Suspect seizure is unlikely as she is without residual weakness or confusion. Continue Keppra, UA management as above. Continue tremor management, continue Synthyroid. No clinical signs of ACS at this time. PG Care Time/CCT Total # of Minutes Spent Total Time Spent with Patient: Total time spent is greater than 50% in coordination of care (as documented) at patient's floor/unit and/or counseling patient: Coding Level of Care Code INT OBSERVATION CARE 70M LVL 3 Diagnoses Seizure-like activity R56.9 Parkinsonism G20 Seizure disorder G40.909 UTI (urinary tract infection) N39.0 Hypothyroid E03.9 Multiple sclerosis G35 Elevated troponin R77.8
[2022-06-10] MEDS ORDERED: ACETAMINOPHEN 325 MG TAB PO PRN (20:40)
[2022-06-10] MEDS ORDERED: MELATONIN 3 MG TAB PO PRN (20:40)
[2022-06-10] MEDS: levETIRAcetam 250 MG TAB PO SCH (21:56)
[2022-06-10] MEDS: lamoTRIgine 25 MG TAB PO SCH (21:56)
[2022-06-11] MEDS: LEVOTHYROXINE SODIUM 112 MCG TABLET PO SCH (06:13)
[2022-06-11] MEDS: lamoTRIgine 25 MG TAB PO SCH ×2 (08:29→20:59)
[2022-06-11] MEDS: PROPRANOLOL HCL 60 MG LA CAP PO SCH (08:29)
[2022-06-11] MEDS: levETIRAcetam 250 MG TAB PO SCH ×2 (08:29→20:59)
[2022-06-11 08:46] LABS: Basophils # (auto) 0.05 K/uL (0-0.2); Basophils % (auto) 0.8 %; Eosinophils % (auto) 1.7 %; Hematocrit (blood only) 33.2 % (34.1-44.9); Hemoglobin 10.8 g/dl (12.0-16.0); Immature Granulocytes # (auto) 0.02 K/uL (0.00-0.02); Immature Granulocytes % (auto) 0.3 %; Lymphocytes # (auto) 1.63 K/uL (1.2-3.4); Lymphocytes % (auto) 27.6 %; Mean Corpuscular Hemoglobin 32.7 pg (25.0-34.0); Mean Corpuscular Hgb Conc 32.5 g/dL (32.0-36.0); Mean Corpuscular Volume 100.6 fL (80.0-100.0); Mean Platelet Volume 10.1 fL (9.4-12.3); Monocytes # (auto) 0.54 K/uL (0.24-0.82); Monocytes % (auto) 9.2 %; Neutrophils # (auto) 3.56 K/uL (1.4-6.5); Neutrophils % (auto) 60.4 %; Nucleated RBC # (auto) 0.02 K/uL (0-0); Nucleated RBC % (auto) 0.3 %; Platelet Count 342 K/uL (130-400); RDW Coefficient of Variation 16.5 % (11.5-14.5); RDW Standard Deviation 61.1 fL (36.4-46.3)
[2022-06-11] MEDS ORDERED: LEVOTHYROXINE SODIUM 112 MCG TABLET PO SCH (09:00)
[2022-06-11 09:10] LABS: Anion Gap 7 (3-11); BUN Creatinine Ratio 26.7 (10-20); Blood Urea Nitrogen 16 mg/dl (6-23); Calcium 8.5 mg/dl (8.5-10.1); Carbon Dioxide 25 mmol/L (21-32); Chloride 108 mmol/L (98-107); Est GFR (African American) 104.1 ml/min; Est GFR (Non-African American) 89.8 ml/min; Glucose 128 mg/dl (70-99(Fasting)); Magnesium 1.8 mg/dl (1.7-2.4); Potassium 3.6 mmol/L (3.5-5.1); Sodium 140 mmol/L (136-145)
--- NOTE | 2022-06-11 15:14 | Hospitalist Progress Note ---
Date of Service June 11, 2022 Assessment & Plan (1) Seizure-like activity: Plan: Patient presents with shaking of hands into lower arms associated with diaphoresis. As in HPI conversant through episode and without confusion following event - secondary to worsening of Essential Tremor (missed medication x 2 doses) and not a seizure Improved today but pt doesn't feel comfortable going home continue propranolol usual doses observe overnight treat UTI (2) Parkinsonism: Plan: Parkinsonism with most likely essential tremor underlying - seen by neurology last admission - Propranolol increased to 60mg last admission (3) Seizure disorder: Plan: As above This does not appear as an acute seizure or failure of current therapy -continue keppra (4) UTI (urinary tract infection): Plan: Abnormal urine without bacteria but with nit and LE and WBC on straight cath - Continue Rocephin await culture results (5) Hypothyroid: Plan: Secondary from thyroidectomy - continue Synthroid TSH here normal 3.22 (6) Multiple sclerosis: Plan: Continue Copaxone (7) Elevated troponin: Plan: Checked with routine labs by EMD likely elevated secondarily to stress events - type II MD trended back downward no ECG changes She is without CP and ECG comparison to last ECG is not diagnostic Plan Dispo-continued stay and dc to [facility] Admission and Anticipated Discharge Date Admission Date: June 10, 2022 Subjective Pt feels better but is worried about going home yet given the severe shaking she had yesterday. She agrees it was not a seizure and remembers everything that happened. Does have urinary frequency. No N/V, no abd pains or constipation or diarrhea. No CP,SOB. Tele with NSR, rates 50-60s Review of Systems Review of Systems: All systems reviewed & are unremarkable except as noted in HPI & below Physical Exam Constitutional: WD/WN, vitals as above ENMT: external ear and nose normal, oropharynx normal Neck: trachea midline, no thyromegaly Respiratory: normal respiratory effort, lungs clear to auscultation Cardiovascular: RRR, no murmur, no edema Chest (Breasts): Chest: normal inspection of chest Gastrointestinal (Abdomen): normal bowel sounds, soft, nontender, no hepatosplenomegaly Musculoskeletal: Extremities: extremities normal to inspection; no cyanosis and no clubbing Skin: no rashes, warm and dry Neurologic: moves all extremities and awake; no focal motor deficits Psychiatric: A+Ox3, euthymic affect Lymphatic: no lymphedema Results & Data Results & Data ([facility]) Vital Signs (Past 12 Hours) Vital Signs Temp Pulse Pulse Resp BP Pulse Ox O2 Del Method 06/11/22 07:15 36.8 C 79 17 102/59 L 95 Room Air 06/11/22 07:23 60 Laboratory Results 06/11/22 06/11/22 06/11/22 Range/Units 12:04 08:34 08:34 WBC (4.8-10.8) K/ul RBC (3.93-5.22) M/uL Hgb (12.0-16.0) g/dl Hct (34.1-44.9) % MCV (80.0-100.0) fL MCH (25.0-34.0) pg MCHC (32.0-36.0) g/dL RDW Std Deviation (36.4-46.3) fL RDW Coeff of Jia (11.5-14.5) % Plt Count (130-400) K/uL MPV (9.4-12.3) fL Immature Gran % (Auto) % Neut % (Auto) % Lymph % (Auto) % Dewitt % (Auto) % Eos % (Auto) % Baso % (Auto) % Neut # (Auto) (1.4-6.5) K/uL Lymph # (Auto) (1.2-3.4) K/uL Dewitt # (Auto) (0.24-0.82) K/uL Eos # (Auto) (0-0.50) K/uL Baso # (Auto) (0-0.2) K/uL Immature Gran # (Auto) (0.00-0.02) K/uL Absolute Nucleated RBC (0-0) K/uL Nucleated RBC % (auto) % Sodium (136-145) mmol/L Potassium (3.5-5.1) mmol/L Chloride (98-107) mmol/L Carbon Dioxide (21-32) mmol/L Anion Gap (3-11) BUN (6-23) mg/dl Creatinine (0.6-1.2) mg/dl Est Cr Clr Drug Dosing Est GFR ( Amer) ml/min Est GFR (Non-Af Amer) ml/min BUN/Creatinine Ratio (10-20) Glucose (70-99(Fasting)) mg/dl POC Glucose 84 (70-99) mg/dl Calcium (8.5-10.1) mg/dl Magnesium (1.7-2.4) mg/dl Total Bilirubin (0.2-1.0) mg/dl AST (13-39) U/L ALT (7-52) U/L Alkaline Phosphatase (34-104) U/L Troponin I High Sens 27.2 H D (0-14) pg/ml Total Protein (6.0-8.3) gm/dl Albumin (3.4-5.0) gm/dl Globulin (2.5-4.0) gm/dl Albumin/Globulin Ratio (0.9-2) TSH 3.221 (0.300-4.500) uIu/ml Prolactin ng/ml Urine Color Urine Appearance (Clear) Urine pH (4.5-7.5) Ur Specific Ring[place] (1.000-1.030) Urine Protein (Negative) Urine Glucose (UA) (Negative) Urine Ketones (Negative) Urine Blood (Negative) Urine Nitrite (Negative) Urine Bilirubin (Negative) Urine Urobilinogen (Negative) Ur Leukocyte Esterase (Negative) Urine WBC (Auto) (0-5) /hpf Urine RBC (Auto) (0-4) /hpf U Hyaline Cast (Auto) (0-5) /lpf U Epithel Cells (Auto) (0-5) /lpf Urine Bacteria (Auto) (Negative) SARS-CoV-2 (PCR) (Negative) Influenza Type A (PCR) (Neg) Influenza Type B (PCR) (Neg) RSV (RT-PCR) (Neg) 06/11/22 06/11/22 06/10/22 Range/Units 08:34 08:34 22:43 WBC 5.90 (4.8-10.8) K/ul RBC 3.30 L (3.93-5.22) M/uL Hgb 10.8 L (12.0-16.0) g/dl Hct 33.2 L (34.1-44.9) % MCV 100.6 H (80.0-100.0) fL MCH 32.7 (25.0-34.0) pg MCHC 32.5 (32.0-36.0) g/dL RDW Std Deviation 61.1 H (36.4-46.3) fL RDW Coeff of Jia 16.5 H (11.5-14.5) % Plt Count 342 (130-400) K/uL MPV 10.1 (9.4-12.3) fL Immature Gran % (Auto) 0.3 % Neut % (Auto) 60.4 % Lymph % (Auto) 27.6 % Dewitt % (Auto) 9.2 % Eos % (Auto) 1.7 % Baso % (Auto) 0.8 % Neut # (Auto) 3.56 (1.4-6.5) K/uL Lymph # (Auto) 1.63 (1.2-3.4) K/uL Dewitt # (Auto) 0.54 (0.24-0.82) K/uL Eos # (Auto) 0.10 (0-0.50) K/uL Baso # (Auto) 0.05 (0-0.2) K/uL Immature Gran # (Auto) 0.02 (0.00-0.02) K/uL Absolute Nucleated RBC 0.02 H (0-0) K/uL Nucleated RBC % (auto) 0.3 % Sodium 140 (136-145) mmol/L Potassium 3.6 (3.5-5.1) mmol/L Chloride 108 H (98-107) mmol/L Carbon Dioxide 25 (21-32) mmol/L Anion Gap 7 (3-11) BUN 16 (6-23) mg/dl Creatinine 0.60 (0.6-1.2) mg/dl Est Cr Clr Drug Dosing Not Reportable Est GFR ( Amer) 104.1 ml/min Est GFR (Non-Af Amer) 89.8 ml/min BUN/Creatinine Ratio 26.7 H (10-20) Glucose 128 H (70-99(Fasting)) mg/dl POC Glucose (70-99) mg/dl Calcium 8.5 (8.5-10.1) mg/dl Magnesium 1.8 (1.7-2.4) mg/dl Total Bilirubin (0.2-1.0) mg/dl AST (13-39) U/L ALT (7-52) U/L Alkaline Phosphatase (34-104) U/L Troponin I High Sens 68.6 H* D (0-14) pg/ml Total Protein (6.0-8.3) gm/dl Albumin (3.4-5.0) gm/dl Globulin (2.5-4.0) gm/dl Albumin/Globulin Ratio (0.9-2) TSH (0.300-4.500) uIu/ml Prolactin ng/ml Urine Color Urine Appearance (Clear) Urine pH (4.5-7.5) Ur Specific [place] (1.000-1.030) Urine Protein (Negative) Urine Glucose (UA) (Negative) Urine Ketones (Negative) Urine Blood (Negative) Urine Nitrite (Negative) Urine Bilirubin (Negative) Urine Urobilinogen (Negative) Ur Leukocyte Esterase (Negative) Urine WBC (Auto) (0-5) /hpf Urine RBC (Auto) (0-4) /hpf U Hyaline Cast (Auto) (0-5) /lpf U Epithel Cells (Auto) (0-5) /lpf Urine Bacteria (Auto) (Negative) SARS-CoV-2 (PCR) (Negative) Influenza Type A (PCR) (Neg) Influenza Type B (PCR) (Neg) RSV (RT-PCR) (Neg) 06/10/22 06/10/22 06/10/22 Range/Units 22:35 15:54 15:48 WBC (4.8-10.8) K/ul RBC (3.93-5.22) M/uL Hgb (12.0-16.0) g/dl Hct (34.1-44.9) % MCV (80.0-100.0) fL MCH (25.0-34.0) pg MCHC (32.0-36.0) g/dL RDW Std Deviation (36.4-46.3) fL RDW Coeff of Jia (11.5-14.5) % Plt Count (130-400) K/uL MPV (9.4-12.3) fL Immature Gran % (Auto) % Neut % (Auto) % Lymph % (Auto) % Dewitt % (Auto) % Eos % (Auto) % Baso % (Auto) % Neut # (Auto) (1.4-6.5) K/uL Lymph # (Auto) (1.2-3.4) K/uL Dewitt # (Auto) (0.24-0.82) K/uL Eos # (Auto) (0-0.50) K/uL Baso # (Auto) (0-0.2) K/uL Immature Gran # (Auto) (0.00-0.02) K/uL Absolute Nucleated RBC (0-0) K/uL Nucleated RBC % (auto) % Sodium (136-145) mmol/L Potassium (3.5-5.1) mmol/L Chloride (98-107) mmol/L Carbon Dioxide (21-32) mmol/L Anion Gap (3-11) BUN (6-23) mg/dl Creatinine (0.6-1.2) mg/dl Est Cr Clr Drug Dosing Est GFR ( Amer) ml/min Est GFR (Non-Af Amer) ml/min BUN/Creatinine Ratio (10-20) Glucose (70-99(Fasting)) mg/dl POC Glucose 106 H (70-99) mg/dl Calcium (8.5-10.1) mg/dl Magnesium (1.7-2.4) mg/dl Total Bilirubin (0.2-1.0) mg/dl AST (13-39) U/L ALT (7-52) U/L Alkaline Phosphatase (34-104) U/L Troponin I High Sens (0-14) pg/ml Total Protein (6.0-8.3) gm/dl Albumin (3.4-5.0) gm/dl Globulin (2.5-4.0) gm/dl Albumin/Globulin Ratio (0.9-2) TSH (0.300-4.500) uIu/ml Prolactin ng/ml Urine Color Yellow Urine Appearance Cloudy A (Clear) Urine pH 6.0 (4.5-7.5) Ur Specific Ring[place] 1.011 (1.000-1.030) Urine Protein Trace H (Negative) Urine Glucose (UA) Negative (Negative) Urine Ketones Negative (Negative) Urine Blood Trace H (Negative) Urine Nitrite Positive A (Negative) Urine Bilirubin Negative (Negative) Urine Urobilinogen Negative (Negative) Ur Leukocyte Esterase 3+ H (Negative) Urine WBC (Auto) >30 H (0-5) /hpf Urine RBC (Auto) 0-4 (0-4) /hpf U Hyaline Cast (Auto) 0 (0-5) /lpf U Epithel Cells (Auto) 0-5 (0-5) /lpf Urine Bacteria (Auto) Negative (Negative) SARS-CoV-2 (PCR) NEGATIVE (Negative) Influenza Type A (PCR) Negative (Neg) Influenza Type B (PCR) Negative (Neg) RSV (RT-PCR) Negative (Neg) 06/10/22 06/10/22 06/10/22 Range/Units 15:11 15:11 15:11 WBC 7.78 (4.8-10.8) K/ul RBC 3.60 L (3.93-5.22) M/uL Hgb 11.7 L (12.0-16.0) g/dl Hct 36.3 (34.1-44.9) % MCV 100.8 H (80.0-100.0) fL MCH 32.5 (25.0-34.0) pg MCHC 32.2 (32.0-36.0) g/dL RDW Std Deviation 60.0 H (36.4-46.3) fL RDW Coeff of Jia 16.2 H (11.5-14.5) % Plt Count 379 (130-400) K/uL MPV 10.5 (9.4-12.3) fL Immature Gran % (Auto) 0.4 % Neut % (Auto) 77.7 % Lymph % (Auto) 11.7 % Dewitt % (Auto) 9.1 % Eos % (Auto) 0.5 % Baso % (Auto) 0.6 % Neut # (Auto) 6.04 (1.4-6.5) K/uL Lymph # (Auto) 0.91 L (1.2-3.4) K/uL Dewitt # (Auto) 0.71 (0.24-0.82) K/uL Eos # (Auto) 0.04 (0-0.50) K/uL Baso # (Auto) 0.05 (0-0.2) K/uL Immature Gran # (Auto) 0.03 H (0.00-0.02) K/uL Absolute Nucleated RBC (0-0) K/uL Nucleated RBC % (auto) % Sodium 143 (136-145) mmol/L Potassium 3.7 (3.5-5.1) mmol/L Chloride 109 H (98-107) mmol/L Carbon Dioxide 26 (21-32) mmol/L Anion Gap 8 (3-11) BUN 19 (6-23) mg/dl Creatinine 0.79 (0.6-1.2) mg/dl Est Cr Clr Drug Dosing Not Reportable Est GFR ( Amer) 85.5 ml/min Est GFR (Non-Af Amer) 73.7 ml/min BUN/Creatinine Ratio 24.1 H (10-20) Glucose 120 H (70-99(Fasting)) mg/dl POC Glucose (70-99) mg/dl Calcium 9.1 (8.5-10.1) mg/dl Magnesium 1.9 (1.7-2.4) mg/dl Total Bilirubin 0.5 (0.2-1.0) mg/dl AST 35 (13-39) U/L ALT 46 (7-52) U/L Alkaline Phosphatase 83 (34-104) U/L Troponin I High Sens 39.4 H D (0-14) pg/ml Total Protein 6.4 (6.0-8.3) gm/dl Albumin 3.6 (3.4-5.0) gm/dl Globulin 2.8 (2.5-4.0) gm/dl Albumin/Globulin Ratio 1.3 (0.9-2) TSH (0.300-4.500) uIu/ml Prolactin 23.79 ng/ml Urine Color Urine Appearance (Clear) Urine pH (4.5-7.5) Ur Specific [place] (1.000-1.030) Urine Protein (Negative) Urine Glucose (UA) (Negative) Urine Ketones (Negative) Urine Blood (Negative) Urine Nitrite (Negative) Urine Bilirubin (Negative) Urine Urobilinogen (Negative) Ur Leukocyte Esterase (Negative) Urine WBC (Auto) (0-5) /hpf Urine RBC (Auto) (0-4) /hpf U Hyaline Cast (Auto) (0-5) /lpf U Epithel Cells (Auto) (0-5) /lpf Urine Bacteria (Auto) (Negative) SARS-CoV-2 (PCR) (Negative) Influenza Type A (PCR) (Neg) Influenza Type B (PCR) (Neg) RSV (RT-PCR) (Neg) PG Care Time/CCT Total # of Minutes Spent Total Time Spent with Patient: Total time spent is greater than 50% in coordination of care (as documented) at patient's floor/unit and/or counseling patient: Coding Level of Care Code 25270 Subseq Hosp Care Lvl 2 Diagnoses Seizure-like activity R56.9 Parkinsonism G20 Seizure disorder G40.909 UTI (urinary tract infection) N39.0 Hypothyroid E03.9 Multiple sclerosis G35 Elevated troponin R77.8
--- NOTE | 2022-06-12 05:48 | Electrocardiogram Report ---
Test Reason : Blood Pressure : / mmHG Vent. Rate : 091 BPM Atrial Rate : 091 BPM P-R Int : 160 ms QRS Dur : 074 ms QT Int : 366 ms P-R-T Axes : 034 -17 014 degrees QTc Int : 450 ms Normal sinus rhythm Minimal voltage criteria for LVH, may be normal variant Inferior infarct (cited on or before 10-JUN-2022) Anterior infarct (cited on or before 10-JUN-2022) Abnormal ECG When compared with ECG of 24-MAY-2022 16:57, No significant change Confirmed by Lobo Hickman ([id number]) on 06/12/2022 5:48:19 AM Referred By: Confirmed By:Lobo Hickman
[2022-06-12] MEDS: LEVOTHYROXINE SODIUM 112 MCG TABLET PO SCH (06:08)
[2022-06-12 07:32] LABS: Basophils # (auto) 0.05 K/uL (0-0.2); Basophils % (auto) 0.9 %; Eosinophils # (auto) 0.19 K/uL (0-0.50); Eosinophils % (auto) 3.6 %; Hematocrit (blood only) 34.1 % (34.1-44.9); Hemoglobin 11.2 g/dl (12.0-16.0); Immature Granulocytes # (auto) 0.02 K/uL (0.00-0.02); Immature Granulocytes % (auto) 0.4 %; Lymphocytes # (auto) 2.05 K/uL (1.2-3.4); Lymphocytes % (auto) 38.5 %; Mean Corpuscular Hemoglobin 33.2 pg (25.0-34.0); Mean Corpuscular Hgb Conc 32.8 g/dL (32.0-36.0); Mean Corpuscular Volume 101.2 fL (80.0-100.0); Mean Platelet Volume 10.6 fL (9.4-12.3); Monocytes # (auto) 0.65 K/uL (0.24-0.82); Monocytes % (auto) 12.2 %; Neutrophils # (auto) 2.37 K/uL (1.4-6.5); Neutrophils % (auto) 44.4 %; Nucleated RBC # (auto) 0.02 K/uL (0-0); Nucleated RBC % (auto) 0.4 %; Platelet Count 330 K/uL (130-400); RDW Coefficient of Variation 16.3 % (11.5-14.5); RDW Standard Deviation 60.4 fL (36.4-46.3); Red Blood Count 3.37 M/uL (3.93-5.22); White Blood Count 5.33 K/ul (4.8-10.8)
[2022-06-12] MEDS: PROPRANOLOL HCL 60 MG LA CAP PO SCH (07:50)
[2022-06-12] MEDS: lamoTRIgine 25 MG TAB PO SCH (07:50)
[2022-06-12] MEDS: levETIRAcetam 250 MG TAB PO SCH (07:50)
[2022-06-12 07:53] LABS: Anion Gap 6 (3-11); Blood Urea Nitrogen 13 mg/dl (6-23); Calcium 8.5 mg/dl (8.5-10.1); Carbon Dioxide 27 mmol/L (21-32); Chloride 107 mmol/L (98-107); Est GFR (Non-African American) 88.8 ml/min; Glucose 84 mg/dl (70-99(Fasting)); Magnesium 1.8 mg/dl (1.7-2.4); Potassium 3.7 mmol/L (3.5-5.1); Sodium 140 mmol/L (136-145)
[2022-06-12] MEDS ORDERED: CIPROFLOXACIN 500 MG TAB PO SCH (10:00)
[2022-06-12] MEDS ORDERED: cefTRIAXone SODIUM 1,000 MG in DEXTROSE 5% 50 ML IV SCH (10:00)
--- NOTE | 2022-06-12 10:14 | Discharge Summary ---
Date of Service June 12, 2022 Admission HPI Per Admitting Provider [id number] YOF with medical history of: Seizures, MS, Parkinsonism tremor, sacral skin injury, polyneuropathy, thyroidectomy. Patient was previously admitted April for weakness and presumed UTI with constipation. The patient completed her rehab and was transitioned to [facility] yesterday. Patient comes to the EMD today from [facility] for concern of seizure like activity this afternoon. The patient is accompanied by her son. The patient is able to recall the event from what she did this morning and reports that she just got up from toilet which she did herself and then sat in her recliner. She reports then just feeling "uneasy" and her hands started to shake and they would then stop and start again. The son endorses that the staff also reported to him as they called him after the episode and stated that she was coherent and talking through the episode as well as this was associated with diaphoresis. She did miss her night mediations of Keppra and Lamotrigine last PM as well as this morning dose, she also missed her Propanolol dosing last night as well, which she is on for her tremors. EMS provided her 2 doses of benzodiazepine for her continued shaking. In the EMD the patient had routine labs performed to include UA. She was afebrile, her SPO2 increased as the sedation wore off. She was given 1 dose of Ceftriaxone 2GM for UA with nitrite positive, LE 3+ WBC [address] scan of the head was negative for acute process. MRI seizure protocol ordered last month with no acute findings. Overall her son states this is not consistent with her seizures as she has had them when he was younger up until a few years ago where she was seen at [facility] and placed on her above regimen. Her Keppra was lowered to 750 mg q12 last admission. Patient will be observed overnight for any return of these symptoms as well as following for urine culture. COVID test on admission is: NEGATIVE Principal Diagnosis Tremor, UTI Discharge Exam Constitutional WD/WN, vitals as above ENMT external ear and nose normal, oropharynx normal Neck trachea midline, no thyromegaly Respiratory normal respiratory effort, lungs clear to auscultation Cardiovascular RRR, no murmur, no edema Chest (Breasts) Chest: normal inspection of chest Gastrointestinal (Abdomen) normal bowel sounds, soft, nontender, no hepatosplenomegaly Musculoskeletal Extremities: extremities normal to inspection; no cyanosis and no clubbing Skin no rashes, warm and dry Neurologic moves all extremities and awake; no focal motor deficits Psychiatric A+Ox3, euthymic affect Lymphatic no lymphedema Discharge Data Allergies Allergy/AdvReac Type Severity Reaction Status Date / Time Penicillins Allergy Intermediate Hives Verified 06/10/22 16:21 Consultations 06/10/22 18:07 ED Decision to Admit Stat Ordered Studies 06/10/22 15:34 CT head/brain wo con Stat Hospital Course (1) Seizure-like activity: Patient presents with shaking of hands into lower arms associated with diaphoresis. As in HPI conversant through episode and without confusion following event - secondary to worsening of Essential Tremor (missed medication x 2 doses) and not a seizure Much improved today now that she is back on propranolol regularly continue propranolol usual doses of 60mg LA daily observe overnight treat UTI (2) Parkinsonism: Parkinsonism with most likely essential tremor underlying - seen by neurology last admission - Propranolol increased to 60mg last admission f/u with Neuro (3) Seizure disorder: As above This does not appear as an acute seizure or failure of current therapy -continue keppra and lamictal at doses which were lowered during last admission f/u with Neuro (4) UTI (urinary tract infection): Abnormal urine without bacteria but with nit and LE and WBC on straight cath -received Rocephin x 1 dose but still with symptoms also, failed ceftriaxone last admission after received 3 doses and remains with UTI Last urine culture no growth -start Cipro 500mg po bid x 5 days -f/u urine culture results after discharge by PCP (5) Hypothyroid: Secondary from thyroidectomy - continue Synthroid TSH here normal 3.22 (6) Multiple sclerosis: Continue Copaxone (7) Elevated troponin: Checked with routine labs by EMD likely elevated secondarily to stress events - type II KS trended back downward no ECG changes She is without CP and ECG comparison to last ECG is not diagnostic Plan Dispo- dc to [facility] today Total Time Total Time Spent Total Time Spent (In Minutes): 35 min Discharge Plan Discharge Items Patient Disposition: Personal Skilled Nursing Reason For Visit: SEIZURE Discharge Diagnosis: Tremor, UTI Condition on Discharge: Fair Activity: As commented below Lifting: No more than 5 pounds Bathing: No limitations Exercise/Sports: As tolerated Non-emergency contact: Primary Care Provider and Neurologist Call non-emergency contact if: you have any medication questions and your symptoms worsen Follow-up/Referrals: Sanjay Mckeon MD [Physician] - (Follow up within 2-3 weeks for your MS, seizure disorder, and tremor.) STATE CAILIN WINTER [Primary Care Provider] - (Follow up with a PCP within 1 week.) Diet: Regular Addtl Attending Provider Instructions: Please finish out 5 days of the antibiotic for your UTI. Your new PCP will need to follow up on the final culture result. You were admitted for increased tremor which was secondary to missing doses of your propranolol. This is now resolved with restarting your propranolol. Pending Studies at Discharge: Yes Studies:: Urine culture Stand-Alone Forms: My [facility] Skilled Items Patient informed of condition?: Yes DNR: Yes Discharge Level of Care: Other Communicable Disease: No Discharge Prognosis: Improving Lines: None Urinary Catheter: No Medications and DC Order Prescriptions: New ciprofloxacin HCl 500 mg Tablet 500 mg PO BID Qty: 9 0RF Continued acetaminophen 325 mg Tablet 650 mg PO Q4H PRN (Reason: fever or pain) Qty: 60 0RF propranolol 60 mg capsule,extended release 24 hr 60 mg PO DAILY Qty: 30 0RF levetiracetam [Keppra] 250 mg Tablet 750 mg PO BID Qty: 60 0RF lamotrigine 100 mg Tablet 150 mg PO BID Qty: 60 0RF levothyroxine 112 mcg tablet 112 mcg PO QAM Qty: 30 0RF melatonin 3 mg Tablet 3 mg PO HS PRN (Reason: sleep) Qty: 30 0RF Changed glatiramer [Copaxone] 40 mg/mL syringe See Rx Instructions .ROUTE .COMPLEX Qty: 12 0RF Rx Instructions: TAKES ON MON, WED, & FRI. Discharge Orders: Discharge Order (Routine); Ordered 06/12/22 Ordered By: Kellee Anguiano Admission Data Admit Date/Time: 06/10/22 18:19 Attending Provider: Kellee Anguiano Admit Provider: Fredi Villanueva Primary Care Provider: STATE CAILIN WINTER Other Providers: Fredi Villanueva Coding Level of Care Code D/C DAY MANAGEMENT >30 MINS Diagnoses Seizure-like activity R56.9 Parkinsonism G20 Seizure disorder G40.909 UTI (urinary tract infection) N39.0 Hypothyroid E03.9 Multiple sclerosis G35 Elevated troponin R77.8
== END 2022-06-12 11:45 | disposition home or self-care (01) ==
LOC: ED 15:05 → EDINP 15:05 → SUATTDRO 18:19 → 2W 06-11 02:11
DX: R25.1 Tremor, unspecified; G40.909 Epilepsy, unspecified, not intractable, without status epilepticus; G35 Multiple sclerosis; Z79.899 Other long term (current) drug therapy; R77.8 Other specified abnormalities of plasma proteins; Z79.890 Hormone replacement therapy; E03.9 Hypothyroidism, unspecified; G20 Parkinson's disease; N39.0 Urinary tract infection, site not specified

== ENCOUNTER 2022-09-22 11:51 | Inpatient (IN) ==
[2022-09-22] MEDS ORDERED: ACETAMINOPHEN 1,000 MG/100 ML VIAL IV STA (12:13)
[2022-09-22] MEDS ORDERED: SODIUM CHLORIDE 0.9% 500 ML IV ONE (12:13)
--- NOTE | 2022-09-22 12:25 | Emergency Department Note ---
History of Present Illness General Chief complaint: Hip Pain Stated complaint: FALL, R LEG PAIN Time Seen by Provider: 09/22/22 11:56 History of Present Illness Maximum Pain Intensity: 9 This is a 72-year-old female with a history of Parkinson's disease, MS, seizure disorder who presents to the emergency department via EMS secondary to a mechanical fall that occurred while at her residence at [facility]. Patient was in her usual state of health ambulating into the bathroom with her walker. She turned around and her shoes became caught up and she lost her balance and fell over. She notes pain in the right lower leg especially above the knee. She also states her leg seems to be rotated to the outside and she cannot bring it back to center. She notes some tingling in the right foot. Did not hit her head or lose consciousness, remembers everything. Per EMS she was on the ground for about 13 minutes before being attended to. No reported seizure-like activity. No postictal state appreciated. Patient denies any headache, neck pain, back pain, chest pain, shortness of breath, abdominal pain, nausea, vomiting. No prior injuries or surgeries to the right leg. Not on blood thinners. Home Medications Medication Instructions Recorded Confirmed Type acetaminophen 325 mg tablet 650 mg PO Q4H PRN fever or pain 06/12/22 Rx #60 tabs ciprofloxacin HCl 500 mg tablet 500 mg PO BID #9 tabs 06/12/22 Rx glatiramer 40 mg/mL subcutaneous See Rx Instructions .Route 06/12/22 Rx syringe (Copaxone) .COMPLEX #12 mL lamotrigine 100 mg tablet 150 mg PO BID #60 tabs 06/12/22 Rx levetiracetam 250 mg tablet 750 mg PO BID #60 tabs 06/12/22 Rx (Keppra) levothyroxine 112 mcg tablet 112 mcg PO QAM #30 tabs 06/12/22 Rx melatonin 3 mg tablet 3 mg PO HS PRN sleep #30 tabs 06/12/22 Rx propranolol 60 mg capsule,24 60 mg PO DAILY #30 caps 06/12/22 Rx hr,extended release Allergies Allergy/AdvReac Type Severity Reaction Status Date / Time Penicillins Allergy Intermediate Hives Verified 06/10/22 16:21 Past Med/Surg History Medical History Hypothyroid Multiple sclerosis Parkinson disease Seizure Surgical History History of carpal tunnel surgery History of thyroidectomy Social History Smoking Status: Never smoker Hx Alcohol Use: No Hx Substance Use: No Preferred Language: [place] Communication Ability: Effective marital status: Current Living Situation: Half-Way Feels Safe at Home: Yes Assistive Devices: Walker and Wheelchair Review of Systems See HPI for pertinent positives & negatives. and A total of 10 systems reviewed and were otherwise negative Physical Exam Vital Signs Vital Signs - 24 hr 09/22/22 11:54 09/22/22 12:24 09/22/22 11:59 Temperature 98.1 F 98.1 F Temperature Source Oral Oral Pulse Rate 58 L 59 L Pulse Rate [Right Brachial] 58 L Pulse Rate from SpO2 Sensor 59 L Pulse Rhythm Regular Pulse Rhythm [Right Brachial] Regular Pulse Strength Normal Pulse Strength [Right Brachial] Normal Respiratory Rate 20 19 26 H Respiratory Effort / Characteristics Non-Labored Non-Labored Spontaneous Respiratory Depth Normal Normal Respiratory Pattern Regular Regular Blood Pressure 183/94 H Blood Pressure [Right Arm] Blood Pressure Mean 123 Blood Pressure Mean [Right Arm] Blood Pressure Position Lying Blood Pressure Position [Right Arm] Lying Pulse Oximetry 95 96 95 Oxygen Delivery Method Room Air Room Air Sepsis Recent Fever Within 48 Hours No Sepsis New/Unexplained Change in Mental Status No Sepsis Action Taken by Nursing No Action Required 09/22/22 12:00 09/22/22 12:29 09/22/22 12:29 Temperature Temperature Source Pulse Rate 59 L 59 L Pulse Rate [Right Brachial] Pulse Rate from SpO2 Sensor 59 L Pulse Rhythm Pulse Rhythm [Right Brachial] Pulse Strength Pulse Strength [Right Brachial] Respiratory Rate 20 17 Respiratory Effort / Characteristics Respiratory Depth Respiratory Pattern Blood Pressure 150/85 H Blood Pressure [Right Arm] Blood Pressure Mean 106 Blood Pressure Mean [Right Arm] Blood Pressure Position Blood Pressure Position [Right Arm] Pulse Oximetry 95 Oxygen Delivery Method Sepsis Recent Fever Within 48 Hours Sepsis New/Unexplained Change in Mental Status Sepsis Action Taken by Nursing 09/22/22 12:30 09/22/22 12:49 09/22/22 12:49 Temperature Temperature Source Pulse Rate 59 L 65 Pulse Rate [Right Brachial] Pulse Rate from SpO2 Sensor 59 L Pulse Rhythm Pulse Rhythm [Right Brachial] Pulse Strength Pulse Strength [Right Brachial] Respiratory Rate 18 18 Respiratory Effort / Characteristics Respiratory Depth Respiratory Pattern Blood Pressure 158/81 H Blood Pressure [Right Arm] Blood Pressure Mean 106 Blood Pressure Mean [Right Arm] Blood Pressure Position Blood Pressure Position [Right Arm] Pulse Oximetry 96 Oxygen Delivery Method Sepsis Recent Fever Within 48 Hours Sepsis New/Unexplained Change in Mental Status Sepsis Action Taken by Nursing 09/22/22 13:00 09/22/22 13:30 09/22/22 14:07 Temperature Temperature Source Pulse Rate 69 69 Pulse Rate [Right Brachial] 66 Pulse Rate from SpO2 Sensor 68 Pulse Rhythm Pulse Rhythm [Right Brachial] Regular Pulse Strength Pulse Strength [Right Brachial] Normal Respiratory Rate 20 18 19 Respiratory Effort / Characteristics Non-Labored Spontaneous Respiratory Depth Normal Respiratory Pattern Regular Blood Pressure Blood Pressure [Right Arm] 158/81 H Blood Pressure Mean Blood Pressure Mean [Right Arm] 106 Blood Pressure Position Blood Pressure Position [Right Arm] Pulse Oximetry 94 92 Oxygen Delivery Method Room Air Sepsis Recent Fever Within 48 Hours Sepsis New/Unexplained Change in Mental Status Sepsis Action Taken by Nursing CONSTITUTIONAL: Well developed, well nourished, pleasant, resting comfortably on stretcher. HEAD: Normocephalic, atraumatic. No Paredes's sign or raccoon eyes. No bony skull deformities. EYES: PERRL, conjunctivae normal, extraocular muscles intact. EARS/NOSE/MOUTH/THROAT: External ears no injury, no hemotympanum, no drainage. Nose with no injury or epistaxis. No dental abnormalities. No oral injuries. NECK: No spinous process tenderness. Full active range of motion without eliciting pain. RESPIRATORY: Breathing unlabored and symmetric. Lungs clear to auscultation bilaterally. CARDIOVASCULAR: Regular rate and rhythm. No murmurs, rubs, or gallops. DP pulses 2+ bilaterally. CHEST: Nontender, no crepitus or ecchymosis. ABDOMEN: Normal bowel sounds. Soft, nontender. No masses or ecchymosis. No rigidity. MUSCULOSKELETAL: Pelvis stable, nontender. Moves bilateral upper extremities at all joints without pain or difficulty. Back exam: No thoracic, lumbar, sacral spinous process tenderness. Right lower extremity: Hip without tenderness. Passive range of motion of the hip demonstrates no significant pain. There is tenderness and swelling in the distal femur with associated crepitus. Leg is externally rotated. SKIN: [place], warm, dry. Intact. NEUROLOGIC: Alert and oriented x 3. GCS 15. Cranial nerves grossly intact. There is altered sensation in the right foot. Patient is able to appreciate sharp sensation in all but the great toe on the right. Subjective decreased sensation to light touch in the right foot. PSYCHIATRIC: Appropriate. Normal affect. Course Consultations Consultation #1: Spoke with Dr. Ayala (orthopedics on-call) regarding the case as well as the patient's paresthesias. He recommends admission for surgical fixation under the hospitalist team for surgical fixation, hopefully tomorrow. Administered Medications Discontinued Medications Sodium Chloride (Nss) 500 mls @ 999 mls/hr IV .Q31M ONE Stop: 09/22/22 12:43 Last Infusion: 09/22/22 12:51 Dose: 0 mls/hr Documented By: Admin: 09/22/22 12:22 Dose: 999 mls/hr Documented By: AUBREE Acetaminophen (Ofirmev) 1,000 mg in 100 mls @ 400 mls/hr IV NOW STA Stop: 09/22/22 12:27 Last Infusion: 09/22/22 12:59 Dose: 0 mls/hr Documented By: Admin: 09/22/22 12:24 Dose: 400 mls/hr Documented By: AUBREE Medical Decision Making Differential Diagnosis Fracture, dislocation, subluxation, neurovascular injury, intracranial hemorrhage, intrathoracic, intra-abdominal, compartment syndrome, among other pathology Medical Records Attestation: I reviewed the patient's medical records. Laboratory Data Result diagrams: 09/22/22 12:20 09/22/22 12:20 Lab Results 09/22/22 09/22/22 09/22/22 Range/Units 12:20 12:20 14:00 WBC 6.91 (4.8-10.8) K/ul RBC 4.32 (3.93-5.22) M/uL Hgb 13.7 (12.0-16.0) g/dl Hct 40.3 (34.1-44.9) % MCV 93.3 (80.0-100.0) fL MCH 31.7 (25.0-34.0) pg MCHC 34.0 (32.0-36.0) g/dL RDW Std Deviation 47.4 H (36.4-46.3) fL RDW Coeff of Jia 13.9 (11.5-14.5) % Plt Count 302 (130-400) K/uL MPV 10.3 (9.4-12.3) fL Immature Gran % (Auto) 0.4 % Neut % (Auto) 58.8 % Lymph % (Auto) 27.5 % [place] % (Auto) 10.6 % Eos % (Auto) 2.3 % Baso % (Auto) 0.4 % Neut # (Auto) 4.06 (1.4-6.5) K/uL Lymph # (Auto) 1.90 (1.2-3.4) K/uL [place] # (Auto) 0.73 (0.24-0.82) K/uL Eos # (Auto) 0.16 (0-0.50) K/uL Baso # (Auto) 0.03 (0-0.2) K/uL Immature Gran # (Auto) 0.03 H (0.00-0.02) K/uL Sodium 140 (136-145) mmol/L Potassium 3.9 (3.5-5.1) mmol/L Chloride 102 (98-107) mmol/L Carbon Dioxide 31 (21-32) mmol/L Anion Gap 7 (3-11) BUN 18 (6-23) mg/dl Creatinine 0.78 (0.6-1.2) mg/dl Est Cr Clr Drug Dosing 52.3 ml/min Est GFR ( Amer) 86.8 ml/min Est GFR (Non-Af Amer) 74.9 ml/min BUN/Creatinine Ratio 23.1 H (10-20) Glucose 120 H (70-99(Fasting)) mg/dl Calcium 9.6 (8.5-10.1) mg/dl Total Bilirubin 0.5 (0.2-1.0) mg/dl AST 26 (13-39) U/L ALT 27 (7-52) U/L Alkaline Phosphatase 74 (34-104) U/L Total Protein 7.7 (6.0-8.3) gm/dl Albumin 4.1 (3.4-5.0) gm/dl Globulin 3.6 (2.5-4.0) gm/dl Albumin/Globulin Ratio 1.1 (0.9-2) SARS-CoV-2, RNA, NAAT NEGATIVE (NEGATIVE) Imaging Data Radiologist's Impression: Cervical Spine CT 09/22/22 12:16 CT cervical spine wo con CLINICAL HISTORY: 72 years-old Female with fall, leg injury. Acute head and neck injury status post fall COMPARISON: Head CT of same day, MRI cervical spine 05/29/2022 TECHNIQUE: Multiple axial CT images of the cervical spine were obtained without contrast. A dose lowering technique was utilized adhering to the principles of ALARA. FINDINGS: Demineralized appearance of the bones. Mild multilevel spondylitic spurring with mild to moderate facet arthrosis. Chronic T1, T2 and T3 compression deformities. There is no acute cervical spine fracture or subluxation. Mastoid air cells and middle ear cavities appear clear. Multilevel neuroforaminal narrowing. The cervical soft tissues appear unremarkable. Intralobular septal thickening of the lung apices. No pneumothorax. IMPRESSION: 1. No acute cervical spine fracture or subluxation. 2. Chronic upper thoracic compression deformities. ACT 112: Negative or not required by law. The above report was generated using voice recognition software. It may contain grammatical, syntax or spelling errors. Electronically signed by: Pierce Roberson M.D. 09/22/2022 1:[address] 09/22/22 12:16 CT SCAN OF THE BRAIN WITHOUT IV CONTRAST CLINICAL HISTORY: Fall. COMPARISON STUDY: CT of the brain dated 06/10/2022. TECHNIQUE: Unenhanced axial CT scan of the brain is performed from the vertex to the skull base. A dose lowering technique was utilized adhering to the principles of ALARA. CT DOSE: 910.25 mGy.cm FINDINGS: Brain parenchyma: There is age-related involutional change noting mild to moderate subcortical and periventricular microangiopathic disease. There is no hemorrhage, mass effect, or evidence of acute territorial ischemia by CT criteria. Downing-white matter differentiation is preserved. No extra-axial fluid collection is seen. Ventricles, sulci, cisterns: Prominent secondary to involutional change. Intracranial vasculature: There is atherosclerotic calcification of the cavernous carotid arteries. Calvarium: The skeletal structures are osteopenic. No depressed calvarial fracture is identified. Sinuses and mastoids: The visualized paranasal sinuses are clear. The mastoid air cells are well pneumatized. Orbits: The bony orbits are grossly intact. IMPRESSION: There is no hemorrhage, mass effect, or evidence of acute territorial ischemia by CT criteria. ACT 112: Negative or not required by law. Electronically signed by: Nick Gudino M.D. 09/22/2022 12:57 PM Femur X-Ray 09/22/22 12:25 XR pelvis 1-2V routine, XR femur RT 2V routine CLINICAL HISTORY: Fall, right leg injury, no significant tenderness TECHNIQUE: A single frontal view of the pelvis was obtained. 2 views of the right femur were obtained. Comparison: Comparison is made to CT abdomen pelvis 05/01/2022 FINDINGS: There is foreshortening of the right femoral neck compatible with fracture. Degenerative changes are seen in the hip joints and lumbar spine. Phleboliths are seen bilaterally. Soft tissue swelling is seen about the right hip. IMPRESSION: Acute femoral neck fracture on the right. ACT 112: Negative or not required by law. Electronically signed by: Dion Hernandez M.D. 09/22/2022 1:47 PM Pelvis X-Ray 09/22/22 12:25 XR pelvis 1-2V routine, XR femur RT 2V routine CLINICAL HISTORY: Fall, right leg injury, no significant tenderness TECHNIQUE: A single frontal view of the pelvis was obtained. 2 views of the right femur were obtained. Comparison: Comparison is made to CT abdomen pelvis 05/01/2022 FINDINGS: There is foreshortening of the right femoral neck compatible with fracture. Degenerative changes are seen in the hip joints and lumbar spine. Phleboliths are seen bilaterally. Soft tissue swelling is seen about the right hip. IMPRESSION: Acute femoral neck fracture on the right. ACT 112: Negative or not required by law. Electronically signed by: Dion Hernandez M.D. 09/22/2022 1:47 PM MDM Narrative 72-year-old female presents with a right leg injury with external rotation secondary to a mechanical fall that occurred prior to arrival. On exam, she does have focal tenderness and swelling in the distal femur region and there is external rotation of the leg. She has altered sensation in the right foot, does have strong DP pulses bilaterally. No additional injuries were identified, patient neurologically intact however due to patient's age and mechanism of injury, CT head and neck was also obtained in addition to x-rays of the pelvis and femur. Pain control with IV Tylenol. Gentle IV fluids administered. Basic labs obtained demonstrating no significant findings. CT head and neck are negative for acute process. X-rays reveal an acute femoral neck fracture. I did speak with the patient regarding these findings and she was motivated for surgery and rehab. I spoke with Dr. ayala (orthopedics) who agrees this will require surgical fixation. Patient will be admitted under Dr. Olson ([facility] hospitalist) for hospitalist management, orthopedic consult. Patient remained hemodynamically stable and pain was well controlled at time of admission. Her hypertension improved to 158/81. Impression & Plan Femoral neck fracture, Fall from slip, trip, or stumble Discharge Plan Visit Data Chief Complaint: Hip Pain Stated Complaint: FALL, R LEG PAIN ED Provider: Grace Aguilera ED Midlevel Provider: Walter Campbell Discharge Problem: Femoral neck fracture, Fall from slip, trip, or stumble Patient Disposition: Admitted As Inpatient Condition: Fair Forms Stand Alone Forms: My [facility] [employer] Prescriptions Prescriptions: No Action ciprofloxacin HCl 500 mg Tablet 500 mg PO BID Qty: 9 0RF acetaminophen 325 mg Tablet 650 mg PO Q4H PRN (Reason: fever or pain) Qty: 60 0RF propranolol 60 mg capsule,extended release 24 hr 60 mg PO DAILY Qty: 30 0RF melatonin 3 mg Tablet 3 mg PO HS PRN (Reason: sleep) Qty: 30 0RF levetiracetam [Keppra] 250 mg Tablet 750 mg PO BID Qty: 60 0RF lamotrigine 100 mg Tablet 150 mg PO BID Qty: 60 0RF levothyroxine 112 mcg tablet 112 mcg PO QAM Qty: 30 0RF glatiramer [Copaxone] 40 mg/mL syringe See Rx Instructions .ROUTE .COMPLEX Qty: 12 0RF Rx Instructions: TAKES ON MON, WED, & FRI. Referrals Ref[facility] [Primary Care Provider] - : Femoral neck fracture Qualifiers: Encounter type: initial encounter Fracture type: closed Laterality: right Qualified Code(s): S72.001A - Fracture of unspecified part of neck of right femur, initial encounter for closed fracture Fall from slip, trip, or stumble Qualifiers: Encounter type: initial encounter Qualified Code(s): W01.0XXA - Fall on same level from slipping, tripping and stumbling without subsequent striking against object, initial encounter
[2022-09-22 12:39] LABS: Basophils # (auto) 0.03 K/uL (0-0.2); Basophils % (auto) 0.4 %; Eosinophils # (auto) 0.16 K/uL (0-0.50); Eosinophils % (auto) 2.3 %; Hematocrit (blood only) 40.3 % (34.1-44.9); Hemoglobin 13.7 g/dl (12.0-16.0); Immature Granulocytes # (auto) 0.03 K/uL (0.00-0.02); Immature Granulocytes % (auto) 0.4 %; Lymphocytes % (auto) 27.5 %; Mean Corpuscular Hemoglobin 31.7 pg (25.0-34.0); Mean Corpuscular Volume 93.3 fL (80.0-100.0); Mean Platelet Volume 10.3 fL (9.4-12.3); Monocytes # (auto) 0.73 K/uL (0.24-0.82); Monocytes % (auto) 10.6 %; Neutrophils # (auto) 4.06 K/uL (1.4-6.5); Neutrophils % (auto) 58.8 %; Platelet Count 302 K/uL (130-400); RDW Coefficient of Variation 13.9 % (11.5-14.5); RDW Standard Deviation 47.4 fL (36.4-46.3); Red Blood Count 4.32 M/uL (3.93-5.22); White Blood Count 6.91 K/ul (4.8-10.8)
--- NOTE | 2022-09-22 12:59 | CT Scan Report ---
CT SCAN OF THE BRAIN WITHOUT IV CONTRAST CLINICAL HISTORY: Fall. COMPARISON STUDY: CT of the brain dated 06/10/2022. TECHNIQUE: Unenhanced axial CT scan of the brain is performed from the vertex to the skull base. A do se lowering technique was utilized adhering to the principles of ALARA. CT DOSE: 910.25 mGy.cm FINDINGS: Brain parenchyma: There is age-related involutional change noting mild to moderate subcortical and pe riventricular microangiopathic disease. There is no hemorrhage, mass effect, or evidence of acute ter ritorial ischemia by CT criteria. Downing-white matter differentiation is preserved. No extra-axial flui d collection is seen. Ventricles, sulci, cisterns: Prominent secondary to involutional change. Intracranial vasculature: There is atherosclerotic calcification of the cavernous carotid arteries. Calvarium: The skeletal structures are osteopenic. No depressed calvarial fracture is identified. Sinuses and mastoids: The visualized paranasal sinuses are clear. The mastoid air cells are well pneu matized. Orbits: The bony orbits are grossly intact. IMPRESSION: There is no hemorrhage, mass effect, or evidence of acute territorial ischemia by CT gilberto villarreal. ACT 112: Negative or not required by law. Electronically signed by: Nick Gudino M.D. 09/22/2022 12:57 PM
[2022-09-22 13:03] LABS: Albumin Globulin Ratio 1.1 (0.9-2); Albumin Level 4.1 gm/dl (3.4-5.0); BUN Creatinine Ratio 23.1 (10-20); Bilirubin,Total 0.5 mg/dl (0.2-1.0); Calcium 9.6 mg/dl (8.5-10.1); Creatinine Clr Calc Pharmacy 52.3 ml/min; Est GFR (African American) 86.8 ml/min; Est GFR (Non-African American) 74.9 ml/min; Globulin 3.6 gm/dl (2.5-4.0); Potassium 3.9 mmol/L (3.5-5.1); Total Protein 7.7 gm/dl (6.0-8.3)
--- NOTE | 2022-09-22 13:24 | CT Scan Report ---
CT cervical spine wo con CLINICAL HISTORY: 72 years-old Female with fall, leg injury. Acute head and neck injury status post fall COMPARISON: Head CT of same day, MRI cervical spine 05/29/2022 TECHNIQUE: Multiple axial CT images of the cervical spine were obtained without contrast. A dose low ering technique was utilized adhering to the principles of ALARA. FINDINGS: Demineralized appearance of the bones. Mild multilevel spondylitic spurring with mild to mo derate facet arthrosis. Chronic T1, T2 and T3 compression deformities. There is no acute cervical spi ne fracture or subluxation. Mastoid air cells and middle ear cavities appear clear. Multilevel neurof oraminal narrowing. The cervical soft tissues appear unremarkable. Intralobular septal thickening of the lung apices. No pneumothorax. IMPRESSION: 1. No acute cervical spine fracture or subluxation. 2. Chronic upper thoracic compression deformities. ACT 112: Negative or not required by law. The above report was generated using voice recognition software. It may contain grammatical, syntax o r spelling errors. Electronically signed by: Pierce Roberson M.D. 09/22/2022 1:23 PM
--- NOTE | 2022-09-22 13:48 | XRay Report ---
XR pelvis 1-2V routine, XR femur RT 2V routine CLINICAL HISTORY: Fall, right leg injury, no significant tenderness TECHNIQUE: A single frontal view of the pelvis was obtained. 2 views of the right femur were obtained . Comparison: Comparison is made to CT abdomen pelvis 05/01/2022 FINDINGS: There is foreshortening of the right femoral neck compatible with fracture. Degenerative changes are seen in the hip joints and lumbar spine. Phleboliths are seen bilaterally. Soft tissue swelling is s een about the right hip. IMPRESSION: Acute femoral neck fracture on the right. ACT 112: Negative or not required by law. Electronically signed by: Dion Hernandez M.D. 09/22/2022 1:47 PM
--- NOTE | 2022-09-22 14:47 | History & Physical Report ---
Date of Service September 22, 2022 Assessment & Plan (1) Fall from slip, trip, or stumble: (2) Femoral neck fracture: Plan: Patient is 72 y/o F with PMH MS, tremor, Parkinsonism, LE edema, seizure disorder, h/o thyroidectomy, right breast cancer s/p lumpectomy chemo and radiation, presented to ER from [facility] with c/o mechanical fall and right hip pain. Denies seizure like activity. Ambulates with walker at baseline. In ER initially hypertensive then improves after pain control CT Head: no acute intracranial abnormality CT C-spine: No acute cervical spine fracture or subluxation. Chronic upper thoracic compression deformities. Right Femur X-ray: Acute femoral neck fracture on the right. In ER given IV Tylenol, 500ml NSS Bedrest Pain control Ortho consult. Plan for surgery on 09/24/22 Will make NPO midnight of 09/23/22 CBC, BMP in am (3) Multiple sclerosis: Plan: Follows with [facility] Previously on Copaxone. States hasn't used for over 1 year secondary to hernandez of medication. (4) Parkinsonism: Plan: History Parkinsonism with likely essential tremor Continue propranolol, Topiramate (5) Seizure disorder: Plan: No recent seizure reported Continue Lamictal, Keppra (6) Leg edema: Plan: Chronic BLE edema. Denies h/o CHF Hold lasix and monitor volume status (7) Hypothyroid: Plan: H/O Thyroidectomy Continue levothyroxine DVT Prophylaxis SCDs DNR/DNI as per discussion with pt Currently at [facility] Pt was seen and care coordinated with Dr Olson. See addendum History of Present Illness Chief Complaint: Fall Primary Care Provider: [facility] Patient is 72 y/o F with PMH MS, tremor, Parkinsonism, LE edema, seizure disorder, h/o thyroidectomy, right breast cancer s/p lumpectomy chemo and radiation, presented to ER from [facility] with c/o fall and right hip pain. Patient reports ambulates with walker at baseline. States was in bathroom this morning and her shoe got caught causing her to fall on to her right side. C/O pain to right hip and right upper leg. She states initially had some numbness sensation to right foot but that seems to be improved and at her baseline with chronic neuropathy. She was able to crawl out of bathroom to get assistance. Denies seizure like activity. Denies dizziness, syncope, LOC, hitting head. Denies any other injury. Last ate 8:30am today. Denies fever/chills, diaphoresis, N/V/D/C, PINK, vision changes, neck pain, CP, SOB, orthopnea, palpitations, cough, sore throat, choking, otalgia, rhinorrhea, abdominal pain, increased extremity edema, rashes, urinary symptoms. Allergies Allergy/AdvReac Type Severity Reaction Status Date / Time Penicillins Allergy Intermediate Hives Verified 09/22/22 15:07 amoxicillin Allergy Unknown ON Verified 09/22/22 15:07 [facility] [employer] LIST erythromycin base Allergy Unknown ON Verified 09/22/22 15:07 [facility] LIST Home Medications Medication Instructions Recorded Confirmed Type acetaminophen 325 mg tablet 650 mg PO Q4H PRN fever or pain 06/12/22 09/22/22 Rx #60 tabs levothyroxine 112 mcg tablet 112 mcg PO QAM #30 tabs 06/12/22 09/22/22 Rx melatonin 3 mg tablet 3 mg PO HS PRN sleep #30 tabs 06/12/22 09/22/22 Rx furosemide 20 mg tablet (Lasix) 20 mg PO DAILY 09/22/22 09/22/22 History lamotrigine 150 mg tablet 150 mg PO BID 09/22/22 09/22/22 History levetiracetam 750 mg tablet 750 mg PO Q12H 09/22/22 09/22/22 History propranolol 20 mg tablet 30 mg PO BID 09/22/22 09/22/22 History Past Med/Surg History Medical History Breast cancer right - lumpectomy, chemo, radiation. 2006 Hypothyroid Leg edema Multiple sclerosis Parkinsonism Peripheral neuropathy Seizure disorder Surgical History History of carpal tunnel surgery History of thyroidectomy Family History Father Coronary heart disease Mother Coronary heart disease Stroke Social History Smoking Status: Never smoker Hx Alcohol Use: No Hx Substance Use: No Preferred Language: Icelandic Communication Ability: Effective marital status: Current Living Situation: [facility] Feels Safe at Home: Yes Assistive Devices: Walker and Wheelchair Review of Systems Review of Systems: All systems reviewed & are unremarkable except as noted in HPI & below Physical Exam Physical Exam: General: no acute distress, WDWN Head: normocephalic, atraumatic Eyes: PERRL, EOM's intact, conjunctiva non-injected, anicteric ENT: normal inspection external ears, nose, mucous membranes moist Neck: supple, trachea midline Lungs: clear, no respiratory distress, no wheezing/rhonchi/rales CV: RRR, no murmur, no pretibial edema Abd: normal BS, soft, non-tender Ext: no cyanosis, no calf tenderness; RLE: +shortened and externally rotated. +tenderness to lateral hip. ROM not tested. Is able to flex and extend right foot, distal pules intact, sensation to light touch intact, brisk capillary refill. LLE, RUE and LUE non-tender and ROM intact. Neuro: A&O x 3, +resting tremor of head and bialteral hands, normal affect Skin: warm, dry Results & Data Results & Data ([facility]) Vital Signs (Past 12 Hours) Vital Signs Temp Pulse Pulse Resp BP BP Pulse Ox 09/22/22 14:07 66 19 158/81 H 92 09/22/22 13:30 69 18 94 09/22/22 13:00 69 20 09/22/22 12:49 65 18 09/22/22 12:49 158/81 H 09/22/22 12:30 59 L 18 96 09/22/22 12:29 150/85 H 09/22/22 12:29 59 L 17 09/22/22 12:00 59 L 20 95 09/22/22 11:59 59 L 26 H 95 09/22/22 12:24 36.7 C 58 L 19 96 09/22/22 11:54 36.7 C 58 L 20 183/94 H 95 O2 Del Method 09/22/22 14:07 Room Air 09/22/22 13:30 09/22/22 13:00 09/22/22 12:49 09/22/22 12:49 09/22/22 12:30 09/22/22 12:29 09/22/22 12:29 09/22/22 12:00 09/22/22 11:59 09/22/22 12:24 Room Air 09/22/22 11:54 Room Air Laboratory Results Short CBC 09/22/22 Range/Units 12:20 WBC 6.91 (4.8-10.8) K/ul Hgb 13.7 (12.0-16.0) g/dl Hct 40.3 (34.1-44.9) % Plt Count 302 (130-400) K/uL BMP 09/22/22 12:20 Sodium 140 Potassium 3.9 Chloride 102 Carbon Dioxide 31 BUN 18 Creatinine 0.78 Glucose 120 H Calcium 9.6 Liver Function 09/22/22 Range/Units 12:20 Total Bilirubin 0.5 (0.2-1.0) mg/dl AST 26 (13-39) U/L ALT 27 (7-52) U/L Alkaline Phosphatase 74 (34-104) U/L Albumin 4.1 (3.4-5.0) gm/dl Diagnostic Findings Cervical Spine CT 09/22/22 12:16 CT cervical spine wo con CLINICAL HISTORY: 72 years-old Female with fall, leg injury. Acute head and neck injury status post fall COMPARISON: Head CT of same day, MRI cervical spine 05/29/2022 TECHNIQUE: Multiple axial CT images of the cervical spine were obtained without contrast. A dose lowering technique was utilized adhering to the principles of ALARA. FINDINGS: Demineralized appearance of the bones. Mild multilevel spondylitic spurring with mild to moderate facet arthrosis. Chronic T1, T2 and T3 compression deformities. There is no acute cervical spine fracture or subluxation. Mastoid air cells and middle ear cavities appear clear. Multilevel neuroforaminal narrowing. The cervical soft tissues appear unremarkable. Intralobular septal thickening of the lung apices. No pneumothorax. IMPRESSION: 1. No acute cervical spine fracture or subluxation. 2. Chronic upper thoracic compression deformities. ACT 112: Negative or not required by law. The above report was generated using voice recognition software. It may contain grammatical, syntax or spelling errors. Electronically signed by: Pierce Roberson M.D. 09/22/2022 1:[address] 09/22/22 12:16 CT SCAN OF THE BRAIN WITHOUT IV CONTRAST CLINICAL HISTORY: Fall. COMPARISON STUDY: CT of the brain dated 06/10/2022. TECHNIQUE: Unenhanced axial CT scan of the brain is performed from the vertex to the skull base. A dose lowering technique was utilized adhering to the principles of ALARA. CT DOSE: 910.25 mGy.cm FINDINGS: Brain parenchyma: There is age-related involutional change noting mild to moderate subcortical and periventricular microangiopathic disease. There is no hemorrhage, mass effect, or evidence of acute territorial ischemia by CT criteria. Downing-white matter differentiation is preserved. No extra-axial fluid collection is seen. Ventricles, sulci, cisterns: Prominent secondary to involutional change. Intracranial vasculature: There is atherosclerotic calcification of the cavernous carotid arteries. Calvarium: The skeletal structures are osteopenic. No depressed calvarial fracture is identified. Sinuses and mastoids: The visualized paranasal sinuses are clear. The mastoid air cells are well pneumatized. Orbits: The bony orbits are grossly intact. IMPRESSION: There is no hemorrhage, mass effect, or evidence of acute territorial ischemia by CT criteria. ACT 112: Negative or not required by law. Electronically signed by: Nick Gudino M.D. 09/22/2022 12:57 PM Femur X-Ray 09/22/22 12:25 XR pelvis 1-2V routine, XR femur RT 2V routine CLINICAL HISTORY: Fall, right leg injury, no significant tenderness TECHNIQUE: A single frontal view of the pelvis was obtained. 2 views of the right femur were obtained. Comparison: Comparison is made to CT abdomen pelvis 05/01/2022 FINDINGS: There is foreshortening of the right femoral neck compatible with fracture. Degenerative changes are seen in the hip joints and lumbar spine. Phleboliths are seen bilaterally. Soft tissue swelling is seen about the right hip. IMPRESSION: Acute femoral neck fracture on the right. ACT 112: Negative or not required by law. Electronically signed by: Dion Hernandez M.D. 09/22/2022 1:47 PM Pelvis X-Ray 09/22/22 12:25 XR pelvis 1-2V routine, XR femur RT 2V routine CLINICAL HISTORY: Fall, right leg injury, no significant tenderness TECHNIQUE: A single frontal view of the pelvis was obtained. 2 views of the right femur were obtained. Comparison: Comparison is made to CT abdomen pelvis 05/01/2022 FINDINGS: There is foreshortening of the right femoral neck compatible with fracture. Degenerative changes are seen in the hip joints and lumbar spine. Phleboliths are seen bilaterally. Soft tissue swelling is seen about the right hip. IMPRESSION: Acute femoral neck fracture on the right. ACT 112: Negative or not required by law. Electronically signed by: Dion Hernandez M.D. 09/22/2022 1:47 PM ECG Rate (beats per minute): 59 Rhythm: sinus bradycardia Supervising Physician Co-Signing Physician Notes Patient is a 72-year-old female with history of MS, Parkinson's, seizure disorder and other medical problems presents with history of a mechanical fall. Patient states that she fell on her right side resulting in significant hip pain and ambulatory dysfunction. She denies any seizure, syncopal episode, head trauma. Please review HPI for complete details of presentation. Blood work and imaging studies reviewed. Imaging studies suggestive of acute right femoral neck fracture. On exam patient is moderately built and nourished, no apparent distress, normocephalic/atraumatic, EOMI, lungs are clear to auscultation, S1- S2,+ murmur, no peripheral edema, abdomen soft, nontender, normal bowel sounds, alert, awake, oriented, grossly no focal deficits,+ resting tremor, right lower extremity shortened, externally rotated. Patient is admitted for management of acute right femoral neck fracture secondary to mechanical fall. Orthopedics consulted. Pain control. PT OT as able. Will likely need rehab placement post surgically. I personally reviewed the record. Patient is interviewed and examined at bedside. Patient's care is coordinated with Rosie Gill. Please refer to the documentation above for details of patient's presentation and for discussion of other issues. (1) Femoral neck fracture Encounter type: initial encounter Fracture type: closed Laterality: right Qualified Code(s): S72.001A - Fracture of unspecified part of neck of right femur, initial encounter for closed fracture (2) Fall from slip, trip, or stumble Encounter type: initial encounter Qualified Code(s): W01.0XXA - Fall on same level from slipping, tripping and stumbling without subsequent striking against object, initial encounter
--- NOTE | 2022-09-22 14:51 | Emergency Department Note ---
ED Visit Note I agree with the diagnosis and management decisions and have been personally involved in the case. Patient's case was discussed with Dr. Beltrán of orthopedic surgery due to right hip fracture as well as the hospitalist service for admission. Please see Walter Campbell PA-C's notes for further details of the history, physical and visit. . : Femoral neck fracture Qualifiers: Encounter type: initial encounter Fracture type: closed Laterality: right Qualified Code(s): S72.001A - Fracture of unspecified part of neck of right femur, initial encounter for closed fracture Fall from slip, trip, or stumble Qualifiers: Encounter type: initial encounter Qualified Code(s): W01.0XXA - Fall on same level from slipping, tripping and stumbling without subsequent striking against object, initial encounter
--- NOTE | 2022-09-22 16:04 | Orthopedic Consultation ---
Date of Consultation September 22, 2022 Assessment & Plan (1) Femoral neck fracture: Right displaced femoral neck fracture. X-rays reviewed. Case discussed with Dr. Mckeon. Patient is a household ambulator with a Rollator walker. She will require a bipolar hemiarthroplasty. Unable to do surgery tomorrow secondary to holiday and to staffing. Cases are on a "life or limb" basis only for tomorrow. This was discussed with the patient and her son. Plans will be for surgery at 7:30 in the morning on , 09/24/2022. They understand and are okay with this. I have also discussed this with Dr. Olson and Rosie Dwyer PA-C. Patient may eat tonight through tomorrow. N.p.o. after midnight tomorrow, for planned surgery on Tuesday. History of Present Illness Reason for Consultation: Right hip fracture History of Present Illness Patient is a 72-year-old female who resides at [facility]. Past medical history includes multiple sclerosis, Parkinson's disease, seizure disorder, breast cancer, hypothyroidism. Patient states that she was doing her normal routine in her apartment. She had ambulated with her walker to the bathroom. She went to turn catching her 1 foot onto the other and lost her balance. She fell to the floor and had immediate pain in her right hip and groin. She had difficulty ambulating. She denies hitting her head during the fall. She denies loss of consciousness. There was no apparent shortness of breath, chest pain, lightheadedness prior to or after the fall. She was brought to the emergency room here at [facility] and was seen by the staff. X-rays were taken and was found that she had a displaced right femoral neck fracture. She was admitted by the [facility] service and we have been asked to take care of her fracture. She is currently awake and alert. She is comfortable at this point in time. She does have some concerns with the upcoming surgery which we discussed. Her son is currently present giving some history as well. Allergies Allergy/AdvReac Type Severity Reaction Status Date / Time Penicillins Allergy Intermediate Hives Verified 09/22/22 15:07 amoxicillin Allergy Unknown ON Verified 09/22/22 15:07 [facility] erythromycin base Allergy Unknown ON Verified 09/22/22 15:07 [facility] Home Medications Medication Instructions Recorded Confirmed Type acetaminophen 325 mg tablet 650 mg PO Q4H PRN fever or pain 06/12/22 09/22/22 Rx #60 tabs levothyroxine 112 mcg tablet 112 mcg PO QAM #30 tabs 06/12/22 09/22/22 Rx melatonin 3 mg tablet 3 mg PO HS PRN sleep #30 tabs 06/12/22 09/22/22 Rx furosemide 20 mg tablet (Lasix) 20 mg PO DAILY 09/22/22 09/22/22 History lamotrigine 150 mg tablet 150 mg PO BID 09/22/22 09/22/22 History levetiracetam 750 mg tablet 750 mg PO Q12H 09/22/22 09/22/22 History propranolol 20 mg tablet 30 mg PO BID 09/22/22 09/22/22 History Patient History Medical History Breast cancer right - lumpectomy, chemo, radiation. 2006 Hypothyroid Multiple sclerosis Parkinson disease Seizure Surgical History History of carpal tunnel surgery History of thyroidectomy Family History Father Coronary heart disease Mother Coronary heart disease Stroke Social History Smoking Status: Never smoker Hx Alcohol Use: No Hx Substance Use: No Preferred Language: Lao Communication Ability: Effective marital status: Current Living Situation: Shelter Feels Safe at Home: Yes Assistive Devices: Walker and Wheelchair Physical Exam Physical Exam: On examination, the patient is a 72-year-old white female who appears her stated age. She is pleasant and cooperative. No acute distress. Oriented x3. On examination of her right lower extremity, it is shortened and externally rotated compared to the left. She is moving her ankle and toes well at this time. Her right knee is nontender on palpation and range of motion is deferred secondary to fracture of her right hip. Right hip has some mild tenderness over the lateral aspect and range of motion is not performed secondary to fracture. She denies pain in the left hip, knee, and ankle. No obvious abrasions or injuries noted. Upper extremities are unaffected at this time and she is nontender at the shoulders, elbows, and wrists. Range of motion is within normal limits. There is no gross motor or sensory loss at this time. Distal pulses are equal bilaterally of the upper and lower extremities. Results & Data ([facility]) Vital Signs (Past 12 Hours) Vital Signs Temp Pulse Pulse Resp BP BP Pulse Ox 09/22/22 14:07 66 19 158/81 H 92 09/22/22 13:30 69 18 94 09/22/22 13:00 69 20 09/22/22 12:49 65 18 09/22/22 12:49 158/81 H 09/22/22 12:30 59 L 18 96 09/22/22 12:29 150/85 H 09/22/22 12:29 59 L 17 09/22/22 12:00 59 L 20 95 09/22/22 11:59 59 L 26 H 95 09/22/22 12:24 36.7 C 58 L 19 96 09/22/22 11:54 36.7 C 58 L 20 183/94 H 95 O2 Del Method 09/22/22 14:07 Room Air 09/22/22 13:30 09/22/22 13:00 09/22/22 12:49 09/22/22 12:49 09/22/22 12:30 09/22/22 12:29 09/22/22 12:29 09/22/22 12:00 09/22/22 11:59 09/22/22 12:24 Room Air 09/22/22 11:54 Room Air Laboratory Results Laboratory Results WBC 6.91 K/ul (4.8-10.8) 09/22/22 12:20 RBC 4.32 M/uL (3.93-5.22) 09/22/22 12:20 Hgb 13.7 g/dl (12.0-16.0) 09/22/22 12:20 Hct 40.3 % (34.1-44.9) 09/22/22 12:20 MCV 93.3 fL (80.0-100.0) 09/22/22 12:20 MCH 31.7 pg (25.0-34.0) 09/22/22 12:20 MCHC 34.0 g/dL (32.0-36.0) 09/22/22 12:20 RDW Std Deviation 47.4 fL (36.4-46.3) H 09/22/22 12:20 RDW Coeff of Jia 13.9 % (11.5-14.5) 09/22/22 12:20 Plt Count 302 K/uL (130-400) 09/22/22 12:20 MPV 10.3 fL (9.4-12.3) 09/22/22 12:20 Immature Gran % (Auto) 0.4 % 09/22/22 12:20 Neut % (Auto) 58.8 % 09/22/22 12:20 Lymph % (Auto) 27.5 % 09/22/22 12:20 [place] % (Auto) 10.6 % 09/22/22 12:20 Eos % (Auto) 2.3 % 09/22/22 12:20 Baso % (Auto) 0.4 % 09/22/22 12:20 Neut # (Auto) 4.06 K/uL (1.4-6.5) 09/22/22 12:20 Lymph # (Auto) 1.90 K/uL (1.2-3.4) 09/22/22 12:20 Lenoir # (Auto) 0.73 K/uL (0.24-0.82) 09/22/22 12:20 Eos # (Auto) 0.16 K/uL (0-0.50) 09/22/22 12:20 Baso # (Auto) 0.03 K/uL (0-0.2) 09/22/22 12:20 Immature Gran # (Auto) 0.03 K/uL (0.00-0.02) H 09/22/22 12:20 Sodium 140 mmol/L (136-145) 09/22/22 12:20 Potassium 3.9 mmol/L (3.5-5.1) 09/22/22 12:20 Chloride 102 mmol/L (98-107) 09/22/22 12:20 Carbon Dioxide 31 mmol/L (21-32) 09/22/22 12:20 Anion Gap 7 (3-11) 09/22/22 12:20 BUN 18 mg/dl (6-23) 09/22/22 12:20 Creatinine 0.78 mg/dl (0.6-1.2) 09/22/22 12:20 Est Cr Clr Drug Dosing 52.3 ml/min 09/22/22 12:20 Est GFR ( Amer) 86.8 ml/min 09/22/22 12:20 Est GFR (Non-Af Amer) 74.9 ml/min 09/22/22 12:20 BUN/Creatinine Ratio 23.1 (10-20) H 09/22/22 12:20 Glucose 120 mg/dl (70-99(Fasting)) H 09/22/22 12:20 Calcium 9.6 mg/dl (8.5-10.1) 09/22/22 12:20 Total Bilirubin 0.5 mg/dl (0.2-1.0) 09/22/22 12:20 AST 26 U/L (13-39) 09/22/22 12:20 ALT 27 U/L (7-52) 09/22/22 12:20 Alkaline Phosphatase 74 U/L (34-104) 09/22/22 12:20 Total Protein 7.7 gm/dl (6.0-8.3) 09/22/22 12:20 Albumin 4.1 gm/dl (3.4-5.0) 09/22/22 12:20 Globulin 3.6 gm/dl (2.5-4.0) 09/22/22 12:20 Albumin/Globulin Ratio 1.1 (0.9-2) 09/22/22 12:20 SARS-CoV-2, RNA, NAAT NEGATIVE (NEGATIVE) 09/22/22 14:[address] 09/22/22 12:16 CT cervical spine wo con CLINICAL HISTORY: 72 years-old Female with fall, leg injury. Acute head and neck injury status post fall COMPARISON: Head CT of same day, MRI cervical spine 05/29/2022 TECHNIQUE: Multiple axial CT images of the cervical spine were obtained without contrast. A dose lowering technique was utilized adhering to the principles of ALARA. FINDINGS: Demineralized appearance of the bones. Mild multilevel spondylitic spurring with mild to moderate facet arthrosis. Chronic T1, T2 and T3 compression deformities. There is no acute cervical spine fracture or sublu xation. Mastoid air cells and middle ear cavities appear clear. Multilevel neuroforaminal narrowing. The cervical soft tissues appear unremarkable. Intralobular septal thickening of the lung apices. No pneumothorax. IMPRESSION: 1. No acute cervical spine fracture or subluxation. 2. Chronic upper thoracic compression deformities. ACT 112: Negative or not required by law. The above report was generated using voice recognition software. It may contain grammatical, syntax or spelling errors. Electronically signed by: Pierce Roberson M.D. 09/22/2022 1:23 PM Femur X-Ray 09/22/22 12:25 XR pelvis 1-2V routine, XR femur RT 2V routine CLINICAL HISTORY: Fall, right leg injury, no significant tenderness TECHNIQUE: A single frontal view of the pelvis was obtained. 2 views of the right femur were obtained. Comparison: Comparison is made to CT abdomen pelvis 05/01/2022 FINDINGS: There is foreshortening of the right femoral neck compatible with fracture. Degenerative changes are seen in the hip joints and lumbar spine. Phleboliths are seen bilaterally. Soft tissue swelling is seen about the right hip. IMPRESSION: Acute femoral neck fracture on the right. ACT 112: Negative or not required by law. Electronically signed by: Dion Hernandez M.D. 09/22/2022 1:47 PM Pelvis X-Ray 09/22/22 12:25 XR pelvis 1-2V routine, XR femur RT 2V routine CLINICAL HISTORY: Fall, right leg injury, no significant tenderness TECHNIQUE: A single frontal view of the pelvis was obtained. 2 views of the right femur were obtained. Comparison: Comparison is made to CT abdomen pelvis 05/01/2022 FINDINGS: There is foreshortening of the right femoral neck compatible with fracture. Degenerative changes are seen in the hip joints and lumbar spine. Phleboliths are seen bilaterally. Soft tissue swelling is seen about the right hip. IMPRESSION: Acute femoral neck fracture on the right. ACT 112: Negative or not required by law. Electronically signed by: Dion Hernandez M.D. 09/22/2022 1:47 PM (1) Femoral neck fracture Encounter type: initial encounter Fracture type: closed Laterality: right Qualified Code(s): S72.001A - Fracture of unspecified part of neck of right femur, initial encounter for closed fracture
[2022-09-22] MEDS ORDERED: MoRPHine SULFATE 4 MG/ML 1 ML CARP\\VIAL IV PRN (19:19)
[2022-09-22] MEDS ORDERED: MAGNESIUM HYDROXIDE SUSP 30 ML UDC PO PRN (19:19)
[2022-09-22] MEDS ORDERED: MELATONIN 3 MG TAB PO PRN (19:19)
[2022-09-22] MEDS ORDERED: bisacodyL 10 MG SUPP PR PRN (19:19)
[2022-09-22] MEDS ORDERED: MoRPHine SULFATE 2 MG/ML CARP IV PRN (19:19)
[2022-09-22] MEDS ORDERED: NALOXONE HCL 0.4 MG/1 ML VIAL/CARP IV PRN (19:19)
[2022-09-22] MEDS ORDERED: ONDANSETRON INJ 2 MG/ML 2 ML VIAL IV PRN (19:19)
--- NOTE | 2022-09-22 19:41 | Anesthesiology Consultation ---
Date of Service September 22, 2022 Assessment & Plan (1) Encounter for pre-operative examination: Chart Review Chart Review: Acceptable Risk for Surgery and Patient NOT seen in Pre Admission Testing Consults Requested none History Surgery Operation Date: 09/24/22 07:30 Proposed Procedures p Right Bipolar Hemiarthroplasty - Pierce Mckeon DO Height/Weight Height: 5 ft 3 in Weight: 59.8 kg Allergies Allergy/AdvReac Type Severity Reaction Status Date / Time Penicillins Allergy Intermediate Hives Verified 09/22/22 15:07 amoxicillin Allergy Unknown ON Verified 09/22/22 15:07 Gengo LIST erythromycin base Allergy Unknown ON Verified 09/22/22 15:07 RawFlow MED LIST Medications Home Medications Medication Instructions Recorded Confirmed Last Taken acetaminophen 325 mg tablet 650 mg PO Q4H PRN fever or pain 06/12/22 09/22/22 Unknown #60 tabs levothyroxine 112 mcg tablet 112 mcg PO QAM #30 tabs 06/12/22 09/22/22 09/22/22 melatonin 3 mg tablet 3 mg PO HS PRN sleep #30 tabs 06/12/22 09/22/22 Unknown furosemide 20 mg tablet (Lasix) 20 mg PO DAILY 09/22/22 09/22/22 09/22/22 lamotrigine 150 mg tablet 150 mg PO BID 09/22/22 09/22/22 09/22/22 08:00 levetiracetam 750 mg tablet 750 mg PO Q12H 09/22/22 09/22/22 09/22/22 08:00 propranolol 20 mg tablet 30 mg PO BID 09/22/22 09/22/22 09/22/22 08:00 Past Medical History Medical History Breast cancer right - lumpectomy, chemo, radiation. 2006 Hypothyroid Leg edema Multiple sclerosis Parkinsonism Peripheral neuropathy Seizure disorder Past Family History Family History Father Coronary heart disease Mother Coronary heart disease Stroke Past Surgical History Surgical History History of carpal tunnel surgery History of thyroidectomy Social History Smoking Status: Never smoker Hx Alcohol Use: No Hx Substance Use: No Physical Exam Vital Signs Last Vital Signs Temp 36.7 C 09/22/22 12:24 Pulse 65 09/22/22 18:00 Resp 16 09/22/22 18:00 BP 162/83 H 09/22/22 16:49 Pulse Ox 94 09/22/22 18:00 O2 Del Method 09/22/22 16:49 Testing Laboratory Results 09/22/22 12:20 09/22/22 12:20 Electrocardiogram Date: 09/22/22 Findings: + LVH and + SB @ (59) Other Testing CT SCAN OF THE BRAIN WITHOUT IV CONTRAST CLINICAL HISTORY: Fall. COMPARISON STUDY: CT of the brain dated 06/10/2022. TECHNIQUE: Unenhanced axial CT scan of the brain is performed from the vertex to the skull base. A dose lowering technique was utilized adhering to the principles of ALARA. CT DOSE: 910.25 mGy.cm FINDINGS: Brain parenchyma: There is age-related involutional change noting mild to moder ate subcortical and periventricular microangiopathic disease. There is no hemorrhage, mass effect, or evidence of acute territorial ischemia by CT criteria. Downing-white matter differentiation is preserved. No extra-axial fluid collection is seen. Ventricles, sulci, cisterns: Prominent secondary to involutional change. Intracranial vasculature: There is atherosclerotic calcification of the [place] carotid arteries. Calvarium: The skeletal structures are osteopenic. No depressed calvarial frac ture is identified. Sinuses and mastoids: The visualized paranasal sinuses are clear. The mastoid a ir cells are well pneumatized. Orbits: The bony orbits are grossly intact. IMPRESSION: There is no hemorrhage, mass effect, or evidence of acute territorial ischemia by CT criteria. ACT 112: Negative or not required by law. Electronically signed by: Nick Gudino M.D. 09/22/2022 12:57 PM Dictated:09/22/22 1255 Transcribed: 09/22/[address] cervical spine wo con CLINICAL HISTORY: 72 years-old Female with fall, leg injury. Acute head and neck injury status post fall COMPARISON: Head CT of same day, MRI cervical spine 05/29/2022 TECHNIQUE: Multiple axial CT images of the cervical spine were obtained without contrast. A dose lowering technique was utilized adhering to the principles of ALARA. FINDINGS: Demineralized appearance of the bones. Mild multilevel spondylitic spurring with mild to moderate facet arthrosis. Chronic T1, T2 and T3 compression deformities. There is no acute cervical spine fracture or subluxa tion. Mastoid air cells and middle ear cavities appear clear. Multilevel neuroforaminal narrowing. The cervical soft tissues appear unremarkable. Intralobular septal thickening of the lung apices. No pneumothorax. IMPRESSION: 1. No acute cervical spine fracture or subluxation. 2. Chronic upper thoracic compression deformities. ACT 112: Negative or not required by law. The above report was generated using voice recognition software. It may contain grammatical, syntax or spelling errors. Electronically signed by: Pierce Roberson M.D. 09/22/2022 1:23 PM Dictated:09/22/22 1314 Transcribed: 09/22/22 1314
[2022-09-22] MEDS: KETOROLAC TROMETHAMINE 15 MG/ML VIAL IV PRN (20:06)
[2022-09-22] MEDS: levETIRAcetam 250 MG TAB PO SCH (20:40)
[2022-09-22] MEDS: DOCUSATE SODIUM/SENNA 50/8.6MG TAB PO SCH (20:40)
[2022-09-22] MEDS: PROPRANOLOL HCL 10 MG TAB PO SCH (20:41)
[2022-09-22] MEDS: lamoTRIgine 100 MG TAB PO SCH (20:41)
[2022-09-22] MEDS: ACETAMINOPHEN 1,000 MG/100 ML VIAL IV PRN (20:44)
[2022-09-23] MEDS ORDERED: ceFAZolin 2000MG 2,000 MG/15 ML SYR IV SCH (06:00)
[2022-09-23] MEDS ORDERED: TRANEXAMIC ACID / 0.7% NACL 1,000 MG/100 ML BAG IV SCH ×2 (06:00→06:30)
[2022-09-23 06:36] LABS: Hematocrit (blood only) 36.6 % (34.1-44.9); Mean Corpuscular Hemoglobin 32.2 pg (25.0-34.0); Mean Corpuscular Hgb Conc 35.5 g/dL (32.0-36.0); Mean Corpuscular Volume 90.6 fL (80.0-100.0); Mean Platelet Volume 10.8 fL (9.4-12.3); Platelet Count 267 K/uL (130-400); RDW Coefficient of Variation 14.2 % (11.5-14.5); RDW Standard Deviation 46.8 fL (36.4-46.3); Red Blood Count 4.04 M/uL (3.93-5.22); White Blood Count 7.74 K/ul (4.8-10.8)
[2022-09-23 06:59] LABS: BUN Creatinine Ratio 30.5 (10-20); Calcium 8.8 mg/dl (8.5-10.1); Creatinine Clr Calc Pharmacy 69.2 ml/min; Est GFR (African American) 104.6 ml/min; Est GFR (Non-African American) 90.3 ml/min; Potassium 3.3 mmol/L (3.5-5.1)
--- NOTE | 2022-09-23 07:09 | Electrocardiogram Report ---
Test Reason : Blood Pressure : / mmHG Vent. Rate : 059 BPM Atrial Rate : 059 BPM P-R Int : 160 ms QRS Dur : 072 ms QT Int : 406 ms P-R-T Axes : 051 -19 040 degrees QTc Int : 401 ms Poor data quality, interpretation may be adversely affected Sinus bradycardia Voltage criteria for left ventricular hypertrophy Abnormal ECG When compared with ECG of 10-JUN-2022 15:13, Vent. rate has decreased BY 32 BPM QT has shortened Confirmed by Lobo Hickman ([id number]) on 09/23/2022 7:09:10 AM Referred By: [facility] Confirmed By:Lobo Hickman
[2022-09-23] MEDS: lamoTRIgine 100 MG TAB PO SCH ×2 (07:30→21:47)
[2022-09-23] MEDS: LEVOTHYROXINE SODIUM 112 MCG TABLET PO SCH (07:31)
[2022-09-23] MEDS: levETIRAcetam 250 MG TAB PO SCH ×2 (07:31→20:12)
[2022-09-23] MEDS: PROPRANOLOL HCL 10 MG TAB PO SCH ×2 (07:32→21:48)
[2022-09-23] MEDS: KETOROLAC TROMETHAMINE 15 MG/ML VIAL IV PRN ×2 (07:45→17:47)
[2022-09-23] MEDS ORDERED: POTASSIUM CHLORIDE CRTAB 20 MEQ TABCR PO STA (08:03)
--- NOTE | 2022-09-23 09:55 | Orthopedic Progress Note ---
Date of Service September 23, 2022 Assessment & Plan (1) Femoral neck fracture: Plan: Displaced right femoral neck fracture. Plan for bipolar hemiarthroplasty tomorrow morning with Dr. Mckeon. Admission and Anticipated Discharge Date Admission Date: September 22, 2022 Subjective Hospital day 1 Patient sitting up in bed awake and alert. No complaints this morning. Pain is controlled. Several questions asked about surgical intervention will happen tomorrow. All questions answered to the best of my ability. Physical Exam Physical Exam: Exam essentially unchanged. Results & Data ([facility]) Vital Signs (Past 12 Hours) Vital Signs Temp Pulse Resp BP Pulse Ox O2 Del Method 09/23/22 07:16 37.4 C 67 16 125/77 94 Room Air 09/22/22 23:17 36.9 C 62 14 130/66 94 Room Air (1) Femoral neck fracture Encounter type: initial encounter Fracture type: closed Laterality: right Qualified Code(s): S72.001A - Fracture of unspecified part of neck of right femur, initial encounter for closed fracture
--- NOTE | 2022-09-23 12:29 | Hospitalist Progress Note ---
Date of Service September 23, 2022 Assessment & Plan (1) Fall from slip, trip, or stumble: (2) Femoral neck fracture: Plan: Patient is 72 y/o F with PMH MS, tremor, Parkinsonism, LE edema, seizure disorder, h/o thyroidectomy, right breast cancer s/p lumpectomy chemo and radiation, presented to ER from [facility] with c/o mechanical fall and right hip pain. Denies seizure like activity. Ambulates with walker at baseline. In ER initially hypertensive then improves after pain control CT Head: no acute intracranial abnormality CT C-spine: No acute cervical spine fracture or subluxation. Chronic upper thoracic compression deformities. Right Femur X-ray: Acute femoral neck fracture on the right. In ER given IV Tylenol, 500ml NSS Ortho consult. Plan for surgery on 09/24/22-appreciate input and recommendation Will make NPO midnight of 09/23/22 for right hip hemiarthroplasty on 09/24/2022 Patient remains clinically stable without any pain at rest (3) Multiple sclerosis: Plan: Follows with [facility] Previously on Copaxone. States hasn't used for over 1 year secondary to hernandez of medication. Will monitor PRP (4) Parkinsonism: Plan: History Parkinsonism with likely essential tremor Continue propranolol, Topiramate Minimal parkinsonian symptoms specially tremors (5) Seizure disorder: Plan: No recent seizure reported Continue Lamictal, Keppra (6) Leg edema: Plan: Chronic BLE edema. Denies h/o CHF Hold lasix and monitor volume status (7) Hypothyroid: Plan: H/O Thyroidectomy Continue levothyroxine DVT Prophylaxis SCDs DNR/DNI as per discussion with pt Currently at [facility] Admission and Anticipated Discharge Date Admission Date: September 22, 2022 Subjective 09/23/2022 The patient was seen and examined in medical floor She does not have any pain at rest Denies any chest pain, palpitation or shortness of breath No abdominal pain, nausea and or vomiting Review of Systems Review of Systems: All systems reviewed and are unremarkable except as noted below Physical Exam Physical Exam: Lying in bed comfortably Constitutional: well developed and well nourished; not ill appearing Eyes: PERRL, conjunctivae normal, anicteric sclerae ENMT: external ear and nose normal, oropharynx normal Neck: trachea midline, no thyromegaly Respiratory: no respiratory distress Auscultation: lungs clear to auscultation bilaterally Cardiovascular: Rate/Rhythm: regular rate and regular rhythm; not tachycardic Heart Sounds: normal S1, normal S2 and + murmur Extremities: no edema Gastrointestinal (Abdomen): Inspection/Auscultation: normal bowel sounds; abdomen not distended Percussion/Palpation: abdomen soft; abdomen nontender Musculoskeletal: Pain in the right hip and pelvic area with movement of the right lower extremity Neurologic: Alert, awake and oriented x3. No focal sensory and or motor deficit appreciated Psychiatric: A+Ox3, euthymic affect Lymphatic: no cervical or axillary lymphadenopathy Results & Data Results & Data ([facility]) Vital Signs (Past 12 Hours) Vital Signs Temp Pulse Resp BP Pulse Ox O2 Del Method 09/23/22 07:30 Room Air 09/23/22 07:16 37.4 C 67 16 125/77 94 Room Air Laboratory Results Short CBC 09/22/22 09/23/22 Range/Units 12:20 05:40 WBC 6.91 7.74 (4.8-10.8) K/ul Hgb 13.7 13.0 (12.0-16.0) g/dl Hct 40.3 36.6 (34.1-44.9) % Plt Count 302 267 (130-400) K/uL BMP 09/22/22 09/23/22 12:20 05:40 Sodium 140 137 Potassium 3.9 3.3 L Chloride 102 102 Carbon Dioxide 31 28 BUN 18 18 Creatinine 0.78 0.59 L Glucose 120 H 95 Calcium 9.6 8.8 Liver Function 09/22/22 Range/Units 12:20 Total Bilirubin 0.5 (0.2-1.0) mg/dl AST 26 (13-39) U/L ALT 27 (7-52) U/L Alkaline Phosphatase 74 (34-104) U/L Albumin 4.1 (3.4-5.0) gm/dl Medications Administered Current Inpatient Medications Acetaminophen (Acetaminophen 325 Mg Tab) 650 mg PO Q6H PRN PRN Reason: Pain & Pre PT Stop: 10/22/22 19:18 Bisacodyl (Bisacodyl 10 Mg Supp) 10 mg [place] DAILY PRN PRN Reason: Constipation Stop: 10/22/22 19:18 Lactated Ringer's (Lr) 1,000 mls @ 80 mls/hr IV .[id number] [facility] Stop: 09/24/22 11:29 Acetaminophen (Ofirmev) 1,000 mg in 100 mls @ 400 mls/hr IV Q8H PRN PRN Reason: Pain or Fever Stop: 09/25/22 19:33 Last Infusion: 09/22/22 22:02 Dose: Infused Cefazolin Sodium (Ancef 2000mg) 2,000 mg in 15 mls @ 3.75 mls/min IV PREOP KIMMY; Protocol Stop: 09/25/22 05:59 Tranexamic Acid (Tranexamic Acid / 0.7% Nacl) 1,000 mg in 100 mls @ 600 mls/hr IV TODAY@06 KIMMY Stop: 10/24/22 05:59 Tranexamic Acid (Tranexamic Acid / 0.7% Nacl) 1,000 mg in 100 mls @ 600 mls/hr IV TODAY@0630 [facility] Stop: 10/24/22 06:29 Ketorolac Tromethamine (Ketorolac Tromethamine 15 Mg/Ml Vial) 15 mg IV Q6H PRN PRN Reason: moderate pain Stop: 09/23/22 19:33 Last Admin: 09/23/22 07:45 Dose: 15 mg Lamotrigine (Lamotrigine 100 Mg Tab) 150 mg PO BID [facility] Stop: 10/22/22 20:59 Last Admin: 09/23/22 07:30 Dose: 150 mg Levetiracetam (Levetiracetam 250 Mg Tab) 750 mg PO Q12H [facility] Stop: 10/22/22 19:44 Last Admin: 09/23/22 07:31 Dose: 750 mg Levothyroxine Sodium (Levothyroxine Sodium 112 Mcg Tablet) 112 mcg PO QAM [facility] Stop: 10/23/22 08:59 Last Admin: 09/23/22 07:31 Dose: 112 mcg Magnesium Hydroxide (Magnesium Hydroxide Susp 30 Ml Udc) 30 ml PO DAILY PRN PRN Reason: Constipation Stop: 10/22/22 19:18 Melatonin (Melatonin 3 Mg Tab) 3 mg PO HS PRN PRN Reason: sleep Stop: 10/22/22 19:18 Morphine Sulfate (Morphine Sulfate 2 Mg/Ml Carp) 2 mg IV Q3H PRN PRN Reason: Pain (1,2,3,4,5) & Pre PT Stop: 10/06/22 19:18 Morphine Sulfate (Morphine Sulfate 4 Mg/Ml 1 Ml Carp\Vial) 4 mg IV Q3H PRN PRN Reason: Pain (6,7,8,9,10) Stop: 10/06/22 19:18 Naloxone HCl (Naloxone Hcl 0.4 Mg/1 Ml Vial/Carp) 0.1 mg IV UD PRN PRN Reason: Opiate Overdose Stop: 10/22/22 19:18 Ondansetron HCl (Ondansetron Inj 2 Mg/Ml 2 Ml Vial) 4 mg IV Q6H PRN PRN Reason: Nausea Stop: 10/22/22 19:18 Oxycodone HCl (Oxycodone Hcl Ir 5 Mg Tab (Immediate Release)) 5 mg PO Q4H PRN PRN Reason: MODERATE Pain (4,5,6) & Pre PT Stop: 10/06/22 19:18 Oxycodone HCl (Oxycodone Hcl Ir 5 Mg Tab (Immediate Release)) 10 mg PO Q4H PRN PRN Reason: SEVERE Pain (7,8,9,10) Stop: 10/06/22 19:18 Propranolol HCl (Propranolol Hcl 10 Mg Tab) 30 mg PO BID KIMMY Stop: 10/22/22 20:59 Last Admin: 09/23/22 07:32 Dose: 30 mg Senna/Docusate Sodium (Docusate Sodium/Senna 50/8.6mg Tab) 2 tab PO HS KIMMY Stop: 10/22/22 20:59 Last Admin: 09/22/22 20:40 Dose: 2 tab (1) Fall from slip, trip, or stumble Encounter type: initial encounter Qualified Code(s): W01.0XXA - Fall on same level from slipping, tripping and stumbling without subsequent striking against object, initial encounter (2) Femoral neck fracture Encounter type: initial encounter Fracture type: closed Laterality: right Qualified Code(s): S72.001A - Fracture of unspecified part of neck of right femur, initial encounter for closed fracture
[2022-09-23] MEDS: ACETAMINOPHEN 325 MG TAB PO PRN ×2 (13:05→22:01)
--- NOTE | 2022-09-23 16:10 | Anesthesiology Consultation ---
Date of Service September 23, 2022 Assessment & Plan Chart Review Chart Review: Acceptable Risk for Surgery Consults Requested none ASA ASA3 Proposed Anesthesia Anesthesia Type: General Risk / Benefits Reviewed With: PT / POA / Parent / Guardian, Accepts Plan and Informed Consent Obtained Additional Comments: d/w pt possibility of MS flare periop, accepts R/B/complications. History Surgery Operation Date: 09/24/22 07:30 Proposed Procedures p Right Bipolar Hemiarthroplasty - Pierce Mckeon, Height/Weight Height: 5 ft 3 in Weight: 55.5 kg Allergies Allergy/AdvReac Type Severity Reaction Status Date / Time Penicillins Allergy Intermediate Hives Verified 09/22/22 15:07 amoxicillin Allergy Unknown ON Verified 09/22/22 15:07 Azima LIST erythromycin base Allergy Unknown ON Verified 09/22/22 15:07 [place] Medications Home Medications Medication Instructions Recorded Confirmed Last Taken acetaminophen 325 mg tablet 650 mg PO Q4H PRN fever or pain 06/12/22 09/22/22 Unknown #60 tabs levothyroxine 112 mcg tablet 112 mcg PO QAM #30 tabs 06/12/22 09/22/22 09/22/22 melatonin 3 mg tablet 3 mg PO HS PRN sleep #30 tabs 06/12/22 09/22/22 Unknown furosemide 20 mg tablet (Lasix) 20 mg PO DAILY 09/22/22 09/22/22 09/22/22 lamotrigine 150 mg tablet 150 mg PO BID 09/22/22 09/22/22 09/22/22 08:00 levetiracetam 750 mg tablet 750 mg PO Q12H 09/22/22 09/22/22 09/22/22 08:00 propranolol 20 mg tablet 30 mg PO BID 09/22/22 09/22/22 09/22/22 08:00 Active Medications Generic Name Dose Route Start Last Admin Trade Name Freq PRN Reason Stop Dose Admin Acetaminophen 650 mg 09/22/22 19:19 09/23/22 13:05 Acetaminophen 325 Mg Tab PO 10/22/22 19:18 650 mg Q6H PRN Administration Pain & Pre PT Acetaminophen 1,000 mg in 100 mls @ 400 mls/hr 09/22/22 19:34 09/22/22 22:02 Ofirmev IV 09/25/22 19:33 Infused Q8H PRN Infusion Pain or Fever Ketorolac Tromethamine 15 mg 09/22/22 19:34 09/23/22 07:45 Ketorolac Tromethamine 15 Mg/Ml Vial IV 09/23/22 19:33 15 mg Q6H PRN Administration moderate pain Lamotrigine 150 mg 09/22/22 21:00 09/23/22 07:30 Lamotrigine 100 Mg Tab PO 10/22/22 20:59 150 mg BID KIMMY Administration Levetiracetam 750 mg 09/22/22 19:45 09/23/22 07:31 Levetiracetam 250 Mg Tab PO 10/22/22 19:44 750 mg Q12H KIMMY Administration Levothyroxine Sodium 112 mcg 09/23/22 09:00 09/23/22 07:31 Levothyroxine Sodium 112 Mcg Tablet PO 10/23/22 08:59 112 mcg QAM KIMMY Administration Propranolol HCl 30 mg 09/22/22 21:00 09/23/22 07:32 Propranolol Hcl 10 Mg Tab PO 10/22/22 20:59 30 mg BID KIMMY Administration Senna/Docusate Sodium 2 tab 09/22/22 21:00 09/22/22 20:40 Docusate Sodium/Senna 50/8.6mg Tab PO 10/22/22 20:59 2 tab HS KIMMY Administration NPO Date Last Intake of Fluids: 09/23/22 Time Last Intake of Fluids: 23:59 Last Intake of Fluids Comment: advised Date Last Intake of Solids: 09/23/22 Time Last Intake of Solids: 23:59 Last Intake of Solids Comment: advised Past Medical History Medical History (Updated 09/23/22 @ 16:09 by Eva Munoz DO) Breast cancer right - lumpectomy, chemo, radiation. 2006 Hypothyroid Leg edema Multiple sclerosis Parkinsonism Peripheral neuropathy Seizure disorder last sz 2-3 yr ago Exercise / Class Metabolic Activity III < 4 Walking/Shop/Light housework Past Family History Family History Father Coronary heart disease Mother Coronary heart disease Stroke Past Surgical History Surgical History (Updated 09/23/22 @ 15:37 by Eva Munoz DO) H/O splenectomy History of carpal tunnel surgery History of thyroidectomy Past Anesthesia History No Hx of Anesthesia Complications and No Family Hx of Anesthesia Complications History of PONV No Hx of PONV and No Hx of Motion Sickness Social History Smoking Status: Never smoker Hx Alcohol Use: No Hx Substance Use: No Physical Exam Vital Signs Last Vital Signs Temp 37 C 09/23/22 15:25 Pulse 64 09/23/22 15:25 Resp 16 09/23/22 15:25 BP 149/67 H 09/23/22 15:25 Pulse Ox 92 09/23/22 15:25 O2 Del Method 09/23/22 15:25 Constitutional no acute distress ENMT Mouth: + small oral opening; no TMJ abnormality and no dentition abnormality Thyromental Distance: > or= 3.5 Finger Breadths Mallampati Class: II Neck normal visual inspection and trachea midline; neck extension not limited Respiratory normal respiratory effort Auscultation: lungs clear to auscultation bilaterally Cardiovascular Rate/Rhythm: regular rate and regular rhythm Heart Sounds: no murmur Musculoskeletal Spine: normal cervical ROM Extremities: extremities normal to inspection (significant tremor noted) and + limited ROM of extremities Neurologic + does not move all extremities Psychiatric Orientation: alert and oriented x 3 Testing Laboratory Results 09/23/22 05:40 09/23/22 05:40 Blood Type A Positive 09/22/22 19:32 Antibody Screen NEGATIVE 09/22/22 19:32 Other Testing Electrocardiogram Date: 09/22/22 Findings: + LVH and + SB @ (59) Other Testing CT SCAN OF THE BRAIN WITHOUT IV CONTRAST CLINICAL HISTORY: Fall. COMPARISON STUDY: CT of the brain dated 06/10/2022. TECHNIQUE: Unenhanced axial CT scan of the brain is performed from the vertex to the skull base. A dose lowering technique was utilized adhering to the pr inciples of MICHELLE. CT DOSE: 910.25 mGy.cm FINDINGS: Brain parenchyma: There is age-related involutional change noting mild to moderate subcortical and periventricular microangiopathic disease. There is no hemorrhage, mass effect, or evidence of acute territorial ischemia by CT criteria. Downing-white matter differentiation is preserved. No extra-axial fluid collection is seen. Ventricles, sulci, cisterns: Prominent secondary to involutional change. Intracranial vasculature: There is atherosclerotic calcification of the cavernous carotid arteries. Calvarium: The skeletal structures are osteopenic. No depressed calvarial fracture is identified. Sinuses and mastoids: The visualized paranasal sinuses are clear. The mastoid air cells are well pneumatized. Orbits: The bony orbits are grossly intact. IMPRESSION: There is no hemorrhage, mass effect, or evidence of acute territorial ischemia by CT criteria. ACT 112: Negative or not required by law. Electronically signed by: Nick Gudino M.D. 09/22/2022 12:57 PM Dictated:09/22/22 1255 Transcribed: 09/22/221254 CT cervical spine wo con CLINICAL HISTORY: 72 years-old Female with fall, leg injury. Acute head and neck injury status post fall COMPARISON: Head CT of same day, MRI cervical spine 05/29/2022 TECHNIQUE: Multiple axial CT images of the cervical spine were obtained without contrast. A dose lowering technique was utilized adhering to the principles of ALARA. FINDINGS: Demineralized appearance of the bones. Mild multilevel spondylitic spurring with mild to moderate facet arthrosis. Chronic T1, T2 and T3 compression deformities. There is no acute cervical spine fracture or subluxation. Mastoid air cells and middle ear cavities appear clear. Multilevel neuroforaminal narrowing. The cervical soft tissues appear unremarkable. Intralobular septal thickening of the lung apices. No pneumothorax. IMPRESSION: 1. No acute cervical spine fracture or subluxation. 2. Chronic upper thoracic compression deformities. ACT 112: Negative or not required by law. The above report was generated using voice recognition software. It may contain grammatical, syntax or spelling errors. Electronically signed by: Pierce Roberson M.D. 09/22/2022 1:23 PM Dictated:09/22/22 1314 Transcribed: 09/22/22 1314
[2022-09-23] MEDS: DOCUSATE SODIUM/SENNA 50/8.6MG TAB PO SCH (21:45)
[2022-09-23] MEDS ORDERED: LACTATED RINGER'S 1,000 ML IV SCH (23:00)
[2022-09-24] MEDS: ceFAZolin 2000MG 2,000 MG/15 ML SYR IV SCH ×3 (05:38→17:46)
[2022-09-24] MEDS: TRANEXAMIC ACID / 0.7% NACL 1,000 MG/100 ML BAG IV SCH ×2 (05:38→12:27)
[2022-09-24] MEDS ORDERED: TRANEXAMIC ACID / 0.7% NACL 1,000 MG/100 ML BAG IV SCH (06:30)
[2022-09-24] MEDS: levETIRAcetam 250 MG TAB PO SCH ×3 (06:46→19:22)
[2022-09-24] MEDS ORDERED: ROCURONIUM BROMIDE 10 MG/ML 5 ML VIAL IV ONE ×3 (06:52→09:14)
[2022-09-24] MEDS ORDERED: PROPOFOL IV EMULSION 10 MG/ML 20 ML VIAL IV ONE ×3 (06:52→10:13)
[2022-09-24] MEDS ORDERED: LIDOCAINE 2% 2 ML VIAL/AMP(20MG/ML) INFIL ONE (06:52)
[2022-09-24] MEDS ORDERED: ONDANSETRON INJ 2 MG/ML 2 ML VIAL ONE ×4 (06:52→10:31)
[2022-09-24] MEDS ORDERED: fentaNYL citrate 100 MCG/2 ML VIAL ONE ×2 (06:53→08:25)
[2022-09-24 07:59] LABS: BUN Creatinine Ratio 26.2 (10-20); Calcium 8.7 mg/dl (8.5-10.1); Creatinine Clr Calc Pharmacy 62.8 ml/min; Est GFR (African American) 101.4 ml/min; Est GFR (Non-African American) 87.5 ml/min
--- NOTE | 2022-09-24 08:16 | History & Physical Bridge Note ---
Date of Service September 24, 2022 History & Physical Bridge Note I have examined the patient, reviewed the History & Physical and in the interval since the performance of the History & Physical I have noted the following changes of clinical significance: no changes noted. Patient seen and examined. I had a lengthy discussion with her regarding treatment of her displaced right femoral neck fracture with a right hip hemiarthroplasty. We discussed risk and benefits which are not limited to: Infection, neurovascular injury, DVT, fracture, dislocation, leg length discrepancy and need for future surgery. After reviewing these she elected to proceed with surgical intervention and written consent was obtained.
[2022-09-24] MEDS ORDERED: DEXAMETHASONE SOD INJ 4 MG/ML VIAL ONE ×2 (08:25→10:13)
[2022-09-24] MEDS ORDERED: ATROPINE SULFATE 0.1 MG/ML 10ML SYR IV PRN (08:38)
[2022-09-24] MEDS ORDERED: MEPERIDINE HCL 25 MG/ML CARP/VIAL IV PRN (08:38)
[2022-09-24] MEDS ORDERED: fentaNYL citrate 100 MCG/2 ML VIAL IV PRN (08:38)
[2022-09-24] MEDS ORDERED: ONDANSETRON INJ 2 MG/ML 2 ML VIAL IV PRN (08:38)
[2022-09-24] MEDS ORDERED: DEXAMETHASONE SOD INJ 4 MG/ML VIAL IV PRN (08:38)
[2022-09-24] MEDS ORDERED: MoRPHine SULFATE 10 MG/ML CARP/VIAL IV PRN (08:38)
[2022-09-24] MEDS ORDERED: PROMETHAZINE HCL 12.5 MG in SODIUM CHLORIDE 0.9% 50 ML IV PRN (08:38)
[2022-09-24] MEDS ORDERED: ePHEDrine sulfate 50 MG/ML AMP IV PRN (08:38)
[2022-09-24] MEDS ORDERED: THROMBIN FOR SOLN 20000 UNIT KIT ONE (09:02)
[2022-09-24] MEDS ORDERED: GLYCOPYRROLATE 0.2 MG/ML VIAL ONE (10:16)
[2022-09-24] MEDS ORDERED: PHENYLEPHRINE HCL 10 MG/ML VIAL ONE (10:29)
--- NOTE | 2022-09-24 11:15 | Post Operative Brief Note ---
Immediate Post Op Note v1 Date of Surgery September 24, 2022 Pre & Post Diagnosis Operation Date: 09/24/22 07:30 Pre-Op Diagnosis: Right Femoral Neck Fracture Post-Op Diagnosis: Right Femoral Neck Fracture I identified the patient and participated in the time-out.: Yes Procedure Operation Date: 09/24/22 07:30 Actual Procedures p Right Bipolar Hemiarthroplasty(Right) - Pierce Mckeon DO Surgeon Pierce Mckeon DO Irrigation Equipment Installer Mikie Pavon PAC Estimated Blood Loss 100 Findings Consistent with Post-Op Diagnosis see dictation Drains Ignacio Catheter Complications none
[2022-09-24] MEDS ORDERED: NALOXONE HCL 0.4 MG/1 ML VIAL/CARP IV PRN (11:17)
--- NOTE | 2022-09-24 11:30 | Operative Report ---
Post Operative Report Pre & Post Diagnosis Operation Date: 09/24/22 07:30 Pre-Op Diagnosis: Right Femoral Neck Fracture Post-Op Diagnosis: Right Femoral Neck Fracture I identified the patient and participated in the time-out.: Yes Procedure Operation Date: 09/24/22 07:30 Actual Procedures p Right Bipolar Hemiarthroplasty(Right) - Pierce Mckeon DO Surgeon Pierce Mckeon DO Materials Handling Coordinator Mikie Pavon PAC Estimated Blood Loss 100 Findings Consistent with Post-Op Diagnosis see dictation Specimens femoral head Indications 72-year-old female presenting to [facility] emergency department after sustaining a ground-level fall onto her right side. In the emergency department radiographs were obtained demonstrating a displaced right femoral neck fracture. Patient was admitted to medical service and orthopedics was consulted for operative management. I met with the patient preoperatively and we do lengthy discussion regarding risk benefits and complications of right hip hemiarthroplasty. After reviewing these she elected to proceed with surgical intervention and written consent was obtained Description of Procedure Implants: Biomet Taperloc stem size #12 high offset, 44 mm outer bipolar shell, 28 mm inner diameter head with +0 offset Patient was appropriate identified in the preoperative holding area and the right lower extremity was marked. She was then taken back to the operative suite where she received general anesthesia and antibiotics per protocol. She was positioned in the lateral decubitus position using Stolberg hip positioners with the right hip facing upwards. She was then prepped and draped in the standard orthopedic fashion a timeout was then performed. Posterior lateral incision overlying the greater trochanter was then made with a scalpel. Electrocautery was used to dissect through the subcutaneous tissue down to the IT band and gluteal fascia. Fascia was then cleared with a Inman elevator and then split in line with the incision. A Charnley retractor was then placed. Piriformis was then identified and tagged. It was reflected off the posterior capsule. Retractors were then placed and a T capsulotomy was performed with the inferior capsular limb being tagged. Fracture hematoma was encountered. The hip was then rotated and femoral neck osteotomy was performed 1 cm above the lesser trochanter using a saw and any residual bone fragments were then removed using a rongeur. A corkscrew was then placed into the femoral head and the femoral head was then removed from the acetabulum. Femoral head was then sized on the back table. Trialing was then performed for the femoral head and a 44 mm head was noted to have good suction fit. Trial was then removed and attention was turned to femoral canal preparation. Femoral neck elevator was placed underneath the calcar. Box osteotome was used to open the proximal canal followed by a Canal opening reamer. The canal was then sequentially broached up to a size 12 stem which was noted to have good fit. Trialing was then performed using a high offset neck with a neutral head and 44 mm bipolar shell. Hip was then successfully reduced. Leg lengths were assessed and noted be satisfactory. Stability was also assessed in flexion extension as well as internal and external rotation and noted to be satisfactory. The hip was then successfully dislocated. All trial components were then removed. The hip was copiously irrigated with dilute Betadine solution followed by normal saline solution. Femoral neck elevator was then placed under the calcar. A size #12 high offset Taperloc stem was then impacted into the proximal canal under visualization of the calcar. Trunnion was then dried and a 44 mm bipolar head with 28 mm inner diameter +0 head was then impacted onto the trunnion with several brisk taps. The acetabulum was then checked for any interposing soft tissue and the hip was then successfully reduced. Once again leg lengths and stability in flexion extension internal and external rotation were all assessed and noted to be satisfactory. The hip was then copiously irrigated. Capsule was then closed in a nghy-jg-fhoe fashion using 1-0 Ethibond suture. Piriformis was unable to be repaired secondary to high offset stem. Charnley retractor was then removed and IT band fascia was closed in a nymp-[id number] fashion using interrupted suture with 1-0 Ethibond followed by running OV lock suture. Subcutaneous tissues were then irrigated and closed using 2-0 Vicryl followed by dajuan for the skin. A sterile Silverlon dressing was placed. Patient tolerated the procedure well and was taken to the recovery room in hemodynamically stable condition. Mikie Jay PA-C was present for the duration of the case. He assisted with patient positioning, draping, soft tissue management and exposure as well as the surgical procedure itself and surgical closure. I attest to the content of the Intraoperative Record and any orders documented therein. Any exceptions are noted below.
--- NOTE | 2022-09-24 11:43 | Anesthesiology Progress Note ---
Date of Service September 24, 2022 Anesthesia Post Procedure Vital Signs Vital Signs: Temp Pulse Pulse Resp BP Pulse Ox O2 Del Method 09/24/22 11:35 84 16 168/97 H 92 Room Air 09/24/22 11:25 88 18 164/113 H 99 Oxymask 09/24/22 11:16 36.1 C L 87 14 166/96 H 96 Oxymask 09/24/22 07:10 36.6 C 76 20 168/95 H 94 Room Air 09/23/22 22:15 36.9 C 88 16 148/80 H 92 Room Air 09/23/22 15:25 37 C 64 16 149/67 H 92 Room Air O2 Flow Rate 09/24/22 11:35 09/24/22 11:25 3 09/24/22 11:16 7 09/24/22 07:10 09/23/22 22:15 09/23/22 15:25 Pain Intensity Right Knee: Pain Intensity: 3 Right Leg: Pain Intensity: 5 Transfer of Care Handoff Completed per policy Notes Mental Status: alert / awake / arousable Patient Amnestic to Procedure: Yes Nausea / Vomiting: adequately controlled Pain: adequately controlled Airway Patency, RR, SpO2: stable & adequate BP & HR: stable & adequate Hydration State: stable & adequate Anesthetic Complications: no major complications apparent and Pt Satisfied with anesthetic care
[2022-09-24] MEDS: LEVOTHYROXINE SODIUM 112 MCG TABLET PO SCH (12:27)
[2022-09-24] MEDS: lamoTRIgine 100 MG TAB PO SCH ×2 (12:27→21:20)
[2022-09-24] MEDS: PROPRANOLOL HCL 10 MG TAB PO SCH ×2 (12:27→21:20)
[2022-09-24] MEDS: SODIUM CHLORIDE 0.9% 1000ML 1,000 ML IV SCH ×2 (12:36→21:32)
[2022-09-24] MEDS: ACETAMINOPHEN 1,000 MG/100 ML VIAL IV PRN ×2 (12:37→21:18)
[2022-09-24] MEDS ORDERED: SUGAMMADEX SODIUM 200 MG/2 ML VIAL IV ONE (12:46)
[2022-09-24 12:56] LABS: Basophils # (auto) 0.03 K/uL (0-0.2); Basophils % (auto) 0.3 %; Eosinophils # (auto) 0.07 K/uL (0-0.50); Eosinophils % (auto) 0.6 %; Hematocrit (blood only) 38.7 % (34.1-44.9); Hemoglobin 13.2 g/dl (12.0-16.0); Immature Granulocytes # (auto) 0.04 K/uL (0.00-0.02); Immature Granulocytes % (auto) 0.4 %; Mean Corpuscular Hemoglobin 31.9 pg (25.0-34.0); Mean Corpuscular Hgb Conc 34.1 g/dL (32.0-36.0); Mean Corpuscular Volume 93.5 fL (80.0-100.0); Mean Platelet Volume 9.9 fL (9.4-12.3); Monocytes # (auto) 0.41 K/uL (0.24-0.82); Monocytes % (auto) 3.7 %; Neutrophils # (auto) 9.59 K/uL (1.4-6.5); Platelet Count 254 K/uL (130-400); RDW Coefficient of Variation 14.1 % (11.5-14.5); RDW Standard Deviation 47.8 fL (36.4-46.3); Red Blood Count 4.14 M/uL (3.93-5.22); White Blood Count 11.14 K/ul (4.8-10.8)
--- NOTE | 2022-09-24 14:41 | XRay Report ---
XR pelvis 1-2V routine CLINICAL HISTORY: s/p R hip tamiko TECHNIQUE: A single frontal view of the pelvis was obtained. Comparison: Comparison is made to pelvic radiograph 09/22/2022 FINDINGS: Patient is status post total hip arthroplasty with expected postsurgical changes including soft tissu e swelling, and subcutaneous emphysema. No periarticular lucency or hardware fracture is seen. IMPRESSION: Expected postoperative appearance status post placement of total hip arthroplasty. ACT 112: Negative or not required by law. Electronically signed by: Dion Hernandez M.D. 09/24/2022 2:40 PM
--- NOTE | 2022-09-24 15:50 | Hospitalist Progress Note ---
Date of Service September 24, 2022 Assessment & Plan (1) Fall from slip, trip, or stumble: (2) Femoral neck fracture: Plan: Patient is 72 y/o F with PMH MS, tremor, Parkinsonism, LE edema, seizure disorder, h/o thyroidectomy, right breast cancer s/p lumpectomy chemo and radiation, presented to ER from [facility] with c/o mechanical fall and right hip pain. Denies seizure like activity. Ambulates with walker at baseline. In ER initially hypertensive then improves after pain control CT Head: no acute intracranial abnormality CT C-spine: No acute cervical spine fracture or subluxation. Chronic upper thoracic compression deformities. Right Femur X-ray: Acute femoral neck fracture on the right. In ER given IV Tylenol, 500ml NSS Ortho consult. Plan for surgery on 09/24/22-appreciate input and recommendation Will make NPO midnight of 09/23/22 for right hip hemiarthroplasty on 09/24/2022 Patient remains clinically stable without any pain at rest Status post right bipolar hemiarthroplasty of the right hip on 09/24/2022 Patient remains hemodynamically stable without any significant pain Pain is being controlled with Tylenol only (3) Multiple sclerosis: Plan: Follows with [facility] Previously on Copaxone. States hasn't used for over 1 year secondary to hernandez of medication. Will monitor PRP (4) Parkinsonism: Plan: History Parkinsonism with likely essential tremor Continue propranolol, Topiramate Minimal parkinsonian symptoms specially tremors (5) Seizure disorder: Plan: No recent seizure reported Continue Lamictal, Keppra (6) Leg edema: Plan: Chronic BLE edema. Denies h/o CHF Hold lasix and monitor volume status (7) Hypothyroid: Plan: H/O Thyroidectomy Continue levothyroxine DVT Prophylaxis SCDs DNR/DNI as per discussion with pt Currently at [facility] Admission and Anticipated Discharge Date Admission Date: September 22, 2022 Subjective 09/23/2022 The patient was seen and examined in medical floor She does not have any pain at rest Denies any chest pain, palpitation or shortness of breath No abdominal pain, nausea and or vomiting 09/24/2022 The patient was seen and examined in medical floor She is a status post right bipolar hemiarthroplasty Denies any significant symptoms and the pain is controlled with Tylenol Review of Systems Review of Systems: All systems reviewed and are unremarkable except as noted below Physical Exam Physical Exam: Lying in bed comfortably Constitutional: well developed and well nourished; not ill appearing Eyes: PERRL, conjunctivae normal, anicteric sclerae ENMT: external ear and nose normal, oropharynx normal Neck: trachea midline, no thyromegaly Respiratory: no respiratory distress Auscultation: lungs clear to auscultation bilaterally Cardiovascular: Rate/Rhythm: regular rate and regular rhythm; not tachycardic Heart Sounds: normal S1, normal S2 and + murmur Extremities: no edema Gastrointestinal (Abdomen): Inspection/Auscultation: normal bowel sounds; abdomen not distended Percussion/Palpation: abdomen soft; abdomen nontender Musculoskeletal: No acute arthritis involving any joint except status post right hip surgery Neurologic: normal touch/pain/proprioception and moves all extremities; no focal motor deficits Psychiatric: A+Ox3, euthymic affect Lymphatic: no cervical or axillary lymphadenopathy Results & Data Results & Data ([facility]) Vital Signs (Past 12 Hours) Vital Signs Temp Pulse Pulse Resp BP Pulse Ox O2 Del Method 09/24/22 12:50 Room Air 09/24/22 14:32 36.5 C 66 16 139/79 95 Room Air 09/24/22 12:50 36.7 C 78 18 154/79 H 95 Room Air 09/24/22 12:20 37 C 86 18 158/95 H 93 Room Air 09/24/22 12:05 77 14 166/94 H 94 Room Air 09/24/22 11:55 79 18 173/104 H 93 Room Air 09/24/22 11:45 36.8 C 83 20 167/102 H 95 Room Air 09/24/22 11:35 84 16 168/97 H 92 Room Air 09/24/22 11:25 88 18 164/113 H 99 Oxymask 09/24/22 11:16 36.1 C L 87 14 166/96 H 96 Oxymask 09/24/22 07:10 36.6 C 76 20 168/95 H 94 Room Air O2 Flow Rate 09/24/22 12:50 09/24/22 14:32 09/24/22 12:50 09/24/22 12:20 09/24/22 12:05 09/24/22 11:55 09/24/22 11:45 09/24/22 11:35 09/24/22 11:25 3 09/24/22 11:16 7 09/24/22 07:10 Laboratory Results Short CBC 09/24/22 09/24/22 Range/Units 06:26 12:47 WBC Cancelled 11.14 H Hgb Cancelled 13.2 Hct Cancelled 38.7 Plt Count Cancelled 254 BMP 09/24/22 06:26 Sodium 137 Potassium 4.0 D Chloride 105 Carbon Dioxide 26 BUN 17 Creatinine 0.65 Glucose 100 H Calcium 8.7 Medications Administered Current Inpatient Medications Aspirin (Aspirin 81 Mg Ectab) 81 mg PO QAM KIMMY Stop: 10/25/22 08:59 Atropine Sulfate (Atropine Sulfate 0.1 Mg/Ml 10ml Syr) 0.5 mg IV Q1M PRN PRN Reason: PACU Use-HR<40 &/or Bradycardi Stop: 09/24/22 16:38 Bisacodyl (Bisacodyl 10 Mg Supp) 10 mg HI DAILY PRN PRN Reason: Constipation Stop: 10/22/22 19:18 Dexamethasone (Dexamethasone Sod Inj 4 Mg/Ml Vial) 4 mg IV ONCE PRN PRN Reason: PACU Use Only-Nausea/Vomiting Stop: 09/24/22 16:38 Ephedrine Sulfate (Ephedrine Sulfate 50 Mg/Ml Amp) 5 mg IV Q5M PRN PRN Reason: PACU Use Only-SBP<90 mmHg Stop: 09/24/22 16:38 Fentanyl Citrate (Fentanyl Citrate 100 Mcg/2 Ml Vial) 25 mcg IV Q5M PRN PRN Reason: PACU Use Only-Pain Stop: 09/24/22 16:38 Acetaminophen (Ofirmev) 1,000 mg in 100 mls @ 400 mls/hr IV Q8H PRN PRN Reason: Pain or Fever Stop: 09/25/22 19:33 Last Infusion: 09/24/22 13:03 Dose: Infused Cefazolin Sodium (Ancef 2000mg) 2,000 mg in 15 mls @ 3.75 mls/min IV PREOP [facility]; Protocol Stop: 09/25/22 05:59 Last Admin: 09/24/22 09:53 Dose: 3.75 mls/min Tranexamic Acid (Tranexamic Acid / 0.7% Nacl) 1,000 mg in 100 mls @ 600 mls/hr IV TODAY@06 [facility] Stop: 10/24/22 05:59 Last Admin: 09/24/22 12:27 Dose: Not Given Tranexamic Acid (Tranexamic Acid / 0.7% Nacl) 1,000 mg in 100 mls @ 600 mls/hr IV TODAY@0630 [facility] Stop: 10/24/22 06:29 Last Admin: 09/24/22 12:27 Dose: Not Given Promethazine HCl 12.5 mg/ (Sodium Chloride) 50.5 mls @ 204 mls/hr IV ONCE PRN PRN Reason: PACU Use Only-Nausea/Vomiting Stop: 09/24/22 16:39 Sodium Chloride (Nss 1000ml) 1,000 mls @ 100 mls/hr IV .Q10H [facility] Stop: 09/25/22 06:00 Last Admin: 09/24/22 12:36 Dose: 100 mls/hr Cefazolin Sodium (Ancef 2000mg) 2,000 mg in 15 mls @ 3.75 mls/min IV Q8H [facility]; Protocol Stop: 09/25/22 01:33 Lamotrigine (Lamotrigine 100 Mg Tab) 150 mg PO BID [facility] Stop: 10/22/22 20:59 Last Admin: 09/24/22 12:27 Dose: 150 mg Levetiracetam (Levetiracetam 250 Mg Tab) 750 mg PO Q12H [facility] Stop: 10/22/22 19:44 Last Admin: 09/24/22 12:27 Dose: 750 mg Levothyroxine Sodium (Levothyroxine Sodium 112 Mcg Tablet) 112 mcg PO QAM [facility] Stop: 10/23/22 08:59 Last Admin: 09/24/22 12:27 Dose: 112 mcg Magnesium Hydroxide (Magnesium Hydroxide Susp 30 Ml Udc) 30 ml PO DAILY PRN PRN Reason: Constipation Stop: 10/22/22 19:18 Melatonin (Melatonin 3 Mg Tab) 3 mg PO HS PRN PRN Reason: sleep Stop: 10/22/22 19:18 Meperidine HCl (Meperidine Hcl 25 Mg/Ml Carp/Vial) 12.5 mg IV Q5M PRN PRN Reason: Surgi Pain/Chills/Rigors Stop: 09/24/22 16:38 Morphine Sulfate (Morphine Sulfate 2 Mg/Ml Carp) 2 mg IV Q3H PRN PRN Reason: Pain (1,2,3,4,5) & Pre PT Stop: 10/06/22 19:18 Morphine Sulfate (Morphine Sulfate 4 Mg/Ml 1 Ml Carp\Vial) 4 mg IV Q3H PRN PRN Reason: Pain (6,7,8,9,10) Stop: 10/06/22 19:18 Morphine Sulfate (Morphine Sulfate 10 Mg/Ml Carp/Vial) 2 mg IV Q5M PRN PRN Reason: PACU Use Only-Pain Stop: 09/24/22 16:38 Naloxone HCl (Naloxone Hcl 0.4 Mg/1 Ml Vial/Carp) 0.1 mg IV UD PRN PRN Reason: Opiate Overdose Stop: 10/22/22 19:18 Naloxone HCl (Naloxone Hcl 0.4 Mg/1 Ml Vial/Carp) 0.1 mg IV Q5M PRN PRN Reason: Oversedation/Resp Depression Stop: 10/24/22 11:16 Ondansetron HCl (Ondansetron Inj 2 Mg/Ml 2 Ml Vial) 4 mg IV Q6H PRN PRN Reason: Nausea Stop: 10/22/22 19:18 Ondansetron HCl (Ondansetron Inj 2 Mg/Ml 2 Ml Vial) 4 mg IV ONCE PRN PRN Reason: PACU Use Only-Nausea/Vomiting Stop: 09/24/22 16:38 Oxycodone HCl (Oxycodone Hcl Ir 5 Mg Tab (Immediate Release)) 5 mg PO Q4H PRN PRN Reason: MODERATE Pain (4,5,6) & Pre PT Stop: 10/06/22 19:18 Oxycodone HCl (Oxycodone Hcl Ir 5 Mg Tab (Immediate Release)) 10 mg PO Q4H PRN PRN Reason: SEVERE Pain (7,8,9,10) Stop: 10/06/22 19:18 Propranolol HCl (Propranolol Hcl 10 Mg Tab) 30 mg PO BID KIMMY Stop: 10/22/22 20:59 Last Admin: 09/24/22 12:27 Dose: 30 mg Senna/Docusate Sodium (Docusate Sodium/Senna 50/8.6mg Tab) 2 tab PO HS KIMMY Stop: 10/22/22 20:59 Last Admin: 09/23/22 21:45 Dose: Not Given (1) Fall from slip, trip, or stumble Encounter type: initial encounter Qualified Code(s): W01.0XXA - Fall on same level from slipping, tripping and stumbling without subsequent striking against object, initial encounter (2) Femoral neck fracture Encounter type: initial encounter Fracture type: closed Laterality: right Qualified Code(s): S72.001A - Fracture of unspecified part of neck of right femur, initial encounter for closed fracture
[2022-09-24] MEDS ORDERED: COUGH DROP (SUGAR FREE) LOZ 24 LOZ/1 BOX BUCCAL ONE (21:15)
[2022-09-24] MEDS: DOCUSATE SODIUM/SENNA 50/8.6MG TAB PO SCH (21:17)
[2022-09-25] MEDS: ceFAZolin 2000MG 2,000 MG/15 ML SYR IV SCH (01:12)
[2022-09-25 05:33] LABS: Basophils # (auto) 0.02 K/uL (0-0.2); Basophils % (auto) 0.2 %; Eosinophils # (auto) 0.15 K/uL (0-0.50); Eosinophils % (auto) 1.7 %; Hematocrit (blood only) 32.1 % (34.1-44.9); Hemoglobin 10.8 g/dl (12.0-16.0); Immature Granulocytes # (auto) 0.04 K/uL (0.00-0.02); Immature Granulocytes % (auto) 0.5 %; Lymphocytes # (auto) 2.49 K/uL (1.2-3.4); Lymphocytes % (auto) 28.5 %; Mean Corpuscular Hemoglobin 31.8 pg (25.0-34.0); Mean Corpuscular Hgb Conc 33.6 g/dL (32.0-36.0); Mean Corpuscular Volume 94.4 fL (80.0-100.0); Mean Platelet Volume 10.6 fL (9.4-12.3); Monocytes # (auto) 1.55 K/uL (0.24-0.82); Monocytes % (auto) 17.7 %; Neutrophils % (auto) 51.4 %; Platelet Count 217 K/uL (130-400); RDW Coefficient of Variation 14.4 % (11.5-14.5); RDW Standard Deviation 49.5 fL (36.4-46.3); White Blood Count 8.75 K/ul (4.8-10.8)
[2022-09-25 05:54] LABS: BUN Creatinine Ratio 21.2 (10-20); Calcium 8.2 mg/dl (8.5-10.1); Creatinine Clr Calc Pharmacy 61.9 ml/min; Est GFR (African American) 100.9 ml/min; Potassium 3.9 mmol/L (3.5-5.1)
[2022-09-25] MEDS: lamoTRIgine 100 MG TAB PO SCH ×2 (07:38→20:01)
[2022-09-25] MEDS: PROPRANOLOL HCL 10 MG TAB PO SCH ×2 (07:39→20:01)
[2022-09-25] MEDS: LEVOTHYROXINE SODIUM 112 MCG TABLET PO SCH (07:40)
[2022-09-25] MEDS: ASPIRIN 81 MG ECTAB PO SCH (07:40)
[2022-09-25] MEDS: levETIRAcetam 250 MG TAB PO SCH ×2 (07:40→20:02)
[2022-09-25] MEDS: ACETAMINOPHEN 1,000 MG/100 ML VIAL IV PRN (07:50)
--- NOTE | 2022-09-25 09:55 | Orthopedic Progress Note ---
Date of Service September 25, 2022 Assessment & Plan (1) Femoral neck fracture: Plan: POD 1 s/p Right Bipolar Hemiarthroplasty PT/OT. WBAT. DVT Prophylaxis - ASA bid, SCD's Pain management as tolerated. DC planning - [facility] when stable medically. Admission and Anticipated Discharge Date Admission Date: September 22, 2022 Subjective POD 1 Pt sitting up in bed. Awake, alert. Pain controlled. States she had some burning pain along the thigh earlier but better now. No other complaints this AM. Physical Exam Physical Exam: Silverlon dressing intact. Minimal drainage in dressing window. Calves soft,NT. NV intact. Toes mobile Results & Data ([facility]) Vital Signs (Past 12 Hours) Vital Signs Temp Pulse Resp BP Pulse Ox O2 Del Method 09/25/22 07:06 36.9 C 75 16 122/62 92 Room Air 09/25/22 03:31 37.1 C 67 14 118/64 93 Room Air 09/25/22 00:15 37 C 64 14 114/70 93 Room Air 09/24/22 23:08 37 C 68 14 104/56 L 92 Room Air Laboratory Results Laboratory Results WBC 8.75 K/ul (4.8-10.8) 09/25/22 05:13 RBC 3.40 M/uL (3.93-5.22) L 09/25/22 05:13 Hgb 10.8 g/dl (12.0-16.0) L 09/25/22 05:13 Hct 32.1 % (34.1-44.9) L 09/25/22 05:13 MCV 94.4 fL (80.0-100.0) 09/25/22 05:13 MCH 31.8 pg (25.0-34.0) 09/25/22 05:13 MCHC 33.6 g/dL (32.0-36.0) 09/25/22 05:13 RDW Std Deviation 49.5 fL (36.4-46.3) H 09/25/22 05:13 RDW Coeff of Jia 14.4 % (11.5-14.5) 09/25/22 05:13 Plt Count 217 K/uL (130-400) 09/25/22 05:13 MPV 10.6 fL (9.4-12.3) 09/25/22 05:13 Immature Gran % (Auto) 0.5 % 09/25/22 05:13 Neut % (Auto) 51.4 % 09/25/22 05:13 Lymph % (Auto) 28.5 % 09/25/22 05:13 [place] % (Auto) 17.7 % 09/25/22 05:13 Eos % (Auto) 1.7 % 09/25/22 05:13 Baso % (Auto) 0.2 % 09/25/22 05:13 Neut # (Auto) 4.50 K/uL (1.4-6.5) 09/25/22 05:13 Lymph # (Auto) 2.49 K/uL (1.2-3.4) 09/25/22 05:13 [place] # (Auto) 1.55 K/uL (0.24-0.82) H 09/25/22 05:13 Eos # (Auto) 0.15 K/uL (0-0.50) 09/25/22 05:13 Baso # (Auto) 0.02 K/uL (0-0.2) 09/25/22 05:13 Immature Gran # (Auto) 0.04 K/uL (0.00-0.02) H 09/25/22 05:13 Absolute Nucleated RBC Cancelled 09/24/22 06:26 Nucleated RBC % (auto) Cancelled 09/24/22 06:26 Neutrophils % (Manual) Cancelled 09/24/22 06:26 Band Neutrophils % Cancelled 09/24/22 06:26 Lymphocytes % (Manual) Cancelled 09/24/22 06:26 Prolymphocyte % Cancelled 09/24/22 06:26 Reactive Lymphs % (Man) Cancelled 09/24/22 06:26 Monocytes % (Manual) Cancelled 09/24/22 06:26 Eosinophils % (Manual) Cancelled 09/24/22 06:26 Basophils % (Manual) Cancelled 09/24/22 06:26 Metamyelocytes % (Man) Cancelled 09/24/22 06:26 Myelocytes % (Man) Cancelled 09/24/22 06:26 Promyelocytes % (Man) Cancelled 09/24/22 06:26 Blast Cells % (Manual) Cancelled 09/24/22 06:26 Plasma Cell % (Manual) Cancelled 09/24/22 06:26 Other Cells % Cancelled 09/24/22 06:26 Nucleated RBC % Cancelled 09/24/22 06:26 Neutrophils # (Manual) Cancelled 09/24/22 06:26 Band Neutrophils # Cancelled 09/24/22 06:26 Total Absolute Neuts Cancelled 09/24/22 06:26 Lymphocytes # (Manual) Cancelled 09/24/22 06:26 Prolymphocyte # Cancelled 09/24/22 06:26 Reactive Lymphs # Cancelled 09/24/22 06:26 Total Abs Lymphocytes Cancelled 09/24/22 06:26 Monocytes # (Manual) Cancelled 09/24/22 06:26 Eosinophils # (Manual) Cancelled 09/24/22 06:26 Basophils # (Manual) Cancelled 09/24/22 06:26 Metamyelocytes # (Man) Cancelled 09/24/22 06:26 Myelocytes # (Manual) Cancelled 09/24/22 06:26 Promyelocytes # (Man) Cancelled 09/24/22 06:26 Blast Cells # (Man) Cancelled 09/24/22 06:26 Plasma Cell # (Manual) Cancelled 09/24/22 06:26 Other Cells # Cancelled 09/24/22 06:26 Nucleated RBCs # (Man) Cancelled 09/24/22 06:26 Hypersegmented Neuts Cancelled 09/24/22 06:26 Hyposegmented Neuts Cancelled 09/24/22 06:26 Hypogranular Neuts Cancelled 09/24/22 06:26 Large Granular Lymphs Cancelled 09/24/22 06:26 # Lrg Granular Lymphs Cancelled 09/24/22 06:26 Hairy Cells Cancelled 09/24/22 06:26 Smudge Cells Cancelled 09/24/22 06:26 Toxic Granulation Cancelled 09/24/22 06:26 Toxic Vacuolation Cancelled 09/24/22 06:26 Dohle Bodies Cancelled 09/24/22 06:26 Jeanne Rods Cancelled 09/24/22 06:26 Platelet Estimate Cancelled 09/24/22 06:26 Hypogranular Platelets Cancelled 09/24/22 06:26 Clumped Platelets Cancelled 09/24/22 06:26 Giant Platelets Cancelled 09/24/22 06:26 Platelet Satelliting Cancelled 09/24/22 06:26 RBC Morphology Cancelled 09/24/22 06:26 Polychromasia Cancelled 09/24/22 06:26 Hypochromasia Cancelled 09/24/22 06:26 Poikilocytosis Cancelled 09/24/22 06:26 Basophilic Stippling Cancelled 09/24/22 06:26 Anisocytosis Cancelled 09/24/22 06:26 Microcytosis Cancelled 09/24/22 06:26 Macrocytosis Cancelled 09/24/22 06:26 Spherocytes Cancelled 09/24/22 06:26 Pappenheimer Bodies Cancelled 09/24/22 06:26 Sickle Cells Cancelled 09/24/22 06:26 Target Cells Cancelled 09/24/22 06:26 Tear Drop Cells Cancelled 09/24/22 06:26 Ovalocytes Cancelled 09/24/22 06:26 Stomatocytes Cancelled 09/24/22 06:26 [place] Bodies Cancelled 09/24/22 06:26 Echinocytes Cancelled 09/24/22 06:26 Acanthocytes (Spur) Cancelled 09/24/22 06:26 Rouleaux Cancelled 09/24/22 06:26 RBC Agglutinates Cancelled 09/24/22 06:26 Schistocytes Cancelled 09/24/22 06:26 Sezary Cell Cancelled 09/24/22 06:26 Sodium 138 mmol/L (136-145) 09/25/22 05:13 Potassium 3.9 mmol/L (3.5-5.1) 09/25/22 05:13 Chloride 106 mmol/L (98-107) 09/25/22 05:13 Carbon Dioxide 27 mmol/L (21-32) 09/25/22 05:13 Anion Gap 5 (3-11) 09/25/22 05:13 BUN 14 mg/dl (6-23) 09/25/22 05:13 Creatinine 0.66 mg/dl (0.6-1.2) 09/25/22 05:13 Est Cr Clr Drug Dosing 61.9 ml/min 09/25/22 05:13 Est GFR ( Amer) 100.9 ml/min 09/25/22 05:13 Est GFR (Non-Af Amer) 87.0 ml/min 09/25/22 05:13 BUN/Creatinine Ratio 21.2 (10-20) H 09/25/22 05:13 Glucose 98 mg/dl (70-99(Fasting)) 09/25/22 05:13 Calcium 8.2 mg/dl (8.5-10.1) L 09/25/22 05:13 Total Bilirubin 0.5 mg/dl (0.2-1.0) 09/22/22 12:20 AST 26 U/L (13-39) 09/22/22 12:20 ALT 27 U/L (7-52) 09/22/22 12:20 Alkaline Phosphatase 74 U/L (34-104) 09/22/22 12:20 Total Protein 7.7 gm/dl (6.0-8.3) 09/22/22 12:20 Albumin 4.1 gm/dl (3.4-5.0) 09/22/22 12:20 Globulin 3.6 gm/dl (2.5-4.0) 09/22/22 12:20 Albumin/Globulin Ratio 1.1 (0.9-2) 09/22/22 12:20 Nasal Screen MRSA (PCR) Negative (Negative) 09/23/22 01:13 SARS-CoV-2, RNA, NAAT NEGATIVE (NEGATIVE) 09/22/22 14:00 Blood Parasites ID Cancelled 09/24/22 06:26 Blood Type A Positive 09/22/22 19:32 Antibody Screen NEGATIVE 09/22/22 19:32 Impressions . Pelvis X-Ray 09/24/22 12:40 XR pelvis 1-2V routine CLINICAL HISTORY: s/p R hip tamiko TECHNIQUE: A single frontal view of the pelvis was obtained. Comparison: Comparison is made to pelvic radiograph 09/22/2022 FINDINGS: Patient is status post total hip arthroplasty with expected postsurgical changes including soft tissue swelling, and subcutaneous emphysema. No periarticular lucency or hardware fracture is seen. IMPRESSION: Expected postoperative appearance status post placement of total hip ar throplasty. ACT 112: Negative or not required by law. Electronically signed by: Dion Hernandez M.D. 09/24/2022 2:40 PM (1) Femoral neck fracture Encounter type: initial encounter Fracture type: closed Laterality: right Qualified Code(s): S72.001A - Fracture of unspecified part of neck of right femur, initial encounter for closed fracture
[2022-09-25] MEDS: oxyCODONE HCL IR 5 MG TAB (IMMEDIATE RELEASE) PO PRN ×2 (11:19→19:45)
--- NOTE | 2022-09-25 13:35 | Hospitalist Progress Note ---
Date of Service September 25, 2022 Assessment & Plan (1) Fall from slip, trip, or stumble: (2) Femoral neck fracture: Plan: Patient is 72 y/o F with PMH MS, tremor, Parkinsonism, LE edema, seizure disorder, h/o thyroidectomy, right breast cancer s/p lumpectomy chemo and radiation, presented to ER from [facility] with c/o mechanical fall and right hip pain. Denies seizure like activity. Ambulates with walker at baseline. In ER initially hypertensive then improves after pain control CT Head: no acute intracranial abnormality CT C-spine: No acute cervical spine fracture or subluxation. Chronic upper thoracic compression deformities. Right Femur X-ray: Acute femoral neck fracture on the right. In ER given IV Tylenol, 500ml NSS Ortho consult. Plan for surgery on 09/24/22-appreciate input and recommendation Will make NPO midnight of 09/23/22 for right hip hemiarthroplasty on 09/24/2022 Patient remains clinically stable without any pain at rest Status post right bipolar hemiarthroplasty of the right hip on 09/24/2022 Patient remains hemodynamically stable without any significant pain Pain is reasonably controlled and has been getting PT and OT evaluation Labs remains unremarkable Awaiting placement (3) Multiple sclerosis: Plan: Follows with [facility] Previously on Copaxone. States hasn't used for over 1 year secondary to hernandez of medication. Will monitor PRP (4) Parkinsonism: Plan: History Parkinsonism with likely essential tremor Continue propranolol, Topiramate Minimal parkinsonian symptoms specially tremors (5) Seizure disorder: Plan: No recent seizure reported Continue Lamictal, Keppra (6) Leg edema: Plan: Chronic BLE edema. Denies h/o CHF Hold lasix and monitor volume status (7) Hypothyroid: Plan: H/O Thyroidectomy Continue levothyroxine DVT Prophylaxis SCDs DNR/DNI as per discussion with pt Currently at [facility] Admission and Anticipated Discharge Date Admission Date: September 22, 2022 Subjective 09/23/2022 The patient was seen and examined in medical floor She does not have any pain at rest Denies any chest pain, palpitation or shortness of breath No abdominal pain, nausea and or vomiting 09/24/2022 The patient was seen and examined in medical floor She is a status post right bipolar hemiarthroplasty Denies any significant symptoms and the pain is controlled with Tylenol 09/25/2022 The patient was seen and examined in medical floor She is a status post right bipolar hemiarthroplasty on of this month Has been getting PT and OT evaluation and doing reasonably okay Feels tired following therapy but denies any significant symptoms Review of Systems Review of Systems: All systems reviewed and are unremarkable except as noted below Physical Exam Physical Exam: Lying in bed comfortably Constitutional: well developed and well nourished; not ill appearing Eyes: PERRL, conjunctivae normal, anicteric sclerae ENMT: external ear and nose normal, oropharynx normal Neck: trachea midline, no thyromegaly Respiratory: no respiratory distress Auscultation: lungs clear to auscultation bilaterally Cardiovascular: Rate/Rhythm: regular rate and regular rhythm; not tachycardic Heart Sounds: normal S1, normal S2 and + murmur Extremities: no edema Gastrointestinal (Abdomen): Inspection/Auscultation: normal bowel sounds; abdomen not distended Percussion/Palpation: abdomen soft; abdomen nontender Musculoskeletal: Right lower extremity and right hip pain with movement Neurologic: normal touch/pain/proprioception and moves all extremities; no focal motor deficits Psychiatric: A+Ox3, euthymic affect Lymphatic: no cervical or axillary lymphadenopathy Results & Data Results & Data ([facility]) Vital Signs (Past 12 Hours) Vital Signs Temp Pulse Resp BP Pulse Ox O2 Del Method 09/25/22 07:06 36.9 C 75 16 122/62 92 Room Air 09/25/22 03:31 37.1 C 67 14 118/64 93 Room Air Laboratory Results Short CBC 09/25/22 Range/Units 05:13 WBC 8.75 (4.8-10.8) K/ul Hgb 10.8 L (12.0-16.0) g/dl Hct 32.1 L (34.1-44.9) % Plt Count 217 (130-400) K/uL BMP 09/25/22 05:13 Sodium 138 Potassium 3.9 Chloride 106 Carbon Dioxide 27 BUN 14 Creatinine 0.66 Glucose 98 Calcium 8.2 L Medications Administered Current Inpatient Medications Aspirin (Aspirin 81 Mg Ectab) 81 mg PO QAM [facility] Stop: 10/25/22 08:59 Last Admin: 09/25/22 07:40 Dose: 81 mg Bisacodyl (Bisacodyl 10 Mg Supp) 10 mg ID DAILY PRN PRN Reason: Constipation Stop: 10/22/22 19:18 Acetaminophen (Ofirmev) 1,000 mg in 100 mls @ 400 mls/hr IV Q8H PRN PRN Reason: Pain or Fever Stop: 09/25/22 19:33 Last Infusion: 09/25/22 08:13 Dose: Infused Lamotrigine (Lamotrigine 100 Mg Tab) 150 mg PO BID [facility] Stop: 10/22/22 20:59 Last Admin: 09/25/22 07:38 Dose: 150 mg Levetiracetam (Levetiracetam 250 Mg Tab) 750 mg PO Q12H KIMMY Stop: 10/22/22 19:44 Last Admin: 09/25/22 07:40 Dose: 750 mg Levothyroxine Sodium (Levothyroxine Sodium 112 Mcg Tablet) 112 mcg PO DAILYBB [facility] Stop: 10/26/22 06:29 Magnesium Hydroxide (Magnesium Hydroxide Susp 30 Ml Udc) 30 ml PO DAILY PRN PRN Reason: Constipation Stop: 10/22/22 19:18 Melatonin (Melatonin 3 Mg Tab) 3 mg PO HS PRN PRN Reason: sleep Stop: 10/22/22 19:18 Last Admin: 09/24/22 21:17 Dose: 3 mg Morphine Sulfate (Morphine Sulfate 2 Mg/Ml Carp) 2 mg IV Q3H PRN PRN Reason: Pain (1,2,3,4,5) & Pre PT Stop: 10/06/22 19:18 Morphine Sulfate (Morphine Sulfate 4 Mg/Ml 1 Ml Carp\Vial) 4 mg IV Q3H PRN PRN Reason: Pain (6,7,8,9,10) Stop: 10/06/22 19:18 Naloxone HCl (Naloxone Hcl 0.4 Mg/1 Ml Vial/Carp) 0.1 mg IV UD PRN PRN Reason: Opiate Overdose Stop: 10/22/22 19:18 Naloxone HCl (Naloxone Hcl 0.4 Mg/1 Ml Vial/Carp) 0.1 mg IV Q5M PRN PRN Reason: Oversedation/Resp Depression Stop: 10/24/22 11:16 Ondansetron HCl (Ondansetron Inj 2 Mg/Ml 2 Ml Vial) 4 mg IV Q6H PRN PRN Reason: Nausea Stop: 10/22/22 19:18 Oxycodone HCl (Oxycodone Hcl Ir 5 Mg Tab (Immediate Release)) 5 mg PO Q4H PRN PRN Reason: MODERATE Pain (4,5,6) & Pre PT Stop: 10/06/22 19:18 Last Admin: 09/25/22 11:19 Dose: 5 mg Oxycodone HCl (Oxycodone Hcl Ir 5 Mg Tab (Immediate Release)) 10 mg PO Q4H PRN PRN Reason: SEVERE Pain (7,8,9,10) Stop: 10/06/22 19:18 Propranolol HCl (Propranolol Hcl 10 Mg Tab) 30 mg PO BID [facility] Stop: 10/22/22 20:59 Last Admin: 09/25/22 07:39 Dose: 30 mg Senna/Docusate Sodium (Docusate Sodium/Senna 50/8.6mg Tab) 2 tab PO HS [facility] Stop: 10/22/22 20:59 Last Admin: 09/24/22 21:17 Dose: 2 tab (1) Fall from slip, trip, or stumble Encounter type: initial encounter Qualified Code(s): W01.0XXA - Fall on same level from slipping, tripping and stumbling without subsequent striking against object, initial encounter (2) Femoral neck fracture Encounter type: initial encounter Fracture type: closed Laterality: right Qualified Code(s): S72.001A - Fracture of unspecified part of neck of right femu r, initial encounter for closed fracture
[2022-09-25] MEDS: DOCUSATE SODIUM/SENNA 50/8.6MG TAB PO SCH (20:02)
[2022-09-26] MEDS: LEVOTHYROXINE SODIUM 112 MCG TABLET PO SCH (05:47)
[2022-09-26] MEDS: oxyCODONE HCL IR 5 MG TAB (IMMEDIATE RELEASE) PO PRN ×2 (08:39→22:11)
[2022-09-26] MEDS: ASPIRIN 81 MG ECTAB PO SCH (08:39)
[2022-09-26] MEDS: levETIRAcetam 250 MG TAB PO SCH ×2 (08:39→20:20)
[2022-09-26] MEDS: lamoTRIgine 100 MG TAB PO SCH ×2 (08:40→20:21)
[2022-09-26] MEDS: PROPRANOLOL HCL 10 MG TAB PO SCH ×2 (08:44→20:21)
--- NOTE | 2022-09-26 09:34 | Orthopedic Progress Note ---
Date of Service September 26, 2022 Assessment & Plan (1) Femoral neck fracture: Plan: POD 2 s/p Right Bipolar Hemiarthroplasty PT/OT. WBAT. DVT Prophylaxis - ASA bid, SCD's Pain management as tolerated. Thigh pain likely secondary to surgical swelling and or referred pain from surgery. Post op films benign with no fx's noted. DC planning - [facility] when stable medically. Ortho will sign off at this time. Instructions placed in dc section. Please call with any questions. Admission and Anticipated Discharge Date Admission Date: September 22, 2022 Supervising Physician Co-Signing Physician Notes Patient seen and examined. Agree with BONIFACIO Jay's note as above. Patient is resting comfortably. States she feels "droopy". Reports pain mostly in the thigh area, but also endorses some groin pain with standing. Thigh shows a mild to moderate swelling that is normal for 2 days after a hip hemiarthroplasty. Dressings are clean, dry, and intact. She seems to be hesitant to put full weight on that leg with therapy. She was reassured that she may weight-bear as tolerated. Hip precautions were reviewed. Numerous technical questions about the implant were answered in detail. She seemed very worried about bone cement due to a family member's treatment in the past, and she was informed that this was a press-fit stem with no bone cement used. Follow-up with Dr. Mckeon in orthopedics clinic 10 to 14 days after surgery. Orthopedics will sign off at this point. Call with questions. Subjective POD 2 Pt sitting up in bed, awake, alert. Continues with some thigh discomfort likely related to surgery. No other complaints at this time. Physical Exam Physical Exam: Silverlon dressing C/D/I. Calves soft, NT. Thigh with swelling consistent with surgery but soft. NV intact. Hip appears located. Results & Data ([facility]) Vital Signs (Past 12 Hours) Vital Signs Temp Pulse Resp BP Pulse Ox O2 Del Method 09/26/22 08:44 121/67 09/26/22 07:16 37.1 C 71 20 99/66 L 93 Room Air (1) Femoral neck fracture Encounter type: initial encounter Fracture type: closed Laterality: right Qualified Code(s): S72.001A - Fracture of unspecified part of neck of right femur, initial encounter for closed fracture
--- NOTE | 2022-09-26 11:14 | Hospitalist Progress Note ---
Date of Service September 26, 2022 Assessment & Plan (1) Fall from slip, trip, or stumble: (2) Femoral neck fracture: Plan: Patient is 72 y/o F with PMH MS, tremor, Parkinsonism, LE edema, seizure disorder, h/o thyroidectomy, right breast cancer s/p lumpectomy chemo and radiation, presented to ER from [facility] with c/o mechanical fall and right hip pain. Denies seizure like activity. Ambulates with walker at baseline. In ER initially hypertensive then improves after pain control CT Head: no acute intracranial abnormality CT C-spine: No acute cervical spine fracture or subluxation. Chronic upper thoracic compression deformities. Right Femur X-ray: Acute femoral neck fracture on the right. In ER given IV Tylenol, 500ml NSS Ortho consult. Plan for surgery on 09/24/22-appreciate input and recommendation Will make NPO midnight of 09/23/22 for right hip hemiarthroplasty on 09/24/2022 Patient remains clinically stable without any pain at rest Status post right bipolar hemiarthroplasty of the right hip on 09/24/2022 Patient remains hemodynamically stable without any significant pain Pain is reasonably controlled and has been getting PT and OT evaluation Will need to go to rehab and awaiting placement Romi medically stable (3) Multiple sclerosis: Plan: Follows with [facility] Previously on Copaxone. States hasn't used for over 1 year secondary to hernandez of medication. Will monitor PRP (4) Parkinsonism: Plan: History Parkinsonism with likely essential tremor Continue propranolol, Topiramate Minimal parkinsonian symptoms specially tremors (5) Seizure disorder: Plan: No recent seizure reported Continue Lamictal, Keppra (6) Leg edema: Plan: Chronic BLE edema. Denies h/o CHF Hold lasix and monitor volume status Complains minimal shortness of breath with cough Chest findings showed minimal crackles at the bases Will restart Lasix (7) Hypothyroid: Plan: H/O Thyroidectomy Continue levothyroxine DVT Prophylaxis SCDs DNR/DNI as per discussion with pt Currently at [facility] Admission and Anticipated Discharge Date Admission Date: September 22, 2022 Subjective 09/23/2022 The patient was seen and examined in medical floor She does not have any pain at rest Denies any chest pain, palpitation or shortness of breath No abdominal pain, nausea and or vomiting 09/24/2022 The patient was seen and examined in medical floor She is a status post right bipolar hemiarthroplasty Denies any significant symptoms and the pain is controlled with Tylenol 09/25/2022 The patient was seen and examined in medical floor She is a status post right bipolar hemiarthroplasty on of this month Has been getting PT and OT evaluation and doing reasonably okay Feels tired following therapy but denies any significant symptoms 09/26/2022 The patient was seen and examined in medical floor She has been stable with minimal discomfort in the right hip Complains of some cough but no shortness of breath associated with it Review of Systems Review of Systems: All systems reviewed and are unremarkable except as noted below Physical Exam 2 Physical Exam: Lying in bed comfortably Constitutional: well developed and well nourished; not ill appearing Eyes: PERRL, conjunctivae normal, anicteric sclerae ENMT: external ear and nose normal, oropharynx normal Neck: trachea midline, no thyromegaly Respiratory: no respiratory distress Auscultation: lungs clear to auscultation bilaterally (Minimal crackles bilaterally) Cardiovascular: Rate/Rhythm: regular rate and regular rhythm; not tachycardic Heart Sounds: normal S1, normal S2 and + murmur Extremities: no edema Gastrointestinal (Abdomen): Inspection/Auscultation: normal bowel sounds; abdomen not distended Percussion/Palpation: abdomen soft; abdomen nontender Neurologic: normal touch/pain/proprioception and moves all extremities; no focal motor deficits Psychiatric: A+Ox3, euthymic affect Lymphatic: no cervical or axillary lymphadenopathy Results & Data Results & Data ([facility]) Vital Signs (Past 12 Hours) Vital Signs Temp Pulse Resp BP Pulse Ox O2 Del Method 09/26/22 08:44 121/67 09/26/22 07:16 37.1 C 71 20 99/66 L 93 Room Air Medications Administered Current Inpatient Medications Aspirin (Aspirin 81 Mg Ectab) 81 mg PO QAM [facility] Stop: 10/25/22 08:59 Last Admin: 09/26/22 08:39 Dose: 81 mg Bisacodyl (Bisacodyl 10 Mg Supp) 10 mg [place] DAILY PRN PRN Reason: Constipation Stop: 10/22/22 19:18 Lamotrigine (Lamotrigine 100 Mg Tab) 150 mg PO BID [facility] Stop: 10/22/22 20:59 Last Admin: 09/26/22 08:40 Dose: 150 mg Levetiracetam (Levetiracetam 250 Mg Tab) 750 mg PO Q12H [facility] Stop: 10/22/22 19:44 Last Admin: 09/26/22 08:39 Dose: 750 mg Levothyroxine Sodium (Levothyroxine Sodium 112 Mcg Tablet) 112 mcg PO DAILYBB [facility] Stop: 10/26/22 06:29 Last Admin: 09/26/22 05:47 Dose: 112 mcg Magnesium Hydroxide (Magnesium Hydroxide Susp 30 Ml Udc) 30 ml PO DAILY PRN PRN Reason: Constipation Stop: 10/22/22 19:18 Melatonin (Melatonin 3 Mg Tab) 3 mg PO HS PRN PRN Reason: sleep Stop: 10/22/22 19:18 Last Admin: 09/24/22 21:17 Dose: 3 mg Morphine Sulfate (Morphine Sulfate 2 Mg/Ml Carp) 2 mg IV Q3H PRN PRN Reason: Pain (1,2,3,4,5) & Pre PT Stop: 10/06/22 19:18 Morphine Sulfate (Morphine Sulfate 4 Mg/Ml 1 Ml Carp\Vial) 4 mg IV Q3H PRN PRN Reason: Pain (6,7,8,9,10) Stop: 10/06/22 19:18 Naloxone HCl (Naloxone Hcl 0.4 Mg/1 Ml Vial/Carp) 0.1 mg IV UD PRN PRN Reason: Opiate Overdose Stop: 10/22/22 19:18 Naloxone HCl (Naloxone Hcl 0.4 Mg/1 Ml Vial/Carp) 0.1 mg IV Q5M PRN PRN Reason: Oversedation/Resp Depression Stop: 10/24/22 11:16 Ondansetron HCl (Ondansetron Inj 2 Mg/Ml 2 Ml Vial) 4 mg IV Q6H PRN PRN Reason: Nausea Stop: 10/22/22 19:18 Oxycodone HCl (Oxycodone Hcl Ir 5 Mg Tab (Immediate Release)) 5 mg PO Q4H PRN PRN Reason: MODERATE Pain (4,5,6) & Pre PT Stop: 10/06/22 19:18 Last Admin: 09/26/22 08:39 Dose: 5 mg Oxycodone HCl (Oxycodone Hcl Ir 5 Mg Tab (Immediate Release)) 10 mg PO Q4H PRN PRN Reason: SEVERE Pain (7,8,9,10) Stop: 10/06/22 19:18 Propranolol HCl (Propranolol Hcl 10 Mg Tab) 30 mg PO BID [facility] Stop: 10/22/22 20:59 Last Admin: 09/26/22 08:44 Dose: 30 mg Senna/Docusate Sodium (Docusate Sodium/Senna 50/8.6mg Tab) 2 tab PO HS [facility] Stop: 10/22/22 20:59 Last Admin: 09/25/22 20:02 Dose: 2 tab (1) Fall from slip, trip, or stumble Encounter type: initial encounter Qualified Code(s): W01.0XXA - Fall on same level from slipping, tripping and stumbling without subsequent striking against object, initial encounter (2) Femoral neck fracture Encounter type: initial encounter Fracture type: closed Laterality: right Qualified Code(s): S72.001A - Fracture of unspecified part of neck of right femur, initial encounter for closed fracture
[2022-09-26] MEDS: FUROSEMIDE 20 MG TAB PO SCH (11:39)
[2022-09-26] MEDS: DOCUSATE SODIUM/SENNA 50/8.6MG TAB PO SCH (20:21)
[2022-09-27] MEDS: LEVOTHYROXINE SODIUM 112 MCG TABLET PO SCH (06:00)
[2022-09-27 07:15] LABS: Basophils # (auto) 0.05 K/uL (0-0.2); Basophils % (auto) 0.6 %; Eosinophils # (auto) 0.34 K/uL (0-0.50); Eosinophils % (auto) 3.8 %; Hemoglobin 10.1 g/dl (12.0-16.0); Immature Granulocytes # (auto) 0.05 K/uL (0.00-0.02); Immature Granulocytes % (auto) 0.6 %; Lymphocytes # (auto) 2.52 K/uL (1.2-3.4); Lymphocytes % (auto) 27.9 %; Mean Corpuscular Hemoglobin 32.2 pg (25.0-34.0); Mean Corpuscular Hgb Conc 34.8 g/dL (32.0-36.0); Mean Corpuscular Volume 92.4 fL (80.0-100.0); Mean Platelet Volume 10.5 fL (9.4-12.3); Monocytes % (auto) 16.6 %; Neutrophils # (auto) 4.57 K/uL (1.4-6.5); Neutrophils % (auto) 50.5 %; Platelet Count 245 K/uL (130-400); RDW Coefficient of Variation 14.5 % (11.5-14.5); RDW Standard Deviation 48.7 fL (36.4-46.3); Red Blood Count 3.14 M/uL (3.93-5.22); White Blood Count 9.03 K/ul (4.8-10.8)
[2022-09-27 07:36] LABS: BUN Creatinine Ratio 23.5 (10-20); Calcium 8.4 mg/dl (8.5-10.1); Creatinine Clr Calc Pharmacy 80.1 ml/min; Est GFR (African American) 109.8 ml/min; Est GFR (Non-African American) 94.7 ml/min
[2022-09-27] MEDS: levETIRAcetam 250 MG TAB PO SCH ×2 (08:05→19:47)
[2022-09-27] MEDS: PROPRANOLOL HCL 10 MG TAB PO SCH ×2 (08:05→19:48)
[2022-09-27] MEDS: lamoTRIgine 100 MG TAB PO SCH ×2 (08:05→19:48)
[2022-09-27] MEDS: ASPIRIN 81 MG ECTAB PO SCH ×2 (08:06→19:50)
[2022-09-27] MEDS: FUROSEMIDE 20 MG TAB PO SCH (08:06)
[2022-09-27] MEDS: oxyCODONE HCL IR 5 MG TAB (IMMEDIATE RELEASE) PO PRN ×3 (08:34→22:51)
--- NOTE | 2022-09-27 16:05 | Hospitalist Progress Note ---
Date of Service September 27, 2022 Assessment & Plan (1) Fall from slip, trip, or stumble: (2) Femoral neck fracture: Plan: Patient is 72 y/o F with PMH MS, tremor, Parkinsonism, LE edema, seizure disorder, h/o thyroidectomy, right breast cancer s/p lumpectomy chemo and radiation, presented to ER from [facility] with c/o mechanical fall and right hip pain. CT Head: no acute intracranial abnormality CT C-spine: No acute cervical spine fracture or subluxation. Chronic upper thoracic compression deformities. Right Femur X-ray: Acute femoral neck fracture on the right. POD#3 right bipolar hemiarthroplasty by Dr. Mckeon Activity and wound care orders as per ortho Pain control with bowel regimen PT/OT Monitor H/H for acute blood loss anemia and transfuse blood products PRN EBL 100 cc Preop Hgb 13.7 --> 10.1 Remove Ignacio today Patient accepted to [facility] however wishes to wait until tomorrow to be transferred. (3) Multiple sclerosis: Plan: Follows with [facility] Previously on Copaxone. States hasn't used for over 1 year secondary to hernandez of medication. (4) Parkinsonism: Plan: History Parkinsonism with likely essential tremor Continue propranolol (5) Seizure disorder: Plan: No recent seizure reported Continue Lamictal, Keppra (6) Leg edema: Plan: Chronic BLE edema. Denies h/o CHF Lasix held on admission, has since been resumed (7) Hypothyroid: Plan: H/O Thyroidectomy Continue levothyroxine DVT Prophylaxis ASA 81 mg BID, TEDs/SCDs as per Ortho Dispo -likely discharge to [facility] tomorrow Admission and Anticipated Discharge Date Admission Date: September 22, 2022 Supervising Physician Co-Signing Physician Notes Attending addendum The patient was seen and examined in medical floor She is out of bed on a chair and getting physical therapy Denies any significant symptoms Expressed that she is not yet ready to be discharged On examination Remains hemodynamically stable No acute pain at the site of surgery Chest-clear to auscultate bilaterally Heart-S1, S2 regular Abdomen-benign Her labs and imaging studies reviewed Status post right hip hemiarthroplasty with history of Parkinson's disease Remained hemodynamically stable and medically stable to be discharged Agree with assessment plan as outlined above by Chanel love [employer] DR M Lakshmi Subjective Follow-up for right femoral neck fracture s/p right bipolar hemiarthroplasty. Patient seen and examined. Sitting up in the chair. Patient was accepted to [facility] today however patient does not feel ready for discharge. States that she is feeling too tired. Pain mostly controlled. Denies chest pain or shortness of breath. No abdominal pain or nausea. + BM. Ignacio remains in place. Review of Systems Review of Systems: ROS per HPI, all other systems reviewed and negative Physical Exam Constitutional: + frail appearing; no acute distress Sitting up in the ch air Respiratory: normal respiratory effort, lungs clear to auscultation Cardiovascular: Rate/Rhythm: regular rate and regular rhythm Vessels: normal peripheral pulses Extremities: no edema Gastrointestinal (Abdomen): Percussion/Palpation: abdomen soft; abdomen nontender Musculoskeletal: S/p right hip surgery, dressing CDI, CSM checks intact RLE Skin: no rashes, warm and dry Neurologic: no focal motor deficits Psychiatric: A+Ox3, euthymic affect Results & Data Results & Data ([facility]) Vital Signs (Past 12 Hours) Vital Signs Temp Pulse Pulse Resp BP Pulse Ox O2 Del Method 09/27/22 14:48 36.8 C 65 18 118/67 94 Room Air 09/27/22 12:00 36.9 C 61 16 125/77 96 Room Air 09/27/22 08:15 Room Air 09/27/22 08:04 36.8 C 68 14 120/68 95 Room Air Laboratory Results Short CBC 09/27/22 Range/Units 06:55 WBC 9.03 (4.8-10.8) K/ul Hgb 10.1 L (12.0-16.0) g/dl Hct 29.0 L (34.1-44.9) % Plt Count 245 (130-400) K/uL BMP 09/27/22 06:55 Sodium 137 Potassium 4.0 Chloride 102 Carbon Dioxide 29 BUN 12 Creatinine 0.51 L Glucose 97 Calcium 8.4 L (1) Femoral neck fracture Encounter type: initial encounter Fracture type: closed Laterality: right Qualified Code(s): S72.001A - Fracture of unspecified part of neck of right femur, initial encounter for closed fracture (2) Fall from slip, trip, or stumble Encounter type: initial encounter Qualified Code(s): W01.0XXA - Fall on same level from slipping, tripping and stumbling without subsequent striking against object, initial encounter
[2022-09-27] MEDS: DOCUSATE SODIUM/SENNA 50/8.6MG TAB PO SCH (19:49)
[2022-09-28] MEDS: LEVOTHYROXINE SODIUM 112 MCG TABLET PO SCH (06:22)
[2022-09-28] MEDS: FUROSEMIDE 20 MG TAB PO SCH (08:08)
[2022-09-28] MEDS: PROPRANOLOL HCL 10 MG TAB PO SCH (08:08)
[2022-09-28] MEDS: ASPIRIN 81 MG ECTAB PO SCH (08:08)
[2022-09-28] MEDS: lamoTRIgine 100 MG TAB PO SCH (08:09)
[2022-09-28] MEDS: levETIRAcetam 250 MG TAB PO SCH (08:09)
[2022-09-28] MEDS ORDERED: guaiFENesin 600 MG TABCR PO SCH (10:45)
[2022-09-28] MEDS: oxyCODONE HCL IR 5 MG TAB (IMMEDIATE RELEASE) PO PRN (11:38)
--- NOTE | 2022-10-06 09:47 | Discharge Summary ---
Date of Service September 28, 2022 Admission HPI Per Admitting Provider Patient is 72 y/o F with PMH MS, tremor, Parkinsonism, LE edema, seizure disorder, h/o thyroidectomy, right breast cancer s/p lumpectomy chemo and radiation, presented to ER from [facility] with c/o fall and right hip pain. Patient reports ambulates with walker at baseline. States was in bathroom this morning and her shoe got caught causing her to fall on to her right side. C/O pain to right hip and right upper leg. She states initially had some numbness sensation to right foot but that seems to be improved and at her baseline with chronic neuropathy. She was able to crawl out of bathroom to get assistance. Denies seizure like activity. Denies dizziness, syncope, LOC, hitting head. Denies any other injury. Last ate 8:30am today. Denies fever/chills, diaphoresis, N/V/D/C, PINK, vision changes, neck pain, CP, SOB, orthopnea, palpitations, cough, sore throat, choking, otalgia, rhinorrhea, abdominal pain, increased extremity edema, rashes, urinary symptoms. Admission Exam Per Admitting Provider Physical Exam: General: no acute distress, WDWN Head: normocephalic, atraumatic Eyes: PERRL, EOM's intact, conjunctiva non-injected, anicteric ENT: normal inspection external ears, nose, mucous membranes moist Neck: supple, trachea midline Lungs: clear, no respiratory distress, no wheezing/rhonchi/rales CV: RRR, no murmur, no pretibial edema Abd: normal BS, soft, non-tender Ext: no cyanosis, no calf tenderness; RLE: +shortened and externally rotated. +tenderness to lateral hip. ROM not tested. Is able to flex and extend right foot, distal pules intact, sensation to light touch intact, brisk capillary refill. LLE, RUE and LUE non-tender and ROM intact. Neuro: A&O x 3, +resting tremor of head and bialteral hands, normal affect Skin: warm, dry Principal Diagnosis Right Displaced Femoral Neck Fracture Discharge Exam Lying in bed comfortably Constitutional well developed and well nourished; not ill appearing Eyes PERRL, conjunctivae normal, anicteric sclerae ENMT external ear and nose normal, oropharynx normal Neck trachea midline, no thyromegaly Respiratory no respiratory distress Auscultation: lungs clear to auscultation bilaterally (Minimal crackles bilaterally) Cardiovascular Rate/Rhythm: regular rate and regular rhythm; not tachycardic Heart Sounds: normal S1, normal S2 and + murmur Extremities: no edema Gastrointestinal (Abdomen) Inspection/Auscultation: normal bowel sounds; abdomen not distended Percussion/Palpation: abdomen soft; abdomen nontender Neurologic normal touch/pain/proprioception and moves all extremities; no focal motor deficits Psychiatric A+Ox3, euthymic affect Lymphatic no cervical or axillary lymphadenopathy Discharge Data Allergies Allergy/AdvReac Type Severity Reaction Status Date / Time Penicillins Allergy Intermediate Hives Verified 09/24/22 07:09 amoxicillin Allergy Unknown ON Verified 09/24/22 07:09 [facility] erythromycin base Allergy Unknown ON Verified 09/24/22 07:09 [facility] tetracycline Allergy Verified 09/24/22 07:40 Consultations 09/22/22 14:31 ED Decision to Admit Stat 09/22/22 19:19 Consult Anesthesiology Routine Consult Orthopedic Surgery Routine Procedures Performed Operation Date: 09/24/22 07:30 Actual Procedures p Right Bipolar Hemiarthroplasty(Right) - Pierce Mckeon, Ordered Studies 09/22/22 12:16 CT head/brain wo con Stat CT neck [CT cervical spine wo con] Stat Hospital Course (1) Fall from slip, trip, or stumble: (2) Femoral neck fracture: Patient is 72 y/o F with PMH MS, tremor, Parkinsonism, LE edema, seizure disorder, h/o thyroidectomy, right breast cancer s/p lumpectomy chemo and radiation, presented to ER from [facility] with c/o mechanical fall and right hip pain. CT Head: no acute intracranial abnormality CT C-spine: No acute cervical spine fracture or subluxation. Chronic upper thoracic compression deformities. Right Femur X-ray: Acute femoral neck fracture on the right. POD#3 right bipolar hemiarthroplasty by Dr. Mckeon Activity and wound care orders as per ortho Pain control with bowel regimen PT/OT Monitor H/H for acute blood loss anemia and transfuse blood products PRN EBL 100 cc Preop Hgb 13.7 --> 10.1 Remove Ignacio today Patient accepted to [facility] however wishes to wait until tomorrow to be transferred. (3) Multiple sclerosis: Follows with [facility] Previously on Copaxone. States hasn't used for over 1 year secondary to hernandez of medication. (4) Parkinsonism: History Parkinsonism with likely essential tremor Continue propranolol (5) Seizure disorder: No recent seizure reported Continue Lamictal, Keppra (6) Leg edema: Chronic BLE edema. Denies h/o CHF Lasix held on admission, has since been resumed (7) Hypothyroid: H/O Thyroidectomy Continue levothyroxine DVT Prophylaxis ASA 81 mg BID, TEDs/SCDs as per Ortho Dispo -likely discharge to [facility] tomorrow Total Time Total Time Spent Total Time Spent (In Minutes): 35 minutes Discharge Plan Discharge Items Patient Disposition: Transfer [facility] Reason For Visit: FALL, R LEG PAIN Discharge Diagnosis: Right Displaced Femoral Neck Fracture Condition on Discharge: Fair Activity: Per Instructions section Weightbearing: Right weightbearing Weightbearing Comment: as tolerated with walker Non-emergency contact: Surgeon Call non-emergency contact if: you have any medication questions, your pain is not controlled, your temperature is above 101.5, your wound has increased redness and your wound has increased drainage Follow-up/Referrals: [facility] [Primary Care Provider] - Pierce Mckeon DO [Surgeon] - (Follow up with Dr Mckeon in 2 weeks from the day of your surgery for your first post operative visit. ) Diet: Heart Healthy Ivan Attending Provider Instructions: Patient presented on 09/22 after a fall and right hip pain. Patient was found to have acute right femoral neck fracture. S/p right bipolar hemiarthroplasty by Dr. Mckeon on 09/24 Please note orthopedic discharge instructions as below. Continue aspirin 81 mg twice daily for DVT prophylaxis until 10/26. Patient developed a mild cough on the day of discharge, recommend Mucinex twice daily. 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 You may need to continue a physical therapy program after discharge from the hospital. There are several options available to you. Your doctor will assist you in selecting the best one for you. 1. An out-patient facility 2 to 3 times a week for therapy or home therapy. 2. Continue working on all exercises taught to you in the hospital. Your goals should be to increase bending of your knee to 90 degrees and beyond and to fully straighten your knee. B. You may progress at your own pace from walking with a walker or crutches to a cane; then to no assistive devices. C. Make walking a part of your daily routine. Be up as much as comfortable with rest periods throughout the day. Rest with leg elevation is very important. Use the ice wrap frequently for the first 3-4 weeks. D. There are no restrictions on activities. You may ride in a car, shop, participate in firer tunnel kiln and all social activities. E. Wear the long elastic stockings (JUSTINA hose) 20 hours a day for 2 weeks after surgery. They can be removed several times a day for laundering and for a bath. F. You may shower, no tub baths until cleared by your doctor. SPECIAL CARE INSTRUCTIONS: VERY IMPORTANT TO READ AND REVIEW A. There are a few signs you need to watch for after you are home. Call [facility] if you notice any of the followin. Increased severe knee pain. Some pain is expected especially when you exercise. 2. Increased swelling in your leg or knee; pain or swelling of the calf muscle in either lower leg. 3. Any fluid drainage from the incision. 4. Shortness of breath or chest pain. B. Please call [facility] at if you have any concerns or questions about your operation or recovery. The doctor or his nurse will return your call promptly. C. You must take antibiotics before dental work, bladder, bowel or other surgery. Your doctor will provide you with a permanent care to carry describing this precaution. IMPORTANT: * REMEMBER TO TAKE ASPIRIN, 81 MG, TWICE DAILY FOR 4 WEEKS UNLESS OTHERWISE DIRECTED. THIS IS YOUR BLOOD THINNER. * CALL IF INCREASED PAIN, REDNESS, DRAINAGE OR FEVER GREATER THAT 101. * WEAR JUSTINA HOSE 20 HOURS PER DAY FOR 2 WEEKS. * Silverlon- This is a large adhesive bandage that contains silver ions. This helps your incision heal by fighting off bacteria and protecting it from the outside environment. You are permitted to shower with this dressing. This will remain on your incision for 7 days and then should be removed. Some visible blood or drainage through the dressing window is normal. If there is significant drainage or leaking noted before the 7 days notify your doctor's office immediately. Once removed, keep incision clean and dry. If there is any drainage or redness noted, please call your surgeon. . FOLLOW UP VISIT: If appointment is not already scheduled: Please call [facility] to make a follow-up appointment for 2 weeks after your surgery at . Pending Studies at Discharge: No Stand-Alone Forms: My [facility] Skilled Items Patient informed of condition?: Yes DNR: Yes Discharge Level of Care: Skilled Communicable Disease: No Discharge Prognosis: Stable Lines: None Urinary Catheter: No Medications and DC Order Prescriptions: New sennosides-docusate sodium [Senokot-S] 8.6-50 mg Tablet 2 tab PO HS Qty: 1 0RF aspirin 81 mg Tablet,Delayed Release (Dr/Ec) 81 mg PO BID Qty: 1 0RF guaifenesin [Mucinex] 600 mg Tablet Extended Release 12hr 600 mg PO Q12 Qty: 1 0RF oxycodone 5 mg Tablet 5 - 10 mg PO Q4H PRN (Reason: pain) Qty: 15 0RF Continued lamotrigine 150 mg tablet 150 mg PO BID levetiracetam 750 mg tablet 750 mg PO Q12H furosemide [Lasix] 20 mg Tablet 20 mg PO DAILY propranolol 20 mg Tablet 30 mg PO BID acetaminophen 325 mg Tablet 650 mg PO Q4H PRN (Reason: fever or pain) Qty: 60 0RF melatonin 3 mg Tablet 3 mg PO HS PRN (Reason: sleep) Qty: 30 0RF levothyroxine 112 mcg tablet 112 mcg PO QAM Qty: 30 0RF Discharge Orders: Discharge Order (Routine); Ordered 09/28/22 Ordered By: Chanel Kay/Other Patient Handouts: Hip Precautions Admission Data Admit Date/Time: 09/22/22 15:17 Attending Provider: Polo Martins Admit Provider: Darrick Olson Primary Care Provider: [facility] Other Providers: [facility] ; Zoltan Reid ; Ted Beltrán Other Interventions: Discharge Summary Assessment (RN) Last Done: 09/28/22 13:46
== END 2022-09-28 15:14 | DRG 522 ==
LOC: ED 11:51 → SUATTDRO 15:17 → EDINP 15:17 → 3W 17:28
DX: Z79.890 Hormone replacement therapy; G20 Parkinson's disease; G35 Multiple sclerosis; S72.001A Fracture of unspecified part of neck of right femur, initial encounter for closed fracture; W01.0XXA Fall on same level from slipping, tripping and stumbling without subsequent striking against object, initial encounter; Z66 Do not resuscitate; R60.0 Localized edema; Z88.0 Allergy status to penicillin; G40.909 Epilepsy, unspecified, not intractable, without status epilepticus; Z79.899 Other long term (current) drug therapy; E03.9 Hypothyroidism, unspecified

== ENCOUNTER 2022-10-14 00:02 | Inpatient (IN) ==
[2022-10-14] MEDS ORDERED: ACETAMINOPHEN 500 MG TAB PO STA (00:19)
[2022-10-14] MEDS ORDERED: MoRPHine SULFATE 4 MG/ML 1 ML CARP\\VIAL IV STA (01:21)
[2022-10-14] MEDS ORDERED: fentaNYL citrate 100 MCG/2 ML VIAL IV STA (01:48)
[2022-10-14 01:54] LABS: Basophils # (auto) 0.05 K/uL (0-0.2); Basophils % (auto) 0.4 %; Eosinophils # (auto) 0.17 K/uL (0-0.50); Eosinophils % (auto) 1.4 %; Hematocrit (blood only) 32.2 % (34.1-44.9); Hemoglobin 10.6 g/dl (12.0-16.0); Immature Granulocytes # (auto) 0.06 K/uL (0.00-0.02); Immature Granulocytes % (auto) 0.5 %; Lymphocytes # (auto) 1.66 K/uL (1.2-3.4); Lymphocytes % (auto) 13.9 %; Mean Corpuscular Hemoglobin 31.5 pg (25.0-34.0); Mean Corpuscular Hgb Conc 32.9 g/dL (32.0-36.0); Mean Corpuscular Volume 95.8 fL (80.0-100.0); Mean Platelet Volume 9.3 fL (9.4-12.3); Monocytes # (auto) 0.72 K/uL (0.24-0.82); Neutrophils # (auto) 9.31 K/uL (1.4-6.5); Neutrophils % (auto) 77.8 %; Platelet Count 567 K/uL (130-400); RDW Standard Deviation 56.6 fL (36.4-46.3); Red Blood Count 3.36 M/uL (3.93-5.22); White Blood Count 11.97 K/ul (4.8-10.8)
[2022-10-14 02:09] LABS: Partial Thromboplastin Ratio 0.9; Partial Thromboplastin Time 24.2 Seconds (21.0-31.0); Prothrombin Time 10.5 Seconds (9.0-12.0)
--- NOTE | 2022-10-14 02:17 | Emergency Department Note ---
History of Present Illness General Chief complaint: Fall Stated complaint: FALL Time Seen by Provider: 10/14/22 00:06 History of Present Illness Maximum Pain Intensity: 8 This 72-year-old who just had a hip replacement by Dr. Mckeon presents to the ER complaining of fall with right thigh pain Location: Right thigh Quality: Painful Severity: Moderate Duration: Tonight Timing: Tonight Context: Patient was concerned and came in Modifying factors: better with rest; worse with activity Patient denies head injury, neck pain, chest pain, dyspnea, abdominal pain, numbness, tingling, localized weakness. She states all her pain is in her thigh. Hip replacement was to this leg. Home Medications Medication Instructions Recorded Confirmed Type acetaminophen 325 mg tablet 650 mg PO Q4H PRN fever or pain 06/12/22 10/14/22 Rx #60 tabs levothyroxine 112 mcg tablet 112 mcg PO QAM #30 tabs 06/12/22 10/14/22 Rx melatonin 3 mg tablet 3 mg PO HS PRN sleep #30 tabs 06/12/22 10/14/22 Rx furosemide 20 mg tablet (Lasix) 20 mg PO DAILY 09/22/22 10/14/22 History lamotrigine 150 mg tablet 150 mg PO BID 09/22/22 10/14/22 History levetiracetam 750 mg tablet 750 mg PO Q12H 09/22/22 10/14/22 History propranolol 20 mg tablet 30 mg PO BID 09/22/22 10/14/22 History aspirin 81 mg tablet,delayed 81 mg PO BID #1 tab 09/28/22 10/14/22 Rx release guaifenesin 600 mg tablet, 600 mg PO Q12 #1 tab 09/28/22 10/14/22 Rx extended release 12 hr (Mucinex) sennosides 8.6 mg-docusate sodium 2 tab PO HS #1 tab 09/28/22 10/14/22 Rx 50 mg tablet (Senokot-S) albuterol sulfate 90 mcg/actuation 2 puff inhalation Q4H PRN Wheezing 10/14/22 10/14/22 History aerosol inhaler fluticasone propionate 50 2 spray intranasal DAILY 10/14/22 10/14/22 History mcg/actuation nasal spray,suspension Allergies Allergy/AdvReac Type Severity Reaction Status Date / Time Penicillins Allergy Intermediate Hives Verified 10/14/22 00:36 amoxicillin Allergy Unknown ON Verified 10/14/22 00:36 [facility] erythromycin base Allergy Unknown ON Verified 10/14/22 00:36 [facility] tetracycline Allergy Unknown Unknown Verified 10/14/22 00:36 Past Med/Surg History Medical History Breast cancer right - lumpectomy, chemo, radiation. 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 Required: No Beliefs That Will Affect Care: None marital status: Current Living Situation: Personal Care Facility Feels Safe at Home: Yes Assistive Devices: Walker Review of Systems A total of 10 systems reviewed and were otherwise negative Physical Exam Vital Signs Vital Signs - 24 hr 10/14/22 00:14 10/14/22 01:59 Temperature 36.8 C 36.9 C Temperature Source Oral Oral Pulse Rate 63 Pulse Rate [Left Finger] 56 L Pulse Rhythm Regular Pulse Strength Normal Respiratory Rate 20 20 Respiratory Effort / Characteristics Non-Labored Spontaneous Respiratory Depth Normal Respiratory Pattern Regular Blood Pressure 161/90 H Blood Pressure [Right Arm] 183/94 H Blood Pressure Mean 113 Blood Pressure Mean [Right Arm] 123 Blood Pressure Position Lying Blood Pressure Position [Right Arm] Lying Pulse Oximetry 95 95 Oxygen Delivery Method Room Air Room Air Sepsis Recent Fever Within 48 Hours No Sepsis New/Unexplained Change in Mental Status N/A Sepsis Action Taken by Nursing No Action Required VITALS: Vitals are noted on the nurse's note and reviewed by myself. Vital signs stable. GENERAL: Pleasant patient, in no acute distress, nondiaphoretic, well-developed well-nourished. SKIN: The skin was without rashes, erythema, edema, or bruising. There is no tenting of the skin. Capillary reflex less than 2 seconds. HEAD: Normocephalic atraumatic. EARS: External auditory canals clear, EYES: Pupils equal round and reactive to light and accommodation. Conjunctivae without injection, sclerae without icterus. Extraocular movements intact. NOSE: Patent, turbinates without inflammation or discharge. MOUTH: Mucous membranes moist. Pharynx without erythema or exudate. Uvula midline. Airway patent. Tongue does not deviate. NECK: Supple without nuchal rigidity. No lymphadenopathy. No thyromegaly. Cervical spine is nontender. No JVD. HEART: Regular rate and rhythm LUNGS: Clear to auscultation bilaterally without wheezes, rales or rhonchi. No retractions or accessory muscle use. ABDOMEN: Positive bowel sounds x 4. Normal tympanic percussion. Soft, nontender, without masses or organomegaly. Sim sign negative. No guarding or rebound tenderness. No CVA tenderness MUSCULOSKELETAL: No muscle atrophy, erythema, or edema noted. Pelvis stable, right proximal thigh tender to palpation. Right knee ankle foot nontender to palpation. Pedal pulses equal and present. NEURO: Patient was alert and oriented to person place and time. Normal sensation to light and sharp touch. No focal neurological deficits. Course Administered Medications Discontinued Medications Acetaminophen (Acetaminophen 500 Mg Tab) 1,000 mg PO NOW STA Stop: 10/14/22 00:20 Last Admin: 10/14/22 00:27 Dose: 1,000 mg Documented By: RANDY Fentanyl Citrate (Fentanyl Citrate 100 Mcg/2 Ml Vial) 25 mcg IV NOW STA Stop: 10/14/22 01:49 Last Admin: 10/14/22 01:56 Dose: 25 mcg Documented By: RANDY Morphine Sulfate (Morphine Sulfate 4 Mg/Ml 1 Ml Carp\Vial) 4 mg IV NOW STA Stop: 10/14/22 01:22 Last Admin: 10/14/22 01:56 Dose: Not Given Documented By: Medical Decision Making Medical Records Attestation: I reviewed the patient's medical records. Home Medications Current Medication List: was personally reviewed by me Laboratory Data Attestation: I reviewed the patient's lab results. Result diagrams: 10/14/22 01:39 10/14/22 01:39 Lab Results 10/14/22 10/14/22 10/14/22 Range/Units 01:39 01:39 01:39 WBC 11.97 H (4.8-10.8) K/ul RBC 3.36 L (3.93-5.22) M/uL Hgb 10.6 L (12.0-16.0) g/dl Hct 32.2 L (34.1-44.9) % MCV 95.8 (80.0-100.0) fL MCH 31.5 (25.0-34.0) pg MCHC 32.9 (32.0-36.0) g/dL RDW Std Deviation 56.6 H (36.4-46.3) fL RDW Coeff of Jia 16.0 H (11.5-14.5) % Plt Count 567 H (130-400) K/uL MPV 9.3 L (9.4-12.3) fL Immature Gran % (Auto) 0.5 % Neut % (Auto) 77.8 % Lymph % (Auto) 13.9 % Luna % (Auto) 6.0 % Eos % (Auto) 1.4 % Baso % (Auto) 0.4 % Neut # (Auto) 9.31 H (1.4-6.5) K/uL Lymph # (Auto) 1.66 (1.2-3.4) K/uL Luna # (Auto) 0.72 (0.24-0.82) K/uL Eos # (Auto) 0.17 (0-0.50) K/uL Baso # (Auto) 0.05 (0-0.2) K/uL Immature Gran # (Auto) 0.06 H (0.00-0.02) K/uL PT 10.5 (9.0-12.0) Seconds INR 1.0 (0.9-1.1) APTT 24.2 (21.0-31.0) Seconds PTT Ratio 0.9 Sodium 139 (136-145) mmol/L Potassium 3.9 (3.5-5.1) mmol/L Chloride 105 (98-107) mmol/L Carbon Dioxide 27 (21-32) mmol/L Anion Gap 7 (3-11) BUN 19 (6-23) mg/dl Creatinine 0.66 (0.6-1.2) mg/dl Est Cr Clr Drug Dosing 61.9 ml/min Est GFR ( Amer) 100.9 ml/min Est GFR (Non-Af Amer) 87.0 ml/min BUN/Creatinine Ratio 28.8 H (10-20) Glucose 133 H (70-99(Fasting)) mg/dl Calcium 8.8 (8.5-10.1) mg/dl Total Bilirubin 0.3 (0.2-1.0) mg/dl AST 24 (13-39) U/L ALT 20 (7-52) U/L Alkaline Phosphatase 92 (34-104) U/L Total Protein 7.2 (6.0-8.3) gm/dl Albumin 3.6 (3.4-5.0) gm/dl Globulin 3.6 (2.5-4.0) gm/dl Albumin/Globulin Ratio 1.0 (0.9-2) Urine Color Urine Appearance (Clear) Urine pH (4.5-7.5) Ur Specific [place] (1.000-1.030) Urine Protein (Negative) Urine Glucose (UA) (Negative) Urine Ketones (Negative) Urine Blood (Negative) Urine Nitrite (Negative) Urine Bilirubin (Negative) Urine Urobilinogen (Negative) Ur Leukocyte Esterase (Negative) SARS-CoV-2, RNA, NAAT (NEGATIVE) 10/14/22 10/14/22 Range/Units 01:59 02:15 WBC (4.8-10.8) K/ul RBC (3.93-5.22) M/uL Hgb (12.0-16.0) g/dl Hct (34.1-44.9) % MCV (80.0-100.0) fL MCH (25.0-34.0) pg MCHC (32.0-36.0) g/dL RDW Std Deviation (36.4-46.3) fL RDW Coeff of Jia (11.5-14.5) % Plt Count (130-400) K/uL MPV (9.4-12.3) fL Immature Gran % (Auto) % Neut % (Auto) % Lymph % (Auto) % Luna % (Auto) % Eos % (Auto) % Baso % (Auto) % Neut # (Auto) (1.4-6.5) K/uL Lymph # (Auto) (1.2-3.4) K/uL Luna # (Auto) (0.24-0.82) K/uL Eos # (Auto) (0-0.50) K/uL Baso # (Auto) (0-0.2) K/uL Immature Gran # (Auto) (0.00-0.02) K/uL PT (9.0-12.0) Seconds INR (0.9-1.1) APTT (21.0-31.0) Seconds PTT Ratio Sodium (136-145) mmol/L Potassium (3.5-5.1) mmol/L Chloride (98-107) mmol/L Carbon Dioxide (21-32) mmol/L Anion Gap (3-11) BUN (6-23) mg/dl Creatinine (0.6-1.2) mg/dl Est Cr Clr Drug Dosing ml/min Est GFR ( Amer) ml/min Est GFR (Non-Af Amer) ml/min BUN/Creatinine Ratio (10-20) Glucose (70-99(Fasting)) mg/dl Calcium (8.5-10.1) mg/dl Total Bilirubin (0.2-1.0) mg/dl AST (13-39) U/L ALT (7-52) U/L Alkaline Phosphatase (34-104) U/L Total Protein (6.0-8.3) gm/dl Albumin (3.4-5.0) gm/dl Globulin (2.5-4.0) gm/dl Albumin/Globulin Ratio (0.9-2) Urine Color Yellow Urine Appearance Clear (Clear) Urine pH 5.5 (4.5-7.5) Ur Specific [place] 1.027 (1.000-1.030) Urine Protein Negative (Negative) Urine Glucose (UA) Negative (Negative) Urine Ketones Trace H (Negative) Urine Blood Negative (Negative) Urine Nitrite Negative (Negative) Urine Bilirubin Negative (Negative) Urine Urobilinogen Negative (Negative) Ur Leukocyte Esterase Trace H (Negative) SARS-CoV-2, RNA, NAAT NEGATIVE (NEGATIVE) Imaging Data Attestation: I personally reviewed and interpreted this imaging study as fo llows: MDM Narrative Prior records reviewed and summarized above. Triage Nursing notes reviewed. Additional history obtained from EMS. The patient's history was concerning for fall. Differential diagnosis: Etiologies such as fracture, dislocation, neurovascular compromise, compartment syndrome, soft tissue injury, as well as others were entertained. Physical examination: Consistent with an isolated hip injury. ER treatment provided: IV lock Tylenol, fentanyl NPO Bedrest, Ignacio catheter On reassessment the patient felt better. Diagnostics interpreted by me: ECG: Ordered for preop EKG: Normal sinus, poor baseline, normal intervals, no acute ST-T wave changes. Impression normal sinus rhythm interpreted by myself I think arrhythmia is unlikely. EKG shows normal sinus rhythm with no interval abnormalities such as QT prolongation or WPW. There are no findings to suggest Brugada syndrome. Cardiac monitoring in the emergency department reveals no tachycardic or bradycardic dysrhythmia. Hypertrophic cardiomyopathy was consider ed but there are no clear historical elements pointing toward this. EKG is not suggestive. The QRS voltage is not extremely large and there are no suggestive Q waves. The labs revealed mild anemia. Mild hyperglycemia without DKA Imaging studies: Xrays of the femur concerning for proximal femur fracture per my interpretation Chest x-ray with no acute consolidation, pneumothorax or free air per my interpretation The patient has an isolated proximal femur fracture and will need admission to the hospital. Patient was admitted to the medical service. Orthopedics was consulted and recommends NPO. He will evaluate the patient in the morning for possible surgery. Patient is agreeable. Patient was admitted to the medical service in stable condition. Consultation: A consultation was placed with Dr. Mckeon orthopedics. The case was discussed and diagnostics were reviewed. He recommends medical admission and keep the patient n.p.o. Medicine was consulted. The patient was evaluated in the ER for further treatment. Impression & Plan Closed right femoral fracture, Fall Discharge Plan Visit Data Chief Complaint: Fall Stated Complaint: FALL ED Provider: Rufus Villar ED Midlevel Provider: Caro Sorensen Discharge Problem: Closed right femoral fracture, Fall Patient Disposition: Admitted As Inpatient Condition: Good Forms Stand Alone Forms: My [facility] [place] [facility] [employer] Prescriptions Prescriptions: No Action lamotrigine 150 mg tablet 150 mg PO BID levetiracetam 750 mg tablet 750 mg PO Q12H furosemide [Lasix] 20 mg Tablet 20 mg PO DAILY propranolol 20 mg Tablet 30 mg PO BID sennosides-docusate sodium [Senokot-S] 8.6-50 mg Tablet 2 tab PO HS Qty: 1 0RF aspirin 81 mg Tablet,Delayed Release (Dr/Ec) 81 mg PO BID Qty: 1 0RF guaifenesin [Mucinex] 600 mg Tablet Extended Release 12hr 600 mg PO Q12 Qty: 1 0RF albuterol sulfate 90 mcg/actuation Hfa Aerosol Inhaler 2 puff INHALATION Q4H PRN (Reason: Wheezing) fluticasone propionate [Flonase] 50 mcg/actuation Koppel,Suspension 2 spray INTRANASAL DAILY Rx Instructions: administer into each nostril acetaminophen 325 mg Tablet 650 mg PO Q4H MDD 3 GRAMS/24 HOURS PRN (Reason: fever or pain) Qty: 60 0RF melatonin 3 mg Tablet 3 mg PO HS PRN (Reason: sleep) Qty: 30 0RF levothyroxine 112 mcg tablet 112 mcg PO QAM Qty: 30 0RF Referrals Referrals: [facility] W[facility] [Primary Care Provider] - : Closed right femoral fracture Qualifiers: Encounter type: initial encounter Femur location: unspecified portion of femur Fracture morphology: unspecified fracture morphology Qualified Code(s): S72.91XA - Unspecified fracture of right femur, initial encounter for closed fracture
[2022-10-14 02:22] LABS: Albumin Level 3.6 gm/dl (3.4-5.0); BUN Creatinine Ratio 28.8 (10-20); Bilirubin,Total 0.3 mg/dl (0.2-1.0); Calcium 8.8 mg/dl (8.5-10.1); Creatinine Clr Calc Pharmacy 61.9 ml/min; Est GFR (African American) 100.9 ml/min; Globulin 3.6 gm/dl (2.5-4.0); Potassium 3.9 mmol/L (3.5-5.1); Total Protein 7.2 gm/dl (6.0-8.3)
[2022-10-14 02:54] LABS: Appearance Urine Clear (Clear); Bacteria Urine Automated Negative (Negative); Bilirubin Urine Negative (Negative); Blood Urine Negative (Negative); Color Urine Yellow; Glucose Urine UA Negative (Negative); Ketones Urine Trace (Negative); Leukocyte Esterase Urine Trace (Negative); Nitrite Urine Negative (Negative); Protein Urine Negative (Negative); Specific Gravity Urine 1.027 (1.000-1.030); Urobilinogen Urine Negative (Negative); pH Urine 5.5 (4.5-7.5)
[2022-10-14 03:14] LABS: RBC Urine Automated 0-4 /hpf (0-4)
--- NOTE | 2022-10-14 04:29 | History and Physical Report ---
DATE OF ADMISSION: 10/14/2022. CHIEF COMPLAINT: Status post fall, right femur fracture. HISTORY OF PRESENT ILLNESS: This is a 72-year-old female with past medical history significant for MS, tremor, parkinsonism, lower extremity edema, seizure disorder, history of thyroidectomy, right breast cancer, status post lumpectomy, chemo and radiation. She lives in [facility]. Presents with fall and found to have right hip fracture. The patient was recently in the hospital last week of August with a mechanical fall and right femoral neck fracture, status post right bipolar hemiarthroplasty and she was discharged to [facility]. The patient says she is walking with a walker since last 2 weeks, and she was discharged to [facility] a couple of days ago. She also has a wheelchair and she mistook the break and she fell forward on the right hip again, and in a lot of pain. She did not hit her head, no loss of consciousness, and brought in here and x-ray is showing again right comminuted periprosthetic fracture.. Ortho was notified by the ER. Currently, resting comfortably and hemodynamically stable. The patient says she was having bronchitis for some time now and she was treated with antibiotics, finished a course of antibiotics a couple of days ago, but still has some mild cough. Occasionally, brings whitish phlegm. No shortness of breath, no chest pain, no fever, no chills, no headache, no blurred visions, no earache, no runny nose, no sore throat. Appetite is okay. No difficulty swallowing. No nausea, no abdominal pain. Normal bowel and bladder movements. ALLERGIES: PENICILLINS, AMOXICILLIN, ERYTHROMYCIN BASE, TETRACYCLINE. PAST MEDICAL HISTORY: As mentioned above. PAST SURGICAL HISTORY: History of carpal tunnel surgery, history of thyroidectomy. FAMILY HISTORY: Significant for father has coronary artery disease; mother has coronary artery disease and stroke. SOCIAL HISTORY: No smoking, no drug use, no alcohol. Currently living at [facility]. MEDICATIONS: The patient is on Tylenol 650 mg p.o. q. 4 hours p.r.n., albuterol 2 puffs inhalation q. 4 hours p.r.n., aspirin 81 mg p.o. b.i.d., Flonase 2 sprays intranasal daily, Lasix 20 mg p.o. daily, Mucinex 1200mg p.o. b.i.d., lamotrigine 150 mg p.o. b.i.d., Keppra 750 mg p.o. b.i.d., levothyroxine 112 mcg p.o. a.m., melatonin 3 mg p.o. at bedtime p.r.n., propranolol 30 mg p.o. b.i.d., Senokot S two tablets p.o. at bedtime. PHYSICAL EXAMINATION: GENERAL: The patient is of moderate build, not in acute distress. VITAL SIGNS: Temperature 36.9, pulse 56, respiratory rate 20, blood pressure 183/94, oxygen 95% on room air. HEENT: Pupils equal, round and reactive to light. Oral mucosa moist. NECK: No JVD, no neck masses. CARDIOVASCULAR: S1 and S2 heard. Regular rate and rhythm. No murmur, no gallop. RESPIRATORY SYSTEM: Normal AP diameter. No accessory muscle use. No wheezing or crackles. ABDOMEN: Soft, bowel sounds present, nontender, no distention. CENTRAL NERVOUS SYSTEM: Cranial nerves II-XII grossly intact, nonfocal. EXTREMITIES: Right lower extremity shortened and externally rotated. No edema or erythema seen. LABORATORY DATA: WBC 11.9, hemoglobin 10.6, hematocrit 32.2, platelets 567. PT 10.5, INR 1, APTT 24.2. Sodium 139, potassium 3.9, chloride 105, bicarb 27, BUN 19, creatinine 0.6, serum glucose 133, calcium 8.8, total bilirubin 0.3, AST 24, ALT 20, alkaline phosphatase 92. Urinalysis pending. Rapid COVID test negative. IMAGING DATA: Chest x-ray, no acute findings. Right femur x-ray shows comminuted periprosthetic fracture. EKG: Poor quality interpretation. Normal sinus rhythm at a rate of 66, nonspecific ST abnormalities. ASSESSMENT AND PLAN: This 72-year-old female presents with mechanical fall and right proximal femur fracture. 1. Mechanical fall, right proximal femoral fracture: The patient recently had right femoral neck fracture and had right bipolar hip arthroplasty on 09/24/2022, now again comes with mechanical fall and does have right comminuted periprosthetic fracture., Ortho notified by ER. Will keep her n.p.o., IV fluids, IV antiemetics, IV pain medication p.r.n. The patient's EKG and labs look okay. Chest x-ray looks okay. The patient should be at acceptable risk to proceed with the surgery. 2. History of multiple sclerosis: Seems to be following with [facility]. Seems to be on Copaxone previously, seems to be not using at this time. 3. History of parkinsonism: Likely essential tremor, on propranolol. 4. History of seizure disorder, on Keppra and Lamictal. 5. Chronic lower extremity edema: Lasix held on admission. Getting gentle fluids, monitor for fluid overload. 6. Hypothyroidism: History of thyroidectomy, on levothyroxine. 7. Deep venous thrombosis prophylaxis. Currently is on aspirin 81 mg p.o. b.i.d., which will be held for possible procedure. Could not place sequential compression devices as the patient has fracture. Further anticoagulation as per orthopedics. DISPOSITION: Admit to medical floor. PT, OT prior to discharge. Social service to help with discharge planning. Level 1 full code. Job ID: [id number] [facility]
[2022-10-14] MEDS ORDERED: hydrALAZINE HCL 20 MG/ML VIAL IV PRN (05:01)
[2022-10-14] MEDS ORDERED: ALBUTEROL HFA 8 GM INHALER INH PRN (05:01)
[2022-10-14] MEDS ORDERED: MELATONIN 3 MG TAB PO PRN (05:01)
[2022-10-14] MEDS ORDERED: POLYETHYLENE (MIRALAX) 17 GM PACK PO PRN (05:01)
[2022-10-14] MEDS: SODIUM CHLORIDE 0.9% 1000ML 1,000 ML IV SCH ×2 (06:35→18:32)
[2022-10-14] MEDS: ONDANSETRON INJ 2 MG/ML 2 ML VIAL IV PRN (06:35)
[2022-10-14] MEDS: HYDROmorphone INJ 0.5 MG/0.5 ML SYR IV PRN ×2 (06:36→11:54)
--- NOTE | 2022-10-14 07:05 | XRay Report ---
XR femur RT 2V routine HISTORY: 72 years-old Female fall, pain . Acute pain of the right thigh status post trauma COMPARISON: Pelvis radiographs 09/24/2022 TECHNIQUE: 2 views of the right femur FINDINGS: Right hip total joint arthroplasty with persistent lateral skin dajuan. Mild soft tissue swelling. T here is an acute periprosthetic fracture which extends from the greater trochanter distally through t he proximal diaphyseal femur demonstrating 2.2 cm lateral displacement with apex lateral angulation o f 40 degrees. No dislocation. The distal femur appears intact as visualized. Mild osteoarthritis of t he knee. Demineralized appearance of the bones. IMPRESSION: Right hip total joint arthroplasty with acute, angulated, displaced and mildly comminuted periprosthetic fracture. ACT 112: Negative or not required by law. The above report was generated using voice recognition software. It may contain grammatical, syntax o r spelling errors. Electronically signed by: Pierce Rboerson M.D. 10/14/2022 7:03 AM
[2022-10-14 07:45] LABS: Basophils # (auto) 0.04 K/uL (0-0.2); Basophils % (auto) 0.4 %; Eosinophils # (auto) 0.02 K/uL (0-0.50); Eosinophils % (auto) 0.2 %; Hemoglobin 9.6 g/dl (12.0-16.0); Immature Granulocytes # (auto) 0.04 K/uL (0.00-0.02); Immature Granulocytes % (auto) 0.4 %; Lymphocytes # (auto) 1.43 K/uL (1.2-3.4); Lymphocytes % (auto) 13.3 %; Mean Corpuscular Hemoglobin 31.7 pg (25.0-34.0); Mean Corpuscular Hgb Conc 33.1 g/dL (32.0-36.0); Mean Corpuscular Volume 95.7 fL (80.0-100.0); Mean Platelet Volume 9.3 fL (9.4-12.3); Monocytes # (auto) 0.76 K/uL (0.24-0.82); Monocytes % (auto) 7.1 %; Neutrophils # (auto) 8.45 K/uL (1.4-6.5); Neutrophils % (auto) 78.6 %; Platelet Count 513 K/uL (130-400); RDW Coefficient of Variation 15.9 % (11.5-14.5); Red Blood Count 3.03 M/uL (3.93-5.22); White Blood Count 10.74 K/ul (4.8-10.8)
--- NOTE | 2022-10-14 08:01 | XRay Report ---
XR chest 1V portable HISTORY: 72 years-old Female pre op preoperative exam COMPARISON: Chest radiograph 06/10/2022 TECHNIQUE: AP view of the chest FINDINGS: Cardiac silhouette is mildly enlarged. Atherosclerosis of the aorta. The patient is mildly rotated. N o pneumothorax, large pleural effusion or overt pulmonary edema. Chronic interstitial coarsening with mild left basilar atelectasis versus scarring. Degenerative changes of the shoulders and spine. Part ially imaged right humeral ORIF hardware. Age-indeterminate subtle fractures of the lateral right junie th and 10th ribs without significant displacement. IMPRESSION: 1. No acute cardiopulmonary abnormality. 2. Subtle age-indeterminate fractures of the lateral right ninth and 10th ribs. Correlate with clinic al exam findings. 3. No pneumothorax. ACT 112: Negative or not required by law. The above report was generated using voice recognition software. It may contain grammatical, syntax o r spelling errors. Electronically signed by: Pierce Roberson M.D. 10/14/2022 7:59 AM
[2022-10-14 08:13] LABS: Calcium 8.2 mg/dl (8.5-10.1); Creatinine Clr Calc Pharmacy 81.7 ml/min; Est GFR (African American) 110.5 ml/min; Est GFR (Non-African American) 95.3 ml/min; Magnesium 1.9 mg/dl (1.7-2.4); Potassium 3.5 mmol/L (3.5-5.1)
[2022-10-14] MEDS: LEVOTHYROXINE SODIUM 112 MCG TABLET PO SCH (09:29)
--- NOTE | 2022-10-14 10:23 | Orthopedic Consultation ---
Date of Consultation October 14, 2022 Assessment & Plan (1) Shital-prosthetic subtrochanteric femur fracture: She has a new right hip comminuted periprosthetic femur fracture after previous press-fit bipolar hemiarthroplasty just done about 3 weeks ago on 09/24 after new ground-level fall injury that occurred yesterday. Unfortunately, it looks like there is significant instability of the previously placed prosthesis. This will require revision to a diaphyseal-fit prosthesis. I advised the patient that this will be a much larger surgery than her previous bipolar hemiarthroplasty. I advised that she may not be able to put full weight on this leg after this revision surgery depending on the prosthesis use, etc. She voiced understanding of this. I discussed her case with Dr. Mckeon, who has agreed to perform a revision surgery. Timing of surgery will be weather dependent over the next few days. Keep n.p.o. for now. Bedrest, nonweightbearing right leg. History of Present Illness Reason for Consultation: Recurrent right hip injury Attending Physician: Rashaun Carey MD History of Present Illness Ms. Arevalo is a 72-year-old female who recently underwent a right hip bipolar hemiarthroplasty for femoral neck fracture by Dr. Mckeon on 09/24/22. She did well after that surgery, and regained the ability to ambulate. She was up to ambulating about 300 feet. She had just been discharged from [facility] just a few days ago, and went to [facility]. She then had a recurrent injury to that right hip yesterday. She thought that the brake on her wheelchair was locked when it was not. She went to sit down in the wheelchair and the wheelchair slid out from behind her and she fell to the floor onto her right hip. She had immediate pain and inability to bear weight on her right leg. She was supposed to follow-up with Dr. Mckeon in the office today after her previous surgery. Allergies Allergy/AdvReac Type Severity Reaction Status Date / Time Penicillins Allergy Intermediate Hives Verified 10/14/22 00:36 amoxicillin Allergy Unknown ON Verified 10/14/22 00:36 [employer] erythromycin base Allergy Unknown ON Verified 10/14/22 00:36 [employer] [facility] tetracycline Allergy Unknown Unknown Verified 10/14/22 00:36 Home Medications Medication Instructions Recorded Confirmed Type acetaminophen 325 mg tablet 650 mg PO Q4H PRN fever or pain 06/12/22 10/14/22 Rx #60 tabs levothyroxine 112 mcg tablet 112 mcg PO QAM #30 tabs 06/12/22 10/14/22 Rx melatonin 3 mg tablet 3 mg PO HS PRN sleep #30 tabs 06/12/22 10/14/22 Rx furosemide 20 mg tablet (Lasix) 20 mg PO DAILY 09/22/22 10/14/22 History lamotrigine 150 mg tablet 150 mg PO BID 09/22/22 10/14/22 History levetiracetam 750 mg tablet 750 mg PO Q12H 09/22/22 10/14/22 History propranolol 20 mg tablet 30 mg PO BID 09/22/22 10/14/22 History aspirin 81 mg tablet,delayed 81 mg PO BID #1 tab 09/28/22 10/14/22 Rx release guaifenesin 600 mg tablet, 600 mg PO Q12 #1 tab 09/28/22 10/14/22 Rx extended release 12 hr (Mucinex) sennosides 8.6 mg-docusate sodium 2 tab PO HS #1 tab 09/28/22 10/14/22 Rx 50 mg tablet (Senokot-S) albuterol sulfate 90 mcg/actuation 2 puff inhalation Q4H PRN Wheezing 10/14/22 10/14/22 History aerosol inhaler fluticasone propionate 50 2 spray intranasal DAILY 10/14/22 10/14/22 History mcg/actuation nasal spray,suspension Patient History Medical History Breast cancer right - lumpectomy, chemo, radiation. 2006 Hypothyroid Leg edema Multiple sclerosis Parkinsonism Peripheral neuropathy Seizure disorder Surgical History H/O splenectomy History of carpal tunnel surgery History of thyroidectomy Family History Father Coronary heart disease Mother Coronary heart disease Stroke Social History Smoking Status: Never smoker Second Hand Exposure: No; Do You Dip or Chew Tobacco: No; Tobacco Cessation Education Requested by Patient: No Hx Alcohol Use: No Hx Substance Use: No Preferred Language: Occitan Communication Ability: Effective Refrigeration Insulator Required: No Beliefs That Will Affect Care: None marital status: Current Living Situation: Alone Other Information That Helps Us Care for You: No Feels Safe at Home: Yes Safety Concerns: Feels Safe At This Time Assistive Devices: Glasses and Walker Physical Exam Physical Exam: Examination of the right hip shows a well-healing surgical incision without evidence of infection. [place] are still in place. There is shortening and external rotation of the leg. There is mild swelling and tenderness to palpation of the thigh and hip area. Compartments are soft and compressible. Intact ankle dorsiflexion and plantarflexion. Results & Data ([facility]) Vital Signs (Past 12 Hours) Vital Signs Temp Pulse Pulse Resp BP BP Pulse Ox 10/14/22 07:54 36.7 C 87 20 116/69 92 10/14/22 05:00 10/14/22 04:56 36.7 C 76 16 168/89 H 94 10/14/22 03:33 54 L 17 134/77 96 10/14/22 01:59 36.9 C 56 L 20 183/94 H 95 10/14/22 00:14 36.8 C 63 20 161/90 H 95 O2 Del Method 10/14/22 07:54 Room Air 10/14/22 05:00 Room Air 10/14/22 04:56 Room Air 10/14/22 03:33 Room Air 10/14/22 01:59 Room Air 10/14/22 00:14 Room Air Diagnostic Findings New x-rays of the right hip were reviewed. They show the previously placed press-fit bipolar hemiarthroplasty, now with a new comminuted periprosthetic femur fracture. There is significant subsidence of the femoral stem associated with this fracture, significantly changed from immediate postoperative films on 09/24.
[2022-10-14] MEDS: PROPRANOLOL HCL 10 MG TAB PO SCH ×2 (10:26→20:49)
[2022-10-14] MEDS: guaiFENesin 600 MG TABCR PO SCH ×2 (10:26→20:48)
[2022-10-14] MEDS: levETIRAcetam 250 MG TAB PO SCH ×2 (10:27→20:49)
[2022-10-14] MEDS: lamoTRIgine 100 MG TAB PO SCH ×2 (10:29→20:48)
[2022-10-14] MEDS: FLUTICASONE PROPIONATE NA SPR 16 GM BTL SCH (10:30)
--- NOTE | 2022-10-14 15:13 | Electrocardiogram Report ---
Test Reason : Blood Pressure : / mmHG Vent. Rate : 066 BPM Atrial Rate : 066 BPM P-R Int : 114 ms QRS Dur : 086 ms QT Int : 416 ms P-R-T Axes : 026 -18 042 degrees QTc Int : 436 ms Poor data quality, interpretation may be adversely affected Normal sinus rhythm Moderate voltage criteria for LVH, may be normal variant Borderline ECG When compared with ECG of 22-SEP-2022 11:56, No significant change Confirmed by Diogenes Moon ([id number]) on 10/14/2022 3:13:05 PM Referred By: [facility] Confirmed By:Diogenes Moon
--- NOTE | 2022-10-14 15:56 | Hospitalist Progress Note ---
Date of Service October 14, 2022 Assessment & Plan (1) Closed right femoral fracture: Plan: (1) Mechanical fall (2) Femoral neck fracture: Present on admission after mechanical fall XR right femur showed right hip total joint arthroplasty with acute, angulated, displaced and mildly comminuted periprosthetic fracture. Continue pain control Ortho on board Plan for perform a revision surgery Timing of the surgery unknown due to weather Will keep NPO for now Multiple sclerosis: Follows with [facility] Previously on Copaxone. States hasn't used for over 1 year secondary to hernandez of medication. Parkinsonism: History Parkinsonism with likely essential tremor Continue propranolol Seizure disorder: No recent seizure reported Continue Lamictal, Keppra Hypothyroidism H/O Thyroidectomy Continue levothyroxine DVT Prophylaxis On SCD - Anticipate surgery Admission and Anticipated Discharge Date Admission Date: October 14, 2022 Subjective Pt was seen and examined for follow up of right hip fracture Lying in bed with no acute distress Pt said that pain is worst with movement Denies any chest pain, palpitation, dizziness and SOB Review of Systems Review of Systems: All systems reviewed & are unremarkable except as noted in Subjective Physical Exam Physical Exam: General- No acute distress Head- atraumatic Eyes- PERRL, EOMI, ENT- oropharynx clear Neck- supple, no JVD Lungs- clear to auscultation Heart- regular rhythm; no murmur Abdomen- normal bowel sounds, soft, nontender Extremities- no calf tenderness, Right hip pain Neuro- alert, oriented x 3; PERRL, EOMI; no facial palsy; no dysarthria Skin- warm & dry Results & Data Results & Data ([facility]) Vital Signs (Past 12 Hours) Vital Signs Temp Pulse Resp BP BP Pulse Ox O2 Del Method 10/14/22 15:19 36.9 C 60 18 129/67 94 Room Air 10/14/22 07:55 Room Air 10/14/22 10:24 117/65 94 Room Air 10/14/22 07:54 36.7 C 87 20 116/69 92 Room Air 10/14/22 05:00 Room Air 10/14/22 04:56 36.7 C 76 16 168/89 H 94 Room Air (1) Closed right femoral fracture Encounter type: initial encounter Femur location: unspecified portion of femur Fracture morphology: unspecified fracture morphology Qualified Code(s): S72.91XA - Unspecified fracture of right femur, initial encounter for closed fracture
[2022-10-14] MEDS: DOCUSATE SODIUM/SENNA 50/8.6MG TAB PO SCH (20:49)
[2022-10-14] MEDS: ACETAMINOPHEN 325 MG TAB PO PRN (20:57)
[2022-10-15] MEDS: LEVOTHYROXINE SODIUM 112 MCG TABLET PO SCH (05:34)
[2022-10-15] MEDS: SODIUM CHLORIDE 0.9% 1000ML 1,000 ML IV SCH ×2 (05:35→23:40)
[2022-10-15] MEDS: lamoTRIgine 100 MG TAB PO SCH ×2 (09:07→20:32)
[2022-10-15] MEDS: PROPRANOLOL HCL 10 MG TAB PO SCH ×2 (09:07→20:31)
[2022-10-15] MEDS: guaiFENesin 600 MG TABCR PO SCH ×2 (09:09→20:31)
[2022-10-15] MEDS: levETIRAcetam 250 MG TAB PO SCH ×2 (09:09→20:32)
[2022-10-15] MEDS: FLUTICASONE PROPIONATE NA SPR 16 GM BTL SCH (09:09)
--- NOTE | 2022-10-15 10:21 | Orthopedic Progress Note ---
Date of Service October 15, 2022 Assessment & Plan (1) Shital-prosthetic subtrochanteric femur fracture: Plan: Plan for OR tomorrow at 7:30AM for ORIF Right proximal femur with revision of Bipolar stem with Dr. Mckeon. NPO after midnight. Bedrest. Admission and Anticipated Discharge Date Admission Date: October 14, 2022 Subjective Pt lying bed awake, alert. States her pain is under control at this time. She feels her swelling has gone down as well. No new complaints. Physical Exam Physical Exam: Previous incision with dajuan present. No erythema. Healing well. Mild swelling noted anterolateral proximal right femur. Calves soft,NT. NV intact. Results & Data ([facility]) Vital Signs (Past 12 Hours) Vital Signs Temp Pulse Resp BP Pulse Ox O2 Del Method 10/15/22 09:05 80 154/84 H 10/15/22 07:15 37.4 C 77 18 146/64 H 94 Room Air
[2022-10-15] MEDS: ACETAMINOPHEN 325 MG TAB PO PRN ×2 (12:01→20:36)
[2022-10-15] MEDS ORDERED: ALBUTEROL 0.083% NEBU SOLN 3 ML VIAL NEB STA (12:31)
--- NOTE | 2022-10-15 18:13 | Hospitalist Progress Note ---
Date of Service October 15, 2022 Assessment & Plan (1) Closed right femoral fracture: Plan: (1) Mechanical fall (2) Femoral neck fracture: Present on admission after mechanical fall XR right femur showed right hip total joint arthroplasty with acute, angulated, displaced and mildly comminuted periprosthetic fracture. Continue pain control Ortho on board Plan for ORIF Right proximal femur with revision of Bipolar stem with Dr. Mckeon tomorrow Will make NPO after midnight Multiple sclerosis: Follows with [facility] Previously on Copaxone. States hasn't used for over 1 year secondary to hernandez of medication. Parkinsonism: History Parkinsonism with likely essential tremor Continue propranolol Seizure disorder: No recent seizure reported Continue Lamictal, Keppra Hypothyroidism H/O Thyroidectomy Continue levothyroxine DVT Prophylaxis On SCD - Anticipate surgery Admission and Anticipated Discharge Date Admission Date: October 14, 2022 Subjective Pt was seen and examined for follow up hip pain Lying in bed with no acute distress Pt said that pain is stable Denies any chest pain, palpitation, dizziness and SOB Review of Systems Review of Systems: All systems reviewed & are unremarkable except as noted in Subjective Physical Exam Physical Exam: General- No acute distress Head- atraumatic Eyes- PERRL, EOMI, ENT- oropharynx clear Neck- supple, no JVD Lungs- clear to auscultation Heart- regular rhythm; no murmur Abdomen- normal bowel sounds, soft, nontender Extremities- no calf tenderness, Right hip pain Neuro- alert, oriented x 3; PERRL, EOMI; no facial palsy; no dysarthria Skin- warm & dry Results & Data Results & Data ([facility]) Vital Signs (Past 12 Hours) Vital Signs Temp Pulse Resp BP Pulse Ox O2 Del Method 10/15/22 14:41 37.2 C 76 16 118/63 94 Room Air 10/15/22 07:38 Room Air 10/15/22 09:05 80 154/84 H 10/15/22 07:15 37.4 C 77 18 146/64 H 94 Room Air (1) Closed right femoral fracture Encounter type: initial encounter Femur location: unspecified portion of femur Fracture morphology: unspecified fracture morphology Qualified Code(s): S72.91XA - Unspecified fracture of right femur, initial encounter for closed fracture
[2022-10-15] MEDS: DOCUSATE SODIUM/SENNA 50/8.6MG TAB PO SCH (20:33)
[2022-10-16] MEDS: LEVOTHYROXINE SODIUM 112 MCG TABLET PO SCH (05:21)
[2022-10-16 08:16] LABS: Hematocrit (blood only) 25.9 % (34.1-44.9); Hemoglobin 8.5 g/dl (12.0-16.0); Mean Corpuscular Hemoglobin 31.5 pg (25.0-34.0); Mean Corpuscular Hgb Conc 32.8 g/dL (32.0-36.0); Mean Corpuscular Volume 95.9 fL (80.0-100.0); Platelet Count 401 K/uL (130-400); RDW Coefficient of Variation 16.2 % (11.5-14.5); RDW Standard Deviation 56.6 fL (36.4-46.3); White Blood Count 9.55 K/ul (4.8-10.8)
--- NOTE | 2022-10-16 08:18 | History & Physical Bridge Note ---
Date of Service October 16, 2022 History & Physical Bridge Note I have examined the patient, reviewed the History & Physical and in the interval since the performance of the History & Physical I have noted the following changes of clinical significance: no changes noted. Pt S+E, discussed Revision right hip hemiarthroplasty with ORIF. Agrees to proceed with surgical intervention. Written consent obtained.
--- NOTE | 2022-10-16 08:23 | Hospitalist Progress Note ---
Date of Service October 16, 2022 Assessment & Plan (1) Closed right femoral fracture: Plan: (1) Mechanical fall (2) Femoral neck fracture: Present on admission after mechanical fall XR right femur showed right hip total joint arthroplasty with acute, angulated, displaced and mildly comminuted periprosthetic fracture. Continue pain control Ortho on board Plan for ORIF Right proximal femur with revision of Bipolar stem with Dr. Mckeon this morning Denies any chest pain and SOB. Stable to go to OR. Keep NPO for now Multiple sclerosis: Follows with [facility] Previously on Copaxone. States hasn't used for over 1 year secondary to hernandez of medication. Parkinsonism: History Parkinsonism with likely essential tremor Continue propranolol Seizure disorder: No recent seizure reported Continue Lamictal, Keppra Hypothyroidism H/O Thyroidectomy Continue levothyroxine DVT Prophylaxis On SCD - Anticipate surgery today Code status Full code Admission and Anticipated Discharge Date Admission Date: October 14, 2022 Subjective Pt was seen and examined for follow up hip pain Lying in bed with no acute distress with son as bedside Pt said that pain is tolerable Denies any chest pain, palpitation, dizziness and SOB Review of Systems Review of Systems: All systems reviewed & are unremarkable except as noted in Subjective Physical Exam Physical Exam: General- No acute distress Head- atraumatic Eyes- PERRL, EOMI, ENT- oropharynx clear Neck- supple, no JVD Lungs- clear to auscultation Heart- regular rhythm; no murmur Abdomen- normal bowel sounds, soft, nontender Extremities- no calf tenderness, Right hip pain Neuro- alert, oriented x 3; PERRL, EOMI; no facial palsy; no dysarthria Skin- warm & dry Results & Data Results & Data ([facility]) Vital Signs (Past 12 Hours) Vital Signs Temp Pulse Resp BP BP Pulse Ox O2 Del Method 10/16/22 07:56 37.2 C 72 16 131/69 94 Room Air 10/16/22 07:40 Room Air 10/15/22 20:30 Room Air 10/15/22 20:33 37.1 C 78 16 157/64 H 96 Room Air (1) Closed right femoral fracture Encounter type: initial encounter Femur location: unspecified portion of femur Fracture morphology: unspecified fracture morphology Qualified Code(s): S72.91XA - Unspecified fracture of right femur, initial encounter for closed fracture
[2022-10-16] MEDS ORDERED: MIDAZOLAM HCL 1 MG/ML 2ML VIAL ONE (08:33)
[2022-10-16] MEDS ORDERED: fentaNYL citrate 100 MCG/2 ML VIAL ONE (08:33)
[2022-10-16] MEDS ORDERED: PROPOFOL IV EMULSION 10 MG/ML 20 ML VIAL IV ONE (08:35)
[2022-10-16] MEDS ORDERED: LIDOCAINE 2% MPF LOCAL 5 ML VIAL INFIL ONE (08:36)
[2022-10-16] MEDS ORDERED: ROCURONIUM BROMIDE 10 MG/ML 5 ML VIAL IV ONE (08:37)
[2022-10-16 08:43] LABS: BUN Creatinine Ratio 24.3 (10-20); Calcium 7.7 mg/dl (8.5-10.1); Creatinine Clr Calc Pharmacy 110.3 ml/min; Est GFR (Non-African American) 105.3 ml/min; Potassium 3.3 mmol/L (3.5-5.1)
[2022-10-16] MEDS ORDERED: ePHEDrine sulfate 50 MG/ML AMP IV PRN (08:52)
[2022-10-16] MEDS ORDERED: ATROPINE SULFATE 0.1 MG/ML 10ML SYR IV PRN (08:52)
[2022-10-16] MEDS ORDERED: fentaNYL citrate 100 MCG/2 ML VIAL IV PRN (08:52)
[2022-10-16] MEDS ORDERED: HYDROmorphone INJ 1 MG/ML SYRINGE IV PRN (08:52)
[2022-10-16] MEDS ORDERED: ONDANSETRON INJ 2 MG/ML 2 ML VIAL IV PRN (08:52)
--- NOTE | 2022-10-16 08:52 | Anesthesiology Consultation ---
Date of Service October 16, 2022 Assessment & Plan ASA ASA3 Proposed Anesthesia Anesthesia Type: General Risk / Benefits Reviewed With: PT / POA / Parent / Guardian, Accepts Plan and Informed Consent Obtained History Surgery Operation Date: 10/16/22 07:30 Proposed Procedures p Right Periprosthetic Femur Open Reduction Internal Fixation - Pierce Mckeon, DO Height/Weight Height: 5 ft 3 in Weight: 53.8 kg Allergies Allergy/AdvReac Type Severity Reaction Status Date / Time Penicillins Allergy Intermediate Hives Verified 10/14/22 00:36 amoxicillin Allergy Unknown ON Verified 10/14/22 00:36 [facility] L[facility] erythromycin base Allergy Unknown ON Verified 10/14/22 00:36 [facility] tetracycline Allergy Unknown Unknown Verified 10/14/22 00:36 Medications Home Medications Medication Instructions Recorded Confirmed Last Taken acetaminophen 325 mg tablet 650 mg PO Q4H PRN fever or pain 06/12/22 10/14/22 Unknown #60 tabs levothyroxine 112 mcg tablet 112 mcg PO QAM #30 tabs 06/12/22 10/14/22 10/13/22 melatonin 3 mg tablet 3 mg PO HS PRN sleep #30 tabs 06/12/22 10/14/22 Unknown furosemide 20 mg tablet (Lasix) 20 mg PO DAILY 09/22/22 10/14/22 10/13/22 lamotrigine 150 mg tablet 150 mg PO BID 09/22/22 10/14/22 10/13/22 levetiracetam 750 mg tablet 750 mg PO Q12H 09/22/22 10/14/22 10/13/22 propranolol 20 mg tablet 30 mg PO BID 09/22/22 10/14/22 10/13/22 aspirin 81 mg tablet,delayed 81 mg PO BID #1 tab 09/28/22 10/14/22 10/13/22 release guaifenesin 600 mg tablet, 600 mg PO Q12 #1 tab 09/28/22 10/14/22 10/13/22 extended release 12 hr (Mucinex) sennosides 8.6 mg-docusate sodium 2 tab PO HS #1 tab 09/28/22 10/14/22 10/13/22 50 mg tablet (Senokot-S) albuterol sulfate 90 mcg/actuation 2 puff inhalation Q4H PRN Wheezing 10/14/22 1 12/15/21 Unknown aerosol inhaler fluticasone propionate 50 2 spray intranasal DAILY 10/14/22 10/14/22 10/13/22 mcg/actuation nasal spray,suspension Active Medications Generic Name Dose Route Start Last Admin Trade Name Freq PRN Reason Stop Dose Admin Acetaminophen 650 mg 10/14/22 05:01 10/15/22 20:36 Acetaminophen 325 Mg Tab PO 11/13/22 05:00 650 mg Q4H PRN Administration pain/fever Albuterol 2 puffs 10/14/22 05:01 10/15/22 18:31 Albuterol Hfa 8 Gm Inhaler INH 11/13/22 05:00 2 puffs Q4H PRN Administration Wheezing Fluticasone Propionate 2 sprays 10/14/22 09:00 10/15/22 09:09 Fluticasone Propionate Na Spr 16 Gm Btl NA 11/13/22 08:59 2 sprays DAILY KIMMY Administration Guaifenesin 600 mg 10/14/22 09:00 10/15/22 20:31 Guaifenesin 600 Mg Tabcr PO 11/13/22 08:59 600 mg Q12 KIMMY Administration Hydromorphone HCl 0.5 mg 10/14/22 05:01 10/14/22 11:54 Hydromorphone Inj 0.5 Mg/0.5 Ml Syr IV 10/28/22 05:00 0.5 mg Q3H PRN Administration Pain Sodium Chloride 1,000 mls @ 50 mls/hr 10/15/22 23:59 10/15/22 23:40 Nss 1000ml IV 10/16/22 19:58 50 mls/hr .Q20H KIMMY Administration Lamotrigine 150 mg 10/14/22 09:00 10/15/22 20:32 Lamotrigine 100 Mg Tab PO 11/13/22 08:59 150 mg BID KIMMY Administration Levetiracetam 750 mg 10/14/22 09:00 10/15/22 20:32 Levetiracetam 250 Mg Tab PO 11/13/22 08:59 750 mg Q12H KIMMY Administration Levothyroxine Sodium 112 mcg 10/14/22 06:30 10/16/22 05:21 Levothyroxine Sodium 112 Mcg Tablet PO 11/13/22 06:29 Not Given DAILYBB KIMMY Ondansetron HCl 4 mg 10/14/22 06:27 10/14/22 06:35 Ondansetron Inj 2 Mg/Ml 2 Ml Vial IV 11/13/22 06:26 4 mg Q6H PRN Administration Nausea And Vomiting Propranolol HCl 30 mg 10/14/22 09:00 10/15/22 20:31 Propranolol Hcl 10 Mg Tab PO 11/13/22 08:59 30 mg BID KIMMY Administration Senna/Docusate Sodium 2 tab 10/14/22 21:00 10/15/22 20:33 Docusate Sodium/Senna 50/8.6mg Tab PO 11/13/22 20:59 Not Given HS KIMMY NPO Date Last Intake of Fluids: 10/16/22 Time Last Intake of Fluids: 00:00 Date Last Intake of Solids: 10/16/22 Time Last Intake of Solids: 00:00 Past Medical History Medical History Breast cancer right - lumpectomy, chemo, radiation. 2006 Hypothyroid Leg edema Multiple sclerosis Parkinsonism Peripheral neuropathy Seizure disorder Exercise / Class Metabolic Activity III < 4 Walking/Shop/Light housework Past Family History Family History Father Coronary heart disease Mother Coronary heart disease Stroke Past Surgical History Surgical History H/O splenectomy History of carpal tunnel surgery History of thyroidectomy Past Anesthesia History No Hx of Anesthesia Complications and No Family Hx of Anesthesia Complications History of PONV No Hx of PONV and No Hx of Motion Sickness Social History Smoking Status: Never smoker Do You Dip or Chew Tobacco: No Hx Alcohol Use: No Hx Substance Use: No substance use type: does not use Review of Systems denies fever/cough/ colds/ chest pain/ SOB/ HAILY denies HAILY Physical Exam Vital Signs Last Vital Signs Temp 37.2 C 10/16/22 07:56 Pulse 72 10/16/22 07:56 Resp 16 10/16/22 07:56 BP 131/69 10/16/22 07:56 Pulse Ox 94 10/16/22 07:56 O2 Del Method 10/16/22 07:56 ENMT Mouth: no TMJ abnormality and no dentition abnormality Thyromental Distance: > or= 3.5 Finger Breadths Mallampati Class: II Neck neck extension not limited Respiratory normal respiratory effort; no respiratory distress Auscultation: lungs clear to auscultation bilaterally Cardiovascular Rate/Rhythm: regular rate and regular rhythm Neurologic moves all extremities Psychiatric Orientation: alert and oriented x 3 Testing Laboratory Results 10/16/22 07:11 10/16/22 07:11 PT 10.5 Seconds (9.0-12.0) 10/14/22 01:39 INR 1.0 (0.9-1.1) 10/14/22 01:39 APTT 24.2 Seconds (21.0-31.0) 10/14/22 01:39 Urine Color Yellow 10/14/22 02:15 Urine Appearance Clear (Clear) 10/14/22 02:15 Urine pH 5.5 (4.5-7.5) 10/14/22 02:15 Ur Specific [place] 1.027 (1.000-1.030) 10/14/22 02:15 Urine Protein Negative (Negative) 10/14/22 02:15 Urine Glucose (UA) Negative (Negative) 10/14/22 02:15 Urine Ketones Trace (Negative) H 10/14/22 02:15 Urine Nitrite Negative (Negative) 10/14/22 02:15 Ur Leukocyte Esterase Trace (Negative) H 10/14/22 02:15 Urine WBC (Auto) 10-30 /hpf (0-5) H 10/14/22 02:15 Urine RBC (Auto) 0-4 /hpf (0-4) 10/14/22 02:15 U Hyaline Cast (Auto) 1-5 /lpf (0-5) 10/14/22 02:15 U Epithel Cells (Auto) 10-20 /lpf (0-5) H 10/14/22 02:15 Urine Bacteria (Auto) Negative (Negative) 10/14/22 02:15 10/14/22 02:15 Urine Culture - Preliminary Urine,Straight Cath No growth - Less than 1,000 colonies/mL, Final report to follow.
[2022-10-16] MEDS ORDERED: ceFAZolin 2000MG 2,000 MG/15 ML SYR IV ONE (08:53)
[2022-10-16] MEDS ORDERED: ceFAZolin 330 MG/ML 1 GM VIAL ONE ×2 (08:58)
[2022-10-16] MEDS ORDERED: DEXAMETHASONE SOD INJ 4 MG/ML VIAL ONE (09:36)
[2022-10-16] MEDS ORDERED: ONDANSETRON INJ 2 MG/ML 2 ML VIAL ONE (09:36)
[2022-10-16] MEDS ORDERED: NEOSTIGMINE METHYLSULFATE 1 MG/ML 10ML VIAL ONE (09:54)
[2022-10-16] MEDS ORDERED: GLYCOPYRROLATE 0.2 MG/ML VIAL ONE (09:55)
--- NOTE | 2022-10-16 11:03 | Fluoroscopy Report ---
INTRAOPERATIVE RADIOGRAPHS CLINICAL HISTORY: Periprosthetic femoral fracture. Fluoroscopy time: 6 seconds. FINDINGS: 4 spot fluoroscopic views of the right proximal femur are correlated with radiographs dated 10/14/2022. The head of the arthroplasty has been removed. 2 cerclage wires have been placed round t he stem of the arthroplasty transfixing a periprosthetic fracture. Near anatomic alignment is restore d. IMPRESSION: Intraoperative images of the right proximal femur as above. See operative report for deta iled findings. Electronically signed by: Nick Gudino M.D. 10/16/2022 11:01 AM
--- NOTE | 2022-10-16 11:11 | Post Operative Brief Note ---
Immediate Post Op Note v1 Date of Surgery October 16, 2022 Pre & Post Diagnosis Operation Date: 10/16/22 07:30 Pre-Op Diagnosis: Shital-prosthetic subtrochanteric femur fracture. Post-Op Diagnosis: Shital-prosthetic subtrochanteric femur fracture. I identified the patient and participated in the time-out.: Yes Procedure Operation Date: 10/16/22 07:30 Actual Procedures p Explant Right Hemiarthroplasty, Periprosthetic Femur Fracture Open Reduction Internal Fixation, Revision Right Hemiarthroplasty. (Right) - Pierce Mckeon DO Surgeon Pierce Mckeon DO Account Manager Rufus Garay PAC Estimated Blood Loss 300 Findings Consistent with Post-Op Diagnosis see dictation Complications none
--- NOTE | 2022-10-16 11:20 | Operative Report ---
Post Operative Report Pre & Post Diagnosis Operation Date: 10/16/22 07:30 Pre-Op Diagnosis: Shital-prosthetic subtrochanteric femur fracture. Post-Op Diagnosis: Shital-prosthetic subtrochanteric femur fracture. I identified the patient and participated in the time-out.: Yes Procedure Operation Date: 10/16/22 07:30 Actual Procedures p Explant Right Hemiarthroplasty, Periprosthetic Femur Fracture Open Reduction Internal Fixation, Revision Right Hemiarthroplasty. (Right) - Pierce Mckeon DO Surgeon Pierce Mckeon, Rehabilitation Program Manager Dorys Garay PAC Estimated Blood Loss 300 Findings Consistent with Post-Op Diagnosis See dictation Specimens None Complications None Indications 72-year-old female who recently underwent right hip hemiarthroplasty for displaced right femoral neck fracture several weeks ago. She reports that she was doing well whenever she went to sit down on her wheelchair and her wheelchair slid out from under her causing her to fall directly onto her right hip. She noted immediate pain and deformity. She presented to the emergency department where radiographs were obtained demonstrating a periprosthetic right proximal femur fracture with gross subsidence of the femoral component. She was admitted to medical service and orthopedics was consulted for operative management. Preoperatively I met with the patient we do lengthy discussion regarding open reduction internal fixation of her fracture with revision right hip hemiarthroplasty. After reviewing risk benefits and complications she elected to proceed with surgical intervention and written consent was obtained. Description of Procedure Implants: [employer] beaded cable 2.0 mm X2, [place] yazidi modular distal conical stem 195 mm x 16 mm, yazidi modular proximal body 19 mm +0 height with V 40 taper, universal head bipolar component 44 mm outside diameter, [place] L FIT V 40 femoral head 26 mm outside diameter with -3 mm offset Patient was appropriately marked and identified in the preoperative holding area. She was then taken back to the operative suite where she received anesthesia. She also received Ancef per protocol. She was then positioned in the lateral decubitus position on the Shun table with the right hip facing upwards. She was then prepped and draped in the standard orthopedic fashion. Timeout was then performed. Previous incision was then opened using a scalpel and then extended at the proximal and distal aspects. Electrocautery was used to dissect through the subcutaneous tissue down to the IT band and gluteal fascia. Fascia was then split in line with previous incision and extended proximally and distally. Any residual suture was then removed. Fracture hematoma was encountered. The femoral component was noted to be grossly loose and was able to be removed by hand. Wound was then copiously irrigated. Attention was then turned to reduction of the fracture. The distal spike was identified under the vastus lateralis. Retractors were then placed and a [place] cable was passed around the fracture site distally. Fracture was then reduced as the [place] cable was tightened and it was preliminary held into p osition. Another [place] cable was passed just slightly proximal around the lateral and medial segments trying to incorporate the calcar segment into the reduction. It was then preliminarily tightened as well. Attention was then turned to reaming of the canal. Started with a canal finding reamer the canal was sequentially reamed up to a 16 mm reamer to accommodate a 16 mm tapered stem. 265 mm of total length was selected to adequately bypassed the distal fracture and give 2 cortical diameters of the fixation. This was slightly reamed past the 265 mm dorys. A 195 mm x 16 mm tapered stem was then impacted into the femoral canal. Reamers were then used to ream the proximal body to 19 mm. Trial proximal body was then placed with standard height. Anteversion was then adjusted and marked. A -3 offset 44 mm diameter bipolar head was then inserted onto the trunnion and the hip was then successfully reduced. C-arm fluoroscopy was used to assess fracture reduction which was noted to be satisfactory as well as positioning of the components. The hip was taken through range of motion and noted to be stable and internal and external rotation as well as to shuck test and leg lengths were noted to be satisfactory. Hip was then successfully dislocated and trial head and proximal body segments were then removed. The hip was then copiously irrigated and a standard height 19 mm proximal body was then inserted and impacted into position and then tightened using a torque wrench. Anteversion was kept the same as previously marked. The trunnion was then copiously irrigated and dried and a 44 mm outside diameter with -3 mm offset head was then impacted onto the trunnion. Acetabulum was then checked for any interposing soft tissue and bone fragments and then the hip was successfully relocated. Leg lengths as well as stability in flexion extension internal and external rotation were all assessed and noted to be satisfactory. Dilute Betadine solution was then used to copiously irrigate the wound followed by normal saline solution. T capsulotomy was then closed in a [id number] fashion using 0 Ethibond suture. Combination of 0 Ethibond suture in an interrupted fashion was used to close the IT band and gluteal fascia followed by running oh strata fix suture. Subcutaneous tissues were then copiously irrigated and closed using running 1-0 Vicryl suture followed by 2-0 Vicryl suture in an interrupted fashion and dajuan for the skin. A sterile Silverlon dressing was then placed. The patient tolerated the procedure well and was taken the recovery room in hemodynamically stable condition. Dorys Garay PA-C was present for the duration of the case and assisted with patient positioning, soft tissue management, retraction as well as hip positioning, and incision closure. I attest to the content of the Intraoperative Record and any orders documented therein. Any exceptions are noted below.
--- NOTE | 2022-10-16 12:20 | XRay Report ---
RIGHT HIP 2 VIEWS CLINICAL HISTORY: Postoperative examination. FINDINGS: AP and crosstable lateral views of the right hip are correlated with radiographs of the rig ht femur dated 10/14/2022. The skeletal structures are osteopenic. The revised right hip arthroplasty is in near-anatomic alignment with a long intramedullary stem. 2 cerclage wires are present around t he arthroplasty stem transfixing a periprosthetic fracture. Near anatomic alignment is restored. The visualized right hemipelvis appears intact. Skin clips, soft tissue gas, and subcutaneous edema overl taylor the right hip are expected postoperative changes. IMPRESSION: Expected postoperative findings status post right hip arthroplasty revision and internal fixation of a periprosthetic fracture. Near anatomic alignment is restored. Electronically signed by: Nick Gudino M.D. 10/16/2022 12:19 PM
--- NOTE | 2022-10-16 12:51 | Anesthesiology Progress Note ---
Date of Service October 16, 2022 Anesthesia Post Procedure Vital Signs Vital Signs: Temp Pulse Pulse Resp BP BP Pulse Ox 10/16/22 12:35 36.3 C L 86 19 99/51 L 94 10/16/22 12:25 78 21 99/51 L 90 10/16/22 12:15 76 20 105/55 L 100 10/16/22 12:05 93 H 16 102/49 L 98 10/16/22 11:55 83 24 97/51 L 98 10/16/22 11:45 90 22 94/52 L 97 10/16/22 11:36 36 C L 91 H 22 91/59 L 97 10/16/22 07:56 37.2 C 72 16 131/69 94 10/16/22 07:40 10/15/22 20:30 10/15/22 20:33 37.1 C 78 16 157/64 H 96 10/15/22 18:32 86 18 93 10/15/22 14:41 37.2 C 76 16 118/63 94 O2 Del Method O2 Flow Rate 10/16/22 12:35 Nasal Cannula 2 10/16/22 12:25 Room Air 10/16/22 12:15 Oxymask 2 10/16/22 12:05 Oxymask 4 10/16/22 11:55 Oxymask 4 10/16/22 11:45 Oxymask 6 10/16/22 11:36 Oxymask 6 10/16/22 07:56 Room Air 10/16/22 07:40 Room Air 10/15/22 20:30 Room Air 10/15/22 20:33 Room Air 10/15/22 18:32 Room Air 10/15/22 14:41 Room Air Pain Intensity Right Leg: Pain Intensity: 4 Transfer of Care Handoff Completed per policy Notes Mental Status: alert / awake / arousable and participated in evaluation Patient Amnestic to Procedure: Yes Nausea / Vomiting: adequately controlled Pain: adequately controlled Airway Patency, RR, SpO2: stable & adequate BP & HR: stable & adequate Hydration State: stable & adequate Anesthetic Complications: no major complications apparent and Pt Satisfied with anesthetic care
[2022-10-16] MEDS: guaiFENesin 600 MG TABCR PO SCH ×2 (13:35→20:35)
[2022-10-16] MEDS: PROPRANOLOL HCL 10 MG TAB PO SCH ×2 (13:35→19:09)
[2022-10-16] MEDS: FLUTICASONE PROPIONATE NA SPR 16 GM BTL SCH (13:35)
[2022-10-16] MEDS: levETIRAcetam 250 MG TAB PO SCH ×2 (13:35→20:27)
[2022-10-16] MEDS: lamoTRIgine 100 MG TAB PO SCH ×2 (13:35→20:26)
[2022-10-16] MEDS: ceFAZolin 2000MG 2,000 MG/15 ML SYR IV SCH (17:22)
[2022-10-16] MEDS: SODIUM CHLORIDE 0.9% 1000ML 1,000 ML IV SCH (17:22)
[2022-10-16] MEDS: ACETAMINOPHEN 325 MG TAB PO PRN (20:34)
[2022-10-16] MEDS: DOCUSATE SODIUM/SENNA 50/8.6MG TAB PO SCH (20:36)
[2022-10-16] MEDS ORDERED: ACETAMINOPHEN 1,000 MG/100 ML VIAL IV STA (20:41)
[2022-10-16] MEDS ORDERED: ASPIRIN 81 MG ECTAB PO SCH (21:00)
[2022-10-17] MEDS: ceFAZolin 2000MG 2,000 MG/15 ML SYR IV SCH (01:41)
[2022-10-17] MEDS: ACETAMINOPHEN 325 MG TAB PO PRN ×2 (01:44→11:57)
[2022-10-17] MEDS: SODIUM CHLORIDE 0.9% 1000ML 1,000 ML IV SCH (04:54)
[2022-10-17] MEDS: LEVOTHYROXINE SODIUM 112 MCG TABLET PO SCH (05:52)
[2022-10-17 06:05] LABS: Hematocrit (blood only) 16.2 % (34.1-44.9); Hemoglobin 5.4 g/dl (12.0-16.0); Mean Corpuscular Hemoglobin 31.8 pg (25.0-34.0); Mean Corpuscular Hgb Conc 33.3 g/dL (32.0-36.0); Mean Corpuscular Volume 95.3 fL (80.0-100.0); Mean Platelet Volume 10.1 fL (9.4-12.3); Platelet Count 305 K/uL (130-400); RDW Coefficient of Variation 16.3 % (11.5-14.5); RDW Standard Deviation 56.2 fL (36.4-46.3); White Blood Count 9.23 K/ul (4.8-10.8)
--- NOTE | 2022-10-17 06:08 | Orthopedic Progress Note ---
Date of Service October 17, 2022 POD #1 s/p Explant Right Hemiarthroplasty, Periprosthetic Femur Fracture Open Reduction Internal Fixation, Revision Right Hemiarthroplasty Assessment & Plan (1) Shital-prosthetic subtrochanteric femur fracture: Plan: POD #1 s/p Explant Right Hemiarthroplasty, Periprosthetic Femur Fracture ORIF, Revision Right Hemiarthroplasty PT/OT- WBAT with walker dvt proph with JUSTINA/SCD, ASA will likely need rehab, she states she went to [facility] after her recent fracture Admission and Anticipated Discharge Date Admission Date: October 14, 2022 Subjective denies CP, SOB. denies fever or chills. pain currently well controlled Physical Exam Musculoskeletal: Hip: + hip abnormal to inpsection (silverlon dressing intact) and + ecchymosis; no deformity and no skin erythema calf soft, non-tender. DP +2 Results & Data ([facility]) Vital Signs (Past 12 Hours) Vital Signs Temp Pulse Pulse Resp BP BP Pulse Ox 10/17/22 03:50 36.8 C 94 H 18 106/63 93 10/16/22 20:30 36.7 C 117 H 16 93/51 L 93/55 L 94 10/16/22 22:34 36.8 C 100 H 18 92/55 L 96 10/16/22 18:14 112 H 91/60 L 96 O2 Del Method 10/17/22 03:50 Room Air 10/16/22 20:30 Room Air 10/16/22 22:34 Room Air 10/16/22 18:14 Room Air Laboratory Results Laboratory Results WBC 9.23 K/ul (4.8-10.8) 10/17/22 05:30 RBC 1.70 M/uL (3.93-5.22) L 10/17/22 05:30 Hgb 5.4 g/dl (12.0-16.0) L* D 10/17/22 05:30 Hct 16.2 % (34.1-44.9) L* 10/17/22 05:30 MCV 95.3 fL (80.0-100.0) 10/17/22 05:30 MCH 31.8 pg (25.0-34.0) 10/17/22 05:30 MCHC 33.3 g/dL (32.0-36.0) 10/17/22 05:30 RDW Std Deviation 56.2 fL (36.4-46.3) H 10/17/22 05:30 RDW Coeff of Jia 16.3 % (11.5-14.5) H 10/17/22 05:30 Plt Count 305 K/uL (130-400) 10/17/22 05:30 MPV 10.1 fL (9.4-12.3) 10/17/22 05:30 Immature Gran % (Auto) 0.4 % 10/14/22 07:18 Neut % (Auto) 78.6 % 10/14/22 07:18 Lymph % (Auto) 13.3 % 10/14/22 07:18 [place] % (Auto) 7.1 % 10/14/22 07:18 Eos % (Auto) 0.2 % 10/14/22 07:18 Baso % (Auto) 0.4 % 10/14/22 07:18 Neut # (Auto) 8.45 K/uL (1.4-6.5) H 10/14/22 07:18 Lymph # (Auto) 1.43 K/uL (1.2-3.4) 10/14/22 07:18 Graham # (Auto) 0.76 K/uL (0.24-0.82) 10/14/22 07:18 Eos # (Auto) 0.02 K/uL (0-0.50) 10/14/22 07:18 Baso # (Auto) 0.04 K/uL (0-0.2) 10/14/22 07:18 Immature Gran # (Auto) 0.04 K/uL (0.00-0.02) H 10/14/22 07:18 PT 10.5 Seconds (9.0-12.0) 10/14/22 01:39 INR 1.0 (0.9-1.1) 10/14/22 01:39 APTT 24.2 Seconds (21.0-31.0) 10/14/22 01:39 PTT Ratio 0.9 10/14/22 01:39 Sodium 137 mmol/L (136-145) 10/16/22 07:11 Potassium 3.3 mmol/L (3.5-5.1) L 10/16/22 07:11 Chloride 105 mmol/L (98-107) 10/16/22 07:11 Carbon Dioxide 25 mmol/L (21-32) 10/16/22 07:11 Anion Gap 7 (3-11) 10/16/22 07:11 BUN 9 mg/dl (6-23) 10/16/22 07:11 Creatinine 0.37 mg/dl (0.6-1.2) L 10/16/22 07:11 Est Cr Clr Drug Dosing 110.3 ml/min 10/16/22 07:11 Est GFR ( Amer) 122.0 ml/min 10/16/22 07:11 Est GFR (Non-Af Amer) 105.3 ml/min 10/16/22 07:11 BUN/Creatinine Ratio 24.3 (10-20) H 10/16/22 07:11 Glucose 96 mg/dl (70-99(Fasting)) 10/16/22 07:11 Calcium 7.7 mg/dl (8.5-10.1) L 10/16/22 07:11 Magnesium 1.9 mg/dl (1.7-2.4) 10/14/22 07:18 Total Bilirubin 0.3 mg/dl (0.2-1.0) 10/14/22 01:39 AST 24 U/L (13-39) 10/14/22 01:39 ALT 20 U/L (7-52) 10/14/22 01:39 Alkaline Phosphatase 92 U/L (34-104) 10/14/22 01:39 Total Protein 7.2 gm/dl (6.0-8.3) 10/14/22 01:39 Albumin 3.6 gm/dl (3.4-5.0) 10/14/22 01:39 Globulin 3.6 gm/dl (2.5-4.0) 10/14/22 01:39 Albumin/Globulin Ratio 1.0 (0.9-2) 10/14/22 01:39 Urine Color Yellow 10/14/22 02:15 Urine Appearance Clear (Clear) 10/14/22 02:15 Urine pH 5.5 (4.5-7.5) 10/14/22 02:15 Ur Specific [place] 1.027 (1.000-1.030) 10/14/22 02:15 Urine Protein Negative (Negative) 10/14/22 02:15 Urine Glucose (UA) Negative (Negative) 10/14/22 02:15 Urine Ketones Trace (Negative) H 10/14/22 02:15 Urine Blood Negative (Negative) 10/14/22 02:15 Urine Nitrite Negative (Negative) 10/14/22 02:15 Urine Bilirubin Negative (Negative) 10/14/22 02:15 Urine Urobilinogen Negative (Negative) 10/14/22 02:15 Ur Leukocyte Esterase Trace (Negative) H 10/14/22 02:15 Urine WBC (Auto) 10-30 /hpf (0-5) H 10/14/22 02:15 Urine RBC (Auto) 0-4 /hpf (0-4) 10/14/22 02:15 U Hyaline Cast (Auto) 1-5 /lpf (0-5) 10/14/22 02:15 U Epithel Cells (Auto) 10-20 /lpf (0-5) H 10/14/22 02:15 Urine Bacteria (Auto) Negative (Negative) 10/14/22 02:15 Ur Renal Epithelial Cell Not Reportable 10/14/22 02:15 Nasal Screen MRSA (PCR) Negative (Negative) 10/14/22 06:15 SARS-CoV-2, RNA, NAAT NEGATIVE (NEGATIVE) 10/14/22 01:59 Impressions Chest X-Ray 10/14/22 01:21 XR chest 1V portable HISTORY: 72 years-old Female pre op preoperative exam COMPARISON: Chest radiograph 06/10/2022 TECHNIQUE: AP view of the chest FINDINGS: Cardiac silhouette is mildly enlarged. Atherosclerosis of the aorta. The patient is mildly rotated. No pneumothorax, large pleural effusion or overt pulmonary edema. Chronic interstitial coarsening with mild left basilar atelectasis versus scarring. Degenerative changes of the shoulders and spine. Partially imaged right humeral ORIF hardware. Age-indeterminate subtle fractures of the lateral right ninth and 10th ribs without significant displacement. IMPRESSION: 1. No acute cardiopulmonary abnormality. 2. Subtle age-indeterminate fractures of the lateral right ninth and 10th ribs. Correlate with clinical exam findings. 3. No pneumothorax. ACT 112: Negative or not required by law. The above report was generated using voice recognition software. It may contain grammatical, syntax or spelling errors. Electronically signed by: Pierce Roberson M.D. 10/14/2022 7:59 AM Femur X-Ray 10/16/22 00:00 INTRAOPERATIVE RADIOGRAPHS CLINICAL HISTORY: Periprosthetic femoral fracture. Fluoroscopy time: 6 seconds. FINDINGS: 4 spot fluoroscopic views of the right proximal femur are correlated with radiographs dated 10/14/2022. The head of the arthroplasty has been removed. 2 cerclage wires have been placed round the stem of the arthroplasty transfixing a periprosthetic fracture. Near anatomic alignment is restored. IMPRESSION: Intraoperative images of the right proximal femur as above. See operative report for detailed findings. Electronically signed by: Nick Gudino M.D. 10/16/2022 11:01 AM Hip X-Ray 10/16/22 11:08 RIGHT HIP 2 VIEWS CLINICAL HISTORY: Postoperative examination. FINDINGS: AP and crosstable lateral views of the right hip are correlated with radiographs of the right femur dated 10/14/2022. The skeletal structures are osteopenic. The revised right hip arthroplasty is in near-anatomic alignment with a long intramedullary stem. 2 cerclage wires are present around the arthroplasty stem transfixing a periprosthetic fracture. Near anatomic alignment is restored. The visualized right hemipelvis appears intact. Skin clips, soft tissue gas, and subcutaneous edema overlying the right hip are expected postoperative changes. IMPRESSION: Expected postoperative findings status post right hip arthroplasty revision and internal fixation of a periprosthetic fracture. Near anatomic alignment is restored. Electronically signed by: Nick Gudino M.D. 10/16/2022 12:19 PM
[2022-10-17] MEDS ORDERED: SODIUM CHLORIDE 0.9% 1000ML 1,000 ML IV ONE (06:29)
--- NOTE | 2022-10-17 06:29 | Communication Note ---
Date of Service: October 17, 2022 Made aware by RN of vu hemoglobin of 5.4. No overt bleeding as per RN. AP Postop anemia Transfuse PRBC to maintain hemoglobin greater than 7. Hold aspirin for now, resume when hemoglobin stable.
[2022-10-17] MEDS ORDERED: SODIUM CHLORIDE 0.9% 250 ML IV PRN (06:30)
[2022-10-17 06:45] LABS: Acanthocytes 1+; Basophilic Stippling 1+; Basophils # (auto) 0.02 K/uL (0-0.2); Basophils % (auto) 0.2 %; Eosinophils # (auto) 0.01 K/uL (0-0.50); Eosinophils % (auto) 0.1 %; Immature Granulocytes # (auto) 0.04 K/uL (0.00-0.02); Immature Granulocytes % (auto) 0.4 %; Lymphocytes # (auto) 3.06 K/uL (1.2-3.4); Lymphocytes % (auto) 33.2 %; Monocytes # (auto) 1.41 K/uL (0.24-0.82); Monocytes % (auto) 15.3 %; Neutrophils # (auto) 4.69 K/uL (1.4-6.5); Neutrophils % (auto) 50.8 %; Polychromasia 1+
[2022-10-17 06:46] LABS: BUN Creatinine Ratio 28.9 (10-20); Calcium 7.2 mg/dl (8.5-10.1); Creatinine Clr Calc Pharmacy 90.7 ml/min; Est GFR (African American) 114.4 ml/min; Est GFR (Non-African American) 98.7 ml/min; Potassium 3.5 mmol/L (3.5-5.1)
[2022-10-17] MEDS: lamoTRIgine 100 MG TAB PO SCH ×2 (08:56→20:50)
[2022-10-17] MEDS: guaiFENesin 600 MG TABCR PO SCH ×2 (08:56→20:51)
[2022-10-17] MEDS: FLUTICASONE PROPIONATE NA SPR 16 GM BTL SCH (08:56)
[2022-10-17] MEDS: levETIRAcetam 250 MG TAB PO SCH ×2 (08:56→20:53)
--- NOTE | 2022-10-17 13:33 | Hospitalist Progress Note ---
Date of Service October 17, 2022 Assessment & Plan (1) Closed right femoral fracture: Plan: (1) Mechanical fall (2) Femoral neck fracture: Present on admission after mechanical fall XR right femur showed right hip total joint arthroplasty with acute, angulated, displaced and mildly comminuted periprosthetic fracture. Ortho on board S/P day #1 Explant Right Hemiarthroplasty, Periprosthetic Femur Fracture ORIF, Revision Right Hemiarthroplasty performed by Dr. Mckeon Continue pain control PT/OT eval WBAT with walker as per ortho Continue monitor H/H Fall precaution Will need inpatient rehab Anemia of acute blood loss related to recent surgical ortho intervention Hgb dropped to 5.6 this morning Typed and crossed and transfused 2 units PRBC Aspirin on hold due to low hgb Continue monitor H//H Will transfer to PCU to continue monitor closely Multiple sclerosis: Follows with [facility] Previously on Copaxone. States hasn't used for over 1 year secondary to hernandez of medication. Parkinsonism: History Parkinsonism with likely essential tremor Will hold propranolol due to low BP Hypotension Due to hypovolemia from recent surgery related to blood loss Continue gentle hydration She is getting 2 units PRBC currently Lasix and propranolol on hold, will resume once BP stable Seizure disorder: No recent seizure reported Continue Lamictal, Keppra Hypothyroidism H/O Thyroidectomy Continue levothyroxine DVT Prophylaxis On SCD - Anticipate surgery today Code status Full code Admission and Anticipated Discharge Date Admission Date: October 14, 2022 Subjective Pt was seen and examined for postop follow up Lying in bed with no acute distress Pt said that she feels weak this morning Her Hgb dropped to 5.6 this morning Denies any chest pain, palpitation, dizziness and SOB Review of Systems Review of Systems: All systems reviewed & are unremarkable except as noted in Subjective Physical Exam Physical Exam: General- No acute distress Head- atraumatic Eyes- PERRL, EOMI, ENT- oropharynx clear Neck- supple, no JVD Lungs- clear to auscultation Heart- +tachycardia, no murmur Abdomen- normal bowel sounds, soft, nontender Extremities- no calf tenderness, Right hip pain Neuro- alert, oriented x 3; PERRL, EOMI; no facial palsy; no dysarthria Skin- warm & dry Results & Data Results & Data ([facility]) Vital Signs (Past 12 Hours) Vital Signs Temp Pulse Pulse Pulse Resp BP BP 12/18/22 12:10 37.2 C 110 H 20 104/48 L 10/17/22 11:55 37.2 C 102 H 18 106/59 L 10/17/22 11:36 37.0 C 120 H 16 87/61 L 10/17/22 11:18 37.0 C 97 H 16 114/46 L 10/17/22 10:30 37.0 C 100 H 22 110/54 L 10/17/22 10:00 37.1 C 107 H 16 109/42 L 10/17/22 09:47 10/17/22 09:28 37.1 C 110 H 16 93/48 L 10/17/22 08:58 36.8 C 115 H 16 105/58 L 10/17/22 08:43 36.7 C 104 H 18 101/58 L 10/17/22 08:26 36.8 C 99 H 18 93/52 L 10/17/22 07:51 36.9 C 100 H 16 94/61 L 10/17/22 03:50 36.8 C 94 H 18 106/63 Pulse Ox O2 Del Method 10/17/22 12:10 95 10/17/22 11:55 94 10/17/22 11:36 94 10/17/22 11:18 98 10/17/22 10:30 92 10/17/22 10:00 95 10/17/22 09:47 Room Air 10/17/22 09:28 94 10/17/22 08:58 94 10/17/22 08:43 92 10/17/22 08:26 93 10/17/22 07:51 95 Room Air 10/17/22 03:50 93 Room Air (1) Closed right femoral fracture Encounter type: initial encounter Femur location: unspecified portion of femur Fracture morphology: unspecified fracture morphology Qualified Code(s): S72.91XA - Unspecified fracture of right femur, initial encounter for closed fracture
[2022-10-17 20:19] LABS: Hematocrit (blood only) 23.3 % (34.1-44.9)
[2022-10-17] MEDS: DOCUSATE SODIUM/SENNA 50/8.6MG TAB PO SCH (20:51)
[2022-10-18 05:23] LABS: Hematocrit (blood only) 22.5 % (34.1-44.9); Hemoglobin 7.6 g/dl (12.0-16.0); Mean Corpuscular Hemoglobin 30.9 pg (25.0-34.0); Mean Corpuscular Hgb Conc 33.8 g/dL (32.0-36.0); Mean Corpuscular Volume 91.5 fL (80.0-100.0); Mean Platelet Volume 9.9 fL (9.4-12.3); Nucleated RBC # (auto) 0.13 K/uL (0-0); Nucleated RBC % (auto) 1.5 %; Platelet Count 255 K/uL (130-400); RDW Coefficient of Variation 17.1 % (11.5-14.5); RDW Standard Deviation 54.1 fL (36.4-46.3); Red Blood Count 2.46 M/uL (3.93-5.22); White Blood Count 8.58 K/ul (4.8-10.8)
[2022-10-18 05:39] LABS: BUN Creatinine Ratio 25.7 (10-20); Calcium 7.2 mg/dl (8.5-10.1); Creatinine Clr Calc Pharmacy 116.7 ml/min; Est GFR (African American) 124.3 ml/min; Est GFR (Non-African American) 107.2 ml/min; Potassium 3.2 mmol/L (3.5-5.1)
[2022-10-18] MEDS: LEVOTHYROXINE SODIUM 112 MCG TABLET PO SCH (06:24)
[2022-10-18] MEDS: lamoTRIgine 100 MG TAB PO SCH ×2 (07:27→21:28)
[2022-10-18] MEDS: levETIRAcetam 250 MG TAB PO SCH ×2 (07:27→21:29)
[2022-10-18] MEDS: FLUTICASONE PROPIONATE NA SPR 16 GM BTL SCH (07:28)
[2022-10-18] MEDS: guaiFENesin 600 MG TABCR PO SCH ×2 (07:28→21:28)
--- NOTE | 2022-10-18 07:28 | Orthopedic Progress Note ---
Date of Service October 18, 2022 Assessment & Plan (1) Shital-prosthetic subtrochanteric femur fracture: Plan: POD #2 s/p Explant Right Hemiarthroplasty, Periprosthetic Femur Fracture ORIF, Revision Right Hemiarthroplasty PT/OT- WBAT with walker dvt proph with JUSTINA/SCD, ASA will likely need rehab, she states she went to [facility] after her recent fracture transfused yesterday, H/H 7.6/22.5 today ortho will sign off, please contact with any questions or concerns. she will need f/u with Dr Mckeon in 14-16 days, for appt Admission and Anticipated Discharge Date Admission Date: October 14, 2022 Subjective POD #2 s/p Explant Right Hemiarthroplasty, Periprosthetic Femur Fracture Open Reduction Internal Fixation, Revision Right Hemiarthroplasty Review of Systems Constitutional: no fever and no chills Respiratory: no cough and no dyspnea Cardiovascular: no chest pain, no dyspnea and no orthopnea Gastrointestinal: no abdominal pain, no nausea and no vomiting Physical Exam Physical Exam: Vital Signs Temp 36.9 C 10/18/22 04:00 Pulse 81 10/18/22 04:00 Resp 26 H 10/18/22 04:00 BP 119/53 L 10/18/22 04:00 Pulse Ox 93 10/18/22 04:00 O2 Del Method 10/18/22 04:00 O2 Flow Rate 2 10/16/22 14:10 Intake & Output 10/17/22 10/18/22 10/18/22 18:59 06:59 18:59 Intake Total 1221.667 / 2220.00 0 998.333 / 2220.000 Output Total 250 / 1400 1150 / 1400 Balance 971.667 / 820.000 -151.667 / 820.000 Intake: IV 1.667 / 1000.000 998.333 / 1000.000 Sodium Chlorid e 0.9% 1000ML 1, 1.667 / 1000.000 998.333 / 1000.000 000 ml @ 100 m ls/hr IV .Q10H ONE Rx#:[id number] Oral 600 / 600 Intake (Blood Pr oduct) Amt 620 / 620 Packed Cells, Leukoreduced 310 / 310 Unit [id number] Packed Cells, Leukoreduced 310 / 310 Unit [id number] Output: Urine Amount (Ca theter) 250 / 1400 1150 / 1400 Ignacio/Indwelli ng 250 / 1400 1150 / 1400 Musculoskeletal: Hip: + hip abnormal to inpsection (silverlon dressing intact) and + ecchymosis; no deformity and no skin erythema Results & Data ([facility]) Vital Signs (Past 12 Hours) Vital Signs Temp Pulse Pulse Resp BP Pulse Ox O2 Del Method 10/18/22 04:00 36.9 C 81 26 H 119/53 L 93 Room Air 10/18/22 00:00 36.9 C 83 24 101/52 L 92 Room Air 10/18/22 00:00 78 10/17/22 20:00 36.7 C 99 H 23 108/52 L 93 Room Air Laboratory Results Laboratory Results WBC 8.58 K/ul (4.8-10.8) 10/18/22 04:56 RBC 2.46 M/uL (3.93-5.22) L 10/18/22 04:56 Hgb 7.6 g/dl (12.0-16.0) L 10/18/22 04:56 Hct 22.5 % (34.1-44.9) L 10/18/22 04:56 MCV 91.5 fL (80.0-100.0) 10/18/22 04:56 MCH 30.9 pg (25.0-34.0) 10/18/22 04:56 MCHC 33.8 g/dL (32.0-36.0) 10/18/22 04:56 RDW Std Deviation 54.1 fL (36.4-46.3) H 10/18/22 04:56 RDW Coeff of Jia 17.1 % (11.5-14.5) H 10/18/22 04:56 Plt Count 255 K/uL (130-400) 10/18/22 04:56 MPV 9.9 fL (9.4-12.3) 10/18/22 04:56 Immature Gran % (Auto) 0.4 % 10/17/22 05:30 Neut % (Auto) 50.8 % 10/17/22 05:30 Lymph % (Auto) 33.2 % 10/17/22 05:30 Laramie % (Auto) 15.3 % 10/17/22 05:30 Eos % (Auto) 0.1 % 10/17/22 05:30 Baso % (Auto) 0.2 % 10/17/22 05:30 Neut # (Auto) 4.69 K/uL (1.4-6.5) 10/17/22 05:30 Lymph # (Auto) 3.06 K/uL (1.2-3.4) 10/17/22 05:30 [place]ie # (Auto) 1.41 K/uL (0.24-0.82) H 10/17/22 05:30 Eos # (Auto) 0.01 K/uL (0-0.50) 10/17/22 05:30 Baso # (Auto) 0.02 K/uL (0-0.2) 10/17/22 05:30 Immature Gran # (Auto) 0.04 K/uL (0.00-0.02) H 10/17/22 05:30 Absolute Nucleated RBC 0.13 K/uL (0-0) H 10/18/22 04:56 Nucleated RBC % (auto) 1.5 % 10/18/22 04:56 Polychromasia 1+ 10/17/22 05:30 Basophilic Stippling 1+ 10/17/22 05:30 Acanthocytes (Spur) 1+ 10/17/22 05:30 PT 10.5 Seconds (9.0-12.0) 10/14/22 01:39 INR 1.0 (0.9-1.1) 10/14/22 01:39 APTT 24.2 Seconds (21.0-31.0) 10/14/22 01:39 PTT Ratio 0.9 10/14/22 01:39 Sodium 139 mmol/L (136-145) 10/18/22 04:56 Potassium 3.2 mmol/L (3.5-5.1) L 10/18/22 04:56 Chloride 108 mmol/L (98-107) H 10/18/22 04:56 Carbon Dioxide 27 mmol/L (21-32) 10/18/22 04:56 Anion Gap 4 (3-11) 10/18/22 04:56 BUN 9 mg/dl (6-23) 10/18/22 04:56 Creatinine 0.35 mg/dl (0.6-1.2) L 10/18/22 04:56 Est Cr Clr Drug Dosing 116.7 ml/min 10/18/22 04:56 Est GFR ( Amer) 124.3 ml/min 10/18/22 04:56 Est GFR (Non-Af Amer) 107.2 ml/min 10/18/22 04:56 BUN/Creatinine Ratio 25.7 (10-20) H 10/18/22 04:56 Glucose 102 mg/dl (70-99(Fasting)) H 10/18/22 04:56 Calcium 7.2 mg/dl (8.5-10.1) L 10/18/22 04:56 Magnesium 1.9 mg/dl (1.7-2.4) 10/14/22 07:18 Total Bilirubin 0.3 mg/dl (0.2-1.0) 10/14/22 01:39 AST 24 U/L (13-39) 10/14/22 01:39 ALT 20 U/L (7-52) 10/14/22 01:39 Alkaline Phosphatase 92 U/L (34-104) 10/14/22 01:39 Total Protein 7.2 gm/dl (6.0-8.3) 10/14/22 01:39 Albumin 3.6 gm/dl (3.4-5.0) 10/14/22 01:39 Globulin 3.6 gm/dl (2.5-4.0) 10/14/22 01:39 Albumin/Globulin Ratio 1.0 (0.9-2) 10/14/22 01:39 25-OH Vitamin D Total 20.6 ng/ml (30-100) L 10/17/22 05:30 Urine Color Yellow 10/14/22 02:15 Urine Appearance Clear (Clear) 10/14/22 02:15 Urine pH 5.5 (4.5-7.5) 10/14/22 02:15 Ur Specific Jordan 1.027 (1.000-1.030) 10/14/22 02:15 Urine Protein Negative (Negative) 10/14/22 02:15 Urine Glucose (UA) Negative (Negative) 10/14/22 02:15 Urine Ketones Trace (Negative) H 10/14/22 02:15 Urine Blood Negative (Negative) 10/14/22 02:15 Urine Nitrite Negative (Negative) 10/14/22 02:15 Urine Bilirubin Negative (Negative) 10/14/22 02:15 Urine Urobilinogen Negative (Negative) 10/14/22 02:15 Ur Leukocyte Esterase Trace (Negative) H 10/14/22 02:15 Urine WBC (Auto) 10-30 /hpf (0-5) H 10/14/22 02:15 Urine RBC (Auto) 0-4 /hpf (0-4) 10/14/22 02:15 U Hyaline Cast (Auto) 1-5 /lpf (0-5) 10/14/22 02:15 U Epithel Cells (Auto) 10-20 /lpf (0-5) H 10/14/22 02:15 Urine Bacteria (Auto) Negative (Negative) 10/14/22 02:15 Ur Renal Epithelial Cell Not Reportable 10/14/22 02:15 Nasal Screen MRSA (PCR) Negative (Negative) 10/14/22 06:15 SARS-CoV-2, RNA, NAAT NEGATIVE (NEGATIVE) 10/14/22 01:59 Blood Type A Positive 10/17/22 05:30 Antibody Screen NEGATIVE 10/17/22 05:30 Crossmatch See Detail 10/17/22 05:30 Impressions Chest X-Ray 10/14/22 01:21 XR chest 1V portable HISTORY: 72 years-old Female pre op preoperative exam COMPARISON: Chest radiograph 06/10/2022 TECHNIQUE: AP view of the chest FINDINGS: Cardiac silhouette is mildly enlarged. Atherosclerosis of the aorta. The patient is mildly rotated. No pneumothorax, large pleural effusion or overt pulmonary edema. Chronic interstitial coarsening with mild left basilar atelectasis versus scarring. Degenerative changes of the shoulders and spine. Partially imaged right humeral ORIF hardware. Age-indeterminate subtle fractures of the lateral right ninth and 10th ribs without significant displacement. IMPRESSION: 1. No acute cardiopulmonary abnormality. 2. Subtle age-indeterminate fractures of the lateral right ninth and 10th ribs. Correlate with clinical exam findings. 3. No pneumothorax. ACT 112: Negative or not required by law. The above report was generated using voice recognition software. It may contain grammatical, syntax or spelling errors. Electronically signed by: Pierce Roberson M.D. 10/14/2022 7:59 AM Femur X-Ray 10/16/22 00:00 INTRAOPERATIVE RADIOGRAPHS CLINICAL HISTORY: Periprosthetic femoral fracture. Fluoroscopy time: 6 seconds. FINDINGS: 4 spot fluoroscopic views of the right proximal femur are correlated with radiographs dated 10/14/2022. The head of the arthroplasty has been removed. 2 cerclage wires have been placed round the stem of the arthroplasty transfixing a periprosthetic fracture. Near anatomic alignment is restored. IMPRESSION: Intraoperative images of the right proximal femur as above. See operative report for detailed findings. Electronically signed by: Nick Gudino M.D. 10/16/2022 11:01 AM Hip X-Ray 10/16/22 11:08 RIGHT HIP 2 VIEWS CLINICAL HISTORY: Postoperative examination. FINDINGS: AP and crosstable lateral views of the right hip are correlated with radiographs of the right femur dated 10/14/2022. The skeletal structures are osteopenic. The revised right hip arthroplasty is in near-anatomic alignment with a long intramedullary stem. 2 cerclage wires are present around the arthroplasty stem transfixing a periprosthetic fracture. Near anatomic alignment is restored. The visualized right hemipelvis appears intact. Skin clips, soft tissue gas, and subcutaneous edema overlying the right hip are expected postoperative changes. IMPRESSION: Expected postoperative findings status post right hip arthroplasty revision and internal fixation of a periprosthetic fracture. Near anatomic alignment is restored. Electronically signed by: Nick Gudino M.D. 10/16/2022 12:19 PM
[2022-10-18] MEDS ORDERED: POTASSIUM CHLORIDE CRTAB 20 MEQ TABCR PO STA (07:45)
[2022-10-18] MEDS: ACETAMINOPHEN 325 MG TAB PO PRN ×2 (08:22→17:16)
[2022-10-18 19:14] LABS: Hematocrit (blood only) 23.8 % (34.1-44.9); Hemoglobin 7.9 g/dl (12.0-16.0)
--- NOTE | 2022-10-18 20:24 | Hospitalist Progress Note ---
Date of Service October 18, 2022 Assessment & Plan (1) Closed right femoral fracture: Plan: (1) Mechanical fall (2) Femoral neck fracture: Present on admission after mechanical fall XR right femur showed right hip total joint arthroplasty with acute, angulated, displaced and mildly comminuted periprosthetic fracture. Ortho on board S/P day #2 Explant Right Hemiarthroplasty, Periprosthetic Femur Fracture ORIF, Revision Right Hemiarthroplasty performed by Dr. Mckeon Continue pain control Continue PT/OT eval WBAT with walker as per ortho Continue monitor H/H Fall precaution Will need inpatient rehab Anemia of acute blood loss related to recent surgical ortho intervention Hgb dropped to 5.6 this morning Typed and crossed and transfused 2 units PRBC Hgb 7.6 this morning, will repeat Hgb Aspirin on hold due to low hgb Continue monitor H//H Multiple sclerosis: Follows with [facility] Previously on Copaxone. States hasn't used for over 1 year secondary to hernandez of medication. Parkinsonism: History Parkinsonism with likely essential tremor propranolol was on hold due to low BP Will resume propranolol Hypotension Due to hypovolemia from recent surgery related to blood loss Continue gentle hydration Receive 2 units PRBC Lasix and propranolol were on hold BP stable Seizure disorder: No recent seizure reported Continue Lamictal, Keppra Hypothyroidism H/O Thyroidectomy Continue levothyroxine DVT Prophylaxis On SCD Will resume aspirin bid if hgb stable Code status Full code Admission and Anticipated Discharge Date Admission Date: October 14, 2022 Subjective Pt was seen and examined for postop follow up Lying in bed with no acute distress watching TV She said that pain is improved Denies any chest pain, palpitation, dizziness and SOB Review of Systems Review of Systems: All systems reviewed & are unremarkable except as noted in Subjective Physical Exam Physical Exam: General- No acute distress Head- atraumatic Eyes- PERRL, EOMI, ENT- oropharynx clear Neck- supple, no JVD Lungs- clear to auscultation Heart- +tachycardia, no murmur Abdomen- normal bowel sounds, soft, nontender Extremities- no calf tenderness, Right hip pain Neuro- alert, oriented x 3; PERRL, EOMI; no facial palsy; no dysarthria Skin- warm & dry Results & Data Results & Data ([facility]) Vital Signs (Past 12 Hours) Vital Signs Pulse Resp BP Pulse Ox O2 Del Method O2 Flow Rate 12/19/22 16:06 99 H 20 129/70 98 Nasal Cannula 4 10/18/22 15:23 108 H 10/18/22 11:54 108 H 10/18/22 11:53 108 H 20 127/62 98 Nasal Cannula 4 (1) Closed right femoral fracture Encounter type: initial encounter Femur location: unspecified portion of femur Fracture morphology: unspecified fracture morphology Qualified Code(s): S72.91XA - Unspecified fracture of right femur, initial encounter for closed fracture
[2022-10-18] MEDS: DOCUSATE SODIUM/SENNA 50/8.6MG TAB PO SCH (21:31)
[2022-10-18] MEDS: ONDANSETRON INJ 2 MG/ML 2 ML VIAL IV PRN (22:31)
[2022-10-19 05:11] LABS: Hematocrit (blood only) 21.3 % (34.1-44.9); Hemoglobin 7.1 g/dl (12.0-16.0); Mean Corpuscular Hgb Conc 33.3 g/dL (32.0-36.0); Mean Platelet Volume 9.5 fL (9.4-12.3); Nucleated RBC # (auto) 0.09 K/uL (0-0); Nucleated RBC % (auto) 1.1 %; Platelet Count 239 K/uL (130-400); RDW Coefficient of Variation 17.2 % (11.5-14.5); RDW Standard Deviation 56.6 fL (36.4-46.3); Red Blood Count 2.29 M/uL (3.93-5.22); White Blood Count 8.35 K/ul (4.8-10.8)
[2022-10-19 05:47] LABS: BUN Creatinine Ratio 24.2 (10-20); Calcium 7.3 mg/dl (8.5-10.1); Creatinine Clr Calc Pharmacy 123.7 ml/min; Est GFR (African American) 126.7 ml/min; Est GFR (Non-African American) 109.3 ml/min; Potassium 4.2 mmol/L (3.5-5.1)
[2022-10-19] MEDS: LEVOTHYROXINE SODIUM 112 MCG TABLET PO SCH (05:48)
[2022-10-19] MEDS: guaiFENesin 600 MG TABCR PO SCH ×2 (09:51→20:31)
[2022-10-19] MEDS: levETIRAcetam 250 MG TAB PO SCH ×2 (09:51→20:32)
[2022-10-19] MEDS: lamoTRIgine 100 MG TAB PO SCH ×2 (09:51→20:32)
[2022-10-19] MEDS: FLUTICASONE PROPIONATE NA SPR 16 GM BTL SCH (09:52)
[2022-10-19 10:11] LABS: Hematocrit (blood only) 24.6 % (34.1-44.9); Hemoglobin 8.1 g/dl (12.0-16.0)
[2022-10-19] MEDS: ACETAMINOPHEN 325 MG TAB PO PRN ×2 (12:08→17:36)
--- NOTE | 2022-10-19 15:38 | Hospitalist Progress Note ---
Date of Service October 19, 2022 Assessment & Plan (1) Closed right femoral fracture: Plan: (1) Mechanical fall (2) Femoral neck fracture: Present on admission after mechanical fall XR right femur showed right hip total joint arthroplasty with acute, angulated, displaced and mildly comminuted periprosthetic fracture. Ortho on board S/P day #3 Explant Right Hemiarthroplasty, Periprosthetic Femur Fracture ORIF, Revision Right Hemiarthroplasty performed by Dr. Mckeon Continue pain control Continue PT/OT eval WBAT with walker as per ortho Continue monitor H/H Fall precaution Will need inpatient rehab Anemia of acute blood loss related to recent surgical ortho intervention Hgb dropped to 5.6 this morning Typed and crossed and transfused 2 units PRBC Hgb 8.1 today Aspirin on hold due to low hgb, will consider to resume in am if hgb continues to increase Continue monitor H//H Multiple sclerosis: Follows with [facility] Previously on Copaxone. States hasn't used for over 1 year secondary to hernandez of medication. Parkinsonism: History Parkinsonism with likely essential tremor propranolol was on hold due to low BP propranolol resumed today Hypotension Due to hypovolemia from recent surgery related to blood loss Continue gentle hydration Receive 2 units PRBC Plan to resume lasix in am BP stable Seizure disorder: No recent seizure reported Continue Lamictal, Keppra Hypothyroidism H/O Thyroidectomy Continue levothyroxine DVT Prophylaxis On SCD Will resume aspirin bid if hgb stable tomorrow Code status Full code Disposition Plan to go to rehab Admission and Anticipated Discharge Date Admission Date: October 14, 2022 Subjective Pt was seen and examined for postop follow up Lying in bed with no acute distress watching TV She said that pain is improved significantly She saturated well on RA Denies any chest pain, palpitation, dizziness and SOB Review of Systems Review of Systems: All systems reviewed & are unremarkable except as noted in Subjective Physical Exam Physical Exam: General- No acute distress Head- atraumatic Eyes- PERRL, EOMI, ENT- oropharynx clear Neck- supple, no JVD Lungs- clear to auscultation Heart- +tachycardia, no murmur Abdomen- normal bowel sounds, soft, nontender Extremities- no calf tenderness, Right hip pain Neuro- alert, oriented x 3; PERRL, EOMI; no facial palsy; no dysarthria Skin- warm & dry Results & Data Results & Data ([facility]) Vital Signs (Past 12 Hours) Vital Signs Temp Pulse Resp BP Pulse Ox O2 Del Method 10/19/22 10:00 100 H 16 10/19/22 10:00 125/75 10/19/22 09:00 108 H 22 10/19/22 08:00 115 H 22 10/19/22 08:00 114/58 L 10/19/22 07:00 79 20 93 10/19/22 06:00 94 H 20 93 10/19/22 06:00 115/60 10/19/22 08:00 Room Air 10/19/22 07:30 36.8 C 10/19/22 07:33 82 10/19/22 05:54 37.0 C 10/19/22 05:40 91 H 15 95 10/19/22 05:40 106/58 L 10/19/22 04:00 88 23 93 Room Air 10/19/22 04:00 87/50 L (1) Closed right femoral fracture Encounter type: initial encounter Femur location: unspecified portion of femur Fracture morphology: unspecified fracture morphology Qualified Code(s): S72.91XA - Unspecified fracture of right femur, initial encounter for closed fracture
[2022-10-19] MEDS: DOCUSATE SODIUM/SENNA 50/8.6MG TAB PO SCH (20:44)
[2022-10-19] MEDS: PROPRANOLOL HCL 10 MG TAB PO SCH (20:45)
[2022-10-19] MEDS: HYDROmorphone INJ 0.5 MG/0.5 ML SYR IV PRN (22:09)
[2022-10-19] MEDS: ONDANSETRON INJ 2 MG/ML 2 ML VIAL IV PRN (22:09)
[2022-10-20] MEDS: LEVOTHYROXINE SODIUM 112 MCG TABLET PO SCH (05:56)
[2022-10-20 06:26] LABS: Hemoglobin 7.8 g/dl (12.0-16.0); Mean Corpuscular Hgb Conc 32.5 g/dL (32.0-36.0); Mean Corpuscular Volume 95.2 fL (80.0-100.0); Mean Platelet Volume 9.9 fL (9.4-12.3); Nucleated RBC # (auto) 0.14 K/uL (0-0); Nucleated RBC % (auto) 2.1 %; Platelet Count 297 K/uL (130-400); RDW Coefficient of Variation 17.4 % (11.5-14.5); RDW Standard Deviation 58.3 fL (36.4-46.3); Red Blood Count 2.52 M/uL (3.93-5.22)
[2022-10-20 06:45] LABS: BUN Creatinine Ratio 26.3 (10-20); Calcium 7.7 mg/dl (8.5-10.1); Creatinine Clr Calc Pharmacy 107.4 ml/min; Est GFR (African American) 120.9 ml/min; Est GFR (Non-African American) 104.4 ml/min; Potassium 3.8 mmol/L (3.5-5.1)
[2022-10-20] MEDS: lamoTRIgine 100 MG TAB PO SCH ×2 (07:53→21:19)
[2022-10-20] MEDS: levETIRAcetam 250 MG TAB PO SCH ×2 (07:53→21:20)
[2022-10-20] MEDS: PROPRANOLOL HCL 10 MG TAB PO SCH ×2 (07:54→21:20)
[2022-10-20] MEDS: FUROSEMIDE 20 MG TAB PO SCH (07:54)
[2022-10-20] MEDS: guaiFENesin 600 MG TABCR PO SCH ×2 (07:54→21:19)
[2022-10-20] MEDS: FLUTICASONE PROPIONATE NA SPR 16 GM BTL SCH (09:20)
[2022-10-20] MEDS: HYDROmorphone INJ 0.5 MG/0.5 ML SYR IV PRN ×2 (11:02→21:21)
--- NOTE | 2022-10-20 12:10 | Hospitalist Progress Note ---
Date of Service October 20, 2022 Assessment & Plan (1) Closed right femoral fracture: Plan: (1) Mechanical fall (2) Femoral neck fracture: Present on admission after mechanical fall XR right femur showed right hip total joint arthroplasty with acute, angulated, displaced and mildly comminuted periprosthetic fracture. S/P day #4 Explant Right Hemiarthroplasty, Periprosthetic Femur Fracture ORIF, Revision Right Hemiarthroplasty performed by Dr. Mckeon Pain is reasonably controlled l Continue PT/OT eval WBAT with walker as per ortho Fall precaution Will need inpatient rehab Anemia of acute blood loss related to recent surgical ortho intervention Hgb dropped to 5.6 on 10/17/2022 Typed and crossed and transfused 2 units PRBC Hemoglobin remained stable at 7.8 since of this month Aspirin on hold due to low hgb, will consider to resume in am if hgb continues to increase Will start aspirin from today Multiple sclerosis: Follows with [facility] Previously on Copaxone. States hasn't used for over 1 year secondary to hernandez of medication. Parkinsonism: History Parkinsonism with likely essential tremor propranolol was on hold due to low BP propranolol resumed No significant parkinsonian symptoms at rest Hypotension Due to hypovolemia from recent surgery related to blood loss Continue gentle hydration Receive 2 units PRBC Plan to resume lasix in am BP stable Seizure disorder: No recent seizure reported Continue Lamictal, Keppra Hypothyroidism H/O Thyroidectomy Continue levothyroxine DVT Prophylaxis On SCD Will resume aspirin bid if hgb stable tomorrow Code status Full code Disposition Plan to go to rehab Likely to be discharged tomorrow Admission and Anticipated Discharge Date Admission Date: October 14, 2022 Subjective 10/20/2022 The patient was seen and examined in ICU with telemetry status She has been feeling much better and denies any significant pain in the right hip She does have some swelling involving the legs mostly the right side Denies any other significant symptoms Review of Systems Review of Systems: All systems reviewed and are unremarkable except as noted below Physical Exam Physical Exam: Lying in bed without any acute distress Constitutional: well developed, well nourished, + ill appearing and average body habitus Eyes: PERRL, conjunctivae normal, anicteric sclerae ENMT: external ear and nose normal, oropharynx normal Neck: trachea midline, no thyromegaly Respiratory: no respiratory distress Auscultation: lungs clear to auscultation bilaterally Cardiovascular: Rate/Rhythm: regular rate and regular rhythm; not tachycardic Heart Sounds: normal S1 and normal S2; no murmur Extremities: + edema (1+ edema bilaterally more on the right than the left) Gastrointestinal (Abdomen): Inspection/Auscultation: normal bowel sounds; abdomen not distended Percussion/Palpation: abdomen soft; abdomen nontender Musculoskeletal: Right hip pain with movement but no other acute arthritis Neurologic: Alert, awake and oriented x3. Generally weak but no focal sensory or motor deficit appreciated Psychiatric: A+Ox3, euthymic affect Lymphatic: no cervical or axillary lymphadenopathy Results & Data Results & Data ([facility]) Vital Signs (Past 12 Hours) Vital Signs Temp Pulse Resp BP Pulse Ox 10/20/22 11:32 66 10/20/22 10:00 66 21 10/20/22 10:00 109/58 L 10/20/22 08:00 78 23 95 10/20/22 08:00 133/70 10/20/22 07:46 130/74 10/20/22 07:46 106 H 15 94 10/20/22 06:45 87 20 94 10/20/22 08:00 90 10/20/22 06:10 90 25 H 93 10/20/22 06:00 94 H 26 H 91 10/20/22 06:00 130/69 10/20/22 05:50 86 26 H 92 10/20/22 05:40 89 21 94 10/20/22 05:30 89 22 94 10/20/22 05:20 80 21 93 10/20/22 05:10 93 H 19 95 10/20/22 05:00 78 22 93 10/20/22 04:50 79 27 H 93 10/20/22 04:40 79 18 92 10/20/22 04:30 97 H 16 94 10/20/22 04:20 79 25 H 93 10/20/22 04:10 83 18 94 10/20/22 04:00 75 16 93 10/20/22 04:00 119/59 L 10/20/22 03:49 36.8 C 10/20/22 02:00 80 16 94 10/20/22 02:00 107/69 Laboratory Results Short CBC 10/20/22 Range/Units 05:39 WBC 6.80 (4.8-10.8) K/ul Hgb 7.8 L (12.0-16.0) g/dl Hct 24.0 L (34.1-44.9) % Plt Count 297 (130-400) K/uL [facility] 10/20/22 05:39 Sodium 138 Potassium 3.8 Chloride 103 Carbon Dioxide 30 BUN 10 Creatinine 0.38 L Glucose 99 Calcium 7.7 L Medications Administered Current Inpatient Medications Acetaminophen (Acetaminophen 325 Mg Tab) 650 mg PO Q4H PRN PRN Reason: pain/fever Stop: 11/13/22 05:00 Last Admin: 10/19/22 17:36 Dose: 650 mg Albuterol (Albuterol Hfa 8 Gm Inhaler) 2 puffs INH Q4H PRN PRN Reason: Wheezing Stop: 11/13/22 05:00 Last Admin: 10/15/22 18:31 Dose: 2 puffs Aspirin (Aspirin 81 Mg Ectab) 81 mg PO BID [facility] Stop: 11/15/22 20:59 Last Admin: 10/16/22 20:35 Dose: 81 mg Fluticasone Propionate (Fluticasone Propionate Na Spr 16 Gm Btl) 2 sprays NA DAILY KIMMY Stop: 11/13/22 08:59 Last Admin: 10/20/22 09:20 Dose: 2 sprays Furosemide (Furosemide 20 Mg Tab) 20 mg PO QAM KIMMY Stop: 11/19/22 08:59 Last Admin: 10/20/22 07:54 Dose: 20 mg Guaifenesin (Guaifenesin 600 Mg Tabcr) 600 mg PO Q12 KIMMY Stop: 11/13/22 08:59 Last Admin: 10/20/22 07:54 Dose: 600 mg Hydromorphone HCl (Hydromorphone Inj 0.5 Mg/0.5 Ml Syr) 0.5 mg IV Q3H PRN PRN Reason: Pain Stop: 10/28/22 05:00 Last Admin: 10/20/22 11:02 Dose: 0.5 mg Lamotrigine (Lamotrigine 100 Mg Tab) 150 mg PO BID [facility] Stop: 11/13/22 08:59 Last Admin: 10/20/22 07:53 Dose: 150 mg Levetiracetam (Levetiracetam 250 Mg Tab) 750 mg PO Q12H KIMMY Stop: 11/13/22 08:59 Last Admin: 10/20/22 07:53 Dose: 750 mg Levothyroxine Sodium (Levothyroxine Sodium 112 Mcg Tablet) 112 mcg PO DAILYBB [facility] Stop: 11/13/22 06:29 Last Admin: 10/20/22 05:56 Dose: 112 mcg Melatonin (Melatonin 3 Mg Tab) 3 mg PO HS PRN PRN Reason: sleep Stop: 11/13/22 05:00 Ondansetron HCl (Ondansetron Inj 2 Mg/Ml 2 Ml Vial) 4 mg IV Q6H PRN PRN Reason: Nausea And Vomiting Stop: 11/13/22 06:26 Last Admin: 10/19/22 22:09 Dose: 4 mg Polyethylene Glycol (Polyethylene (Miralax) 17 Gm Pack) 17 gm PO DAILY PRN PRN Reason: Constipation Stop: 11/13/22 05:00 Propranolol HCl (Propranolol Hcl 10 Mg Tab) 30 mg PO BID [facility] Stop: 11/13/22 08:59 Last Admin: 10/20/22 07:54 Dose: 30 mg Senna/Docusate Sodium (Docusate Sodium/Senna 50/8.6mg Tab) 2 tab PO HS [facility] Stop: 11/13/22 20:59 Last Admin: 10/19/22 20:44 Dose: Not Given (1) Closed right femoral fracture Encounter type: initial encounter Femur location: unspecified portion of femur Fracture morphology: unspecified fracture morphology Qualified Code(s): S72.91XA - Unspecified fracture of right femur, initial encounter for closed fracture
[2022-10-20] MEDS: ASPIRIN 81 MG ECTAB PO SCH ×2 (12:32→21:18)
[2022-10-20] MEDS: ACETAMINOPHEN 325 MG TAB PO PRN (14:26)
[2022-10-20] MEDS: DOCUSATE SODIUM/SENNA 50/8.6MG TAB PO SCH (21:18)
[2022-10-20] MEDS: ONDANSETRON INJ 2 MG/ML 2 ML VIAL IV PRN (21:21)
[2022-10-21] MEDS: LEVOTHYROXINE SODIUM 112 MCG TABLET PO SCH (05:02)
[2022-10-21 05:11] LABS: Basophils # (auto) 0.03 K/uL (0-0.2); Basophils % (auto) 0.5 %; Eosinophils # (auto) 0.58 K/uL (0-0.50); Eosinophils % (auto) 8.8 %; Hematocrit (blood only) 24.1 % (34.1-44.9); Hemoglobin 7.8 g/dl (12.0-16.0); Immature Granulocytes # (auto) 0.04 K/uL (0.00-0.02); Immature Granulocytes % (auto) 0.6 %; Lymphocytes # (auto) 1.81 K/uL (1.2-3.4); Lymphocytes % (auto) 27.6 %; Mean Corpuscular Hemoglobin 30.8 pg (25.0-34.0); Mean Corpuscular Hgb Conc 32.4 g/dL (32.0-36.0); Mean Corpuscular Volume 95.3 fL (80.0-100.0); Mean Platelet Volume 9.6 fL (9.4-12.3); Monocytes # (auto) 0.83 K/uL (0.24-0.82); Monocytes % (auto) 12.7 %; Neutrophils # (auto) 3.27 K/uL (1.4-6.5); Neutrophils % (auto) 49.8 %; Nucleated RBC # (auto) 0.27 K/uL (0-0); Nucleated RBC % (auto) 4.1 %; Platelet Count 340 K/uL (130-400); RDW Coefficient of Variation 17.1 % (11.5-14.5); RDW Standard Deviation 57.7 fL (36.4-46.3); Red Blood Count 2.53 M/uL (3.93-5.22); White Blood Count 6.56 K/ul (4.8-10.8)
[2022-10-21 05:34] LABS: Hypochromasia Present; Polychromasia 1+
[2022-10-21 05:36] LABS: BUN Creatinine Ratio 30.4 (10-20); Calcium 7.9 mg/dl (8.5-10.1); Creatinine Clr Calc Pharmacy 88.8 ml/min; Est GFR (African American) 113.6 ml/min; Potassium 3.9 mmol/L (3.5-5.1)
[2022-10-21] MEDS: PROPRANOLOL HCL 10 MG TAB PO SCH (07:43)
[2022-10-21] MEDS: FUROSEMIDE 20 MG TAB PO SCH (07:43)
[2022-10-21] MEDS: FLUTICASONE PROPIONATE NA SPR 16 GM BTL SCH (07:43)
[2022-10-21] MEDS: levETIRAcetam 250 MG TAB PO SCH (07:43)
[2022-10-21] MEDS: guaiFENesin 600 MG TABCR PO SCH (07:43)
[2022-10-21] MEDS: ASPIRIN 81 MG ECTAB PO SCH (07:43)
[2022-10-21] MEDS: lamoTRIgine 100 MG TAB PO SCH (07:43)
[2022-10-21] MEDS: ACETAMINOPHEN 325 MG TAB PO PRN (08:07)
--- NOTE | 2022-10-21 10:36 | Hospitalist Progress Note ---
Date of Service October 21, 2022 Assessment & Plan (1) Closed right femoral fracture: Plan: (1) Mechanical fall (2) Femoral neck fracture: Present on admission after mechanical fall XR right femur showed right hip total joint arthroplasty with acute, angulated, displaced and mildly comminuted periprosthetic fracture. S/P day #5 Explant Right Hemiarthroplasty, Periprosthetic Femur Fracture ORIF, Revision Right Hemiarthroplasty performed by Dr. Mckeon Pain is reasonably controlled l Continue PT/OT eval WBAT with walker as per ortho Fall precaution [facility] 12 noon on 10/21/2022 she will need f/u with Dr Mckeon in 14-16 days, for appt Anemia of acute blood loss related to recent surgical ortho intervention Hgb dropped to 5.6 on 10/17/2022 Typed and crossed and transfused 2 units PRBC Hemoglobin remained stable at 7.8 since of this month Aspirin on hold due to low hgb, will consider to resume in am if hgb continues to increase Will start aspirin from today Hemoglobin remained stable Multiple sclerosis: Follows with [facility] Previously on Copaxone. States hasn't used for over 1 year secondary to hernandez of medication. Parkinsonism: History Parkinsonism with likely essential tremor propranolol was on hold due to low BP propranolol resumed No significant parkinsonian symptoms at rest Hypotension Due to hypovolemia from recent surgery related to blood loss Continue gentle hydration Receive 2 units PRBC Plan to resume lasix in am BP stable Seizure disorder: No recent seizure reported Continue Lamictal, Keppra Hypothyroidism H/O Thyroidectomy Continue levothyroxine DVT Prophylaxis On SCD Will resume aspirin bid if hgb stable tomorrow Code status Full code Disposition Plan to go to rehab [facility] Admission and Anticipated Discharge Date Admission Date: October 14, 2022 Subjective 10/20/2022 The patient was seen and examined in ICU with telemetry status She has been feeling much better and denies any significant pain in the right hip She does have some swelling involving the legs mostly the right side Denies any other significant symptoms 10/21/2022 The patient was seen and examined in ICU with telemetry status She has been stable and her hemoglobin remained stable too She has started with aspirin for DVT prophylaxis from yesterday Denies any significant symptoms Review of Systems Review of Systems: All systems reviewed and are unremarkable except as noted below Physical Exam Physical Exam: Sitting on a chair without any acute distress Constitutional: well developed, well nourished and average body habitus; not ill appearing Eyes: PERRL, conjunctivae normal, anicteric sclerae ENMT: external ear and nose normal, oropharynx normal Neck: trachea midline, no thyromegaly Respiratory: no respiratory distress Auscultation: lungs clear to auscultation bilaterally Cardiovascular: Rate/Rhythm: regular rate and regular rhythm; not tachycardic Heart Sounds: normal S1 and normal S2; no murmur Extremities: + edema (1+ edema bilaterally more on the right than the left) Gastrointestinal (Abdomen): Inspection/Auscultation: normal bowel sounds; abdomen not distended Percussion/Palpation: abdomen soft; abdomen nontender Musculoskeletal: No significant pain involving any joints except right hip Neurologic: Alert, awake and oriented x3. Generally weak but no focal sensory or no motor deficit appreciated Psychiatric: A+Ox3, euthymic affect Lymphatic: no cervical or axillary lymphadenopathy Results & Data Results & Data ([facility]) Vital Signs (Past 12 Hours) Vital Signs Temp Pulse Pulse Resp BP Pulse Ox O2 Del Method 10/21/22 08:41 74 16 123/66 94 Room Air 10/21/22 05:01 37.2 C 10/21/22 00:00 82 10/20/22 22:46 36.7 C Laboratory Results Short CBC 10/21/22 Range/Units 04:57 WBC 6.56 (4.8-10.8) K/ul Hgb 7.8 L (12.0-16.0) g/dl Hct 24.1 L (34.1-44.9) % Plt Count 340 (130-400) K/uL BMP 10/21/22 04:57 Sodium 136 Potassium 3.9 Chloride 100 Carbon Dioxide 32 BUN 14 Creatinine 0.46 L Glucose 111 H Calcium 7.9 L Medications Administered Current Inpatient Medications Acetaminophen (Acetaminophen 325 Mg Tab) 650 mg PO Q4H PRN PRN Reason: pain/fever Stop: 11/13/22 05:00 Last Admin: 10/21/22 08:07 Dose: 650 mg Albuterol (Albuterol Hfa 8 Gm Inhaler) 2 puffs INH Q4H PRN PRN Reason: Wheezing Stop: 11/13/22 05:00 Last Admin: 10/15/22 18:31 Dose: 2 puffs Aspirin (Aspirin 81 Mg Ectab) 81 mg PO BID [facility] Stop: 11/15/22 20:59 Last Admin: 10/16/22 20:35 Dose: 81 mg Aspirin (Aspirin 81 Mg Ectab) 81 mg PO BID [facility] Stop: 11/19/22 12:14 Last Admin: 10/21/22 07:43 Dose: 81 mg Fluticasone Propionate (Fluticasone Propionate Na Spr 16 Gm Btl) 2 sprays NA DAILY KIMMY Stop: 11/13/22 08:59 Last Admin: 10/21/22 07:43 Dose: 2 sprays Furosemide (Furosemide 20 Mg Tab) 20 mg PO QAM [facility] Stop: 11/19/22 08:59 Last Admin: 10/21/22 07:43 Dose: 20 mg Guaifenesin (Guaifenesin 600 Mg Tabcr) 600 mg PO Q12 KIMMY Stop: 11/13/22 08:59 Last Admin: 10/21/22 07:43 Dose: 600 mg Hydromorphone HCl (Hydromorphone Inj 0.5 Mg/0.5 Ml Syr) 0.5 mg IV Q3H PRN PRN Reason: Pain Stop: 10/28/22 05:00 Last Admin: 10/20/22 21:21 Dose: 0.5 mg Lamotrigine (Lamotrigine 100 Mg Tab) 150 mg PO BID [facility] Stop: 11/13/22 08:59 Last Admin: 10/21/22 07:43 Dose: 150 mg Levetiracetam (Levetiracetam 250 Mg Tab) 750 mg PO Q12H KIMMY Stop: 11/13/22 08:59 Last Admin: 10/21/22 07:43 Dose: 750 mg Levothyroxine Sodium (Levothyroxine Sodium 112 Mcg Tablet) 112 mcg PO DAILYBB [facility] Stop: 11/13/22 06:29 Last Admin: 10/21/22 05:02 Dose: 112 mcg Melatonin (Melatonin 3 Mg Tab) 3 mg PO HS PRN PRN Reason: sleep Stop: 11/13/22 05:00 Ondansetron HCl (Ondansetron Inj 2 Mg/Ml 2 Ml Vial) 4 mg IV Q6H PRN PRN Reason: Nausea And Vomiting Stop: 11/13/22 06:26 Last Admin: 10/20/22 21:21 Dose: 4 mg Polyethylene Glycol (Polyethylene (Miralax) 17 Gm Pack) 17 gm PO DAILY PRN PRN Reason: Constipation Stop: 11/13/22 05:00 Propranolol HCl (Propranolol Hcl 10 Mg Tab) 30 mg PO BID [facility] Stop: 11/13/22 08:59 Last Admin: 10/21/22 07:43 Dose: 30 mg Senna/Docusate Sodium (Docusate Sodium/Senna 50/8.6mg Tab) 2 tab PO HS [facility] Stop: 11/13/22 20:59 Last Admin: 10/20/22 21:18 Dose: Not Given (1) Closed right femoral fracture Encounter type: initial encounter Femur location: unspecified portion of femur Fracture morphology: unspecified fracture morphology Qualified Code(s): S72.91XA - Unspecified fracture of right femur, initial encounter for closed fracture
--- NOTE | 2022-10-21 16:42 | Discharge Summary ---
Date of Service October 21, 2022 Admission HPI Per Admitting Provider DICTATED BY:Jason Sim MD DATE OF ADMISSION: 10/14/2022. CHIEF COMPLAINT: Status post fall, right femur fracture. HISTORY OF PRESENT ILLNESS: This is a 72-year-old female with past medical history significant for MS, tremor, parkinsonism, lower extremity edema, seizure disorder, history of thyroidectomy, right breast cancer, status post lumpectomy, chemo and radiation. She lives in [facility] personal assisted living. Presents with fall and found to have right hip fracture. The patient was recently in the hospital last week of August with a mechanical fall and right femoral neck fracture, status post right bipolar hemiarthroplasty and she was discharged to [facility]. The patient says she is walking with a walker since last 2 weeks, and she was discharged to [facility] a couple of days ago. She also has a wheelchair and she mistook the break and she fell forward on the right hip again, and in a lot of pain. She did not hit her head, no loss of consciousness, and brought in here and x-ray is showing again right comminuted periprosthetic fracture.. Ortho was notified by the ER. Currently, resting comfortably and hemodynamically stable. The patient says she was having bronchitis for some time now and she was treated with antibiotics, finished a course of antibiotics a couple of days ago, but still has some mild cough. Occasionally, brings whitish phlegm. No shortness of breath, no chest pain, no fever, no chills, no headache, no blurred visions, no earache, no runny nose, no sore throat. Appetite is okay. No difficulty swallowing. No nausea, no abdominal pain. Normal bowel and bladder movements. Admission Exam Per Admitting Provider GENERAL: The patient is of moderate build, not in acute distress. VITAL SIGNS: Temperature 36.9, pulse 56, respiratory rate 20, blood pressure 183/94, oxygen 95% on room air. HEENT: Pupils equal, round and reactive to light. Oral mucosa moist. NECK: No JVD, no neck masses. CARDIOVASCULAR: S1 and S2 heard. Regular rate and rhythm. No murmur, no gallop. RESPIRATORY SYSTEM: Normal AP diameter. No accessory muscle use. No wheezing or crackles. ABDOMEN: Soft, bowel sounds present, nontender, no distention. CENTRAL NERVOUS SYSTEM: Cranial nerves II-XII grossly intact, nonfocal. EXTREMITIES: Right lower extremity shortened and externally rotated. No edema or erythema seen. Principal Diagnosis Close right femoral fracture status post revision of right hemiarthroplasty, mechanical fall, acute blood loss anemia required 2 units of blood transfusion, multiple sclerosis, Parkinson disease Discharge Exam Sitting on a chair without any acute distress Constitutional well developed, well nourished and average body habitus; not ill appearing Eyes PERRL, conjunctivae normal, anicteric sclerae ENMT external ear and nose normal, oropharynx normal Neck trachea midline, no thyromegaly Respiratory no respiratory distress Auscultation: lungs clear to auscultation bilaterally Cardiovascular Rate/Rhythm: regular rate and regular rhythm; not tachycardic Heart Sounds: normal S1 and normal S2; no murmur Extremities: + edema (1+ edema bilaterally more on the right than the left) Gastrointestinal (Abdomen) Inspection/Auscultation: normal bowel sounds; abdomen not distended Percussion/Palpation: abdomen soft; abdomen nontender Psychiatric A+Ox3, euthymic affect Lymphatic no cervical or axillary lymphadenopathy Discharge Data Allergies Allergy/AdvReac Type Severity Reaction Status Date / Time Penicillins Allergy Intermediate Hives Verified 10/14/22 00:36 amoxicillin Allergy Unknown ON Verified 10/14/22 00:36 [facility] erythromycin base Allergy Unknown ON Verified 10/14/22 00:36 [facility] tetracycline Allergy Unknown Unknown Verified 10/14/22 00:36 Consultations 10/14/22 02:54 ED Decision to Admit Stat 10/14/22 08:00 Consult Orthopedic Surgery Routine Procedures Performed Operation Date: 10/16/22 07:30 Actual Procedures p Explant Right Hemiarthroplasty, Periprosthetic Femur Fracture Open Reduction Internal Fixation, Revision Right Hemiarthroplasty. (Right) - Pierce Mckeon, Ordered Studies 10/16/22 FL femur RT 2V Routine Hospital Course (1) Closed right femoral fracture: (1) Mechanical fall (2) Femoral neck fracture: Present on admission after mechanical fall XR right femur showed right hip total joint arthroplasty with acute, angulated, displaced and mildly comminuted periprosthetic fracture. S/P day #5 Explant Right Hemiarthroplasty, Periprosthetic Femur Fracture ORIF, Revision Right Hemiarthroplasty performed by Dr. Mckeon Pain is reasonably controlled l Continue PT/OT eval WBAT with walker as per ortho Fall precaution Will be going to [facility] at 12 noon on 10/21/2022 she will need f/u with Dr Mckeon in 14-16 days, for appt Anemia of acute blood loss related to recent surgical ortho intervention Hgb dropped to 5.6 on 10/17/2022 Typed and crossed and transfused 2 units PRBC Hemoglobin remained stable at 7.8 since of this month Aspirin on hold due to low hgb, will consider to resume in am if hgb continues to increase Will start aspirin from today Hemoglobin remained stable Multiple sclerosis: Follows with [facility] Previously on Copaxone. States hasn't used for over 1 year secondary to hernandez of medication. Parkinsonism: History Parkinsonism with likely essential tremor propranolol was on hold due to low BP propranolol resumed No significant parkinsonian symptoms at rest Hypotension Due to hypovolemia from recent surgery related to blood loss Continue gentle hydration Receive 2 units PRBC Plan to resume lasix in am BP stable Seizure disorder: No recent seizure reported Continue Lamictal, Keppra Hypothyroidism H/O Thyroidectomy Continue levothyroxine DVT Prophylaxis On SCD Will resume aspirin bid if hgb stable tomorrow Code status Full code Disposition Plan to go to rehab To be discharged to [facility] this afternoon Total Time Total Time Spent Total Time Spent (In Minutes): 40 minutes Discharge Plan Discharge Items Patient Disposition: Transfer Inpatient Rehab Fac Reason For Visit: FALL Discharge Diagnosis: Close right femoral fracture status post revision of right hemiarthroplasty, mec hanical fall, acute blood loss anemia required 2 units of blood transfusion, multiple sclerosis, Parkinson disease Condition on Discharge: Fair Activity: As commented below Activity Comment: PT/OT- WBAT with walker Non-emergency contact: Primary Care Provider Call non-emergency contact if: you have any medication questions and your symptoms worsen Follow-up/Referrals: [facility] CAILIN WINTER [Primary Care Provider] - (Will need f/u with Dr Mckeon in 14-16 days, for appt) Diet: Heart Healthy Addtl Attending Provider Instructions: Please take precautions to avoid falls Keep appointment with your healthcare provider Addtl Pointing Machine Operator Provider Instructions: ACTIVITY RECOMMENDATIONS: SELF CARE INSTRUCTIONS AFTER HIP SURGERY Until the incision and soft tissues around your hip have healed, there is a possibility that the hip prosthesis could dislocate. A. Observe the following precautions to prevent dislocation: 1. Don't bend your hip greater than 90 degrees. 2. Avoid crossing your legs or ankles while standing or lying. 3. Sit with your feet placed 6 inches apart. 4. When sitting, keep your knees below your hips. Sit on a firm surface, avoid deep, soft chairs and couches. Use an elevated toilet seat in the bathroom. 5. Don't bend over at the waist. Use a long handled shoehorn and a sock aid to help you put on your shoes and socks. A steeping press tender can help you vegetable picker objects that are too high or too low to reach. 6. Keep car riding to a minimum for at least one month after surgery. B. Your balance may be shaky for a while. Use crutches or a walker until directed by your doctor. C. Use hand rails when walking on stairs. D. Wear low heeled shoes with non-slip soles. E. Be sure that your floors are free of things that could trip you - throw rugs, electrical cords, small objects. Avoid wet and waxed floors, especially with crutches and canes. F. Try to walk several times a day with rest periods between. G. Continue with all the exercises taught to you in the hospital. Again, make walking a part of your daily routine. SPECIAL CARE INSTRUCTIONS: VERY IMPORTANT TO READ AND REVIEW A. You may still be at risk for phlebitis and blood clots. 1. Wear surgical stockings (JUSTINA hose) for 2 weeks after surgery to improve circulation and reduce swelling. 2. Take Aspirin 81mg twice daily for 4 weeks or as directed by your doctor. This is your blood thinner. 3. High risk patients may be prescribed a stronger blood thinner if necessary. 4. If you are on Coumadin normally, your family doctor/workforce management coordinator should monitor your blood work. Expect a phone call the day of or the day after bloodwork is drawn to adjust your dosage. B. You must take antibiotics before having dental work, bladder, bowel and other surgery. Your doctor will provide you with a permanent card to carry describing precautions. C. Call [facility] [place] if you have a fever, redness or swelling around the incision, cloudy drainage from incision, or sudden increase in pain in your hip, not relieved by your regular pain medication. D. Please call the office at if you have any concerns or questions about your operation or recovery. * YOU MAY SHOWER, NO TUB BATHS UNTIL CLEARED BY YOUR DOCTOR. * WEAR JUSTINA HOSE 20 HOURS PER DAY FOR 2 WEEKS. * YOU SHOULD USE A WALKER OR CRUTCHES FOR 2-4 WEEKS. THIS WILL HELP PREVENT STRAIN ON YOUR HIP MUSCLE AND ALLOW IT TO HEAL PROPERLY. YOU MAY WEAN TO A CANE TOLERATED. * MOST PATIENTS WILL HAVE HOME NURSING FOR THERAPY. IF YOU DECIDE TO DO OUTPATIENT PHYSICAL THERAPY, PLEASE SCHEDULE THIS 3 TIMES PER WEEK. * YOU MAY HAVE A LARGE, BAND-THANIA LIKE DRESSING (SILVERON). THIS WILL REMAIN ON YOUR INCISION FOR 7 DAYS, THEN CAN BE REMOVED. IF INCISION IS LEAKING THROUGH DRESSING, PLEASE CALL THE OFFICE . SPECIAL CARE INSTRUCTIONS: VERY IMPORTANT TO READ AND REVIEW A. There are a few signs you need to watch for after you are home. [facility] [place] notice any of the followin. Increased severe pain.Somepain is expected especially when you exercise. 2. Increased swelling in your leg or knee; pain or swelling of the calf muscle ineitherlower leg. 3. Any fluid drainage from the incision. 4. Shortness of breath or chest pain. B. [phone] you haveany concerns or questions about your operation or recovery. The doctor or his nurse will return your call promptly. C. You must take antibiotics before dental work, bladder, bowel or other surgery. Your doctor will provide you with a permanent care to carry describing this precaution. IMPORTANT: * REMEMBER TO TAKE ASPIRIN, 81 MG, TWICE DAILY FOR 4 WEEKS UNLESS OTHERWISE DIRECTED. THIS IS YOUR BLOOD THINNER. * CALL IF INCREASED PAIN, REDNESS, DRAINAGE OR FEVER GREATER THAT 101. * WEAR JUSTINA HOSE 20 HOURS PER DAY FOR 2 WEEKS. *Silverlon- This is a large adhesive bandage that contains silver ions. This helps your incision heal by fighting off bacteria and protecting it from the outside environment. You are permitted to shower with this dressing. This will remain on your incision for 7 days and then should be removed. Some visible blood or drainage through the dressing window is normal. If there is significant drainage or leaking noted before the 7 days notify your doctor's office immediately. Once removed, keep incision clean and dry. If there is any drainage or redness noted, please call your surgeon. . FOLLOW UP VISIT: If appointment is not already scheduled: [facility] a follow-up appointment for 2 weeks after your surgery [phone]. Pending Studies at Discharge: No Stand-Alone Forms: My [facility] Skilled Items Patient informed of condition?: Yes DNR: No Discharge Level of Care: Acute rehab Communicable Disease: No Discharge Prognosis: Stable Lines: None Urinary Catheter: No Medications and DC Order Prescriptions: Continued lamotrigine 150 mg tablet 150 mg PO BID levetiracetam 750 mg tablet 750 mg PO Q12H furosemide [Lasix] 20 mg Tablet 20 mg PO DAILY propranolol 20 mg Tablet 30 mg PO BID sennosides-docusate sodium [Senokot-S] 8.6-50 mg Tablet 2 tab PO HS Qty: 1 0RF aspirin 81 mg Tablet,Delayed Release (Dr/Ec) 81 mg PO BID Qty: 1 0RF guaifenesin [Mucinex] 600 mg Tablet Extended Release 12hr 600 mg PO Q12 Qty: 1 0RF albuterol sulfate 90 mcg/actuation Hfa Aerosol Inhaler 2 puff INHALATION Q4H PRN (Reason: Wheezing) fluticasone propionate 50 mcg/actuation [place],Suspension 2 spray INTRANASAL DAILY Rx Instructions: administer into each nostril acetaminophen 325 mg Tablet 650 mg PO Q4H MDD 3 GRAMS/24 HOURS PRN (Reason: fever or pain) Qty: 60 0RF melatonin 3 mg Tablet 3 mg PO HS PRN (Reason: sleep) Qty: 30 0RF levothyroxine 112 mcg tablet 112 mcg PO QAM Qty: 30 0RF Discharge Orders: Discharge Order (Routine); Ordered 10/21/22 Ordered By: Polo Martins Admission Data Admit Date/Time: 10/14/22 02:54 Attending Provider: Polo Martins Admit Provider: Jason Sim Primary Care Provider: [facility] Other Providers: [facility] ; Jason Sim ; Pierce Mckeon Other Interventions: Discharge Summary Assessment (RN) Last Done: 10/21/22 11:30
== END 2022-10-21 11:59 | DRG 467 ==
LOC: ED 00:02 → 3W 02:54 → SUATTDRO 02:54 → 3W 04:32 → 1E 10-17 08:44